=== PATIENT | female | born 1950 | race Caucasian/White ===

== ENCOUNTER 2020-07-31 15:28 | Outpatient (REF) | payer OTHER, SELFPAY ==
--- NOTE | 2020-07-31 15:33 | US_ITS ---
EXAMINATION: US RETROPERITONEAL LIMITED (RENAL ONLY) CLINICAL INFORMATION: Unspecified abdominal pain. COMPARISON: None TECHNIQUE: Real-time imaging of the kidneys. FINDINGS: RIGHT KIDNEY: 12.0 x 4.0 x 6.2 cm (SAG x AP x TRV). There is diffuse renal cortical thinning and increased renal cortical echogenicity. The kidney is normal in size and contour. No focal parenchymal lesions or hydronephrosis. Several echogenic, shadowing right renal calculi are seen including 8 mm and 4 mm lower pole calculi and a 1.7 cm calculus in the right mid kidney. LEFT KIDNEY: 13.5 x 4.1 x 4.7 cm (SAG x AP x TRV). There is diffuse renal cortical thinning and increased renal cortical echogenicity. The kidney is normal in size and contour. No renal calculi or hydronephrosis. 1.6 and 1.9 cm anechoic simple cysts are seen in the left kidney. US/US renal BI IMPRESSION: Bilateral renal cortical thinning and increased renal cortical echogenicity consistent with medical renal disease. Several echogenic shadowing right renal calculi are seen, the largest 1.7 cm in the right mid kidney. No hydronephrosis bilaterally.
== END 2020-07-31 15:29 | disposition home or self-care (01) ==
LOC: HO.HMGCX 15:28
PROVIDERS: PCP Internal Medicine; Visit Provider Nurse Practitioner Family
DX: R10.9 Unspecified abdominal pain (principal); R31.9 Hematuria, unspecified
CPT/HCPCS: 76775

== ENCOUNTER 2021-02-15 12:45 | Outpatient (REF) | payer MEDICARE, SELFPAY ==
[2021-02-15 14:09] LABS: MANUAL DIFF FLAG NO
[2021-02-15 14:14] LABS: Basophils Absolute Auto 0.1 X10*3/uL (0.0-0.2); Basophils Percent Auto 0.7 % (0-2); Eosinophils Absolute Auto 0.1 X10*3/uL (0.0-0.4); Eosinophils Percent Auto 1.9 % (0-4); Hemoglobin 14.9 g/dl (12.0-16.0); Imm Gran Abs Auto 0.02 X10*3/uL (0.00-0.03); Imm Gran Pct Auto 0.3 % (0.0-0.4); Lymphocytes Absolute Auto 1.4 X10*3/uL (1.2-4.9); Lymphocytes Percent Auto 18.5 % (20-40); Mean Corpuscular HGB Conc 32.4 g/dl (31.0-35.0); Mean Corpuscular Volume 98.9 fL (80-98); Mean Platelet Volume 10.2 fL (9.4-12.3); Monocytes Absolute Auto 0.5 X10*3/uL (0.1-1.2); Monocytes Percent Auto 7.2 % (2-11); Neutrophils Absolute Auto 5.3 X10*3/uL (2.0-8.3); Neutrophils Percent Auto 71.4 % (45-73); Platelet Count 164 X10*3/uL (160-400); Red Blood Count 4.65 X10*6/uL (4.20-5.50); Red Cell Distribution Width 13.2 % (11.0-16.0); White Blood Count 7.5 X10*3/uL (4.8-10.8)
[2021-02-15 14:29] LABS: Alanine Aminotransferase 23 U/L (0-31); Albumin Level 3.3 g/dL (3.5-5.0); Alkaline Phosphatase 80 U/L (39-117); Anion Gap 15 (12-20); Aspartate Amino Transferase 37 U/L (5-31); Blood Urea Nitrogen 10 mg/dL (9-16); Calcium 8.9 mg/dL (8.4-10.2); Carbon Dioxide 27 mmol/L (22-29); Chloride 102 mmol/L (96-108); Cholesterol 152 mg/dL; Estimated Glomerular Filt Rate 52; Glucose Fasting 226 mg/dL (60-99); HDL Cholesterol 40 mg/dL; LDL Cholesterol Calculated 92 mg/dl; Potassium 4.6 mmol/L (3.3-5.1); Sodium 139 mmol/L (135-145); Total Protein 7.1 g/dL (6.5-8.0); Triglycerides 100 mg/dL
[2021-02-15 14:37] LABS: Creatinine Urine 117.72 mg/dL; Microalbum/Creatinine Ratio Ur 316.8 ug/mg cr
[2021-02-15 14:52] LABS: Vitamin D 25-OH Total 10.8 ng/mL (>30)
== END 2021-02-15 12:46 | disposition home or self-care (01) ==
LOC: HO.HMGCLDS 12:45
PROVIDERS: PCP Internal Medicine; Visit Provider Internal Medicine
DX: R10.9 Unspecified abdominal pain (principal); E11.65 Type 2 diabetes mellitus with hyperglycemia; E66.01 Morbid (severe) obesity due to excess calories; N39.46 Mixed incontinence; Z79.4 Long term (current) use of insulin
CPT/HCPCS: 36415; 80048; 80053; 80061; 82043; 82306; 85025

== ENCOUNTER → 2021-04-06 13:59 | Outpatient (BNVA) | payer MEDICARE, SELFPAY | PROVIDERS: PCP Internal Medicine | DX: N39.46 Mixed incontinence (principal); N20.0 Calculus of kidney | CPT/HCPCS: 51798; 99202 ==

== ENCOUNTER → 2021-05-06 09:49 | Outpatient (BNVA) | payer MEDICARE, SELFPAY | PROVIDERS: PCP Internal Medicine | DX: N39.46 Mixed incontinence (principal); N20.0 Calculus of kidney | CPT/HCPCS: Q3014 ==

== ENCOUNTER 2021-05-27 10:11 | Outpatient (REF) | payer MEDICARE, SELFPAY ==
[2021-05-27 12:09] LABS: Estimated Average Glucose 200 mg/dL; Hemoglobin A1c % 8.6 %
[2021-05-27 13:09] LABS: Alanine Aminotransferase 25 U/L (0-31); Albumin Level 3.1 g/dL (3.5-5.0); Alkaline Phosphatase 70 U/L (39-117); Anion Gap 12 (12-20); Aspartate Amino Transferase 45 U/L (5-31); Bilirubin Total 1.4 mg/dL (0.0-1.0); Blood Urea Nitrogen 10 mg/dL (9-16); Calcium 8.3 mg/dL (8.4-10.2); Carbon Dioxide 27 mmol/L (22-29); Chloride 103 mmol/L (96-108); Cholesterol 141 mg/dL; Estimated Glomerular Filt Rate > 60; Glucose Fasting 106 mg/dL (60-99); HDL Cholesterol 29 mg/dL; LDL Cholesterol Calculated 89 mg/dl; Sodium 138 mmol/L (135-145); Total Protein 7.8 g/dL (6.5-8.0); Triglycerides 118 mg/dL
[2021-05-27 13:15] LABS: Creatinine Urine 135.02 mg/dL; Microalbum/Creatinine Ratio Ur 397.7 ug/mg cr
[2021-05-27 13:20] LABS: Vitamin D 25-OH Total 42.8 ng/mL (>30)
== END 2021-05-27 10:12 | disposition home or self-care (01) ==
LOC: HO.HMGCLDS 10:11
PROVIDERS: PCP Internal Medicine; Visit Provider Internal Medicine
DX: E11.65 Type 2 diabetes mellitus with hyperglycemia (principal); E66.01 Morbid (severe) obesity due to excess calories; M06.9 Rheumatoid arthritis, unspecified; Z79.4 Long term (current) use of insulin
CPT/HCPCS: 36415; 80053; 80061; 82043; 82306; 83036

== ENCOUNTER 2021-07-12 11:06 | Outpatient (REF) | payer MEDICARE, SELFPAY ==
--- NOTE | ~2021-07-12 | US_ITS ---
EXAMINATION: US RETROPERITONEAL LIMITED (RENAL ONLY) CLINICAL INFORMATION: Calculus of kidney. COMPARISON: Bilateral renal ultrasound dated 07/31/2020. TECHNIQUE: Real-time imaging of the kidneys. FINDINGS: RIGHT KIDNEY: 14.0 x 4.8 x 4.9 cm (SAG x AP x TRV). The kidney is normal in size, contour, and echogenicity. Renal cortical thickness is normal. There are 5 stones seen by ultrasound. The largest measures 2.1 x 0.8 cm in the midpole. There are smaller stones in the mid and lower pole No focal parenchymal lesions or hydronephrosis. LEFT KIDNEY: 13.0 x 5.0 x 4.6 cm (SAG x AP x TRV). The kidney is normal in size, contour, and echogenicity. Renal cortical thickness is normal. There are 2 left renal cysts measuring 1.5 x 1.7 x 1.8 cm and 2 x 1.9 x 1.9 cm. No renal calculi or hydronephrosis. US/US renal BI IMPRESSION: Right renal stones. Left renal cysts.
== END 2021-07-12 11:07 | disposition home or self-care (01) ==
LOC: HO.US 11:06
DX: N20.0 Calculus of kidney (principal)
CPT/HCPCS: 76775

== ENCOUNTER → 2021-08-06 09:48 | Outpatient (BNVA) | payer MEDICARE, SELFPAY | PROVIDERS: PCP Internal Medicine | DX: N20.0 Calculus of kidney (principal); N39.46 Mixed incontinence | CPT/HCPCS: Q3014 ==

== ENCOUNTER 2021-08-30 08:50 | Outpatient (REF) | payer MEDICARE, SELFPAY ==
[2021-08-30 11:34] LABS: Estimated Average Glucose 163 mg/dL; Hemoglobin A1c % 7.3 %
[2021-08-30 11:36] LABS: Alanine Aminotransferase 21 U/L (0-31); Anion Gap 11 (12-20); Aspartate Amino Transferase 33 U/L (5-31); Blood Urea Nitrogen 10 mg/dL (9-16); Calcium 8.5 mg/dL (8.4-10.2); Carbon Dioxide 28 mmol/L (22-29); Chloride 107 mmol/L (96-108); Cholesterol 151 mg/dL; Estimated Glomerular Filt Rate > 60; Glucose Fasting 153 mg/dL (60-99); HDL Cholesterol 41 mg/dL; LDL Cholesterol Calculated 91 mg/dl; Potassium 4.5 mmol/L (3.3-5.1); Sodium 141 mmol/L (135-145); Triglycerides 99 mg/dL
== END 2021-08-30 08:51 | disposition home or self-care (01) ==
LOC: HO.HMGCLDS 08:50
PROVIDERS: Visit Provider Internal Medicine
DX: I10 Essential (primary) hypertension (principal); E08.29 Diabetes mellitus due to underlying condition with other diabetic kidney complication; R80.9 Proteinuria, unspecified; E66.01 Morbid (severe) obesity due to excess calories; Z79.4 Long term (current) use of insulin
CPT/HCPCS: 36415; 80048; 80061; 83036; 84450; 84460

== ENCOUNTER 2021-08-31 09:56 | Outpatient (REF) | payer MEDICARE, SELFPAY ==
--- NOTE | ~2021-08-31 | CT_ITS ---
EXAMINATION: CT ABDOMEN AND PELVIS WITHOUT CONTRAST CLINICAL INFORMATION: Kidney stone COMPARISON: Previous renal ultrasound July 2021 TECHNIQUE: Multidetector volumetric imaging was performed from the superior aspect of the liver through the pubic symphysis. Sagittal and coronal reformatted images were obtained on the technologist's workstation. This CT examination was performed using dose optimization techniques as appropriate, variously including the following: *Automated exposure control *Adjustment of mA and/or kV according to patient size (this includes techniques or standardized protocols for targeted exams where dose is matched to indication/reason for exam; i.e. extremities or head) *Use of iterative reconstruction technique DLP: 700 mGy-cm FINDINGS: LUNG BASES: The visualized lung bases are unremarkable. LIVER, GALLBLADDER, AND BILIARY TREE: The liver is cirrhotic. No focal liver lesion is appreciated. The gallbladder is been removed. There is no biliary duct dilatation. PANCREAS: Unremarkable. SPLEEN: Enlarged measuring 16.5 cm in length. ADRENAL GLANDS: Unremarkable. KIDNEYS AND URETERS: There is a large 1.3 x 1 cm Central stone in the right renal pelvis. There are cysts multiple small right lower pole renal stones largest measuring 3 mm. There is mild right hydronephrosis. There is some stranding of the fat surrounding the right renal pelvis. There are 2 left renal cysts. The left kidney is otherwise unremarkable. BLADDER: Not distended and not well evaluated GASTROINTESTINAL TRACT: The cecum is located high in the right upper quadrant. Small and large bowel is otherwise unremarkable. The appendix is not seen. The stomach is unremarkable. ABDOMINAL WALL: There were multiple adjacent ventral hernias containing fat above the umbilicus. Measured together as one hernia this measures 4 x 13 x 8 cm in AP transverse and longitudinal dimension. There is a lower right abdominal wall hernia containing varices and a small amount of fluid. LYMPH NODES: Normal. VASCULAR: There are multiple varices. No ascites is seen in the abdomen or pelvis. There is ascites seen in the right perinephric and lower abdominal wall hernia. The abdominal aorta is calcified but normal in caliber. PELVIC VISCERA: Unremarkable. OSSEOUS STRUCTURES: There are degenerative changes of the spine. CT/CT abdomen pelvis wo con IMPRESSION: Multiple right renal stones, largest a 1 x 1.3 cm central renal pelvis stone. Mild right hydronephrosis. Inflammatory changes in the fat surrounding the right renal pelvis. Left renal cysts. Cirrhotic-appearing liver enlarged spleen and multiple large varices. Multiple abdominal wall hernias. The most inferior right lower abdominal wall hernia to the right of midline contains varices and fluid. Fleischner guidelines were followed.
== END 2021-08-31 09:57 | disposition home or self-care (01) ==
LOC: HO.CT 09:56
DX: N20.0 Calculus of kidney (principal)
CPT/HCPCS: 74176

== ENCOUNTER → 2021-09-06 10:49 | Outpatient (BNVA) | payer MEDICARE, SELFPAY | PROVIDERS: PCP Internal Medicine | DX: N39.46 Mixed incontinence (principal); N20.0 Calculus of kidney; Z79.899 Other long term (current) drug therapy | CPT/HCPCS: 51798; 99212 ==

== ENCOUNTER → 2021-09-07 10:52 | Outpatient (BNVA) | payer MEDICARE, SELFPAY | PROVIDERS: PCP Internal Medicine; Visit Provider Internal Medicine Endocrinology, Diabetes & Metabolism | DX: E11.29 Type 2 diabetes mellitus with other diabetic kidney complication (principal); R80.9 Proteinuria, unspecified; Z79.4 Long term (current) use of insulin | CPT/HCPCS: 82947; 99202 ==

== ENCOUNTER → 2021-09-08 09:06 | Outpatient (BNVA) | payer MEDICARE, SELFPAY | PROVIDERS: PCP Internal Medicine; Visit Provider Dietitian, Registered | DX: E11.65 Type 2 diabetes mellitus with hyperglycemia (principal) | CPT/HCPCS: 97802 ==

== ENCOUNTER → 2021-10-11 12:30 | Outpatient (BNVA) | payer MEDICARE, SELFPAY | PROVIDERS: PCP Internal Medicine; Visit Provider Registered Nurse Diabetes Educator | DX: E11.65 Type 2 diabetes mellitus with hyperglycemia (principal) | CPT/HCPCS: Q3014 ==

== ENCOUNTER → 2021-10-22 09:57 | Outpatient (BNVA) | payer MEDICARE, SELFPAY | PROVIDERS: PCP Internal Medicine; Visit Provider Dietitian, Registered | DX: E11.65 Type 2 diabetes mellitus with hyperglycemia (principal); Z79.4 Long term (current) use of insulin; Z71.3 Dietary counseling and surveillance | CPT/HCPCS: 97803 ==

== ENCOUNTER 2021-10-26 11:02 | Outpatient (REF) | payer MEDICARE, SELFPAY ==
--- NOTE | ~2021-10-26 | US_ITS ---
EXAMINATION: US RETROPERITONEAL LIMITED (RENAL ONLY) CLINICAL INFORMATION: Calculus of kidney. COMPARISON: CT abdomen and pelvis 08/31/2021. US retroperitoneal limited (renal only) 07/12/2021 and 07/31/2020. TECHNIQUE: Real-time imaging of the kidneys. FINDINGS: RIGHT KIDNEY: 13.3 x 4.1 x 5.2 cm (SAG x AP x TRV). The kidney is normal in size, contour, and echogenicity. Renal cortical thickness is normal. No hydronephrosis. Multiple echogenic structures likely stones 1.1 x 0.9 x 0.9 cm, 3 x 1 x 2.2 cm, 0.6 x 0.8 x 0.8 cm, 1.1 x 0.7 x 1.1 cm and 0.9 x 0.9 x 1.1 cm. There is a small cyst lower pole 1.3 x 1 x 1.2 cm. LEFT KIDNEY: 13.0 x 5.0 x 6.1 cm (SAG x AP x TRV). The kidney is normal in size, contour, and echogenicity. Renal cortical thickness is normal. No renal calculi or hydronephrosis. Cyst in the lower pole 1.8 x 1.8 x 1.8 cm, cyst in the lateral 2.2 x 1.8 x 1.8 cm. US/US renal BI IMPRESSION: *Multiple nonobstructing stones in the right kidney. *Bilateral simple renal cysts. *no ultrasound evidence of hydronephrosis..
== END 2021-10-26 11:03 | disposition home or self-care (01) ==
LOC: HO.US 11:02
DX: N20.0 Calculus of kidney (principal)
CPT/HCPCS: 76775

== ENCOUNTER → 2021-11-10 12:51 | Outpatient (BNVA) | payer MEDICARE, SELFPAY | PROVIDERS: PCP Internal Medicine; Visit Provider Internal Medicine Endocrinology, Diabetes & Metabolism | DX: E11.65 Type 2 diabetes mellitus with hyperglycemia (principal); E08.29 Diabetes mellitus due to underlying condition with other diabetic kidney complication; R80.9 Proteinuria, unspecified; Z79.4 Long term (current) use of insulin | CPT/HCPCS: 82947; 99212 ==

== ENCOUNTER 2021-12-18 07:40 | Outpatient (REF) | payer MEDICARE, SELFPAY ==
[2021-12-18 11:27] LABS: MANUAL DIFF FLAG NO
[2021-12-18 11:49] LABS: Basophils Percent Auto 0.3 % (0-2); Eosinophils Absolute Auto 0.3 X10*3/uL (0.0-0.4); Eosinophils Percent Auto 4.4 % (0-4); Hematocrit 41.7 % (37.0-47.0); Hemoglobin 13.5 g/dl (12.0-16.0); Imm Gran Abs Auto 0.02 X10*3/uL (0.00-0.03); Imm Gran Pct Auto 0.3 % (0.0-0.4); Lymphocytes Absolute Auto 1.2 X10*3/uL (1.2-4.9); Mean Corpuscular HGB Conc 32.4 g/dl (31.0-35.0); Mean Corpuscular Hemoglobin 34.4 pg (27.0-33.0); Mean Corpuscular Volume 106.1 fL (80.0-98.0); Mean Platelet Volume 10.1 fL (9.4-12.3); Monocytes Absolute Auto 0.4 X10*3/uL (0.1-1.2); Monocytes Percent Auto 7.3 % (2-11); Neutrophils Absolute Auto 3.9 x10*3/uL (2.0-8.3); Neutrophils Percent Auto 66.7 % (45-73); Platelet Count 120 X10*3/uL (160-400); Red Blood Count 3.93 X10*6/uL (4.20-5.50); Red Cell Distribution Width 13.3 % (11.0-16.0); White Blood Count 5.9 X10*3/uL (4.8-10.8)
[2021-12-18 12:00] LABS: Alanine Aminotransferase 20 U/L (0-31); Alkaline Phosphatase 66 U/L (39-117); Anion Gap 12 (12-20); Aspartate Amino Transferase 35 U/L (5-31); Blood Urea Nitrogen 13 mg/dL (9-16); Calcium 8.7 mg/dL (8.4-10.2); Carbon Dioxide 25 mmol/L (22-29); Chloride 107 mmol/L (96-108); Cholesterol 148 mg/dL; Estimated Glomerular Filt Rate 59; Glucose Fasting 161 mg/dL (60-99); HDL Cholesterol 42 mg/dL; LDL Cholesterol Calculated 88 mg/dl; Potassium 4.2 mmol/L (3.3-5.1); Sodium 140 mmol/L (135-145); Total Protein 7.7 g/dL (6.5-8.0); Triglycerides 94 mg/dL
[2021-12-18 12:06] LABS: Creatinine Urine 37.89 mg/dL; Microalbum/Creatinine Ratio Ur 438.1 ug/mg cr
[2021-12-18 12:22] LABS: Vitamin D 25-OH Total 24.3 ng/mL (>30)
== END 2021-12-18 07:41 | disposition home or self-care (01) ==
LOC: HO.HMGCLDS 07:40
PROVIDERS: PCP Internal Medicine; Visit Provider Internal Medicine
DX: Z01.818 Encounter for other preprocedural examination (principal); M06.9 Rheumatoid arthritis, unspecified; E08.29 Diabetes mellitus due to underlying condition with other diabetic kidney complication; R80.9 Proteinuria, unspecified; Z79.4 Long term (current) use of insulin; E66.01 Morbid (severe) obesity due to excess calories; Z85.3 Personal history of malignant neoplasm of breast; G47.33 Obstructive sleep apnea (adult) (pediatric); Z99.89 Dependence on other enabling machines and devices; J44.9 Chronic obstructive pulmonary disease, unspecified
CPT/HCPCS: 36415; 80053; 80061; 82043; 82306; 85025

== ENCOUNTER → 2022-01-03 10:18 | Outpatient (BNVA) | payer MEDICARE, SELFPAY | PROVIDERS: PCP Internal Medicine | DX: N20.0 Calculus of kidney (principal); N28.1 Cyst of kidney, acquired; N32.81 Overactive bladder | CPT/HCPCS: Q3014 ==

== ENCOUNTER → 2022-01-05 12:33 | Outpatient (BNVA) | payer MEDICARE, SELFPAY | PROVIDERS: PCP Internal Medicine; Visit Provider Dietitian, Registered | DX: E11.65 Type 2 diabetes mellitus with hyperglycemia (principal); Z71.3 Dietary counseling and surveillance | CPT/HCPCS: 97803 ==

== ENCOUNTER → 2022-03-15 10:42 | Outpatient (BNVA) | payer MEDICARE, SELFPAY | PROVIDERS: PCP Internal Medicine; Visit Provider Internal Medicine Endocrinology, Diabetes & Metabolism | DX: E11.65 Type 2 diabetes mellitus with hyperglycemia (principal); R80.9 Proteinuria, unspecified; E08.29 Diabetes mellitus due to underlying condition with other diabetic kidney complication; Z79.4 Long term (current) use of insulin | CPT/HCPCS: 82947; 83036; 99212 ==

== ENCOUNTER → 2022-05-13 14:59 | Outpatient (BNVA) | payer MEDICARE, SELFPAY | PROVIDERS: PCP Internal Medicine; Visit Provider Registered Nurse Diabetes Educator | DX: E11.9 Type 2 diabetes mellitus without complications (principal) | CPT/HCPCS: 99211 ==

== ENCOUNTER → 2022-05-27 13:45 | Outpatient (BNVA) | payer MEDICARE, SELFPAY | PROVIDERS: PCP Internal Medicine; Visit Provider Registered Nurse Diabetes Educator | DX: E11.9 Type 2 diabetes mellitus without complications (principal) | CPT/HCPCS: Q3014 ==

== ENCOUNTER 2022-06-15 13:11 | Outpatient (REF) | payer MEDICARE, SELFPAY ==
--- NOTE | ~2022-06-15 | US_ITS ---
EXAMINATION: US RETROPERITONEAL LIMITED (RENAL ONLY) CLINICAL INFORMATION: Calculus of kidney. COMPARISON: Ultrasound retroperitoneal limited (renal only) 10/26/2021. CT abdomen and pelvis without contrast 08/31/2021. Ultrasound retroperitoneal limited (renal only) 07/12/2021. TECHNIQUE: Real-time imaging of the kidneys. FINDINGS: RIGHT KIDNEY: 14.1 x 4.9 x 7.4 cm (SAG x AP x TRV). The kidney is normal in size, contour, and echogenicity. Renal cortical thickness is normal. No focal parenchymal lesions or hydronephrosis. Multiple large nonobstructing right renal stones the largest measuring 4.7 cm increased from prior previously 3.0 cm. LEFT KIDNEY: 12.5 x 4.9 x 4.1 cm (SAG x AP x TRV). The kidney is normal in size, contour, and echogenicity. Renal cortical thickness is normal. No renal calculi or hydronephrosis. Benign-appearing renal cysts measuring up to 2.2 cm, no imaging follow-up recommended. US/US renal BI IMPRESSION: Multiple large nonobstructing right renal stones the largest measures 4.7 cm increased in size from prior, previously 3 cm.
== END 2022-06-15 13:12 | disposition home or self-care (01) ==
LOC: HO.US 13:11
DX: N20.0 Calculus of kidney (principal)
CPT/HCPCS: 76775

== ENCOUNTER → 2022-07-08 12:56 | Outpatient (BNVA) | payer MEDICARE, SELFPAY | PROVIDERS: PCP Internal Medicine; Visit Provider Nurse Practitioner Family | DX: N39.46 Mixed incontinence (principal) | CPT/HCPCS: Q3014 ==

== ENCOUNTER → 2022-07-22 11:30 | Outpatient (BNVA) | payer MEDICARE, SELFPAY | PROVIDERS: PCP Internal Medicine; Visit Provider Registered Nurse Diabetes Educator | DX: E11.65 Type 2 diabetes mellitus with hyperglycemia (principal); Z79.4 Long term (current) use of insulin | CPT/HCPCS: 99211 ==

== ENCOUNTER 2022-08-13 09:34 | Outpatient (REF) | payer MEDICARE, SELFPAY ==
--- NOTE | ~2022-08-13 | XR_ITS ---
EXAMINATION: XR CHEST, 2 VIEWS CLINICAL INFORMATION: Cough, unspecified. COMPARISON: None. TECHNIQUE: PA and lateral views of the chest were obtained. FINDINGS: Mild perihilar bronchial thickening. No consolidation, pneumothorax, or pleural effusion. Cardiac and mediastinal contours are normal. Pulmonary vasculature is unremarkable. Trachea is midline. Degenerative disc disease is present in the thoracic spine. Status post left total shoulder arthroplasty. XR/XR chest 2V IMPRESSION: Bronchial wall thickening can be seen with a small airways process such as asthma or atypical/viral infection.
[2022-08-13 10:50] LABS: MANUAL DIFF FLAG NO
[2022-08-13 10:55] LABS: Basophils Absolute Auto 0.1 X10*3/uL (0.0-0.2); Basophils Percent Auto 0.4 % (0-2); Eosinophils Absolute Auto 0.3 X10*3/uL (0.0-0.4); Eosinophils Percent Auto 2.1 % (0-4); Hematocrit 37.3 % (37.0-47.0); Hemoglobin 11.7 g/dl (12.0-16.0); Imm Gran Abs Auto 0.07 X10*3/uL (0.00-0.03); Imm Gran Pct Auto 0.6 % (0.0-0.4); Lymphocytes Absolute Auto 1.5 X10*3/uL (1.2-4.9); Lymphocytes Percent Auto 12.9 % (20-40); Mean Corpuscular HGB Conc 31.4 g/dl (31.0-35.0); Mean Corpuscular Hemoglobin 31.8 pg (27.0-33.0); Mean Corpuscular Volume 101.4 fL (80.0-98.0); Mean Platelet Volume 9.2 fL (9.4-12.3); Monocytes Absolute Auto 0.8 X10*3/uL (0.1-1.2); Monocytes Percent Auto 6.7 % (2-11); Neutrophils Absolute Auto 9.1 x10*3/uL (2.0-8.3); Neutrophils Percent Auto 77.3 % (45-73); Platelet Count 182 X10*3/uL (160-400); Red Blood Count 3.68 X10*6/uL (4.20-5.50); Red Cell Distribution Width 14.6 % (11.0-16.0); White Blood Count 11.7 X10*3/uL (4.8-10.8)
[2022-08-13 12:16] LABS: Alanine Aminotransferase 14 U/L (0-31); Albumin Level 2.3 g/dL (3.5-5.0); Alkaline Phosphatase 89 U/L (39-117); Anion Gap 13 (12-20); Aspartate Amino Transferase 27 U/L (5-31); B Type Natriuretic Peptide 29 pg/mL (<100); Blood Urea Nitrogen 20 mg/dL (9-16); Calcium 8.3 mg/dL (8.4-10.2); Carbon Dioxide 21 mmol/L (22-29); Chloride 106 mmol/L (96-108); Cholesterol 104 mg/dL; Estimated Glomerular Filt Rate 39; Glucose Fasting 119 mg/dL (60-99); HDL Cholesterol 25 mg/dL; LDL Cholesterol Calculated 66 mg/dl; Potassium 4.6 mmol/L (3.3-5.1); Sodium 135 mmol/L (135-145); Total Protein 8.6 g/dL (6.5-8.0); Triglycerides 67 mg/dL
[2022-08-13 12:55] LABS: Folate 15.4 ng/mL (> or = 4.0); TSH reflex Free T4 2.71 uIU/mL (0.32-4.0); Vitamin B12 968 pg/mL (200-900)
== END 2022-08-13 09:35 | disposition home or self-care (01) ==
LOC: HO.HMGCLDS 09:34
PROVIDERS: Visit Provider Internal Medicine
DX: E11.65 Type 2 diabetes mellitus with hyperglycemia (principal); E66.01 Morbid (severe) obesity due to excess calories; I10 Essential (primary) hypertension; I87.2 Venous insufficiency (chronic) (peripheral); J44.9 Chronic obstructive pulmonary disease, unspecified; R06.02 Shortness of breath; R05.9 Cough, unspecified; Z79.4 Long term (current) use of insulin
CPT/HCPCS: 36415; 71046; 80053; 80061; 82306; 82607; 82746; 83880; 84443; 85025

== ENCOUNTER → 2022-08-30 08:14 | Outpatient (BNVA) | payer MEDICARE, SELFPAY | PROVIDERS: PCP Internal Medicine; Visit Provider Internal Medicine Endocrinology, Diabetes & Metabolism | DX: E11.65 Type 2 diabetes mellitus with hyperglycemia (principal); E08.29 Diabetes mellitus due to underlying condition with other diabetic kidney complication; R80.9 Proteinuria, unspecified; Z79.4 Long term (current) use of insulin | CPT/HCPCS: 82947; 83036; 99212 ==

== ENCOUNTER → 2022-11-18 11:00 | Outpatient (BNVA) | payer MEDICARE, SELFPAY | PROVIDERS: Visit Provider Registered Nurse Diabetes Educator | DX: E11.65 Type 2 diabetes mellitus with hyperglycemia (principal); Z79.4 Long term (current) use of insulin | CPT/HCPCS: 99211 ==

== ENCOUNTER 2023-01-26 14:35 | Outpatient (AMB) | payer MEDICARE, SELFPAY ==
--- NOTE | 2023-01-24 13:45 | A.OFFVIS_ITS ---
Intake Intake Visit Reasons: DM Allergies nickel Allergy (Mild, Verified 08/30/22 08:23) Rash injection of steriods Allergy (Unknown, Uncoded 08/30/22 08:23) rash iodine Allergy (Unknown, Uncoded 08/30/22 08:23) anaphylaxis wool Allergy (Unknown, Uncoded 08/30/22 08:23) rash HPI Comprehensive Diabetes Asmnt Most Recent Diabetes Results: Cholesterol 104 mg/dL 08/13/22 HDL Cholesterol 25 mg/dL 08/13/22 Triglycerides 67 mg/dL 08/13/22 Creatinine 1.33 mg/dL (0.5-1.4) 08/13/22 Blood Urea Nitrogen 20 mg/dL (9-16) H 08/13/22 Sodium 135 mmol/L (135-145) 08/13/22 Potassium 4.6 mmol/L (3.3-5.1) 08/13/22 Chloride 106 mmol/L (96-108) 08/13/22 Carbon Dioxide 21 mmol/L (22-29) L 08/13/22 Calcium 8.3 mg/dL (8.4-10.2) L 08/13/22 AST 27 U/L (5-31) 08/13/22 ALT 14 U/L (0-31) 08/13/22 Total Protein 8.6 g/dL (6.5-8.0) H 08/13/22 Albumin 2.3 g/dL (3.5-5.0) L 08/13/22 [facility] Medical History (Updated 08/14/22 @ 02:28 by Naima Boyle MD) Acute kidney injury Calculus of kidney COPD (chronic obstructive pulmonary disease) Cough 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, with long- term current use of insulin Diabetes mellitus with hyperglycemia, with long-term current use of insulin Essential hypertension History of invasive breast cancer Lobular breast cancer Morbid obesity MAYA on CPAP Recurrent nephrolithiasis Rheumatoid arthritis Right nephrolithiasis Shortness of breath on exertion Urge and stress incontinence Venous insufficiency (chronic) (peripheral) Surgical History History of appendectomy History of shoulder replacement Hx of cataract extraction Hx of cholecystectomy Hx of discectomy Hx of mastectomy Hx of umbilical hernia repair Social History (Reviewed 02/21/23 @ 08:25 by CARLI Soliman Housing: Condominium Patient Tobacco Use Status: Former Tobacco user Quit Date: Over 12 years Years Smoked: 30 yrs e-Cigarette/Vaping Use: Never Used Second Hand Smoke Exposure: No service: No Current occupational status: disabled Cognitive needs: No Hearing needs: No Vision needs: Yes Assessment & Plan Assessment & Plan (1) Diabetes mellitus with hyperglycemia, with long-term current use of insulin: Code(s): E11.65 - Type 2 diabetes mellitus with hyperglycemia; Z79.4 - 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 4% Hyperglycemia:? 23% Time in Range:? 73% Average glucose for the last 2 weeks?147 mg/dL Patient is still experiencing some overnight hypoglycemia, but having postprandial hyperglycemia after breakfast. Recommended to patient she decrease Lantus from 10 units to 8 units Increase Humalog before breakfast back to 12 units Reviewed how to interpret trend arrows Reminded patient that to check finger sticks if symptoms do not match sensor reading. Discussed lag time between finger stick and sensor data.? Patient able to insert sensor independently at home without issue.? Patient Instructions: follow up in 1 month Coding Level of Care Code Est Pt Level 1 (70044) Diagnoses Diabetes mellitus with hyperglycemia, with long-term current use of insulin E 11.65; Z79.4
== END 2023-01-26 14:35 | disposition home or self-care (01) ==
LOC: HO.ENCR 14:35
PROVIDERS: PCP Internal Medicine; Visit Provider Registered Nurse Diabetes Educator
DX: E11.65 Type 2 diabetes mellitus with hyperglycemia (principal); Z79.4 Long term (current) use of insulin

== ENCOUNTER → 2023-01-26 14:35 | Outpatient (BNVA) | payer MEDICARE, SELFPAY | PROVIDERS: PCP Internal Medicine; Visit Provider Registered Nurse Diabetes Educator | DX: E11.65 Type 2 diabetes mellitus with hyperglycemia (principal); Z79.4 Long term (current) use of insulin ==

== ENCOUNTER 2023-02-07 13:41 | Outpatient (AMB) | payer MEDICARE, SELFPAY ==
--- NOTE | 2023-02-07 13:43 | A.OFFVIS_ITS ---
Intake Vital Signs 02/07/23 13:45 Height 5 ft Weight 207 lb BMI 40.4 BP 116/60 Blood Pressure Location Rt brachial Position Sitting Pulse 71 Pulse Source Pulse Oximeter Intake Visit Reasons: f/u Type 2 DM Intake Note: Patient receives DME supplies through: [employer] [facility] [employer] Last Diabetic Eye exam: 07/2022 Last Podiatry Visit: None Random Glucose: 219mg/dl HgA1C: 6.3% 02/07/2023 Development Eng Required: No Accompanied by: Self / Same As Patient Allergies nickel Allergy (Mild, Verified 02/07/23 14:01) Rash injection of steriods Allergy (Unknown, Uncoded 02/07/23 14:01) rash iodine Allergy (Unknown, Uncoded 02/07/23 14:01) anaphylaxis wool Allergy (Unknown, Uncoded 02/07/23 14:01) rash Medication List - Last Reconciled 02/07/23 by Marc Joseph MD aclidinium bromide 400 mcg/actuation 1 inh PO BID albuterol sulfate 90 mcg/actuation 0 mcg inhalation albuterol sulfate mg inhalation anastrozole 1 mg PO DAILY blood sugar diagnostic (OneTouch Verio test strips) TESTS AT LEAST 4 TIMES DAILY blood-glucose meter (OneTouch Verio Flex Meter) USE METER TO TEST AT LEAST 4 TIMES DAILY dulaglutide (Trulicity) 1.5 mg (0.5 mL) subcut QWEEK flash glucose scanning reader (Station XStyle Jonny 2 Immaculata) As directed flash glucose sensor (FreeStyle Jonny 2 Sensor kit) As directed fluticasone propionate 50 mcg/actuation sprays intranasal aebidjvkqcd-grctvgcxn-vfdobhzd 100-62.5-25 mcg 1 ea inhalation QAM furosemide 40 mg PO QAM Humalog KwikPen Insulin (insulin lispro) 10 units (0.1 mL) subcut TID NS lancets As directed Lantus Solostar U-100 Insulin (insulin glargine) 12 units (0.12 mL) subcut QPM NS lisinopril 5 mg PO DAILY montelukast 10 mg PO DAILY mupirocin 2% 1 appl topical TID nystatin-triamcinolone 100,000-0.1 unit/gram-% 1 appl topical DAILY 7 days oxybutynin chloride ER 10 mg PO BID oxycodone 5 mg PO Q4H PRN paroxetine HCl 40 mg PO QAM pen needle, diabetic (BD Theodora 2nd Gen Pen Needle) inject insulin up to 4x a day potassium chloride ER 20 mEq PO BID pyridoxine (vitamin B6) 100 mg PO DAILY tolterodine ER 4 mg PO DAILY HPI HPI Comments History of Present Illness Details 72 YO female who is seen in consultation for T2DM at the request of PCP. Initially diagnosed with T2DM in 10 yrs . Was initially started on treatment with metformin had diarrhea . Saw sandra in [place] Current regimen glargine 8 units. Humalog 12 units aC prebreakfat, 10 prelunch and dinner Trulicity 1.5 mg Jonny download shows she is wearing the sensor 82% of the time. Average glucose is 142 with G mi of 6.7% and variability 36.7 %. 75% range with 21% hyperglycemia and 4% very hypoglycemic and 0% very hyperglycemic Pattern shows overnight hypoglycemia Not Reports low sugars rarely Treats lows with eats bananna . Checks sugar after to ensure it is rising. Treats according to rule of 15's. Family history of T2DM in mother . Has eyes checked yearly, last eye exam Jun 2021 cataract surgery , denies retinopathy. Denies neuropathy, last foot exam , does not sees podiatry. Denies nephropathy, does have microalbuminuria on ROBBIE . Has HLD, on statin. Last LDL as measured on . Denies CAD. Had diabetes education in past . [facility] Medical History Acute kidney injury Calculus of kidney COPD (chronic obstructive pulmonary disease) Cough 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, with long- term current use of insulin Diabetes mellitus with hyperglycemia, with long-term current use of insulin Essential hypertension History of invasive breast cancer Lobular breast cancer Morbid obesity MAYA on CPAP Recurrent nephrolithiasis Rheumatoid arthritis Right nephrolithiasis Shortness of breath on exertion Urge and stress incontinence Venous insufficiency (chronic) (peripheral) Surgical History History of appendectomy History of shoulder replacement Hx of cataract extraction Hx of cholecystectomy Hx of discectomy Hx of mastectomy Hx of umbilical hernia repair Social History [facility] Patient Tobacco Use Status: Former Tobacco user Quit Date: Over 12 years Years Smoked: 30 yrs e-Cigarette/Vaping Use: Never Used Second Hand Smoke Exposure: No service: No Current occupational status: disabled Cognitive needs: No Hearing needs: No Vision needs: Yes Physical Exam Vital Signs: Last Vital Signs Pulse 71 02/07/23 13:45 BP 116/60 02/07/23 13:45 BMI result Body Mass Index 40.4 Absence of Cushingoid features. Absence of acromegalic features. Neck exam revea ls nl size thyroid about 15 gms. No thyroid nodules palpable. No carotid bruits present. Lungs CTA. Heart S1 S2, Reg R/R. No M/R/ G. Skin exam reveals absence of vitiligo or acanthosis nigricans. Abdominal exam reveals Soft NT/ND with NA BS. No organomegaly present. Neck Other: . Extrem Other: Visual exam of foot performed. No ulcerations or open lesions. No onchomycosis, no callouses.Pulses 2 + distally Sensation intact to monofilament exam. Vibratory sensation sensed is decreased with 128 Hz tuning fork, . There is 2+ edema present around the ankles. 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 The plan is to decrease Lantus to 4 units and discontinue if continued hypoglycemia overnight Will increase Trulicity to 3 mg q.week. Will decrease prandial insulin to scale of Humalog 151-200 6 units, 201-250 8 units and> 250 10 units. Would like to add Farxiga for renal protection in future after UTI resolved . Orders: Orders AMB Hemoglobin A1c Today E11.9 - Type 2 diabetes mellitus without complications Medications: New dulaglutide (Trulicity) 3 mg (0.5 mL) subcut QWEEK 2 mL 4RF Discontinued dulaglutide (Trulicity) Discontinued Reason: Doctor's Order 1.5 mg (0.5 mL) subcut QWEEK 2 mL 5RF Coding Level of Care Code Est Pt Level 4 (11891) Diagnoses 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, with long- term current use of insulin E08.29; R80.9; Z79.4
[2023-02-07 13:45] VITALS: BP 116/60; PULSE 71; BMI 40.4
[2023-02-07 14:07] LABS: Glucose, Whole Blood 219 mg/dL (60-115)
== END 2023-02-07 14:32 | disposition home or self-care (01) ==
PROVIDERS: PCP Internal Medicine; Referring Provider Internal Medicine; Visit Provider Internal Medicine Endocrinology, Diabetes & Metabolism
DX: R80.9 Proteinuria, unspecified (principal); E08.29 Diabetes mellitus due to underlying condition with other diabetic kidney complication; Z79.4 Long term (current) use of insulin
CPT/HCPCS: 99214

== ENCOUNTER → 2023-02-07 13:41 | Outpatient (BNVA) | payer MEDICARE, SELFPAY | PROVIDERS: Visit Provider Internal Medicine Endocrinology, Diabetes & Metabolism | DX: E11.9 Type 2 diabetes mellitus without complications (principal); R80.9 Proteinuria, unspecified; E78.5 Hyperlipidemia, unspecified; Z83.3 Family history of diabetes mellitus; Z79.4 Long term (current) use of insulin; Z79.891 Long term (current) use of opiate analgesic; Z79.899 Other long term (current) drug therapy | CPT/HCPCS: 82947; 83036; 99212 ==

== ENCOUNTER 2023-03-02 14:54 | Outpatient (AMB) | payer MEDICARE, SELFPAY ==
--- NOTE | 2023-03-02 10:49 | A.OFFVIS_ITS ---
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 Required: No Accompanied by: Self / Same As Patient Allergies nickel Allergy (Mild, Verified 02/07/23 14:01) Rash injection of steriods Allergy (Unknown, Uncoded 02/07/23 14:01) rash iodine Allergy (Unknown, Uncoded 02/07/23 14:01) anaphylaxis wool Allergy (Unknown, Uncoded 02/07/23 14:01) rash HPI Comprehensive Diabetes Asmnt Most Recent Diabetes Results: Cholesterol 104 mg/dL 08/13/22 HDL Cholesterol 25 mg/dL 08/13/22 Triglycerides 67 mg/dL 08/13/22 Creatinine 1.33 mg/dL (0.5-1.4) 08/13/22 Blood Urea Nitrogen 20 mg/dL (9-16) H 08/13/22 Sodium 135 mmol/L (135-145) 08/13/22 Potassium 4.6 mmol/L (3.3-5.1) 08/13/22 Chloride 106 mmol/L (96-108) 08/13/22 Carbon Dioxide 21 mmol/L (22-29) L 08/13/22 Calcium 8.3 mg/dL (8.4-10.2) L 08/13/22 AST 27 U/L (5-31) 08/13/22 ALT 14 U/L (0-31) 08/13/22 Total Protein 8.6 g/dL (6.5-8.0) H 08/13/22 Albumin 2.3 g/dL (3.5-5.0) L 08/13/22 PFSH Medical History Acute kidney injury Calculus of kidney COPD (chronic obstructive pulmonary disease) Cough 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, with long- term current use of insulin Diabetes mellitus with hyperglycemia, with long-term current use of insulin Essential hypertension History of invasive breast cancer Lobular breast cancer Morbid obesity MAYA on CPAP Recurrent nephrolithiasis Rheumatoid arthritis Right nephrolithiasis Shortness of breath on exertion Urge and stress incontinence Venous insufficiency (chronic) (peripheral) Surgical History History of appendectomy History of shoulder replacement Hx of cataract extraction Hx of cholecystectomy Hx of discectomy Hx of mastectomy Hx of umbilical hernia repair Social History Housing: Condominium Patient Tobacco Use Status: Former Tobacco user Quit Date: Over 12 years Years Smoked: 30 yrs e-Cigarette/Vaping Use: Never Used Second Hand Smoke Exposure: No service: No Current occupational status: disabled Cognitive needs: No Hearing needs: No Vision needs: Yes Assessment & Plan Assessment & Plan (1) Diabetes mellitus with hyperglycemia, with long-term current use of insulin: Code(s): E11.65 - Type 2 diabetes mellitus with hyperglycemia; Z79.4 - detention (current) use of insulin Plan: Personal Continuous Glucose Monitor: At last visit patient's insulin plan changed, Lantus 4 units Humalog 151-200 6 units, 201-250 8 units and> 250 10 units Patients CGM information reviewed Reviewed patient's sensor data: Hypoglycemia: ? 10% Hyperglycemia:? 14 % Time in Range:? 76% Average glucose for the last 2 weeks?128 mg/dL Discussed with patient the high percentage of hypoglycemia showing up on Jonny 2 sensor. Patient reports that when she gets low alert she has been testing glucose with OneTouch meter and only has discovered 1 of end of hypoglycemia even though sensor reports up to 10% hypoglycemia Patient reports she has not been using insulin this week since increasing Trulicity from 1.5 mg to 3 mg weekly Reviewed with patient how to treat hypoglycemia with rule of 15s Instructed patient if she has increase in hypoglycemic events on glucose meter to contact Dr. Joseph or hematology nurse educator Reviewed how to interpret trend arrows Reminded patient that to check finger sticks if symptoms do not match sensor reading. Discussed lag time between finger stick and sensor data.? Patient able to insert sensor independently at home without issue.? Patient Instructions: Patient will call if true episodes of hypoglycemia increase Patient will continue to check fingerstick with glucometer when receive low alerts on Jonny 2 Patient follow-up with hematology nurse educator in 3 months Telehealth Telehealth Location of provider rendering services: practice address Location of patient: address on file Patient Identification confirmed using: Name, : Yes Telehealth method: voice only Patient verbally consented to treatment: Yes Patient verbally consented to billing insurance company: Yes Patient informed of any privacy concerns related to visit: Yes Minutes spent on Phone/Video with Pt.: 30 Coding Level of Care Code Est Pt Level 1 (91454) Diagnoses Diabetes mellitus with hyperglycemia, with long-term current use of insulin E11.65; Z79.4
== END 2023-03-02 14:56 | disposition home or self-care (01) ==
LOC: HO.ENCR 14:54
PROVIDERS: PCP Internal Medicine; Visit Provider Registered Nurse Diabetes Educator
DX: E11.65 Type 2 diabetes mellitus with hyperglycemia (principal); Z79.4 Long term (current) use of insulin

== ENCOUNTER → 2023-03-02 14:54 | Outpatient (BNVA) | payer MEDICARE, SELFPAY | PROVIDERS: PCP Internal Medicine; Visit Provider Registered Nurse Diabetes Educator | DX: E11.65 Type 2 diabetes mellitus with hyperglycemia (principal); Z79.4 Long term (current) use of insulin | CPT/HCPCS: 99211 ==

== ENCOUNTER 2023-05-04 11:28 | Outpatient (AMB) | payer MEDICARE, SELFPAY ==
--- NOTE | 2023-05-04 11:59 | A.OFFPC_ITS ---
Vital Signs 05/04/23 12:01 Height 5 ft Weight 212 lb 4 oz BMI 41.4 BP 118/66 Blood Pressure Location Rt brachial Position Sitting Pulse 96 Pulse Source Pulse Oximeter Pulse Oximetry (%) 94 Oxygen Delivery Method Room Air Intake Visit Reasons: pre-op parcutaneous nepholithotomy Intake Note: pt is here for pre-op for Parcutaneous Nepholithotomy with Dr. Tremaine Kuhn [facility] no labs or EKG needed fax # [phone] Allergies nickel Allergy (Mild, Verified 05/04/23 12:34) Rash injection of steriods Allergy (Unknown, Uncoded 05/04/23 12:34) rash iodine Allergy (Unknown, Uncoded 05/04/23 12:34) anaphylaxis wool Allergy (Unknown, Uncoded 05/04/23 12:34) rash Medication List - Last Reconciled 05/04/23 by Naima Boyle MD albuterol sulfate 90 mcg/actuation 0 mcg inhalation albuterol sulfate mg inhalation anastrozole 1 mg PO DAILY blood sugar diagnostic ([email or web address] Verio test strips) TESTS AT LEAST 4 TIMES DAILY blood-glucose meter (WiLinxuch Verio Flex Meter) USE METER TO TEST AT LEAST 4 TIMES DAILY dulaglutide (Trulicity) 3 mg (0.5 mL) subcut QWEEK flash glucose scanning reader (FreeStyle Jonny 2 Diana) As directed flash glucose sensor (FreeStyle Jonny 2 Sensor kit) As directed fluticasone propionate 50 mcg/actuation sprays intranasal rutjixbksrf-ppnwhdwzx-qhyqtibd 100-62.5-25 mcg 1 ea inhalation QAM furosemide 40 mg PO QAM Humalog KwikPen Insulin (insulin lispro) 10 units (0.1 mL) subcut TID NS ipratropium-albuterol 0.5 mg-3 mg(2.5 mg base)/3 mL mL inhalation lancets As directed Lantus Solostar U-100 Insulin (insulin glargine) 12 units (0.12 mL) subcut QPM NS lisinopril 5 mg PO DAILY montelukast 10 mg PO DAILY mupirocin 2% 1 appl topical TID nystatin-triamcinolone 100,000-0.1 unit/gram-% 1 appl topical DAILY 7 days oxybutynin chloride ER 10 mg PO BID paroxetine HCl 40 mg PO QAM pen needle, diabetic (BD Theodora 2nd Gen Pen Needle) inject insulin up to 4x a day potassium chloride ER 20 mEq PO BID pyridoxine (vitamin B6) 100 mg PO DAILY Tobacco use date assessed: 05/04/23 Fall risk assessment: No Falls in past year Last assessed Fall Risk: 05/04/23 Dental Screening Dental Screen Date: 05/04/23 Did you have a dental visit in the last 12 months?: No Did you have a dental problem in the last 6 months where you did not have access to dental care?: No Was dental information given to patient?: No HPI pre-op parcutaneous nepholithotomy HPI Details 72-year-old lady with diabetes mellitus, chronic peripheral venous insufficiency, mixed urge and stress incontinence, rheumatoid arthritis, obstructive sleep apnea on CPAP, essential hypertension, and COPD with history of invasive lobular breast cancer on left , currently on anastrozole, here today for preoperative exam for percutaneous nephrolithotomy, scheduled for 05/19/2023, requested by Dr. Tremaine Kuhn. Diabetes mellitus controlled, followed by endocrine clinic, with a hemoglobin A1c at 6.3% on 02/07/2023. She has been feeling well, with no complaints at present time. 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, with long- term current use of insulin Rheumatoid arthritis Morbid obesity Urge and stress incontinence History of invasive breast cancer MAYA on CPAP COPD (chronic obstructive pulmonary disease) Surgical History History of shoulder replacement Hx of cataract extraction Hx of umbilical hernia repair Hx of discectomy Hx of mastectomy Hx of cholecystectomy History of appendectomy Social History Housing: Condominium Patient Tobacco Use Status: Former Tobacco user Quit Date: Over 12 years Years Smoked: 30 yrs e-Cigarette/Vaping Use: Never Used Second Hand Smoke Exposure: No service: No Current occupational status: disabled Cognitive needs: No Hearing needs: No Vision needs: Yes Questionnaire Thrive Questionnaire Date Thrive assessed: 08/26/21 MADAY-7 AMB Questionnaire MADAY-7 Date MADAY - 7 assessed: 08/26/21 Source: Developed by Drs. Marc Chen, Sudha Peterson, Sang García and colleagues, with an educational stefania from [employer]. Review of Systems Const Denies chills, Denies fatigue, Denies fever(s), Denies headache(s) and Denies lethargy Eyes Denies change in vision ENT Denies dizziness, Denies headache(s), Denies nasal congestion, Denies nasal discharge and Denies sore throat Card Denies chest pain, Denies lightheadedness and Reports dyspnea on exertion (on O2 supplement) Resp Denies chest congestion, Denies cough, Reports dyspnea on exertion (on O2 supplement) and Denies wheezing GI Denies abdominal pain, Denies hematochezia, Denies change in bowel habits and Denies heartburn Denies hematuria, Denies difficulty voiding, Denies dysuria, Reports urinary incontinence, Denies urinary hesitancy and Denies urinary urgency Musc Details: Chronic lower extremity swelling, right more than the left Reports stiffness Skin/Breast Details: History of mastectomy left Denies breast skin changes, Denies breast pain, Denies breast mass and Denies rash Neuro Denies dizziness and Denies headache(s) Psych Reports no additional complaints Endo Reports no additional complaints and Denies fatigue Valentin/Lymph Denies easy bleeding and Denies easy bruising Aller/Immun Denies seasonal rhinorrhea and Denies wheezing Physical exam (Primary Care) Vital Signs: Last Vital Signs Pulse 96 05/04/23 12:01 BP 118/66 05/04/23 12:01 Pulse Ox 94 05/04/23 12:01 Oxygen Delivery Method Room Air 05/04/23 12:01 BMI result Body Mass Index 41.4 BMI Assessment/Plan discussion: High BMI High, discussed plan: lifestyle, dietary and physical activity Tobacco/Smoking Status: Tobacco use Status Tobacco use date assessed 05/04/23 05/04/23 12:09 Patient Tobacco Use Status Former Tobacco user 05/04/23 12:09 e-Cigarette/Vaping Use Never Used 05/04/23 12:09 Thrive Assessment: Date of Thrive Assessment Date Thrive assessed 08/26/21 05/04/23 12:09 Const General: no acute distress Nutritional Appearance: obese morbidly obese Orientation/consciousness: patient oriented x3 HENMT Mouth: oropharynx normal and moist mucous membranes Eyes General: appearance normal, both eyes and all related structures Neck Neck: Yes full ROM, Yes no lymphadenopathy and Yes supple Chest Other: History of mastectomy left breast, no masses, nipple discharge noted on right Resp Auscultation: clear to auscultation bilaterally Cardio Other: S1-S2 present regular rate and rhythm Jugular venous distension: no JVD GI Palpation (GI): Soft to palpation and nontender Auscultation: normal bowel sounds General: Yes no CVA tenderness Back/Spine/Pelvis Back: no CVA tenderness Skin Other: Hyperpigmentation noted in both lower extremity Neuro General: patient oriented x3, moves all extremities, no focal motor deficits and CN's II-XI intact bilaterally Cranial nerves: Yes CN's II-XII intact bilaterally Gait exam (Neuro): Assisted gait required Gait assisted method: walker Extrem General: Yes venous stasis dermatitis (Bilateral) Psych Appearance: grossly normal and well kempt Mental Status: mental status grossly normal Speech and movement: Normal speech and movement present Affect: normal affect Attitude: cooperative Results Reviewed Results Reviewed: Laboratory Tests 02/07/23 14:04 Hgb A1c (Clinic) 6.3 H Name: Coco Sexton Age/Sex: 71/F : 1950 Unit#: [id number] Attend Dr: Naima Boyle MD Re08/13/22 Status: DEP REF Location: [facility] Disch: SPEC : [id number] TYLER: 08/13/22 STATUS: COMP REQ : [id number] RECD: 08/13/[address]: Naima Boyle MD COMP: 08/13/22-1254 ENTERED: 08/13/[address]: ORDERED: CMP Fast, Lipid Panel, B12FOL, Vitamin D 25-OH, TSH Rflx Test Result Flag Reference Site Sodium 135 135-145 mmol/L Potassium 4.6 3.3-5.1 mmol/L CL 106 96-108 mmol/L CO2 21 L 22-29 mmol/L Gap 13 12-20 BUN 20 H 9-16 mg/dL Creat 1.33 0.5-1.4 mg/dL EGFR 39 NOTE: For -[place] individuals, multiply the result by 1.210. Chronic Kidney Disease: Estimated GFR < 60 mL/min/1.73m2 Severe Kidney Disease: Estimated GFR < 15 mL/min/1.73m2 FBS 119 H 60-99 mg/dL A fasting glucose from 100-125 mg/dl is considered impaired (pre-diabetes). CA 8.3 L 8.4-10.2 mg/dL Total Bili 1.0 0.0-1.0 mg/dL AST (GOT) 27 5-31 U/L ALT (GPT) 14 0-31 U/L Protein, Total 8.6 H 6.5-8.0 g/dL Alb 2.3 L 3.5-5.0 g/dL Triglyceride 67 mg/dL Desirable Triglyceride: less than 150 mg/dL Borderline High Triglyceride 150-199 mg/dL High Triglyceride: 200-499 mg/dL Very High Triglyceride: greater than or equal to 5OO mg/dL Chol 104 mg/dL Desirable Cholesterol: less than 200 mg/dL Borderline High Cholesterol: 200-239 mg/dL High Cholesterol: greater than 239 mg/dL LDL Calculated 66 mg/dl Desirable LDL: less than 100 mg/dL Near Optimal/Above Optimal LDL: 110-129 mg/dL Borderline High LDL: 130-159 mg/dL High LDL: 160-189 mg/dL Very High LDL: greater than or equal to 190 mg/dL HDL 25 mg/dL Desirable HDL: greater than 40 mg/dL Note: This HDL assay may give artificially low results in patients with liver disease. Alk Phos 89 39-117 U/L Vitamin B12 968 H 200-900 pg/mL NORMAL 200-900 PG/ML INDETERMINATE 160-199 PG/ML DEFICIENT < 160 PG/ML Folate 15.4 > or = 4.0 ng/mL Reference Values: > or = 4.0 ng/mL < 4.0 ng/mL suggests folate deficiency Methotrexate, aminopterin and folinic acid (leucovorin) are chemotherapeutic agents whose molecular structures are similar to folate; therefore, the Recreational Director folate assay cannot be used for patients using these drugs. Vit D 25-OH Tot 39.0 >30 ng/mL Health Based Reference Values* < 20 ng/mL Deficient 20-30 ng/mL Insufficient > 30 ng/mL Sufficient *Ivone MAHAN. N Engl J Med. 2007;357:266-280 Care must be taken in interpreting Vitamin D results from different laboratories and methodologies. Published data demonstrated that results from patients undergoing hemodialysis may show a negative bias when tested with various automated 25-OH vitamin D assays when compared to LC-MS/MS. When testing samples from patients whose predominant form of Vitamin D is Vitamin D2, such as patients receiving Vitamin D2 supplementation, results that are subtherapeutic should be confirmed with another method such as LC-MS/MS. TSH 2.71 0.32-4.0 uIU/mL Assessment and Plan Assessment & Plan (1) Preoperative examination: Code(s): Z01.818 - Encounter for other preprocedural examination Plan: 72-year-old lady with recurrent nephrolithiasis, here today for preoperative exam for percutaneous nephrolithotomy, scheduled for 05/19/2023. She has COPD on nocturnal O2 supplement, diabetes mellitus, obstructive sleep apnea on CPAP,, urinary incontinence, chronic venous insufficiency, essential hypertension, stable controlled on present treatment. Preoperative exam was unremarkable. Patient with low to moderate cardiac risk index for proposed surgery (2) Essential hypertension: Code(s): I10 - Essential (primary) hypertension Plan: Blood pressure at goal of less than 130/80. Continue with lisinopril 5 mg once a day. Reinforced importance of following a low sodium diet, getting regular exercise, and lowering stress levels. 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 Joseph. Continued on present treatment, continue to check fasting blood sugar at home, maintain log and bring to next appointment for review. Reinforced diabetic diet and regular exercise with patient. Counseled regarding importance of yearly diabetes retinopathy screening. Patient advised to inspect feet daily, for any signs of injury, callus or infection. Compliance with diet and regular exercise again stressed. Blood pressure goal is less than 130/80, goal LDL is less than 100 and goal hemoglobin A1c is less than 7% (4) COPD (chronic obstructive pulmonary disease): Comment: sees refrigerating engineer in [place] , Dr Richardson, has nocturnal O2 Code(s): J44.9 - Chronic obstructive pulmonary disease, unspecified Plan: Currently followed by refrigerating engineer in [place] , Dr Richardson, has nocturnal O2. Continued on present treatment Visit Problems Resolved/Inactive/Ruled-Out (R/I/R) Deleted Medical History (5) Rheumatoid arthritis: Code(s): M06.9 - Rheumatoid arthritis, unspecified Qualifiers: Rheumatoid arthritis location: unspecified site (6) Urge and stress incontinence: Code(s): N39.46 - Mixed incontinence Plan: Continued on oxybutynin chloride ER 10 mg 1 tablet twice a day (7) Recurrent nephrolithiasis: Code(s): N20.0 - Calculus of kidney (8) Venous insufficiency (chronic) (peripheral): Code(s): I87.2 - Venous insufficiency (chronic) (peripheral) (9) History of invasive breast cancer: Comment: s/p mastectomy, on anastrozole since 2019, sees Dr Henderson Code(s): Z85.3 - Personal history of malignant neoplasm of breast Plan: Currently on anastrozole Coding Level of Care Code Est Pt Level 4 (16785) Diagnoses Preoperative examination Z01.818 Essential hypertension I10 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
[2023-05-04 12:01] VITALS: BP 118/66; PULSE 96; O2SAT 94; BMI 41.4
== END 2023-05-04 12:52 | disposition home or self-care (01) ==
PROVIDERS: PCP Internal Medicine; Visit Provider Internal Medicine
DX: J44.9 Chronic obstructive pulmonary disease, unspecified (principal); E08.29 Diabetes mellitus due to underlying condition with other diabetic kidney complication; Z79.4 Long term (current) use of insulin; M06.9 Rheumatoid arthritis, unspecified; Z01.818 Encounter for other preprocedural examination; I10 Essential (primary) hypertension; R80.9 Proteinuria, unspecified; N39.46 Mixed incontinence; N20.0 Calculus of kidney; I87.2 Venous insufficiency (chronic) (peripheral); Z85.3 Personal history of malignant neoplasm of breast
CPT/HCPCS: 99214

== ENCOUNTER 2023-05-30 11:20 | Outpatient (AMB) | payer MEDICARE, SELFPAY ==
--- NOTE | 2023-05-30 11:07 | MHC.AMDMED ---
Intake Intake Visit Reasons: DM-LVM Circuit Judge Required: No Accompanied by: Self / Same As Patient Allergies nickel Allergy (Mild, Verified 05/04/23 12:34) Rash injection of steriods Allergy (Unknown, Uncoded 05/04/23 12:34) rash iodine Allergy (Unknown, Uncoded 05/04/23 12:34) anaphylaxis wool Allergy (Unknown, Uncoded 05/04/23 12:34) rash HPI Comprehensive Diabetes Asmnt Most Recent Diabetes Results: Cholesterol 104 mg/dL 08/13/22 HDL Cholesterol 25 mg/dL 08/13/22 Triglycerides 67 mg/dL 08/13/22 Creatinine 1.33 mg/dL (0.5-1.4) 08/13/22 Blood Urea Nitrogen 20 mg/dL (9-16) H 08/13/22 Sodium 135 mmol/L (135-145) 08/13/22 Potassium 4.6 mmol/L (3.3-5.1) 08/13/22 Chloride 106 mmol/L (96-108) 08/13/22 Carbon Dioxide 21 mmol/L (22-29) L 08/13/22 Calcium 8.3 mg/dL (8.4-10.2) L 08/13/22 AST 27 U/L (5-31) 08/13/22 ALT 14 U/L (0-31) 08/13/22 Total Protein 8.6 g/dL (6.5-8.0) H 08/13/22 Albumin 2.3 g/dL (3.5-5.0) L 08/13/22 [facility] Medical History (Updated 05/05/23 @ 05:57 by Naima Boyle MD) Acute kidney injury Venous insufficiency (chronic) (peripheral) Recurrent nephrolithiasis Lobular breast cancer Essential hypertension 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, with long-term current use of insulin Rheumatoid arthritis Morbid obesity Urge and stress incontinence History of invasive breast cancer MAYA on CPAP COPD (chronic obstructive pulmonary disease) Surgical History History of shoulder replacement Hx of cataract extraction Hx of umbilical hernia repair Hx of discectomy Hx of mastectomy Hx of cholecystectomy History of appendectomy Housing: Condominium Patient Tobacco Use Status: Former Tobacco user Quit Date: Over 12 years Years Smoked: 30 yrs e-Cigarette/Vaping Use: Never Used Second Hand Smoke Exposure: No service: No Current occupational status: disabled Cognitive needs: No Hearing needs: No Vision needs: Yes Assessment & Plan Assessment & Plan (1) 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 Joseph. 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
== END 2023-05-30 11:21 | disposition home or self-care (01) ==
PROVIDERS: PCP Internal Medicine; Visit Provider Registered Nurse Diabetes Educator
DX: E08.29 Diabetes mellitus due to underlying condition with other diabetic kidney complication (principal); R80.9 Proteinuria, unspecified; Z79.4 Long term (current) use of insulin

== ENCOUNTER → 2023-05-30 11:20 | Outpatient (BNVA) | payer MEDICARE, SELFPAY | PROVIDERS: PCP Internal Medicine; Visit Provider Registered Nurse Diabetes Educator | DX: R80.9 Proteinuria, unspecified (principal); E08.29 Diabetes mellitus due to underlying condition with other diabetic kidney complication; Z79.4 Long term (current) use of insulin | CPT/HCPCS: 99211 ==

== ENCOUNTER 2023-06-19 09:54 | Outpatient (AMB) | payer MEDICARE, SELFPAY ==
--- NOTE | 2023-06-19 10:02 | A.OFFPC_ITS ---
Vital Signs 06/19/23 10:03 Height 5 ft Weight 203 lb 2 oz BMI 39.7 BP 142/68 H Blood Pressure Location Rt brachial Position Sitting Pulse 96 Pulse Source Pulse Oximeter Pulse Oximetry (%) 99 Oxygen Delivery Method Nasal Cannula Intake Visit Reasons: HDF ~ Post hospital discharge FU Allergies nickel Allergy (Mild, Verified 06/19/23 10:21) Rash injection of steriods Allergy (Unknown, Uncoded 06/19/23 10:21) rash iodine Allergy (Unknown, Uncoded 06/19/23 10:21) anaphylaxis wool Allergy (Unknown, Uncoded 06/19/23 10:21) rash Medication List - Last Reconciled 08/06/23 by Naima Boyle MD albuterol sulfate 90 mcg/actuation 0 mcg inhalation albuterol sulfate mg inhalation anastrozole 1 mg PO DAILY apixaban (Eliquis) 5 mg PO BID blood sugar diagnostic (Buzzoek Verio test strips) TESTS AT LEAST 4 TIMES DAILY blood-glucose meter (M.dotuch Verio Flex Meter) USE METER TO TEST AT LEAST 4 TIMES DAILY dulaglutide (Trulicity) 3 mg (0.5 mL) subcut QWEEK flash glucose scanning reader (RoomtagStyle Jonny 2 Harvey) As directed flash glucose sensor (FreeStyle Jonny 2 Sensor kit) As directed fluticasone propionate 50 mcg/actuation sprays intranasal hixxdsrombf-dcrwcsora-tsfonlkh 100-62.5-25 mcg 1 ea inhalation QAM furosemide 40 mg PO QAM Humalog KwikPen Insulin (insulin lispro) 10 units (0.1 mL) subcut TID NS ipratropium-albuterol 0.5 mg-3 mg(2.5 mg base)/3 mL mL inhalation lancets As directed Lantus Solostar U-100 Insulin (insulin glargine) 12 units (0.12 mL) subcut QPM NS lisinopril 5 mg PO DAILY montelukast 10 mg PO DAILY mupirocin 2% 1 appl topical TID nystatin-triamcinolone 100,000-0.1 unit/gram-% 1 appl topical DAILY 7 days oxybutynin chloride ER 10 mg PO BID paroxetine HCl 40 mg PO QAM pen needle, diabetic (BD Theodora 2nd Gen Pen Needle) INJECT INSULIN UP TO 4 TIMES A DAY. potassium chloride ER 20 mEq PO BID pyridoxine (vitamin B6) 100 mg PO DAILY Tobacco use date assessed: 06/19/23 Fall risk assessment: 1 Fall in past year Last assessed Fall Risk: 06/19/23 Dental Screening Dental Screen Date: 06/19/23 Did you have a dental visit in the last 12 months?: No Did you have a dental problem in the last 6 months where you did not have access to dental care?: No Was dental information given to patient?: No HPI HDF ~ Post hospital discharge FU HPI Details 72-year-old lady with history of COPD on 5 L of home O2, has hypertension, Congestive heart failure, history of breast cancer s/p partial mastectomy 09/2018 , diabetes mellitus, renal calculi s/p right-sided nephrostomy tube placement 05/08/2023 here today for hospital discharge follow- up. She underwent cystoscopy, right ureteroscopy and laser lithotripsy with right ureteral stent exchange on 05/31/2023, presented to the ER 06/02/23 and diagnosed to have sepsis due to complicated urinary tract infection this was also complicated by right upper extremity thrombus on PICC line. Urine culture grew E coli and she was placed on ceftriaxone , PICC line was removedstarted on apixaban . She also was found to be in mild congestive heart failure and improved with IV Lacix. She was discharged home with PT . He was seen by [facility] 06/09/2023 for a repeat cystoscopy and stent removal. 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, with long- term current use of insulin Rheumatoid arthritis Morbid obesity Urge and stress incontinence History of invasive breast cancer MAYA on CPAP COPD (chronic obstructive pulmonary disease) Surgical History History of shoulder replacement Hx of cataract extraction Hx of umbilical hernia repair Hx of discectomy Hx of mastectomy Hx of cholecystectomy History of appendectomy Social History [facility] Patient Tobacco Use Status: Former Tobacco user Quit Date: Over 12 years Years Smoked: 30 yrs e-Cigarette/Vaping Use: Never Used Second Hand Smoke Exposure: No service: No Current occupational status: disabled Cognitive needs: No Hearing needs: No Vision needs: Yes Questionnaire Thrive Questionnaire Date Thrive assessed: 08/26/21 MADAY-7 AMB Questionnaire MADAY-7 Date MADAY - 7 assessed: 08/26/21 Source: Developed by Drs. Marc Chen, Sudha Peterson, Sang García and colleagues, with an educational stefania from [employer]. Review of Systems Const Denies chills, Denies fever(s) and Denies headache(s) Eyes Denies change in vision ENT Denies dizziness, Denies headache(s), Denies nasal congestion, Denies nasal discharge and Denies sore throat Card Denies chest pain, Denies lightheadedness and Reports dyspnea on exertion (on O2 supplement) Resp Denies chest congestion, Denies cough, Reports dyspnea on exertion (on O2 supplement) and Denies wheezing GI Denies abdominal pain, Denies hematochezia, Denies change in bowel habits and Denies heartburn Denies hematuria, Denies difficulty voiding, Denies dysuria, Reports urinary incontinence, Denies urinary hesitancy and Denies urinary urgency Musc Reports stiffness Skin/Breast Details: History of mastectomy left Denies breast skin changes, Denies breast pain, Denies breast mass and Denies rash Neuro Denies dizziness and Denies headache(s) Psych Reports no additional complaints Endo Reports no additional complaints Valentin/Lymph Denies easy bleeding and Denies easy bruising Aller/Immun Denies seasonal rhinorrhea and Denies wheezing Physical exam (Primary Care) Vital Signs: Last Vital Signs Pulse 96 06/19/23 10:03 BP 142/68 H 06/19/23 10:03 Pulse Ox 99 06/19/23 10:03 Oxygen Delivery Method Nasal Cannula 06/19/23 10:03 BMI result Body Mass Index 39.7 Tobacco/Smoking Status: Tobacco use Status Tobacco use date assessed 06/19/23 06/19/23 10:11 Patient Tobacco Use Status Former Tobacco user 06/19/23 10:11 e-Cigarette/Vaping Use Never Used 06/19/23 10:11 Thrive Assessment: Date of Thrive Assessment Date Thrive assessed 08/26/21 06/19/23 10:11 Const General: no acute distress Nutritional Appearance: obese morbidly obese Orientation/consciousness: patient oriented x3 HENMT Mouth: oropharynx normal and moist mucous membranes Eyes General: appearance normal, both eyes and all related structures Neck Neck: Yes full ROM, Yes no lymphadenopathy and Yes supple Chest Other: History of mastectomy left breast, no masses, nipple discharge noted on right Resp Auscultation: clear to auscultation bilaterally Cardio Other: S1-S2 present regular rate and rhythm Jugular venous distension: no JVD GI Palpation (GI): Soft to palpation and nontender Auscultation: normal bowel sounds General: Yes no CVA tenderness Back/Spine/Pelvis Back: no CVA tenderness Skin Other: Hyperpigmentation noted in both lower extremity Neuro General: patient oriented x3, moves all extremities, no focal motor deficits and CN's II-XI intact bilaterally Cranial nerves: Yes CN's II-XII intact bilaterally Gait exam (Neuro): Assisted gait required Gait assisted method: walker Extrem General: Yes venous stasis dermatitis (Bilateral) Psych Appearance: grossly normal and well kempt Mental Status: mental status grossly normal Speech and movement: Normal speech and movement present Affect: normal affect Attitude: cooperative Results Reviewed Results Reviewed: Assessment and Plan Assessment & Plan (1) Essential hypertension: Code(s): I10 - Essential (primary) hypertension Plan: Blood pressure goal less than 130/80, currently elevated today. Currently on lisinopril 5 mg daily and furosemide 1 tablet in the morning, followed by Nephrology, Dr. 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 a.c., and Lantus 12 units at night. Currently using freestyle Jonny and followed by endocrine clinic at [facility], has an appointment for follow-up on 08/2023 patient is up-to-date with her COVID vaccine, but not yet had her booster, up-to-date with flu shot and pneumonia vaccination as well as shingles vaccination. (4) COPD (chronic obstructive pulmonary disease): Comment: sees [facility] finisher in [place] , Dr Richardson, has nocturnal O2 Code(s): J44.9 - Chronic obstructive pulmonary disease, unspecified Qualifiers: COPD type: unspecified COPD Qualified Code(s): J44.9 - Chronic obstructive pulmonary disease, unspecified Plan: On nocturnal O2, followed by Pulmonary (5) Recurrent nephrolithiasis: Code(s): N20.0 - Calculus of kidney Plan: Followed by [facility], s/p recent stent removal, has a follow-up appointment with them scheduled in 4 weeks (6) History of invasive breast cancer: Comment: s/p mastectomy, on anastrozole since 2019, sees Dr Henderson Code(s): Z85.3 - Personal history of malignant neoplasm of breast Plan: Status post left mastectomy, currently on anastrozole since 2019 to complete 5 year. (7) History of deep vein thrombosis: Code(s): Z86.718 - Personal history of other venous thrombosis and embolism Plan: Right upper extremity on PICC line, PICC line already removed, currently on apixaban 5 mg 1 tablet twice a day (8) Venous insufficiency (chronic) (peripheral): Code(s): I87.2 - Venous insufficiency (chronic) (peripheral) Plan: On furosemide total of 40 mg daily in a.m. (9) Urge and stress incontinence: Code(s): N39.46 - Mixed incontinence Plan: Followed by [facility] currently on oxybutynin chloride ER 10 mg 1 tablet twice a day (10) Hx of acute congestive heart failure: Code(s): Z86.79 - Personal history of other diseases of the circulatory system Plan: Currently asymptomatic, will check BNP, currently on furosemide Orders: Orders Complete Blood Count Auto Diff 06/19/23 Z87.01 - Personal history of pneumonia (recurrent), I10 - Essential (primary) hypertension, G47.33 - Obstructive sleep apnea (adult) (pediatric), Z99.89 - Dependence on other enabling machines and devices, N17.9 - Acute kidney failure, unspecified B Type Natriuretic Peptide 06/19/23 Z87.01 - Personal history of pneumonia (recurrent), I10 - Essential (primary) hypertension, G47.33 - Obstructive sleep apnea (adult) (pediatric), Z99.89 - Dependence on other enabling machines and devices, N17.9 - Acute kidney failure, unspecified Basic Metabolic Panel 06/19/23 Z87.01 - Personal history of pneumonia (recurrent), I10 - Essential (primary) hypertension, G47.33 - Obstructive sleep apnea (adult) (pediatric), Z99.89 - Dependence on other enabling machines and devices, N17.9 - Acute kidney failure, unspecified IRON PROFILE 06/19/23 Z87.01 - Personal history of pneumonia (recurrent), I10 - Essential (primary) hypertension, G47.33 - Obstructive sleep apnea (adult) (pediatric), Z99.89 - Dependence on other enabling machines and devices, N17.9 - Acute kidney failure, unspecified Coding Level of Care Code Est Pt Level 4 (61804) Diagnoses Essential hypertension I10 MAYA on CPAP G47.33; Z99.89 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
[2023-06-19 10:03] VITALS: BP 142/68; PULSE 96; O2SAT 99; BMI 39.7
== END 2023-06-19 12:07 | disposition home or self-care (01) ==
PROVIDERS: PCP Internal Medicine; Visit Provider Internal Medicine
DX: I10 Essential (primary) hypertension (principal); E08.29 Diabetes mellitus due to underlying condition with other diabetic kidney complication; Z79.4 Long term (current) use of insulin; J44.9 Chronic obstructive pulmonary disease, unspecified; G47.33 Obstructive sleep apnea (adult) (pediatric); Z99.89 Dependence on other enabling machines and devices; R80.9 Proteinuria, unspecified; N20.0 Calculus of kidney; Z85.3 Personal history of malignant neoplasm of breast; Z86.718 Personal history of other venous thrombosis and embolism; I87.2 Venous insufficiency (chronic) (peripheral); N39.46 Mixed incontinence
CPT/HCPCS: 99214

== ENCOUNTER 2023-06-19 11:03 | Outpatient (REF) | payer MEDICARE, SELFPAY ==
[2023-06-19 13:12] LABS: MANUAL DIFF FLAG NO
[2023-06-19 13:46] LABS: Basophils Absolute Auto 0.1 X10*3/uL (0.0-0.2); Basophils Percent Auto 0.5 % (0-2); Eosinophils Absolute Auto 0.2 X10*3/uL (0.0-0.4); Eosinophils Percent Auto 1.4 % (0-4); Hematocrit 31.4 % (37.0-47.0); Hemoglobin 9.6 g/dl (12.0-16.0); Imm Gran Abs Auto 0.07 X10*3/uL (0.00-0.03); Imm Gran Pct Auto 0.5 % (0.0-0.4); Lymphocytes Absolute Auto 1.8 X10*3/uL (1.2-4.9); Mean Corpuscular HGB Conc 30.6 g/dl (31.0-35.0); Mean Corpuscular Hemoglobin 32.4 pg (27.0-33.0); Mean Corpuscular Volume 106.1 fL (80.0-98.0); Mean Platelet Volume 9.1 fL (9.4-12.3); Monocytes Absolute Auto 0.8 X10*3/uL (0.1-1.2); Monocytes Percent Auto 5.8 % (2-11); Neutrophils Absolute Auto 10.2 x10*3/uL (2.0-8.3); Neutrophils Percent Auto 77.8 % (45-73); Platelet Count 230 X10*3/uL (160-400); Red Blood Count 2.96 X10*6/uL (4.20-5.50); Red Cell Distribution Width 15.6 % (11.0-16.0); White Blood Count 13.1 X10*3/uL (4.8-10.8)
[2023-06-19 14:09] LABS: Anion Gap 11 (12-20); Blood Urea Nitrogen 19 mg/dL (9-16); Calcium 8.5 mg/dL (8.4-10.2); Carbon Dioxide 21 mmol/L (22-29); Chloride 112 mmol/L (96-108); Estimated Glomerular Filt Rate 41; Glucose Random 144 mg/dL (60-115); Iron 50 mcg/dL (30-160); Percent Iron Saturation 26 % (15-50); Potassium 4.2 mmol/L (3.3-5.1); Sodium 140 mmol/L (135-145); Total Iron Binding Capacity 191 mcg/dL (228-428); Unsaturated Iron Binding 141 ug/dL
[2023-06-19 14:16] LABS: B Type Natriuretic Peptide 48 pg/mL (<100)
== END 2023-06-19 11:04 | disposition home or self-care (01) ==
LOC: HO.HMGCLDS 11:03
PROVIDERS: PCP Internal Medicine; Visit Provider Internal Medicine
DX: I10 Essential (primary) hypertension (principal); G47.33 Obstructive sleep apnea (adult) (pediatric); N17.9 Acute kidney failure, unspecified; Z99.89 Dependence on other enabling machines and devices; Z87.01 Personal history of pneumonia (recurrent)
CPT/HCPCS: 36415; 80048; 83540; 83880; 85025

== ENCOUNTER 2023-09-08 09:21 | Outpatient (AMB) | payer MEDICARE, SELFPAY ==
[2023-09-08 09:32] VITALS: BP 132/68; PULSE 84; O2SAT 100; BMI 41.5
--- NOTE | 2023-09-08 09:32 | A.OFFPC_ITS ---
Vital Signs 09/08/23 09:32 Height 5 ft Weight 212 lb 6 oz BMI 41.5 BP 132/68 Blood Pressure Location Rt brachial Position Sitting Pulse 84 Pulse Source Pulse Oximeter Pulse Oximetry (%) 100 Oxygen Delivery Method Nasal Cannula Intake Visit Reasons: ER [facility] Intake Note: Pt is here for ER follow up from [facility] Allergies nickel Allergy (Mild, Verified 09/08/23 09:41) Rash injection of steriods Allergy (Unknown, Uncoded 09/08/23 09:41) rash iodine Allergy (Unknown, Uncoded 09/08/23 09:41) anaphylaxis wool Allergy (Unknown, Uncoded 09/08/23 09:41) rash Medication List - Last Reconciled 09/08/23 by Naima Boyle MD albuterol sulfate 90 mcg/actuation 0 mcg inhalation albuterol sulfate mg inhalation anastrozole 1 mg PO DAILY blood sugar diagnostic (Minboxuch Verio test strips) TESTS AT LEAST 4 TIMES DAILY blood-glucose meter ([place]bee Verio Flex Meter) USE METER TO TEST AT LEAST 4 TIMES DAILY cetirizine (All Day Allergy (cetirizine)) 10 mg PO DAILY PRN dulaglutide (Trulicity) 3 mg (0.5 mL) subcut QWEEK flash glucose scanning reader (TorbitStyle Jonny 2 [place]) As directed flash glucose sensor (FreeStyle Jonny 2 Sensor kit) As directed fluticasone propionate 50 mcg/actuation sprays intranasal knavbflocno-aofkzrqvn-qbvukzut 100-62.5-25 mcg 1 ea inhalation QAM furosemide 20 mg PO BID insulin lispro (Humalog KwikPen (U-100) Insulin) 10 units (0.1 mL) subcut TID ipratropium-albuterol 0.5 mg-3 mg(2.5 mg base)/3 mL mL inhalation lancets As directed Lantus Solostar U-100 Insulin (insulin glargine) 12 units (0.12 mL) subcut QPM NS lisinopril 5 mg PO DAILY montelukast 10 mg PO DAILY mupirocin 2% 1 appl topical TID nystatin-triamcinolone 100,000-0.1 unit/gram-% 1 appl topical DAILY 7 days oxybutynin chloride ER 5 mg PO BEDTIME pantoprazole 40 mg PO DAILY paroxetine HCl 40 mg PO QAM pen needle, diabetic (BD Theodora 2nd Gen Pen Needle) INJECT INSULIN UP TO 4 TIMES A DAY. potassium chloride ER 20 mEq PO BID Tobacco use date assessed: 09/08/23 Fall risk assessment: 2 + Falls in past year Last assessed Fall Risk: 09/08/23 Dental Screening Dental Screen Date: 09/08/23 Did you have a dental visit in the last 12 months?: No Did you have a dental problem in the last 6 months where you did not have access to dental care?: No Was dental information given to patient?: No HPI ER [facility] HPI Details 72-year-old lady with past medical histo ry of chronic hypoxic respiratory failure due to COPD on 3-4 L of oxygen by nasal cannula at home, has congestive heart failure, hypertension, coronary artery disease, history of breast cancer status post mastectomy 2018, diabetes mellitus followed by Dr. 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 Patient was noted to be severely anemic on admission with a hemoglobin of 7. Hematology was consulted and recommended administering 3 g per dL. dose of IV iron with improvement of hemoglobin to 10.5 gm/dl. D-dimer was done which came back slightly elevated at 2.[address] angiogram was deferred in the setting of abnormal renal function and allergy to IV contrast dye . Ultrasound of lower extremities did not show any DVT , respiratory viral panel test came back negative. Symptoms resolved, she was placed back again on 3-4 L of home O2 at home, continued on or Lasix continued on home inhalers and nebulizer treatments, continued on montelukast and cetirizine and prescribed guaifenesin- dextromethorphan for cough. Noted to have urinary tract infection on admission with urine culture growing E coli, received 3 doses of ceftriaxone For her iron deficiency anemia she received 3 doses of IV Venofer, recommended follow-up with GI for further evaluation, and follow-up with [facility] after discharge.. For her hypertension, her lisinopril was held and was discharged on p.o. Lasix total of 40 mg daily due to OPAL, which improved during hospitalization advised to follow-up with nephrology. Continued on paroxetine for anxiety disorder and on pantoprazole for her GERD [facility] Medical History (Updated 09/08/23 @ 10:40 by Naima Boyle MD) CHF (congestive heart failure) Iron deficiency anemia, unspecified History of deep vein thrombosis Acute kidney injury Venous insufficiency (chronic) (peripheral) Recurrent nephrolithiasis Lobular breast cancer Essential hypertension 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, with long- term current use of insulin Rheumatoid arthritis Morbid obesity Urge and stress incontinence History of invasive breast cancer MAYA on CPAP COPD (chronic obstructive pulmonary disease) Surgical History History of shoulder replacement Hx of cataract extraction Hx of umbilical hernia repair Hx of discectomy Hx of mastectomy Hx of cholecystectomy History of appendectomy Social History [facility] Patient Tobacco Use Status: Former Tobacco user Quit Date: Over 12 years Years Smoked: 30 yrs e-Cigarette/Vaping Use: Never Used Second Hand Smoke Exposure: No service: No Current occupational status: disabled Cognitive needs: No Hearing needs: No Vision needs: Yes Questionnaire PHQ-9 Over the last 2 weeks, how often have you been bothered by any of the following problems? 1. Little interest or pleasure in doing things: not at all 2. Feeling down, depressed, or hopeless: not at all 3. Trouble falling or staying asleep, or sleeping too much: several days 4. Feeling tired or having little energy: several days 5. Poor appetite or overeating: several days 6. Feeling bad about yourself - or that you are a failure or have let yourself or your family down: not at all 7. Trouble concentrating on things, such as reading the newspaper or watching television: not at all 8. Moving or speaking so slowly that other people could have noticed. Or the opposite - being so fidgety or restless that you have been moving around a lot more than usual: not at all 9. Thoughts that you would be better off or of hurting yourself in some way: not at all Total score: 3 Depression Screening Interpretation: Negative Depression Screening Done: Yes 26295 - PHQ-9 Billing: Yes Source: Developed by Drs. Marc Chen, Sudha Peterson, Sang García and colleagues, with an educational stefania from [employer]. Thrive Questionnaire Date Thrive assessed: 09/08/23 I am a: Patient What is your living situation today?: I have a steady place to live Within the past 12 months, did the food you bought not last and you didn't have the money to get more?: Sometimes True Within the past 12 months, did you worry whether your food would run out before you got money to buy more?: Sometimes True Do you have trouble paying for medicines?: No Do you have trouble getting transportation to medical appointments?: No Do you have trouble paying your heating and electricity bill?: Yes Do you have trouble taking care of your child, family member or friend?: No Do you have trouble with day-to-day activities such as bathing, preparing meals, shopping, managing finances, etc.?: Yes Are you currently unemployed and looking for a job?: No Are you interested in more education?: No THRIVE Score: 3 AUDIT C Alcohol Use Questionnaire (AUDIT-C) 1. How often do you have a drink containing alcohol?: Monthly or less 2. How many drinks containing alcohol do you have on a typical day when you are drinking?: 1 or 2 3. How often do you have six or more drinks on one occasion?: Never Total Score: 1 MADAY-7 AMB Questionnaire MADAY-7 Date MADAY - 7 assessed: 09/08/23 Feeling nervous, anxious, or on edge: 1 = Several days Not being able to stop or control worryin = Several days Worrying too much about different things: 1 = Several days Trouble relaxin = Not at all Being so restless that it is hard to sit still: 0 = Not at all Becoming easily annoyed or irritable: 1 = Several days Feeling afraid as if something awful might happen: 0 = Not at all Total MADAY-7 score (0-4 normal; 5-9 mild; 10-14 moderate; 15-21 severe): 4 Source: Developed by Sudha Pearce Kurt Kroenke and colleagues, with an educational stefania from [employer]. MADAY-7 Assessment Billing MADAY-7 Assessment Tool: MADAY-7 Assessment 50310 Review of Systems Const Denies chills, Denies fever(s) and Denies headache(s) Eyes Denies change in vision ENT Denies dizziness, Denies headache(s), Denies nasal congestion, Denies nasal discharge and Denies sore throat Card Denies chest pain, Denies lightheadedness and Reports dyspnea on exertion (on O2 supplement) Resp Denies chest congestion, Denies cough, Reports dyspnea on exertion (on O2 supplement) and Denies wheezing GI Denies abdominal pain, Denies hematochezia, Denies change in bowel habits and Denies heartburn Denies hematuria, Denies difficulty voiding, Denies dysuria, Reports urinary incontinence, Denies urinary hesitancy and Denies urinary urgency Musc Reports stiffness Skin/Breast Details: History of mastectomy left Denies breast skin changes, Denies breast pain, Denies breast mass and Denies rash Neuro Denies dizziness and Denies headache(s) Psych Reports no additional complaints Endo Reports no additional complaints Valentin/Lymph Denies easy bleeding and Denies easy bruising Aller/Immun Denies seasonal rhinorrhea and Denies wheezing Physical exam (Primary Care) Vital Signs: Last Vital Signs Pulse 84 09/08/23 09:32 BP 132/68 09/08/23 09:32 Pulse Ox 100 09/08/23 09:32 Oxygen Delivery Method Nasal Cannula 09/08/23 09:32 BMI result Body Mass Index 41.5 Tobacco/Smoking Status: Tobacco use Status Tobacco use date assessed 09/08/23 09/08/23 09:41 Patient Tobacco Use Status Former Tobacco user 09/08/23 09:41 e-Cigarette/Vaping Use Never Used 09/08/23 09:41 PHQ-9: PHQ-9 Score PHQ-9: Total score 4 09/08/23 10:42 Depression Screening Interpretation: Negative Thrive Assessment: Date of Thrive Assessment Date Thrive assessed 09/08/23 09/08/23 09:55 Const General: no acute distress Nutritional Appearance: obese morbidly obese Orientation/consciousness: patient oriented x3 HENMT Mouth: oropharynx normal and moist mucous membranes Eyes General: appearance normal, both eyes and all related structures Neck Neck: Yes full ROM, Yes no lymphadenopathy and Yes supple Chest Other: History of mastectomy left breast, no masses, nipple discharge noted on right Resp Auscultation: clear to auscultation bilaterally Cardio Other: S1-S2 present regular rate and rhythm Jugular venous distension: no JVD GI Palpation (GI): Soft to palpation and nontender Auscultation: normal bowel sounds General: Yes no CVA tenderness Back/Spine/Pelvis Back: no CVA tenderness Skin Other: Hyperpigmentation noted in both lower extremity Neuro General: patient oriented x3, moves all extremities, no focal motor deficits and CN's II-XI intact bilaterally Cranial nerves: Yes CN's II-XII intact bilaterally Gait exam (Neuro): Assisted gait required Gait assisted method: walker Extrem General: Yes venous stasis dermatitis (Bilateral) Psych Appearance: grossly normal and well kempt Mental Status: mental status grossly normal Speech and movement: Normal speech and movement present Affect: normal affect Attitude: cooperative Results AMB Urinalysis, Automated UA Leukoctes 70 Claudia/uL Last Edit by Amanda Ramírez CMA on 09/08/23 10:20 UA Nitrite Negative Last Edit by Amanda Ramírez CMA on 09/08/23 10:20 UA Urobilinogen 0.2 mg/dL Last Edit by Amanda Ramírez CMA on 09/08/23 10 :20 UA Protein 15 mg/dL Last Edit by Amanda Ramírez CMA on 09/08/23 10:20 UA pH 6.0 Last Edit by Amanda Ramírez CMA on 09/08/23 10:20 UA Blood 10 Brian/uL Last Edit by Amanda Ramírez CMA on 09/08/23 10:20 UA Specific [place] 1.020 Last Edit by Amanda Ramírez CMA on 09/08/23 10:20 UA Ketone Negative Last Edit by Amanda Ramírez CMA on 09/08/23 10:20 UA Bilirubin 0 mg/dL Last Edit by Amanda Ramírez CMA on 09/08/23 10:20 UA Glucose 0 mg/dL Last Edit by Amanda Ramírez CMA on 09/08/23 10:20 Results Reviewed Results Reviewed: Laboratory Last Values Urine pH (Auto) 6.0 09/08/23 10:18 Specific [place] (Auto) 1.020 09/08/23 10:18 Urine Protein (Auto) 15 mg/dL 09/08/23 10:18 Glucose (UA)(Auto) 0 mg/dL 09/08/23 10:18 Urine Ketones (Auto) Negative 09/08/23 10:18 Urine Blood (Auto) 10 Brian/uL 09/08/23 10:18 Urine Nitrite (Auto) Negative 09/08/23 10:18 Urine Bilirubin (Auto) 0 mg/dL 09/08/23 10:18 Urine Urobilinogen (Auto) 0.2 mg/dL 09/08/23 10:18 Leukocyte Esterase (Auto) 70 Claudia/uL 09/08/23 10:18 Assessment and Plan Assessment & Plan (1) Iron deficiency anemia, unspecified: Code(s): D50.9 - Iron deficiency anemia, unspecified Plan: Received 3 doses of IV iron during her hospital admission. Repeat another CBC, iron profile in 2 weeks. Referred to Hematology-Oncology at [facility], per patient request (2) Urinary frequency: Code(s): R35.0 - Frequency of micturition Plan: UA done today showed contaminated specimen, symptom likely due to currently being on furosemide (3) Essential hypertension: Code(s): I10 - Essential (primary) hypertension Plan: Blood pressure today within normal limits, continue with Lasix, check another basic metabolic panel in 2 weeks (4) Venous insufficiency (chronic) (peripheral): Code(s): I87.2 - Venous insufficiency (chronic) (peripheral) Plan: Continue with latest (5) Recurrent nephrolithiasis: Code(s): N20.0 - Calculus of kidney Plan: Followed by Urology (6) CHF (congestive heart failure): Code(s): I50.9 - Heart failure, unspecified Plan: Currently on Lasix, repeat another BMP in 2 weeks, cardiology consult ordered (7) Rheumatoid arthritis: Code(s): M06.9 - Rheumatoid arthritis, unspecified Qualifiers: Rheumatoid arthritis location: unspecified site Plan: Patient states she has not been seen by Rheumatology in several years now, will refer to Rheumatology Clinic [place] Orders: Orders Lipid Panel 2 Weeks D50.9 - Iron deficiency anemia, unspecified, I10 - Essential (primary) hypertension, I50.9 - Heart failure, unspecified, Z78.0 - Asymptomatic menopausal state IRON PROFILE 2 Weeks D50.9 - Iron deficiency anemia, unspecified, I10 - Essential (primary) hypertension, I50.9 - Heart failure, unspecified, Z78.0 - Asymptomatic menopausal state Basic Metabolic Panel Fasting 2 Weeks D50.9 - Iron deficiency anemia, unspecified, I10 - Essential (primary) hypertension, I50.9 - Heart failure, unspecified, Z78.0 - Asymptomatic menopausal state Alanine Aminotransferase 2 Weeks D50.9 - Iron deficiency anemia, unspecified, I 10 - Essential (primary) hypertension, I50.9 - Heart failure, unspecified, Z78.0 - Asymptomatic menopausal state AMB Urinalysis Automated 09/08/23 Z13.9 - Encounter for screening, unspecified UA CC w/rflx Micro + Cult 09/08/23 R35.0 - Frequency of micturition Complete Blood Count Auto Diff 2 Weeks D50.9 - Iron deficiency anemia, unspecified, I10 - Essential (primary) hypertension, I50.9 - Heart failure, unspecified, Z78.0 - Asymptomatic menopausal state Vitamin D 25-OH Total 2 Weeks D50.9 - Iron deficiency anemia, unspecified, I10 - Essential (primary) hypertension, I50.9 - Heart failure, unspecified, Z78.0 - Asymptomatic menopausal state Aspartate Amino Transferase 2 Weeks D50.9 - Iron deficiency anemia, unspecified, I10 - Essential (primary) hypertension, I50.9 - Heart failure, unspecified, Z78.0 - Asymptomatic menopausal state Referrals Cardiology Referral I10 - Essential (primary) hypertension, I50.9 - Heart failure, unspecified, I87.2 - Venous insufficiency (chronic) (peripheral) Hematology & Oncology Referral D50.9 - Iron deficiency anemia, unspecified Rheumatology Referral M06.9 - Rheumatoid arthritis, unspecified Coding Level of Care Code Est Pt Level 4 (19797) Diagnoses Iron deficiency anemia, unspecified D50.9 Urinary frequency R35.0 Essential hypertension I10 Venous insufficiency (chronic) (peripheral) I87.2 Recurrent nephrolithiasis N20.0 CHF (congestive heart failure) I50.9 Rheumatoid arthritis M06.9 Rheumatoid arthritis location: unspecified site Additional Codes MADAY-7 Assessment Billing - MADAY-7 Assessment Tool: MADAY-7 Assessment [id number] ([id number])
== END 2023-09-08 10:47 | disposition home or self-care (01) ==
LOC: HO.HMGC 09:21
PROVIDERS: PCP Internal Medicine; Visit Provider Internal Medicine
DX: I11.0 Hypertensive heart disease with heart failure (principal); I50.9 Heart failure, unspecified; M06.9 Rheumatoid arthritis, unspecified; D50.9 Iron deficiency anemia, unspecified; R35.0 Frequency of micturition; I87.2 Venous insufficiency (chronic) (peripheral); N20.0 Calculus of kidney
CPT/HCPCS: 81003; 99214

== ENCOUNTER 2023-09-08 14:17 | Outpatient (REF) | payer MEDICARE, SELFPAY ==
[2023-09-08 15:22] LABS: Appearance Urine Clear; Color Urine Yellow; Glucose Urine UA Negative (Negative); Leukocyte Esterase Urine Small (1+) (Negative); Nitrite Urine Negative (Negative); Specific Gravity - Urine 1.015 (1.005-1.025); UMIC TRIGGER UACC YES; Urine Blood Trace (Negative); Urine Ketones Negative (Negative); Urine Protein Trace mg/dL (Neg-Trace)
[2023-09-08 15:29] LABS: Bacteria Urine None Seen (None Seen); Hyaline Casts Urine 0-2 /LPF (0-2); Squamous Epithelial Cell Urine 0-2 /HPF (0-2); UACC Culture Trigger YES; WBC Urine >50 /HPF (0-5)
== END 2023-09-08 14:18 | disposition home or self-care (01) ==
LOC: HO.LNP 14:17
PROVIDERS: Visit Provider Internal Medicine
DX: R35.0 Frequency of micturition (principal)
CPT/HCPCS: 81001; 81003; 87086; 87088; 87186

== ENCOUNTER 2023-09-30 11:10 | Outpatient (REF) | payer MEDICARE, SELFPAY ==
[2023-09-30 13:38] LABS: Appearance Urine Cloudy; Color Urine Yellow; Glucose Urine UA Negative (Negative); Leukocyte Esterase Urine Large (3+) (Negative); Nitrite Urine Positive (Negative); PH 6.5 (5.0-9.0); Specific Gravity - Urine 1.015 (1.005-1.025); UMIC TRIGGER UACC YES; Urine Blood Small (1+) (Negative); Urine Ketones Negative (Negative); Urine Protein 30 (1+) mg/dL (Neg-Trace)
[2023-09-30 13:39] LABS: MANUAL DIFF FLAG NO
[2023-09-30 13:40] LABS: Basophils Absolute Auto 0.1 X10*3/uL (0.0-0.2); Basophils Percent Auto 0.8 % (0-2); Eosinophils Absolute Auto 0.2 X10*3/uL (0.0-0.4); Eosinophils Percent Auto 2.2 % (0-4); Hematocrit 44.4 % (37.0-47.0); Imm Gran Abs Auto 0.02 X10*3/uL (0.00-0.03); Imm Gran Pct Auto 0.3 % (0.0-0.4); Lymphocytes Absolute Auto 1.4 X10*3/uL (1.2-4.9); Lymphocytes Percent Auto 18.1 % (20-40); Mean Corpuscular HGB Conc 31.5 g/dl (31.0-35.0); Mean Corpuscular Hemoglobin 30.5 pg (27.0-33.0); Mean Corpuscular Volume 96.7 fL (80.0-98.0); Mean Platelet Volume 10.2 fL (9.4-12.3); Monocytes Absolute Auto 0.5 X10*3/uL (0.1-1.2); Monocytes Percent Auto 6.4 % (2-11); Neutrophils Absolute Auto 5.6 x10*3/uL (2.0-8.3); Neutrophils Percent Auto 72.2 % (45-73); Platelet Count 153 X10*3/uL (160-400); Red Blood Count 4.59 X10*6/uL (4.20-5.50); Red Cell Distribution Width 17.2 % (11.0-16.0); White Blood Count 7.8 X10*3/uL (4.8-10.8)
[2023-09-30 13:41] LABS: Bacteria Urine 4+ (None Seen); Squamous Epithelial Cell Urine 0-2 /HPF (0-2); UACC Culture Trigger YES; WBC Urine >50 /HPF (0-5)
[2023-09-30 14:09] LABS: Alanine Aminotransferase 20 U/L (0-31); Anion Gap 14 (12-20); Aspartate Amino Transferase 39 U/L (5-31); Blood Urea Nitrogen 17 mg/dL (9-16); Calcium 8.8 mg/dL (8.4-10.2); Carbon Dioxide 23 mmol/L (22-29); Chloride 109 mmol/L (96-108); Cholesterol 155 mg/dL (<200); Estimated Glomerular Filt Rate 49; Glucose Fasting 110 mg/dL (60-99); HDL Cholesterol 50 mg/dL (>40); Iron 89 mcg/dL (30-160); LDL Cholesterol Calculated 88 mg/dL (<100); Percent Iron Saturation 36 % (15-50); Potassium 4.5 mmol/L (3.3-5.1); Sodium 141 mmol/L (135-145); Total Iron Binding Capacity 250 mcg/dL (228-428); Triglycerides 85 mg/dL (<150); Unsaturated Iron Binding 161 ug/dL
[2023-09-30 14:17] LABS: Vitamin D 25-OH Total 4.8 ng/mL (>30)
== END 2023-09-30 11:11 | disposition home or self-care (01) ==
LOC: HO.HMGCLDS 11:10
PROVIDERS: PCP Internal Medicine; Visit Provider Internal Medicine
DX: I11.0 Hypertensive heart disease with heart failure (principal); I50.9 Heart failure, unspecified; D50.9 Iron deficiency anemia, unspecified; Z78.0 Asymptomatic menopausal state; R35.0 Frequency of micturition
CPT/HCPCS: 36415; 80048; 80061; 81001; 82306; 83540; 84450; 84460; 85025; 87086; 87088; 87186

== ENCOUNTER 2023-10-09 13:07 | Outpatient (AMB) | payer MEDICARE, SELFPAY ==
--- NOTE | 2023-10-09 13:08 | A.OFFVIS_ITS ---
Intake Vital Signs 10/09/23 13:09 Height 5 ft Weight 210 lb 8.663 oz BMI 41.1 BP 130/64 Blood Pressure Location Rt brachial Position Sitting Pulse 96 Pulse Source Pulse Oximeter Pulse Oximetry (%) 97 Oxygen Delivery Method Nasal Cannula Intake Visit Reasons: RA/lm Intake Note: New patient presents today for RA consult, internally referred by PCP Dr Boyle C/o pain in multiple joints. Previously seen By Dr Loja. Has tried Orencia, minocycline. 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 Accompanied by: Self / Same As Patient Allergies nickel Allergy (Mild, Verified 10/09/23 13:23) Rash abatacept [From Orencia] Adverse Reaction (Severe, Verified 10/09/23 14:00) shingles injection of steriods Allergy (Unknown, Uncoded 10/09/23 13:23) rash iodine Allergy (Unknown, Uncoded 10/09/23 13:23) anaphylaxis wool Allergy (Unknown, Uncoded 10/09/23 13:23) rash Medication List - Last Reconciled 10/09/23 by Jacob Florez MD albuterol sulfate 90 mcg/actuation 0 mcg inhalation albuterol sulfate mg inhalation anastrozole 1 mg PO DAILY blood sugar diagnostic (OneTouch Verio test strips) TESTS AT LEAST 4 TIMES DAILY blood-glucose meter (OneTouch Verio Flex Meter) USE METER TO TEST AT LEAST 4 TIMES DAILY cetirizine (All Day Allergy (cetirizine)) 10 mg PO DAILY PRN dulaglutide (Trulicity) 3 mg (0.5 mL) subcut QWEEK flash glucose scanning reader (FreeStyle Jonny 2 [place]) As directed flash glucose sensor (FreeStyle Jonny 2 Sensor kit) As directed fluticasone propionate 50 mcg/actuation sprays intranasal utadfwpboan-pripxasmz-inxtwvfe 100-62.5-25 mcg 1 ea inhalation QAM furosemide 20 mg PO BID insulin lispro (Humalog KwikPen (U-100) Insulin) 10 units (0.1 mL) subcut TID ipratropium-albuterol 0.5 mg-3 mg(2.5 mg base)/3 mL mL inhalation lancets As directed Lantus Solostar U-100 Insulin (insulin glargine) 12 units (0.12 mL) subcut QPM NS lisinopril 5 mg PO DAILY minocycline 100 mg PO BID montelukast 10 mg PO DAILY mupirocin 2% 1 appl topical TID nitrofurantoin monohyd/m-cryst 100 mg 100 mg PO Q12H 10 days nystatin-triamcinolone 100,000-0.1 unit/gram-% 1 appl topical DAILY 7 days oxybutynin chloride ER 5 mg PO BEDTIME pantoprazole 40 mg PO DAILY paroxetine HCl 40 mg PO QAM pen needle, diabetic (BD Theodora 2nd Gen Pen Needle) INJECT INSULIN UP TO 4 TIMES A DAY. potassium chloride ER 20 mEq PO BID HPI HPI Comments History of Present Illness Details 73-year-old female with rheumatoid arthr itis presents as a new patient. Patient has a complicated medical history including COPD on home oxygen 3-5 L a day, CHF, liver cirrhosis, history of kidney stones. Patient stated that back in May she had pneumonia as well as kidney stone complicated by UTI. She was on antibiotics for at least 1 month. She had a central line in certain that clotted she took Lovenox followed by Annabelle for some time. It is discontinued now. She states that she was diagnosed with rheumatoid arthritis in the s. She has been on multiple medicines including hydroxychloroquine, not effective, methotrexate, not effective, she was on Orencia for approximately 8 years until 2009. Then she developed shingles on her face. Orencia was discontinued at that time. She used to follow-up with Dr. Loja, She then took minocycline, she she stopped following up with Dr. Loja and her PCP was refilling her minocycline. Until about 2018 when her PCP changed. Her new PCP did not refill her minocycline. She states that minocycline was working fairly well. Currently she is complaining of pain and swelling of her knuckles, fingers, right shoulder, both ankles. 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, with long- term current use of insulin Rheumatoid arthritis Morbid obesity Urge and stress incontinence History of invasive breast cancer MAYA on CPAP COPD (chronic obstructive pulmonary disease) Surgical History History of shoulder replacement Hx of cataract extraction Hx of umbilical hernia repair Hx of discectomy Hx of mastectomy Hx of cholecystectomy History of appendectomy Social History [facility] Patient Tobacco Use Status: Former Tobacco user Quit Date: Over 12 years Years Smoked: 30 yrs e-Cigarette/Vaping Use: Never Used Second Hand Smoke Exposure: No service: No Current occupational status: disabled Cognitive needs: No Hearing needs: No Vision needs: Yes Review of Systems Const Reports fatigue, Reports headache(s) and Reports weakness Eyes Reports dry eyes ENT Reports dizziness, Reports dry mouth, Reports headache(s) and Reports tinnitus Card Reports irregular heart rhythm, Reports dyspnea and Reports dyspnea on exertion Resp Reports cough, Reports dyspnea and Reports dyspnea on exertion GI Reports nausea Musc Reports arthralgias, Reports joint swelling, Reports limited range of motion and Reports stiffness Neuro Reports dizziness, Reports headache(s) and Reports weakness Psych Reports abnormal sleep pattern, Reports anxiety and Reports depression Endo Reports fatigue Physical Exam Vital Signs: Last Vital Signs Pulse 96 10/09/23 13:09 BP 130/64 10/09/23 13:09 Pulse Ox 97 10/09/23 13:09 Oxygen Delivery Method Nasal Cannula 10/09/23 13:09 BMI result Body Mass Index 41.1 Const General: cooperative, healthy appearing and comfortable Nutritional Appearance: obese morbidly obese Orientation/consciousness: patient oriented x3 Limitations: no limitations HEENT Head: Yes normocephalic and Yes atraumatic Resp Other: Gets short of breath talking Auscultation: crackles and diminished lung sounds Cardio Rate: regular rate Skin Other: Erythema both shins Neuro General: patient oriented x3 Extrem Other: Synovial thickening of MCPs puffiness of fingers Bilateral puffiness of wrists Bilateral tender wrists Few tender MCPs and PIP is bilaterally Limited range of motion of left shoulder Almost normal range of motion of right shoulder but painful abduction Bilateral ankle swelling and tenderness Assessment & Plan Assessment & Plan (1) Rheumatoid arthritis: Comment: dx MTX ineffective Hydroxychloroquine ineffective Orencia infusion 4417-9439 DC due to facial shingles Minocycline 2009 to 2018 effective according to patient. Lost to follow-up Code(s): M06.9 - Rheumatoid arthritis, unspecified Qualifiers: Rheumatoid arthritis location: multiple sites Rheumatoid factor presence: unspecified presence Qualified Code(s): M06.9 - Rheumatoid arthritis, unspecified Plan: This is a 73-year-old female with rheumatoid arthritis who presents as a new patient. Patient has been on multiple DMARDs in the past. Records not available to me. She has multiple comorbidities including COPD on home oxygen, CHF, history of DVT, history of infections, liver cirrhosis. Given her comorbidities, we are quite limited on our choice of DMARDs Patient stated that she had done relatively well on minocycline in the past. Restart minocycline 100 mg Twice daily Check labs today Follow-up in about 2 months Plan I spent 47 minutes reviewing patient's chart, evaluating patient, ordering diagnostic workup, counseling patient and documenting in the chart Orders: Orders Erythrocyte Sedimentation Rate Today M06.9 - Rheumatoid arthritis, unspecified T Spot TB Today Z11.7 - Encounter for testing for latent tuberculosis infection Protein Electrophoresis, Serum Today M06.9 - Rheumatoid arthritis, unspecified Rheumatoid Factor Today M06.9 - Rheumatoid arthritis, unspecified Cyclic Citrullinated Peptide Today M06.9 - Rheumatoid arthritis, unspecified C Reactive Protein Today M06.9 - Rheumatoid arthritis, unspecified Hepatitis A,B,C Profile Today Z11.59 - Encounter for screening for other viral diseases Immunofixation Pnl, Serum Today M06.9 - Rheumatoid arthritis, unspecified Medications: New minocycline 100 mg PO BID 60 caps 1RF Coding Level of Care Code New Pt Level 4 (89329) Diagnoses Rheumatoid arthritis involving multiple sites, unspecified whether rheumatoid factor present M06.9 Rheumatoid arthritis location: multiple sites Rheumatoid factor presence: unspecified presence
[2023-10-09 13:09] VITALS: BP 130/64; PULSE 96; O2SAT 97; BMI 41.1
== END 2023-10-09 13:49 | disposition home or self-care (01) ==
PROVIDERS: PCP Internal Medicine; Visit Provider Student in an Organized Health Care Education/Training Program
DX: M06.9 Rheumatoid arthritis, unspecified (principal)
CPT/HCPCS: 99204

== ENCOUNTER 2023-10-09 14:16 | Outpatient (REF) | payer MEDICARE, SELFPAY ==
[2023-10-09 16:38] LABS: C Reactive Protein 0.36 mg/dL (< or = 0.50)
[2023-10-09 16:47] LABS: Rheumatoid Factor 130.5 IU/mL (<15.0)
[2023-10-09 17:06] LABS: Erythrocyte Sedimentation Rate 71 MM/HR (0-20)
[2023-10-10 08:29] LABS: HBc Num1 0.54 S/CO (0.00-0.79); Hepatitis A Antibody IgM 0.18 Index (0-0.79); Hepatitis B Core Antibody Nonreactive (Nonreactive); Hepatitis B Surface Antigen Negative (Negative); ~HepC Num1 0.32 S/CO (0.00-0.79); ~Hepatitis A Antibody IgM Nonreactive (Nonreactive); ~Hepatitis B Surface Antibody NONREACTIVE (Nonreactive); ~Hepatitis C Antibody Nonreactive (Nonreactive)
[2023-10-11 12:33] LABS: Cyclic Citrullinated Peptide 23 UNITS
[2023-10-11 21:22] LABS: Prot Elec - Albumin 3.1 g/dL (3.8-4.8); Prot Elec - Alpha1 0.3 g/dL (0.2-0.3); Prot Elec - Alpha2 0.6 g/dL (0.5-0.9); Prot Elec - Beta 1 0.5 g/dL (0.4-0.6); Prot Elec - Beta 2 0.5 g/dL (0.2-0.5); Prot Elec - Gamma 3.5 g/dL (0.8-1.7); Prot Elec - Total Protein 8.5 g/dL (6.1-8.1)
[2023-10-12 20:59] LABS: IgA 1105 mg/dL (70-320); IgG 3316 mg/dL (600-1540); IgM 176 mg/dL (50-300)
== END 2023-10-09 14:17 | disposition home or self-care (01) ==
LOC: HO.HMGCLDS 14:16
PROVIDERS: PCP Internal Medicine; Visit Provider Student in an Organized Health Care Education/Training Program
DX: M06.9 Rheumatoid arthritis, unspecified (principal); Z11.59 Encounter for screening for other viral diseases; Z11.7 Encounter for testing for latent tuberculosis infection; Z72.89 Other problems related to lifestyle
CPT/HCPCS: 36415; 82784; 84165; 85652; 86140; 86200; 86334; 86431; 86704; 86706; 86709; 86803; 87340; 99202

== ENCOUNTER 2024-01-29 11:05 | Outpatient (AMB) | payer MEDICARE, SELFPAY ==
[2024-01-29 11:07] VITALS: BP 142/74; PULSE 99; BMI 41.8
--- NOTE | 2024-01-29 11:07 | MHC.OFFVIS ---
Vital Signs 01/29/24 11:07 Height 5 ft Weight 213 lb 13.574 oz BMI 41.8 BP 142/74 H Blood Pressure Location Rt brachial Position Sitting Pulse 99 Pulse Source Pulse Oximeter Intake Visit Reasons: f/u type 2 DM/lvm Intake Note: Patient presents today to follow up on D2MT. Last Diabetic Eye exam: 09/2023 Last Podiatry Visit: Doesn't have one. Random Glucose: 249 mg/dl HgA1c: 6.8% Foreign Law Consultant Required: No Accompanied by: Self / Same As Patient Allergies nickel Allergy (Mild, Verified 01/29/24 11:14) Rash abatacept [From Orencia] Adverse Reaction (Severe, Verified 01/29/24 11:14) shingles injection of steriods Allergy (Unknown, Uncoded 01/29/24 11:14) rash iodine Allergy (Unknown, Uncoded 01/29/24 11:14) anaphylaxis wool Allergy (Unknown, Uncoded 01/29/24 11:14) rash Medication List - Last Reconciled 01/29/24 by Beatriz Rousseau PA-C albuterol sulfate 90 mcg/actuation 0 mcg inhalation albuterol sulfate mg inhalation anastrozole 1 mg PO DAILY blood sugar diagnostic (OneTouch Verio test strips) TESTS AT LEAST 4 TIMES DAILY blood-glucose meter (OneTouch Verio Flex Meter) USE METER TO TEST AT LEAST 4 TIMES DAILY cetirizine (All Day Allergy (cetirizine)) 10 mg PO DAILY PRN flash glucose scanning reader (FreeStyle Jonny 2 [place]) As directed flash glucose sensor (FreeStyle Jonny 2 Sensor kit) As directed fluticasone propionate 50 mcg/actuation sprays intranasal btoxtyhugcm-ydpfaiumq-jlchqndb 100-62.5-25 mcg 1 ea inhalation QAM furosemide 20 mg PO BID insulin glargine (Lantus Solostar U-100 Insulin) 10 units subcut QPM insulin lispro (Humalog KwikPen (U-100) Insulin) 10 units (0.1 mL) subcut TID ipratropium-albuterol 0.5 mg-3 mg(2.5 mg base)/3 mL mL inhalation lancets As directed lisinopril 5 mg PO DAILY minocycline 100 mg PO BID montelukast 10 mg PO DAILY mupirocin 2% 1 appl topical TID nitrofurantoin monohyd/m-cryst 100 mg 100 mg PO Q12H 10 days nystatin-triamcinolone 100,000-0.1 unit/gram-% 1 appl topical DAILY 7 days oxybutynin chloride ER 5 mg PO BEDTIME pantoprazole 40 mg PO DAILY paroxetine HCl 40 mg PO QAM pen needle, diabetic (BD Theodora 2nd Gen Pen Needle) INJECT INSULIN UP TO 4 TIMES A DAY. potassium chloride ER 20 mEq PO BID HPI HPI f/u type 2 DM/lvm: Details: Patient is a 73-year-old female who presents today for follow-up regarding diabetes. She has a significant past medical history of CHF, ckd, staghorn calculus, george, venous insufficiency, rheumatoid arthritis, morbid obesity, MAYA on CPAP, hypertension, hyperlipidemia and o2 dependent, COPD. She last saw Dr. Joseph in February 2023. -She states since she last saw Dr. Joseph she has had renal and breathing complications. She states she is now o2 dependent (previously was using it prn with exertion). Endo: Her A1c was 6.8 today. She was initially diagnosed with diabetes about 11 years ago. When she was 1st diagnosed she did follow with endocrinology in and field. She was also initially treated with metformin but developed diarrhea. Her current regimen: She states she uses lantus 4 units prn, uses a sliding scale for humalog does not find that she has to take this much. She was supposed to be on trulicity 3 mg weekly but has not been able to find this drug since winter. She states she has mostly been controlling her glucose readings with diet. She states she is very careful. CGM: Jonny download shows 80% range with 20% hyperglycemia and 0% hypoglycemia CV: Blood pressure today in the office is 142/74. She is on lisinopril 5 mg, furosemide 20 mg b.i.d. cholesterol control. 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, with long-term current use of insulin Rheumatoid arthritis Morbid obesity Urge and stress incontinence History of invasive breast cancer MAYA on CPAP COPD (chronic obstructive pulmonary disease) Surgical History History of shoulder replacement Hx of cataract extraction Hx of umbilical hernia repair Hx of discectomy Hx of mastectomy Hx of cholecystectomy History of appendectomy Social History [facility] Patient Tobacco Use Status: Former Tobacco user Years Smoked: 30 yrs e-Cigarette/Vaping Use: Never Used Second Hand Smoke Exposure: No service: No Current occupational status: disabled Cognitive needs: No Hearing needs: No Vision needs: Yes Physical Exam Vital Signs: Last Vital Signs Pulse 99 01/29/24 11:07 BP 142/74 H 01/29/24 11:07 BMI result Body Mass Index 41.8 Const Orientation/consciousness: patient oriented x3 Neck Neck: Yes no lymphadenopathy Thyroid: Thyroid normal Carotids: no bruits Resp Auscultation: clear to auscultation bilaterally Cardio Rate: regular rate Rhythm: regular rhythm Heart sounds: S1 normal heart sound present and S2 normal heart sound present Peripheral pulses: dorsalis pedis present Neuro General: patient oriented x3, gait normal and no focal motor deficits Extrem Other: +1 pitting edema on the dorsal aspect of bilateral feet. states did not take diuretic today as she had an appointment and did not want incontinence. Monofilament sensation intact bilaterally. Vibratory sensation intact bilaterally. Skin intact. 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 discussed risks/benefits and adverse effects such as n/v, pancreatitis, gastroparesis. Freestyle 3 ordered. Signs symptoms of hyper and hypoglycemia that would require emergent medical treatment were discussed. Advised follow-up in 3 months. Sooner if needed. (2) Essential hypertension: Code(s): I10 - Essential (primary) hypertension Category: Medical Plan: A little elevated above goal but did not take some of her medications yet today. States that home BPs WNL. (3) Morbid obesity: Code(s): E66.01 - Morbid (severe) obesity due to excess calories Category: Medical Plan: Will start Ozempic. Discussed dietary changes. Orders: Orders AMB Hemoglobin A1c Today Beatriz Rousseau PA-C E08.29 - Diabetes mellitus due to underlying condition with other diabetic kidney complication, R80.9 - Proteinuria, unspecified, Z13.9 - Encounter for screening, unspecified, Z79.4 - computer terminal operator (current) use of insulin Medications: New blood-glucose sensor (FreeStyle Jonny 3 Sensor device) Apply every 14 days As directed 2 ea 11RF Beatriz Rousseau PA-C E11.9 - Type 2 diabetes mellitus without complications, Z79.4 - computer terminal operator (current) use of insulin blood-glucose meter,continuous (FreeStyle Jonny 3 [place]) Use daily As directed to monitor blood glucose 1 ea 0RF Beatriz Rousseau PA-C E08.29 - Diabetes mellitus due to underlying condition with other diabetic kidney complication, R80.9 - Proteinuria, unspecified, Z79.4 - care home (current) use of insulin blood-glucose sensor (FreeStyle Jonny 3 Sensor device) Apply every 14 days As directed 2 ea 11RF Beatriz Rousseau PA-C E11.9 - Type 2 diabetes mellitus without complications, Z79.4 - computer terminal operator (current) use of insulin semaglutide (Ozempic) for 4 weeks 0.25 mg (0.368 mL) subcut QWEEK 3 mL 4RF Beatriz Rousseau PA-C blood-glucose meter,continuous (FreeStyle Jonny 3 [place]) Use daily As directed to monitor blood glucose 1 ea 0RF Beatriz Rousseau PA-C E08.29 - Diabetes mellitus due to underlying condition with other diabetic kidney complication, R80.9 - Proteinuria, unspecified, Z79.4 - computer terminal operator (current) use of insulin semaglutide (Ozempic) for 4 weeks 0.25 mg (0.368 mL) subcut QWEEK 3 mL 4RF Beatriz Rousseau PA-C Changed From Lantus Solostar U-100 Insulin (insulin glargine) 12 units (0.12 mL) subcut QPM 15 mL 3RF NS E11.65 - Type 2 diabetes mellitus with hyperglycemia, Z79.4 - computer terminal operator (current) use of insulin To insulin glargine (Lantus Solostar U-100 Insulin) 10 units subcut QPM E11.65 - Type 2 diabetes mellitus with hyperglycemia, Z79.4 - care home (current) use of insulin Marc Joseph MD Discontinued dulaglutide (Trulicity) Discontinued Reason: Doctor's Order 3 mg (0.5 mL) subcut QWEEK 2 mL 4RF Coding Level of Care Code Est Pt Level 4 (85734) Diagnoses 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
[2024-01-29 11:21] LABS: Glucose, Whole Blood 249 mg/dL (60-115)
== END 2024-01-29 11:52 | disposition home or self-care (01) ==
PROVIDERS: PCP Internal Medicine; Visit Provider Physician Assistant
DX: E11.22 Type 2 diabetes mellitus with diabetic chronic kidney disease (principal); N18.9 Chronic kidney disease, unspecified; R80.9 Proteinuria, unspecified; Z79.4 Long term (current) use of insulin; I12.9 Hypertensive chronic kidney disease with stage 1 through stage 4 chronic kidney disease, or unspecified chronic kidney disease; Z13.9 Encounter for screening, unspecified
CPT/HCPCS: 99214

== ENCOUNTER → 2024-01-29 11:05 | Outpatient (BNVA) | payer MEDICARE, SELFPAY | PROVIDERS: PCP Internal Medicine; Visit Provider Physician Assistant | DX: R80.9 Proteinuria, unspecified (principal); E08.29 Diabetes mellitus due to underlying condition with other diabetic kidney complication; I10 Essential (primary) hypertension; E66.01 Morbid (severe) obesity due to excess calories; Z79.4 Long term (current) use of insulin; Z68.41 Body mass index [BMI] 40.0-44.9, adult | CPT/HCPCS: 82947; 83036; 99212 ==

== ENCOUNTER 2024-03-18 13:42 | Outpatient (AMB) | payer MEDICARE, SELFPAY ==
[2024-03-18 13:46] VITALS: BP 138/78; PULSE 91; BMI 43.5
--- NOTE | 2024-03-18 13:46 | A.OFFVIS_ITS ---
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/HTN/CHF/Venous Insufficiency Intake Note: New patient dx HTN , CHF and Venous Insufficiency c/o leg swelling and sob (copd on O2) Nitrate Operator Required: No Allergies nickel Allergy (Mild, Verified 01/29/24 11:14) Rash abatacept [From Orencia] Adverse Reaction (Severe, Verified 01/29/24 11:14) shingles injection of steriods Allergy (Unknown, Uncoded 01/29/24 11:14) rash iodine Allergy (Unknown, Uncoded 01/29/24 11:14) anaphylaxis wool Allergy (Unknown, Uncoded 01/29/24 11:14) rash Medication List - Last Reconciled 03/18/24 by Nicanor Melendez MD albuterol sulfate 90 mcg/actuation 0 mcg inhalation albuterol sulfate mg inhalation anastrozole 1 mg PO DAILY blood sugar diagnostic (OneTouch Verio test strips) TESTS AT LEAST 3 TIMES DAILY blood-glucose meter ([employer] Verio Flex Meter) USE METER TO TEST AT LEAST 4 TIMES DAILY blood-glucose meter,continuous (FreeStyle Jonny 3 Rumney) Use daily As directed to monitor blood glucose blood-glucose sensor (FreeStyle Jonny 3 Sensor device) Apply every 14 days As directed cetirizine (All Day Allergy (cetirizine)) 10 mg PO DAILY PRN flash glucose scanning reader (FreeStyle Jonny 2 Rumney) As directed flash glucose sensor (FreeStyle Jonny 2 Sensor kit) As directed fluticasone propionate 50 mcg/actuation sprays intranasal nmjajphpiyc-celchlfmw-beohwwlk 100-62.5-25 mcg 1 ea inhalation QAM furosemide 20 mg PO BID insulin glargine (Lantus Solostar U-100 Insulin) 10 units subcut QPM PRN insulin lispro (Humalog KwikPen (U-100) Insulin) 10 units subcut TID PRN ipratropium-albuterol 0.5 mg-3 mg(2.5 mg base)/3 mL mL inhalation lancets As directed lisinopril 5 mg PO DAILY minocycline 100 mg PO BID montelukast 10 mg PO DAILY mupirocin 2% 1 appl topical TID nystatin-triamcinolone 100,000-0.1 unit/gram-% 1 appl topical DAILY 7 days pantoprazole 40 mg PO DAILY paroxetine HCl 40 mg PO QAM pen needle, diabetic (BD Theodora 2nd Gen Pen Needle) INJECT INSULIN UP TO 4 TIMES A DAY. semaglutide (Ozempic) 0.25 mg (0.368 mL) subcut QWEEK vibegron (Gemtesa) 75 mg PO DAILY HPI Comments Details: Coco was referred here for management of heart failure. She says she was admitted last time at which time she was then with hypoxemic respiratory failure secondary to COPD exacerbation at that time was noted to be in heart failure. She was diuresed and subsequently managed for COPD exacerbation. Subsequently she is currently maintained on diuretic therapy with Lasix 20 mg b.i.d. which she takes faithfully. She has had no significant heart failure syndrome or worsening orthopnea, PND, leg edema or abdominal distension. She has chronic COPD for which she is on chronic oxygen therapy due to chronic hypoxemic respiratory failure. She also has significantly intermittent episodes of anemia. She is currently on iron therapy. She also has acid reflux disease. Continues to have exertional shortness of breath with limited exercise capacity. Denies any clear prolonged palpitation irregular heartbeat. No lightheadedness, syncope. Takes all her medications. Denies any clear chest pain. Echocardiogram done in August at [facility] showed normal LV ejection fraction grade 2 diastolic dysfunction with no significant pulmonary hypertension without major valvular abnormalities. 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, with long- term current use of insulin Rheumatoid arthritis Morbid obesity Urge and stress incontinence History of invasive breast cancer MAYA on CPAP COPD (chronic obstructive pulmonary disease) Surgical History History of shoulder replacement Hx of cataract extraction Hx of umbilical hernia repair Hx of discectomy Hx of mastectomy Hx of cholecystectomy History of appendectomy Social History [facility] Patient Tobacco Use Status: Former Tobacco user Years Smoked: 30 yrs e-Cigarette/Vaping Use: Never Used Second Hand Smoke Exposure: No service: No Current occupational status: disabled Cognitive needs: No Hearing needs: No Vision needs: Yes Review of Systems Const Denies chills, Denies daytime sleepiness, Reports fatigue, Denies fever(s), Denies frequent falls, Denies poor appetite, Denies snoring, Reports stops breathing during sleep, Denies weakness, Reports weight gain and Denies weight loss Eyes Denies loss of vision ENT Denies dizziness and Denies hearing loss Card Denies chest pain, Denies claudication, Denies leg edema, Denies lightheadedness, Denies palpitations, Reports dyspnea, Reports dyspnea on exertion and Reports orthopnea Resp Denies cough, Denies excessive phlegm production, Reports dyspnea, Reports dyspnea on exertion, Denies snoring and Denies wheezing GI Denies abdominal pain, Denies hematochezia, Denies change in bowel habits, Denies nausea and Denies vomiting Denies urinary frequency and Denies dysuria Musc Denies arthralgias, Denies muscle weakness, Denies numbness and Denies other (frequent falls) Skin/Breast Denies nail changes and Denies rash Neuro Denies Abnormal speech present, Denies dizziness, Denies frequent falls, Denies loss of vision, Denies memory loss, Denies numbness and Denies weakness Psych Denies depression and Denies memory loss Endo Reports fatigue and Denies palpitations Valentin/Lymph Reports easy bruising and Reports other (anemia) Aller/Immun Denies wheezing Physical Exam Vital Signs: Last Vital Signs Pulse 91 03/18/24 13:46 BP 138/78 03/18/24 13:46 BMI result Body Mass Index 43.5 Const General: cooperative, comfortable, alert and awake Nutritional Appearance: obese morbidly obese Orientation/consciousness: patient oriented x3 Limitations: ambulation with walker HEENT Head: Yes normocephalic and Yes atraumatic Neck Neck: Yes trachea midline, Yes supple and Yes no JVD Resp Effort & Inspection: normal respiratory effort Auscultation: diminished lung sounds Cardio Jugular venous distension: no JVD Rate: regular rate Rhythm: regular rhythm Heart sounds: S1 normal heart sound present, S2 normal heart sound present, no click, no gallops and no murmurs GI Inspection: Yes obesity Auscultation: normal bowel sounds Neuro General: patient oriented x3 and no focal motor deficits Speech: No Abnormal speech present Extrem General: Yes no clubbing, cyanosis or edema Assessment & Plan Assessment & Plan (1) CHF (congestive heart failure): Code(s): I50.9 - Heart failure, unspecified Category: Medical Plan: Prior history of CHF, heart failure with preserved ejection fraction grade 2 diastolic dysfunction with multiple risk factors including morbid obesity, underlying significant COPD with chronic respiratory failure, hypotension. Clinically does appear to be significantly fluid overload at this point time on current diuretic regimen. Given her multiple risk factors myocardial ischemia needs to be ruled out especially given her symptoms exertional shortness of breath which most likely is related to restrictive pulmonary defect as well as underlying COPD. I will suggest a vasodilating myocardial perfusion imaging to evaluate for the same as this may change her management plan. Importance of diuretic therapy was discussed. Potential development of heart failure in the setting of acute respiratory failure was discussed as well. Daily weight monitoring avoidance of salt loading was discussed. Continue oxygen therapy. Continue participate in weight loss program. Blood pressure is currently well optimized advised to continue lisinopril therapy. Low-salt diet was discussed. Gradually increase activity level suggested. Will follow up in the clinic in 1 year's time, sooner p.r.n.. Thank you for allowing me to partake in his care Orders: Orders CA echo transthoracic complete 1 Year Nicanor Melendez MD I50.9 - Heart failure, unspecified CA lexiscan stress w glo 03/18/24 Nicanor Melendez MD I50.9 - Heart failure, unspecified Medications: Changed From insulin lispro (Humalog KwikPen (U-100) Insulin) 10 units (0.1 mL) subcut TID 15 mL 3RF E08.29 - Diabetes mellitus due to underlying condition with other diabetic kidney complication, R80.9 - Proteinuria, unspecified, Z79.4 - bed bug exterminator (current) use of insulin To insulin lispro (Humalog KwikPen (U-100) Insulin) 10 units subcut TID PRN E08.29 - Diabetes mellitus due to underlying condition with other diabetic kidney complication, R80.9 - Proteinuria, unspecified, Z79.4 - bed bug exterminator (current) use of insulin Marc Joseph MD Coding Level of Care Code New Pt Level 4 (03163) Diagnoses CHF (congestive heart failure) I50.9
== END 2024-03-18 14:46 | disposition home or self-care (01) ==
PROVIDERS: PCP Internal Medicine; Visit Provider Internal Medicine Cardiovascular Disease
DX: I50.9 Heart failure, unspecified (principal)
CPT/HCPCS: 99204

== ENCOUNTER → 2024-03-18 13:42 | Outpatient (BNVA) | payer MEDICARE, SELFPAY | PROVIDERS: PCP Internal Medicine; Visit Provider Internal Medicine Cardiovascular Disease | DX: I50.9 Heart failure, unspecified (principal); J44.9 Chronic obstructive pulmonary disease, unspecified; E08.29 Diabetes mellitus due to underlying condition with other diabetic kidney complication; R80.9 Proteinuria, unspecified; Z79.4 Long term (current) use of insulin; Z99.81 Dependence on supplemental oxygen; Z79.899 Other long term (current) drug therapy | CPT/HCPCS: 99202 ==

== ENCOUNTER 2024-04-29 10:46 | Outpatient (AMB) | payer MEDICARE, SELFPAY ==
--- NOTE | 2024-04-29 10:48 | A.OFFVIS_ITS ---
Vital Signs 04/29/24 10:52 Height 5 ft Weight 224 lb 13.944 oz BMI 43.9 BP 114/74 Blood Pressure Location Rt brachial Position Sitting Pulse 98 Pulse Source Pulse Oximeter Intake Visit Reasons: T2DM/LVM Intake Note: Patient presents today to follow up on DMT2: Last Diabetic Eye exam: 09/2023 Last Podiatry Visit: Doesn't have one. Most Recent HgA1c: 5.9%, 04/29/2024 Random Glucose: 143 mg/dL, Today Service Superintendent Required: No Accompanied by: Self / Same As Patient Allergies nickel Allergy (Mild, Verified 01/29/24 11:14) Rash abatacept [From Orencia] Adverse Reaction (Severe, Verified 01/29/24 11:14) shingles injection of steriods Allergy (Unknown, Uncoded 01/29/24 11:14) rash iodine Allergy (Unknown, Uncoded 01/29/24 11:14) anaphylaxis wool Allergy (Unknown, Uncoded 01/29/24 11:14) rash Medication List - Last Reconciled 04/29/24 by Beatriz Rousseau PA-C albuterol sulfate 90 mcg/actuation 0 mcg inhalation albuterol sulfate mg inhalation anastrozole 1 mg PO DAILY blood sugar diagnostic (OneTouch Verio test strips) TESTS AT LEAST 3 TIMES DAILY blood-glucose meter (OneTouch Verio Flex Meter) USE METER TO TEST AT LEAST 4 TIMES DAILY blood-glucose meter,continuous (FreeStyle Jonny 3 [place]) Use daily As directed to monitor blood glucose blood-glucose sensor (FreeStyle Jonny 3 Sensor device) Apply every 14 days As directed blood-glucose sensor (FreeStyle Jonny 3 Plus Sensor device) Use daily As directed to monitor glucose cetirizine (All Day Allergy (cetirizine)) 10 mg PO DAILY PRN flash glucose scanning reader (FreeStyle Jonny 2 [place]) As directed flash glucose sensor (FreeStyle Jonny 2 Sensor kit) As directed fluticasone propionate 50 mcg/actuation sprays intranasal xmbmabbsafa-nlqokidmf-sbcclofb 100-62.5-25 mcg 1 ea inhalation QAM furosemide 20 mg PO BID insulin glargine (Lantus Solostar U-100 Insulin) 10 units subcut QPM PRN insulin lispro (Humalog KwikPen (U-100) Insulin) 10 units subcut TID PRN ipratropium-albuterol 0.5 mg-3 mg(2.5 mg base)/3 mL mL inhalation lancets As directed lisinopril 5 mg PO DAILY minocycline 100 mg PO BID montelukast 10 mg PO DAILY mupirocin 2% 1 appl topical TID nystatin-triamcinolone 100,000-0.1 unit/gram-% 1 appl topical DAILY 7 days pantoprazole 40 mg PO DAILY paroxetine HCl 40 mg PO QAM pen needle, diabetic (BD Theodora 2nd Gen Pen Needle) INJECT INSULIN UP TO 4 TIMES A DAY. semaglutide (Ozempic) 0.25 mg (0.368 mL) subcut QWEEK vibegron (Gemtesa) 75 mg PO DAILY HPI HPI T2DM/LVM: Details: Patient is a 73-year-old female who presents today for follow-up regarding diabetes. She has a significant past medical history of CHF, ckd, staghorn calculus, george, venous insufficiency, rheumatoid arthritis, morbid obesity, MAYA on CPAP, hypertension, hyperlipidemia and o2 dependent, COPD. Today the A1c machine initially wouldn't read the a1c due to low hemoglobin . She has been getting some intermittent chest pain. It last happened 2 weeks ago. She is following with cardiology and does have a nm stress test and echo booked. Breathing is about standard. She is still O2 dependent but feels that she is moving air okay. She is generally dyspnea with exertion but no change. She has noted an increase in joint pains. No trauma to joints. No new rashes. She does complain today of increased gradual swelling over the last 6 weeks. She states it does not seem responsive to lasix. She states the other day she tried 60 mg which helped minimally. She is supposed to be taking 20 mg twice a day of the Lasix but often does not take this because she feels that it is ineffective. She last use the 60 mg Lasix a few days ago. She does report that her stomach feels a bit more bloated and she is getting this upper abdominal discomfort. She did have a CT of the abdomen and pelvis in 2021 which showed findings consistent with cirrhosis and multiple varices. She states that she was aware of this diagnosis and has not really done anything wi th this. She states that they told her about it at [facility] last fall while she was admitted. She tells me that she does not like going for scopes or scans and will often not want to do anything with these findings. She has not seen a commissioning engineer. She states that she she never drinks alcohol but does have an unhealthy diet. No nausea or vomiting. Does intermittently get constipated but recent bowel movement yesterday WNL. No diarrhea. Endo: Her last A1c was 6.8 and today it is 5.9. She was initially diagnosed with diabetes around 2012. She was also initially treated with metformin but developed diarrhea. Her current regimen: She states she uses lantus 10 units prn (with illness, large meals, steroid use), uses a sliding scale for humalog does not find that she has to take this much. She was started at the last visit on Ozempic. Tolerating this well without any nausea or vomiting. She states that she is frustrated because she has not lost weight despite eating as much. -unable to tolerate metformin, in the past on trulicity but unavailable. CGM: Did not bring this in today because she has not had a sensor in a month due to the shortage. CV: Blood pressure today in the office is 114/74. She is on lisinopril 5 mg, and noncompliant with furosemide 20 mg b.i.d. cholesterol control. 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, with long- term current use of insulin Rheumatoid arthritis Morbid obesity Urge and stress incontinence History of invasive breast cancer MAYA on CPAP COPD (chronic obstructive pulmonary disease) Surgical History History of shoulder replacement Hx of cataract extraction Hx of umbilical hernia repair Hx of discectomy Hx of mastectomy Hx of cholecystectomy History of appendectomy Social History Housing: Condominium Patient Tobacco Use Status: Former Tobacco user Years Smoked: 30 yrs e-Cigarette/Vaping Use: Never Used Second Hand Smoke Exposure: No service: No Current occupational status: disabled Cognitive needs: No Hearing needs: No Vision needs: Yes Physical Exam Vital Signs: Last Vital Signs Pulse 98 04/29/24 10:52 BP 114/74 04/29/24 10:52 BMI result Body Mass Index 43.9 Const Orientation/consciousness: patient oriented x3 HEENT Ears: hearing grossly normal bilaterally Neck Thyroid: Thyroid normal Lymphatic: no lymphadenopathy noted Resp Auscultation: clear to auscultation bilaterally Cardio Rate: regular rate Rhythm: regular rhythm GI Other: Obese, soft, mild tenderness to palpation in the upper abdomen. No rebound or guarding. No CVA tenderness. Inspection: Yes normal to inspection Skin General skin exam: no rashes or lesions noted Neuro General: patient oriented x3 and no focal motor deficits Extrem Other: Skin intact. Skin of the lower extremities is erythematous and blanching. Nontender. Non pitting edema noted. Calves are the same size. Results AMB Hemoglobin A1c AMB Hemoglobin A1c 5.9 % Last Edit by SIMIN Boo on 04/29/24 11:14 Results Reviewed Results Reviewed: Laboratory Last Values Glucose (Clinic) 143 mg/dL (60-115) H 04/29/24 10:55 Laboratory Tests 12/18/21 01/29/24 01/29/24 07:50 11:17 11:19 Glucose (Clinic) 249 H Hgb A1c (Clinic) 6.8 H Urine Creatinine 37.89 Urine Microalbumin 166.0 Microalb/Creat Ratio 438.1 Echo: normal ef, atrial dilation CT from 2021 FINDINGS: LUNG BASES: The visualized lung bases are unremarkable. LIVER, GALLBLADDER, AND BILIARY TREE: The liver is cirrhotic. No focal liver lesion is appreciated. The gallbladder is been removed. There is no biliary duct dilatation. PANCREAS: Unremarkable. SPLEEN: Enlarged measuring 16.5 cm in length. ADRENAL GLANDS: Unremarkable. KIDNEYS AND URETERS: There is a large 1.3 x 1 cm Central stone in the right renal pelvis. There are cysts multiple small right lower pole renal stones largest measuring 3 mm. There is mild right hydronephrosis. There is some stranding of the fat surrounding the right renal pelvis. There are 2 left renal cysts. The left kidney is otherwise unremarkable. BLADDER: Not distended and not well evaluated GASTROINTESTINAL TRACT: The cecum is located high in the right upper quadrant. Small and large bowel is otherwise unremarkable. The appendix is not seen. The stomach is unremarkable. ABDOMINAL WALL: There were multiple adjacent ventral hernias containing fat above the umbilicus. Measured together as one hernia this measures 4 x 13 x 8 cm in AP transverse and longitudinal dimension. There is a lower right abdominal wall hernia containing varices and a small amount of fluid. LYMPH NODES: Normal. VASCULAR: There are multiple varices. No ascites is seen in the abdomen or pelvis. There is ascites seen in the right perinephric and lower abdominal wall hernia. The abdominal aorta is calcified but normal in caliber. PELVIC VISCERA: Unremarkable. OSSEOUS STRUCTURES: There are degenerative changes of the spine. CT/CT abdomen pelvis wo con IMPRESSION: Multiple right renal stones, largest a 1 x 1.3 cm central renal pelvis stone. Mild right hydronephrosis. Inflammatory changes in the fat surrounding the right renal pelvis. Left renal cysts. Cirrhotic-appearing liver enlarged spleen and multiple large varices. Multiple abdominal wall hernias. The most inferior right lower abdominal wall hernia to the right of midline contains varices and fluid. Fleischner guidelines were followed. Assessment & Plan Assessment & Plan (1) Cirrhosis: Code(s): K74.60 - Unspecified cirrhosis of liver Category: Medical Plan: Referral to GI. Labs ordered today. (2) Varices of other sites: Code(s): I86.8 - Varicose veins of other specified sites Category: Medical Plan: We reviewed her CT findings and I spent extensive time, more than 1 hour, reviewing her ongoing medical problems and discussing the need for her to take care of herself and compliance with medical appointments. We discussed that the varices could be contributing to her anemia. I have referred her to GI. Advised her to schedule an appointment with her PCP to further go over her conditions that have progressed since this summer. (3) Controlled type 2 diabetes mellitus with microalbuminuria: Code(s): E11.29 - Type 2 diabetes mellitus with other diabetic kidney complication; R80.9 - Proteinuria, unspecified Category: Medical Plan: Well-controlled. Could be falsely low A1c given the low hemoglobin. Continue current regimen (4) CHF (congestive heart failure): Code(s): I50.9 - Heart failure, unspecified Category: Medical Plan: 2 lb weight gain from March. Lungs appear clear and denies any chest pain. Advised to use the Lasix twice a day as directed. I have advised her to monitor her weights at home daily in the morning. (5) Swelling of lower leg: Code(s): M79.89 - Other specified soft tissue disorders Category: Medical Plan: Nontender, calves are same size, skin intact. Advised to use the Lasix as directed. I have ordered labs. Did discuss that if it is unresponsive to the Lasix she may also need to consider going to ED for evaluation. Orders: Orders Complete Blood Count Auto Diff Today E11.29 - Type 2 diabetes mellitus with other diabetic kidney complication, I50.9 - Heart failure, unspecified, I86.8 - Varicose veins of other specified sites, K74.60 - Unspecified cirrhosis of liver, M79.89 - Other specified soft tissue disorders, R80.9 - Proteinuria, unspecified Ferritin Today E11.29 - Type 2 diabetes mellitus with other diabetic kidney complication, I50.9 - Heart failure, unspecified, I86.8 - Varicose veins of other specified sites, K74.60 - Unspecified cirrhosis of liver, M79.89 - Other specified soft tissue disorders, R80.9 - Proteinuria, unspecified AMB Hemoglobin A1c Today E08.29 - Diabetes mellitus due to underlying condition with other diabetic kidney complication, R80.9 - Proteinuria, unspecified, Z79.4 - intermission coordinator (current) use of insulin Comprehensive Met. Panel Today E11.29 - Type 2 diabetes mellitus with other diabetic kidney complication, I50.9 - Heart failure, unspecified, I86.8 - Varicose veins of other specified sites, K74.60 - Unspecified cirrhosis of liver, M79.89 - Other specified soft tissue disorders, R80.9 - Proteinuria, unspecified IRON PROFILE Today E11.29 - Type 2 diabetes mellitus with other diabetic kidney complication, I50.9 - Heart failure, unspecified, I86.8 - Varicose veins of other specified sites, K74.60 - Unspecified cirrhosis of liver, M79.89 - Other specified soft tissue disorders, R80.9 - Proteinuria, unspecified Referrals Gastroenterology Referral I86.8 - Varicose veins of other specified sites, K74.60 - Unspecified cirrhosis of liver Medications: Refilled blood-glucose sensor (FreeStyle Jonny 3 Sensor device) Apply every 14 days As directed 2 ea 11RF E11.9 - Type 2 diabetes mellitus without complications, Z79.4 - senior care (current) use of insulin Coding Level of Care Code Est Pt Level 5 (61380) Complex EM visit Add On G2211 Diagnoses Cirrhosis K74.60 Varices of other sites I86.8 Controlled type 2 diabetes mellitus with microalbuminuria E11.29; R80.9 CHF (congestive heart failure) I50.9 Swelling of lower leg M79.89
[2024-04-29 10:52] VITALS: BP 114/74; PULSE 98; BMI 43.9
[2024-04-29 11:01] LABS: Glucose, Whole Blood 143 mg/dL (60-115)
== END 2024-04-29 11:39 | disposition home or self-care (01) ==
PROVIDERS: PCP Internal Medicine; Visit Provider Physician Assistant
DX: K74.60 Unspecified cirrhosis of liver (principal); I86.8 Varicose veins of other specified sites; E11.29 Type 2 diabetes mellitus with other diabetic kidney complication; R80.9 Proteinuria, unspecified; I50.9 Heart failure, unspecified; M79.89 Other specified soft tissue disorders; E08.29 Diabetes mellitus due to underlying condition with other diabetic kidney complication; Z79.4 Long term (current) use of insulin

== ENCOUNTER → 2024-04-29 10:46 | Outpatient (BNVA) | payer MEDICARE, SELFPAY | PROVIDERS: PCP Internal Medicine; Visit Provider Physician Assistant | DX: E11.29 Type 2 diabetes mellitus with other diabetic kidney complication (principal); R80.9 Proteinuria, unspecified; K74.60 Unspecified cirrhosis of liver; I86.8 Varicose veins of other specified sites; I50.9 Heart failure, unspecified; M79.89 Other specified soft tissue disorders; Z79.4 Long term (current) use of insulin | CPT/HCPCS: 82947; 83036; 99212 ==

== ENCOUNTER 2024-04-29 11:47 | Outpatient (REF) | payer MEDICARE, SELFPAY ==
[2024-04-29 13:23] LABS: MANUAL DIFF FLAG NO
[2024-04-29 13:34] LABS: Basophils Absolute Auto 0.1 X10*3/uL (0.0-0.2); Basophils Percent Auto 0.7 % (0-2); Eosinophils Absolute Auto 0.2 X10*3/uL (0.0-0.4); Eosinophils Percent Auto 2.1 % (0-4); Hematocrit 43.5 % (37.0-47.0); Hemoglobin 14.4 g/dl (12.0-16.0); Imm Gran Abs Auto 0.02 X10*3/uL (0.00-0.03); Imm Gran Pct Auto 0.3 % (0.0-0.4); Lymphocytes Absolute Auto 1.2 X10*3/uL (1.2-4.9); Lymphocytes Percent Auto 17.1 % (20-40); Mean Corpuscular HGB Conc 33.1 g/dl (31.0-35.0); Mean Corpuscular Hemoglobin 33.1 pg (27.0-33.0); Mean Platelet Volume 10.4 fL (9.4-12.3); Monocytes Absolute Auto 0.7 X10*3/uL (0.1-1.2); Monocytes Percent Auto 9.9 % (2-11); Neutrophils Percent Auto 69.9 % (45-73); Red Blood Count 4.35 X10*6/uL (4.20-5.50); Red Cell Distribution Width 13.4 % (11.0-16.0); White Blood Count 7.2 X10*3/uL (4.8-10.8)
[2024-04-29 13:57] LABS: Platelet Count 94 X10*3/uL (160-400)
[2024-04-29 14:43] LABS: Alanine Aminotransferase 12 U/L (0-31); Albumin Level 2.9 g/dL (3.5-5.0); Alkaline Phosphatase 63 U/L (39-117); Anion Gap 9 (12-20); Aspartate Amino Transferase 32 U/L (5-31); Bilirubin Total 1.1 mg/dL (0.0-1.0); Blood Urea Nitrogen 24 mg/dL (9-16); Calcium 8.8 mg/dL (8.4-10.2); Carbon Dioxide 27 mmol/L (22-29); Chloride 111 mmol/L (96-108); Estimated Glomerular Filt Rate 43; Ferritin 117 ng/mL (10-250); Glucose Random 100 mg/dL (60-115); Iron 130 mcg/dL (30-160); Percent Iron Saturation 65 % (15-50); Potassium 4.6 mmol/L (3.3-5.1); Sodium 142 mmol/L (135-145); Total Iron Binding Capacity 201 mcg/dL (228-428); Total Protein 7.7 g/dL (6.5-8.0); Unsaturated Iron Binding 71 ug/dL
== END 2024-04-29 11:48 | disposition home or self-care (01) ==
LOC: HO.10HDL 11:47
PROVIDERS: Visit Provider Physician Assistant
DX: R80.9 Proteinuria, unspecified (principal); E08.29 Diabetes mellitus due to underlying condition with other diabetic kidney complication; Z79.4 Long term (current) use of insulin; I86.8 Varicose veins of other specified sites; M79.89 Other specified soft tissue disorders; K74.60 Unspecified cirrhosis of liver; I50.9 Heart failure, unspecified
CPT/HCPCS: 36415; 80053; 82728; 83540; 85025

== ENCOUNTER → 2024-05-31 09:34 | Outpatient (REF) | payer MEDICARE, SELFPAY ==
--- NOTE | ~2024-05-31 | NM_ITS ---
Lexiscan Myocardial perfusion study Indication: CHF to evaluate for myocardial ischemia Technique: The patient was brought in for a Lexiscan perfusion study on 05/31/2024 and was injected 0.4 mg of Lexiscan intravenously. Within a minute of this injection 35 mCi of sestamibi was given intravenously. Images were obtained using the SPECT gamma camera interlaced with the gating device. Images were obtained in supine position. Resting perfusion study was performed on 06/03/2024. Patient was administered 35 mCi of sestamibi intravenously at rest. Images were then obtained in supine position. Images obtained without without CT attenuation. Total DLP 209 mGy-cm. Images were processed with the software and compared side to side in short axis, horizontal long axis and vertical long axis views. Findings: The stress perfusion study showed nonattenuated images show normal uptake of radiotracer in all segments of the LV myocardium. Attenuation corrected images show some thinning of the apex of the LV myocardium.. The gated study shows normal LV systolic function with calculated LVEF of 62%. LV cavity is normal in size. The gated study shows normal systolic wall thickening and contraction of segments. Resting study shows nonattenuated images show mildly reduced uptake in the basal and mid inferior wall of the LV myocardium as well as the inferoseptal wall of the LV myocardium. Attenuated corrected images show mildly reduced uptake in the apex of the LV myocardium.. Gating at rest reveals normal systolic wall motion with ejection fraction at 55%. The findings are consistent with normal myocardial perfusion. NM/NM glo perf SPECT rest & str Impression: 1. Myocardial perfusion imaging study shows normal myocardial perfusion 2. Gated LVEF is 62% 3. Transient ischemic dilatation not present Nondiagnostic changes on EKG. Electronically signed by: Nicanor Melendez MD 06/03/2024 03:39 PM [facility]
--- NOTE | 2024-05-31 09:38 | CA_ITS ---
Acquisition Time: 2024-05-31 10:25:56 Total Exercise Time: 00:02:00 Test Indications: HF Medications: SEE H Protocol: LEXISCAN Max HR: 114 BPM 77% of Pred: 148 BPM Max BP: 120/072 mmHG Max Work Load: 1.0 METS Pharmacological stress test with Lexiscan injection, while sitting and kicking her legs, with moderate shortness of breath, no chest discomfort, without arrythmia, with normotensive response to injection, with nondiagnostic EKG for ischemia. In recovery she was treated with Aminophylline 75mg IVP to reverse Lexiscan . Her breathing normalized. Nuclear images pending. Test reviewed with Dr Melendez. Referred By: Nicanor Melendez Overread By: ARIANA HOGAN
== END ==
LOC: HO.CARD 09:34
PROVIDERS: PCP Internal Medicine; Visit Provider Internal Medicine Cardiovascular Disease
DX: I50.9 Heart failure, unspecified (principal)
CPT/HCPCS: 78452; 93017; A9500; J0280; J2785

== ENCOUNTER → 2024-05-31 09:38 | Outpatient (BNV) | payer MEDICARE, SELFPAY | PROVIDERS: PCP Internal Medicine; Visit Provider Nurse Practitioner Family | DX: R06.02 Shortness of breath (principal); I50.9 Heart failure, unspecified | CPT/HCPCS: 78452; 93016; 93018 ==

== ENCOUNTER 2024-07-08 13:27 | Outpatient (AMB) | payer MEDICARE, SELFPAY ==
--- NOTE | 2024-07-08 13:32 | MHC.OFFVIS ---
Vital Signs 07/08/24 13:35 Height 5 ft Weight 232 lb 9.403 oz BMI 45.4 BP 174/82 H Blood Pressure Location Rt brachial Position Sitting Pulse 99 Pulse Source Pulse Oximeter Pulse Oximetry (%) 98 Oxygen Delivery Method Nasal Cannula Intake Visit Reasons: RA Intake Note: Patient presents for RA. Allergies nickel Allergy (Mild, Verified 07/08/24 13:35) Rash abatacept [From Orencia] Adverse Reaction (Severe, Verified 07/08/24 13:35) shingles injection of steriods Allergy (Unknown, Uncoded 01/29/24 11:14) rash iodine Allergy (Unknown, Uncoded 01/29/24 11:14) anaphylaxis wool Allergy (Unknown, Uncoded 01/29/24 11:14) rash Medication List - Last Reconciled 07/08/24 by Jacob Florez MD albuterol sulfate 90 mcg/actuation 0 mcg inhalation albuterol sulfate mg inhalation anastrozole 1 mg PO DAILY blood sugar diagnostic ([employer] Verio test strips) TESTS AT LEAST 3 TIMES DAILY blood-glucose meter ([employer] Verio Flex Meter) USE METER TO TEST AT LEAST 4 TIMES DAILY blood-glucose meter,continuous (FreeStyle Jonny 3 [place]) Use daily As directed to monitor blood glucose blood-glucose sensor (FreeStyle Jonny 3 Plus Sensor device) Use daily As directed to monitor glucose blood-glucose sensor (FreeStyle Jonny 3 Sensor device) Apply every 14 days As directed cetirizine (All Day Allergy (cetirizine)) 10 mg PO DAILY PRN flash glucose scanning reader (FreeStyle Jonny 2 [place]) As directed flash glucose sensor (FreeStyle Jonny 2 Sensor kit) As directed fluticasone propionate 50 mcg/actuation sprays intranasal kkyjmpbupnl-lxnazqcmg-mnvbkdqv 100-62.5-25 mcg 1 ea inhalation QAM furosemide 20 mg PO BID insulin glargine (Lantus Solostar U-100 Insulin) 10 units subcut QPM PRN insulin lispro (Humalog KwikPen (U-100) Insulin) 10 units subcut TID PRN ipratropium-albuterol 0.5 mg-3 mg(2.5 mg base)/3 mL mL inhalation lancets As directed lisinopril 5 mg PO DAILY minocycline 100 mg PO BID montelukast 10 mg PO DAILY mupirocin 2% 1 appl topical TID nystatin-triamcinolone 100,000-0.1 unit/gram-% 1 appl topical DAILY 7 days pantoprazole 40 mg PO DAILY paroxetine HCl 40 mg PO QAM pen needle, diabetic (BD Theodora 2nd Gen Pen Needle) INJECT INSULIN UP TO 4 TIMES A DAY. semaglutide (Ozempic) 0.25 mg (0.368 mL) subcut QWEEK vibegron (Gemtesa) 75 mg PO DAILY HPI Comments Details: Patient returns for follow-up she has been taking minocycline 100 mg Twice daily regularly since her last visit. 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 Initial history: 73-year-old female with rheumatoid arthritis presents as a new patient. Patient has a complicated medical history including COPD on home oxygen 3-5 L a day, CHF, liver cirrhosis, history of kidney stones. Patient stated that back in May she had pneumonia as well as kidney stone complicated by UTI. She was on antibiotics for at least 1 month. She had a central line in certain that clotted she took Lovenox followed by Annabelle for some time. It is discontinued now. She states that she was diagnosed with rheumatoid arthritis in the . She has been on multiple medicines including hydroxychloroquine, not effective, methotrexate, not effective, she was on Orencia for approximately 8 years until 2009. Then she developed shingles on her face. Orencia was discontinued at that time. She used to follow-up with Dr. Loja, She then took minocycline, she she stopped following up with Dr. Loja and her PCP was refilling her minocycline. Until about 2019 when her PCP changed. Her new PCP did not refill her minocycline. She states that minocycline was working fairly well. Currently she is complaining of pain and swelling of her knuckles, fingers, right shoulder, both ankles. 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, with long-term current use of insulin Rheumatoid arthritis Morbid obesity Urge and stress incontinence History of invasive breast cancer MAYA on CPAP COPD (chronic obstructive pulmonary disease) Surgical History History of shoulder replacement Hx of cataract extraction Hx of umbilical hernia repair Hx of discectomy Hx of mastectomy Hx of cholecystectomy History of appendectomy Social History Housing: Condominium Patient Tobacco Use Status: Former Tobacco user Years Smoked: 30 yrs e-Cigarette/Vaping Use: Never Used Second Hand Smoke Exposure: No service: No Current occupational status: disabled Cognitive needs: No Hearing needs: No Vision needs: Yes Review of Systems Musc Reports arthralgias, Denies joint swelling, Reports limited range of motion (Of left shoulder) and Denies stiffness Physical Exam Vital Signs: Last Vital Signs Pulse 99 07/08/24 13:35 BP 174/82 H 07/08/24 13:35 Pulse Ox 98 07/08/24 13:35 Oxygen Delivery Method Nasal Cannula 07/08/24 13:35 BMI result Body Mass Index 45.4 Const General: cooperative, healthy appearing and comfortable Nutritional Appearance: obese morbidly obese Orientation/consciousness: patient oriented x3 Limitations: no limitations HEENT Head: Yes normocephalic and Yes atraumatic Resp Other: Gets short of breath talking Skin Other: Erythema both shins Neuro General: patient oriented x3 Extrem Other: No wrist swelling, tenderness or pain with range of motion bilaterally Some synovial thickening of bilateral 3rd MCPs No swelling or tenderness of MCPs bilaterally Negative MCP squeeze test bilaterally Bilateral diffusely tender 2nd through 5th PIP is bilaterally Very subtle hyperextension of left 2nd and 3rd PIPs No tenderness of the DIPs bilaterally Left 1st CMC joint tenderness Limited range of motion of left shoulder No tenderness of ankles bilaterally Assessment & Plan Assessment & Plan (1) Rheumatoid arthritis: Comment: ++RF+CCP dx MTX ineffective Hydroxychloroquine ineffective Orencia infusion 5923-6718 DC due to facial shingles Minocycline 2009 to 2018 effective according to patient. Lost to follow-up Minocycline restarted 10/2023 effective Code(s): M06.9 - Rheumatoid arthritis, unspecified Category: Medical Qualifiers: Rheumatoid arthritis location: multiple sites Rheumatoid factor presence: unspecified presence Qualified Code(s): M06.9 - Rheumatoid arthritis, unspecified Plan: This is a 73-year-old female with seropositive RA who presents for follow-up. Doing much better better overall since minocycline was started last visit. Continue with minocycline 100 mg Twice daily Labs before next visit in 6 months Plan I spent 17 minutes reviewing patient's chart, evaluating patient, ordering diagnostic workup, counseling patient and documenting in the chart Orders: Orders Complete Blood Count Auto Diff 6 Months M06.9 - Rheumatoid arthritis, unspecified Comprehensive Met. Panel 6 Months M06.9 - Rheumatoid arthritis, unspecified Erythrocyte Sedimentation Rate 6 Months M06.9 - Rheumatoid arthritis, unspecified C Reactive Protein 6 Months M06.9 - Rheumatoid arthritis, unspecified Medications: Refilled minocycline 100 mg PO BID 180 caps 1RF Coding Level of Care Code Est Pt Level 3 (08509) Diagnoses Rheumatoid arthritis involving multiple sites, unspecified whether rheumatoid factor present M06.9 Rheumatoid arthritis location: multiple sites Rheumatoid factor presence: unspecified presence
[2024-07-08 13:35] VITALS: BP 174/82; PULSE 99; O2SAT 98; BMI 45.4
== END 2024-07-08 14:05 | disposition home or self-care (01) ==
PROVIDERS: PCP Internal Medicine; Visit Provider Student in an Organized Health Care Education/Training Program
DX: M06.9 Rheumatoid arthritis, unspecified (principal)
CPT/HCPCS: 99213

== ENCOUNTER → 2024-07-08 13:27 | Outpatient (BNVA) | payer MEDICARE, SELFPAY | PROVIDERS: PCP Internal Medicine; Visit Provider Student in an Organized Health Care Education/Training Program | DX: M06.9 Rheumatoid arthritis, unspecified (principal) | CPT/HCPCS: 99212 ==

== ENCOUNTER 2024-08-05 14:07 | Outpatient (AMB) | payer MEDICARE, SELFPAY ==
--- NOTE | 2024-08-05 13:40 | A.OFFVIS_ITS ---
Intake Visit Reasons: T2DM Allergies nickel Allergy (Mild, Verified 07/08/24 13:35) Rash abatacept [From Orencia] Adverse Reaction (Severe, Verified 07/08/24 13:35) shingles injection of steriods Allergy (Unknown, Uncoded 01/29/24 11:14) rash iodine Allergy (Unknown, Uncoded 01/29/24 11:14) anaphylaxis wool Allergy (Unknown, Uncoded 01/29/24 11:14) rash Medication List - Last Reconciled 08/05/24 by Beatriz Rousseau PA-C albuterol sulfate 90 mcg/actuation 0 mcg inhalation albuterol sulfate mg inhalation anastrozole 1 mg PO DAILY blood sugar diagnostic ([employer] Verio test strips) TESTS AT LEAST 3 TIMES DAILY blood-glucose meter ([employer] Verio Flex Meter) USE METER TO TEST AT LEAST 4 TIMES DAILY blood-glucose meter,continuous (FreeStyle Jonny 3 [place]) Use daily As directed to monitor blood glucose blood-glucose sensor (FreeStyle Jonny 3 Plus Sensor device) Use daily As directed to monitor glucose blood-glucose sensor (FreeStyle Jonny 3 Sensor device) Apply every 14 days As directed cetirizine (All Day Allergy (cetirizine)) 10 mg PO DAILY PRN flash glucose scanning reader (FreeStyle Jonny 2 [place]) As directed flash glucose sensor (FreeStyle Jonny 2 Sensor kit) As directed fluticasone propionate 50 mcg/actuation sprays intranasal zqqgasenihu-mdxfddbms-wkkurnfn 100-62.5-25 mcg 1 ea inhalation QAM furosemide 20 mg PO BID insulin glargine (Lantus Solostar U-100 Insulin) 10 units subcut QPM PRN insulin lispro (Humalog KwikPen (U-100) Insulin) 10 units subcut TID PRN ipratropium-albuterol 0.5 mg-3 mg(2.5 mg base)/3 mL mL inhalation lancets As directed lisinopril 5 mg PO DAILY minocycline 100 mg PO BID montelukast 10 mg PO DAILY mupirocin 2% 1 appl topical TID nystatin-triamcinolone 100,000-0.1 unit/gram-% 1 appl topical DAILY 7 days pantoprazole 40 mg PO DAILY paroxetine HCl 40 mg PO QAM pen needle, diabetic (BD Theodora 2nd Gen Pen Needle) INJECT INSULIN UP TO 4 TIMES A DAY. vibegron (Gemtesa) 75 mg PO DAILY HPI HPI T2DM: Details: Patient is a 73-year-old female who presents today for follow-up regarding diabetes. She has a significant past medical history of CHF, ckd, staghorn calculus, george, venous insufficiency, rheumatoid arthritis, morbid obesity, MAYA on CPAP, hypertension, hyperlipidemia and o2 dependent, COPD. Endo: Her last A1c was 5.9. She was initially diagnosed with diabetes around 2012. She was also initially treated with metformin but developed diarrhea. Her current regimen: She states she uses lantus 10 units prn (with illness, large meals, steroid use), uses a sliding scale for humalog (4-10 units) but has not needed this. She states she only really needs to use insulin whch she is sick and on steroids. She was started at the last visit on Ozempic 0.25 mg. Tolerating this well without any nausea or vomiting. She states that she is frustrated because she has not lost weight despite eating as much. States her lowest blood sugar has been 70 (did not feel sick with this) and the highest it has been in the last month was 200. She states her blood sugars are around 120. -unable to tolerate metformin, in the past on trulicity but unavailable. CGM: has had a lot of issues with the jonny 3. States it comes off easily and there are a lot of supply issues. She wants the dexcom. CV: She is on lisinopril 5 mg, and noncompliant with furosemide 20 mg b.i.d. cholesterol has been diet controlled GI: She states that she did hear from the but does not want to go. She is aware of the risks associated with not treating the cirrhosis and varices with earlier risks of deaths. 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, with long- term current use of insulin Rheumatoid arthritis Morbid obesity Urge and stress incontinence History of invasive breast cancer MAYA on CPAP COPD (chronic obstructive pulmonary disease) Surgical History History of shoulder replacement Hx of cataract extraction Hx of umbilical hernia repair Hx of discectomy Hx of mastectomy Hx of cholecystectomy History of appendectomy Social History [facility] Patient Tobacco Use Status: Former Tobacco user Years Smoked: 30 yrs e-Cigarette/Vaping Use: Never Used Second Hand Smoke Exposure: No service: No Current occupational status: disabled Cognitive needs: No Hearing needs: No Vision needs: Yes Telehealth Telehealth Telehealth Platform: Telephone Location of provider rendering services: practice address Location of patient: address on file Patient Identification confirmed using: Name, : Yes Telehealth method: voice only Patient verbally consented to treatment: Yes Patient verbally consented to billing insurance company: Yes Patient informed of any privacy concerns related to visit: Yes Minutes spent on Phone/Video with Pt.: 18 Results Reviewed Results Reviewed: Laboratory Tests 04/29/24 04/29/24 10:50 11:53 Sodium 142 Potassium 4.6 Chloride 111 H Carbon Dioxide 27 Anion Gap 9 L BUN 24 H Creatinine 1.22 Estimated GFR 43 Random Glucose 100 Hgb A1c (Clinic) 5.9 Laboratory Tests 09/30/23 10:15 Triglycerides 85 Cholesterol 155 LDL Cholesterol, Calc 88 HDL Cholesterol 50 Laboratory Tests 12/18/21 07:50 Urine Creatinine 37.89 Urine Microalbumin 166.0 Microalb/Creat Ratio 438.1 Assessment & Plan Assessment & Plan (1) Controlled type 2 diabetes mellitus with microalbuminuria: Code(s): E11.29 - Type 2 diabetes mellitus with other diabetic kidney complication; R80.9 - Proteinuria, unspecified Category: Medical Qualifiers: Diabetes mellitus ad terminal makeup operator insulin use: with snf use Qualified Code(s): E11.29 - Type 2 diabetes mellitus with other diabetic kidney complication; R80.9 - Proteinuria, unspecified; Z79.4 - residential (current) use of insulin Plan: We will increase ozempic to 0.5 mg weekly continue insulin prn illness dexcom ordered. she has a smart phone and is going to download the gabby. She does not want the reader. labs ordered. follow up in 3 months or sooner prn. pt understands and agrees with the plan. Orders: Orders Microalbumin, Random (w Creat) Today E11.29 - Type 2 diabetes mellitus with other diabetic kidney complication, R80.9 - Proteinuria, unspecified, Z79.4 - residential (current) use of insulin Comprehensive [place]. Panel Fast Today E11.29 - Type 2 diabetes mellitus with other diabetic kidney complication, R80.9 - Proteinuria, unspecified, Z79.4 - terminal make up operator (current) use of insulin Hemoglobin A1c Today E11.29 - Type 2 diabetes mellitus with other diabetic kidney complication, R73.01 - Impaired fasting glucose, R80.9 - Proteinuria, unspecified, Z79.4 - residential (current) use of insulin Medications: New semaglutide (Ozempic) 0.5 mg (0.736 mL) subcut QWEEK 3 mL 4RF blood-glucose sensor (Dexcom G7 Sensor device) Use daily As directed to monitor glucose. change q 10 days 3 ea 5RF E11.65 - Type 2 diabetes mellitus with hyperglycemia, Z79.4 - residential (current) use of insulin Discontinued blood-glucose meter,continuous (FreeStyle Jonny 3 [place]) Discontinued Reason: Doctor's Order Use daily As directed to monitor blood glucose 1 ea 0RF E08.29 - Diabetes mellitus due to underlying condition with other diabetic kidney complication, R80.9 - Proteinuria, unspecified, Z79.4 - residential (current) use of insulin blood-glucose sensor (FreeStyle Jonny 3 Plus Sensor device) Discontinued Reason: Doctor's Order Use daily As directed to monitor glucose 2 ea 5RF E08.29 - Diabetes mellitus due to underlying condition with other diabetic kidney complication, R80.9 - Proteinuria, unspecified, Z79.4 - residential (current) use of insulin blood-glucose sensor (FreeStyle Jonny 3 Sensor device) Discontinued Reason: Doctor's Order Apply every 14 days As directed 2 ea 11RF E11.9 - Type 2 diabetes mellitus without complications, Z79.4 - terminal make up operator (current) use of insulin Coding Level of Care Code Tele Est Pt Level 2 (33482) Diagnoses Controlled type 2 diabetes mellitus with microalbuminuria, with long-term current use of insulin E11.29; R80.9; Z79.4 Diabetes mellitus ad terminal makeup operator insulin use: with ad terminal makeup operator use
--- OUTSIDE RECORDS SUMMARY | 2024-08-05 18:38 | XMS_ITS | Encounter Summary ---
Author Organization [facility], Address [address] [place] [address] Phone Care Team Providers Care Retail Banker Name Role Phone Florentino Boyle MD Primary Care Provider [phone]- [phone] Encounter Details Date Type Department Care Team (Late st Contact Info) Description 10/30/2023 Documentation Only [facility] [address] [place] [address] Sherin Rosales [address] [place] [address] Social History Tobacco Use Types Packs/Day Years Used Date Smoking Tobacco: Former Cigarettes Comments Unknown Sex and Gender Information Value Date Recorded Sex Assigned at Not on file Legal Sex Female 3:11 PM EST Gender Identity Not on file Sexual Orientation Not on file documented as of this encounter Plan of Treatment Upcoming Encounters Date Type Department Care Team (Late st Contact Info) Description 09/05/2024 1:30 PM EST Office Visit [facility] [address] [place] [address] Zee Graf MD [address] [place] [address] documented as of this encounter Visit Diagnoses Not on filedocumented in this encounter Care Teams Retail Banker Relationship Specialty Start Date End Date Florentino Boyle MD [address] [place], [place] [id number] PCP - General Internal Medicine 09/13/22 documented as of this encounter
--- OUTSIDE RECORDS SUMMARY | 2024-08-05 18:38 | XMS_ITS | Encounter Summary ---
Author Organization [facility], Address [address] [place] [address] Phone Care Team Providers Care School Traffic Guard Name Role Phone Florentino Boyle MD Primary Care Provider [phone]- [phone] Encounter Details Date Type Department Care Team (Late st Contact Info) Description 10/30/2023 Documentation Only [facility] [address] [place] [address] Sherin Rosales [address] [place] [address] Social History Tobacco Use Types [...] Visit [facility] [address] [place] [address] Zee Graf MD [address] [place] [address] documented as of this encounter Visit Diagnoses Not on filedocumented in this encounter Care Teams School Traffic Guard Relationship Specialty Start Date End Date Florentino Boyle MD [address] [place], [place] [id number] PCP - General Internal Medicine 09/13/22 documented as of this encounter
--- OUTSIDE RECORDS SUMMARY | 2024-08-05 18:38 | XMS_ITS | Clinical Summary ---
Author Organization [facility] Address [address] [place] [address] Care Team Providers Care Chemical Equipment Repairer Name Role Phone Unavailable Primary Care Provider Unavailabl e Social History Tobacco Use Types Packs/Day Years Used Date Smoking Tobacco: Never Assessed Sex and Gender Information Value Date Recorded Sex Assigned at Not on file Gender Identity Not on file Sexual Orientation Not on file Plan of Treatment Health Maintenance Due Date Last Done Comments Hepatitis C Virus Screening 1950 DTaP/Tdap/Td Vaccines (1 - Tdap) 09/10/1970 Pneumococcal Vaccines 50+ (1 of 1 - PCV) 09/10/2001 Zoster (Shingles) Vaccine (1 of 2) 09/10/2001 COVID-19 Vaccine ( - 2023-2 5 season) 2024 RSV Vaccine 60 years and old er and Patients (1 - 1-dose 75+ series) 09/10/2026 Hepatitis B Vaccines Aged Out No long er eligible based on patient's age to complete this topic
--- OUTSIDE RECORDS SUMMARY | 2024-08-05 18:38 | XMS_ITS | Encounter Summary ---
Author Organization [facility], Address [address] [place] [address] Phone Care Team Providers Care Orthopedic Brace Maker Name Role Phone Florentino Boyle MD Primary Care Provider [phone]- [phone] Encounter Details Date Type Department Care Team (Late st Contact Info) Description 10/30/2023 Documentation Only [facility] [address] [place] [address] Sherin Rosales [address] [place] [address] Social History Tobacco Use Types [...] Visit [facility] [address] [place] [address] Zee Graf MD [address] [address] [facility] [place] [address] documented as of this encounter Visit Diagnoses Not on filedocumented in this encounter Care Teams Orthopedic Brace Maker Relationship Specialty Start Date End Date Florentino Boyle MD [address] [place], [place] [id number] PCP - General Internal Medicine 09/13/22 documented as of this encounter
--- OUTSIDE RECORDS SUMMARY | 2024-08-05 18:38 | XMS_ITS | Encounter Summary ---
Author Organization [facility], Address [address] [place] [address] Phone Care Team Providers Care Assembler Billiard Table Name Role Phone Florentino Boyle MD Primary Care Provider +1- [phone] Encounter Details Date Type Department Care Team (Late st Contact Info) Description 09/13/2022 Documentation Only [facility] [address] [place] [address] Florentino Boyle MD [address] [place] [id number] Social History Tobacco Use Types Packs/Day Years Used Date Smoking Tobacco: Never Assessed Comments Unknown Sex and Gender Information Value Date Recorded Sex Assigned at Not on file Legal Sex Female 3:11 PM EST Gender Identity Not on file Sexual Orientation Not on file documented as of this encounter Plan of Treatment Upcoming Encounters Date Type Department Care Team (Late st Contact Info) Description 09/05/2024 1:30 PM EST Office [facility] [address] [place] [address] Zee Graf MD [address] [place] [address] [place] [address] documented as of this encounter Visit Diagnoses Not on filedocumented in this encounter Care Teams Assembler Billiard Table Relationship Specialty Start Date End Date Florentino Boyle MD [address] [place] [address] [id number] PCP - General Internal Medicine 09/13/22 documented as of this encounter
--- OUTSIDE RECORDS SUMMARY | 2024-08-05 18:38 | XMS_ITS | Clinical Summary ---
Author Organization [facility] Address [address] [place] [address] Care Team Providers Care Transplant Surgeon Name Role Phone Naima Boyle MD Primary Care Provider +1 -[phone] Allergies Active Allergy Reactions Criticality Noted Date Comments Iodinated Contrast Media 11/27/2014 Seafood 11/24/2014 Medications Medication Sig Dispensed Refills Start Date End Date Status Blood Glucose Monitoring Suppl (FREESTYLE [place] LITE) W/DEVICE KIT FreeStyle [place] Lite w/Device Kit Refills: 0 Betsy Ernandez APRN; Started 09-Jun-2014 Active 0 06/09/2014 Active furosemide (LASIX) 40 MG tablet Lasix 40 MG Oral Tablet Refills: 0 Active 0 Active Multiple Vitamin (MULTI VITAMIN DAILY PO) Multi-Vitamin TABS Refills: 0 Active 0 Active PARoxetine (PAXIL) 30 MG tablet Paxil 30 MG Oral Tablet Refills: 0 Active 0 Active albuterol (PROAIR HFA) 108 (90 BASE) MCG/ACT inhaler ProAir HFA 108 (90 Base) MCG/ACT Inhalation Aerosol Solution Refills: 0 Betsy Ernandez APRN; Started 09-Jun-2014 Active 0 06/09/2014 Active montelukast (SINGULAIR) 10 MG tablet Singulair 10 MG Oral Tablet Refills: 0 Betsy Ernandez APRN; Started 01-Apr-2013 Active 0 04/01/2013 Active TUDORZA PRESSAIR 400 MCG/ACT AEPB 2 02/04/2015 Active albuterol (PROVENTIL) (2.5 MG/3ML) 0.083% nebulizer solution 2 05/31/2015 Active minocycline (MINOCIN,DYNACIN) 100 MG capsule Take 100 mg by mouth every evening. 0 05/10/2015 Active triamcinolone (KENALOG) 0.1 % cream 5 05/10/2015 Active Lancets (FREESTYLE) lancetsIndications :Type II diabetes mellitus, uncontrolled FreeStyle Lancets Miscellaneous use to monitor blood glucose 2 times daily as directed 200 each 4 01/18/2016 Active glucose blood (FREESTYLE LITE) test stripIndications:D iabetic complication (HCC) FreeStyle Lite Test In Vitro Strip Test Use to check blood glucose twice daily as directed... 200 each 01/18/2016 Active Insulin Pen Needle (BD PEN NEEDLE SEBASTIEN U/F) 32G X 4 MM MISCIndications:Ty pe 2 diabetes mellitus without complication, unspecified fdc insulin use status Use as instructed daily. 50 each 1 04/17/2017 Active miconazole (SM ANTIFUNGAL MICONAZOLE) 2 % cream Apply topically 2 (two) times a day. Under 4th/5th toes of feet 28.35 g 0 04/19/2017 Active DYMISTA 137-50 MCG/ACT SUSP 1 INHALATION IN EACH NOSTRIL TWICE A DAY 2 11/18/2017 Active ONETOUCH DELICA LANCETS 33G MISCIndications:Ty pe 2 diabetes mellitus with hyperglycemia, without long-term current use of insulin ([facility]) Use to test blood sugar 4 times daily as directed 200 each 12 12/10/2018 Active cetirizine (ZyrTEC) 10 MG tablet Take 10 mg by mouth daily. 0 Active anastrozole (ARIMIDEX) 1 MG tablet Take 1 mg by mouth daily. 0 Active metFORMIN (GLUCOPHAGE) tablet 1000 mgIndications:Type 2 diabetes mellitus with hyperglycemia, without long-term current use of insulin (HCC) TAKE 1 TABLET BY MOUTH TWICE A DAY WITH MEALS 180 tablet 3 07/15/2019 Active glucose blood (ONETOUCH VERIO) test stripIndications:T ype 2 diabetes mellitus with hyperglycemia, without long-term current use of insulin (HCC) Use to test blood sugar 4 times daily as directed. 200 each 01/09/2020 Active repaglinide (PRANDIN) 0.5 MG tabletIndications: Type 2 diabetes mellitus with hyperglycemia, without long-term current use of insulin ([facility]) TAKE 1 TABLET 3 TIMES DAILY BEFORE MEALS THAT HAVE 30 OR MORE GRAMS OF CARBS 270 tablet 1 09/14/2020 Active liraglutide (Victoza) 18 MG/3ML injectionIndicatio ns:Type 2 diabetes mellitus with hyperglycemia, without long-term current use of insulin (HCC) Inject 1.8 mg under the skin daily. 9 mL 3 05/05/2021 Active Active Problems Problem Noted Date Diagnosed Date Chronic pain of right knee 12/28/2018 Primary osteoarthritis of right knee 12/28/2018 Type II or unspecified type diabetes mellitus without mention of complication, not stated as uncontrolled 02/26/2015 Anxiety disorder 11/24/2014 Clinical depression 11/24/2014 Obstructive apnea 11/24/2014 Arthritis or polyarthritis, rheumatoid 5 Social History Tobacco Use Types Packs/Day Years Used Date Smoking Tobacco: Former Cigarettes 3 40 Q uit: 2009 Smokeless Tobacco: Never Sex and Gender Information Value Date Recorded Sex Assigned at Female 10/18/2018 2:50 PM EDT Gender Identity Not on file Sexual Orientation Not on file Job Start Date Occupation Industry Not on file Not on file Not on file Last Filed Vital Signs Vital Sign Reading Time Taken Comments Blood Pressure 131/88 02/17/2020 10:13 AM EDT Pulse 104 02/17/2020 10:13 AM EDT Temperature 36.2 ??C (97.2 ??F) 02/17/2020 1 0:13 AM EDT Respiratory Rate 18 06/20/2016 9:04 AM EST Oxygen Saturation - - Inhaled Oxygen Concentration - - Weight 109.6 kg (241 lb 9.6 oz) 020 10:13 AM EDT Height 158.8 cm (5' 2.5 ) 12/28/2018 8:34 AM EDT Body Mass Index 43.49 12/28/2018 8:34 AM EDT Plan of Treatment Health Maintenance Due Date Last Done Comments Hepatitis C Screening 1950 Lung Cancer Screening (Low Dose CT) 1950 COVID-19 Vaccine (#1) 03/13/1951 Pneumococcal Vaccine (1 of 2 - PCV) 09/10/1957 Depression Screening 1963 Diabetes: Eye Exam (No Retinopathy) 09/10/1969 Diabetes: Foot Exam 09/10/1969 Preventative Health Evaluation 09/10/1969 DTap / Tdap / Td (1 - Tdap) 09/10/1970 Colon Cancer Screening (Colonoscopy) 09/10/1996 Breast Cancer Screening (Mammogram) 09/10/2001 Shingrix-Zoster Vaccine (1 of 2) 09/10/2001 Fall Risk Assessment 09/10/2016 BMI Counseling 12/08/2020 12/09/2019, 02/07, 02/18/2019, Additional history exists Hemoglobin A1C Due 05/02/2021 10/31/2020, 0 02/14/2020, 11/30/2019, Additional history exists Diabetes: Microalbumin Test 10/31/2021 04/2 10/2020, 02/14/2020, 02/14/2020, Additional history exists Osteoporosis Screening (DEXA Scan) 11/14/2022 11/14/2020, 08/28/2017 Influenza Vaccine (#1) 2024 RSV Adult > 60+ Yrs or (1 - 1-dose 75+ series) 09/10/2026 Hepatitis B Vaccines Aged Out No long er eligible based on patient's age to complete this topic RSV Ped < 20 months Aged Out No longe r eligible based on patient's age to complete this topic Advance Directives For more information, please contact: [phone] Documents on File Type Date Recorded Patient Founder / Ceo Expl anation Advance Directive and Living Will 10/18/2018 2:47 PM Care Teams Transplant Surgeon Relationship Specialty Start Date End Date Naima Boyle MD [address] [place] [id number] PCP - General Internal Medicine 12/21/21
--- OUTSIDE RECORDS SUMMARY | 2024-08-05 18:38 | XMS_ITS | Encounter Summary ---
Author Organization [facility], Address [address] [place] [address] Phone Care Team Providers Care Forging Dies Final Finisher Name Role Phone Florentino Boyle MD Primary Care Provider +1- [phone] Encounter Details Date Type Department Care Team (Late st Contact Info) Description 10/30/2023 Documentation Only [facility] [address] [place] [address] Sherin Rosales [address] [place] [address] Social History Tobacco Use Types [...] Visit [facility] [address] [place] [address] Zee Graf MD [address] [place] [address] documented as of this encounter Visit Diagnoses Not on filedocumented in this encounter Care Teams Forging Dies Final Finisher Relationship Specialty Start Date End Date Florentino Boyle MD [address] [place], [place] [id number] PCP - General Internal Medicine 09/13/22 documented as of this encounter
--- OUTSIDE RECORDS SUMMARY | 2024-08-05 18:38 | XMS_ITS | Encounter Summary ---
Author Organization [facility], Address [address] [place] [address] Phone Care Team Providers Care Integrated Logistics Support Manager Name Role Phone Florentino Boyle MD Primary Care Provider +1- [phone] Encounter Details Date Type Department Care Team (Late st Contact Info) Description 10/30/2023 Documentation Only [facility] [address] [place] [address] Sherin Rosales [address] [place] [address] Social History Tobacco Use Types [...] Visit [facility] [address] [place] [address] Zee Graf MD [address] [facility] [place] [address] documented as of this encounter Visit Diagnoses Not on filedocumented in this encounter Care Teams Integrated Logistics Support Manager Relationship Specialty Start Date End Date Florentino Boyle MD [address] [place], [place] [phone] PCP - General Internal Medicine 09/13/22 documented as of this encounter
--- OUTSIDE RECORDS SUMMARY | 2024-08-05 18:38 | XMS_ITS | Encounter Summary ---
Author Organization [facility], Address [address] [place] [address] Phone Care Team Providers Care Identification Printing Machine Setter Name Role Phone Florentino Boyle MD Primary Care Provider +1- [phone] Encounter Details Date Type Department Care Team (Late st Contact Info) Description 11/28/2023 Documentation Only [facility] [address] [place] [address] Sherin Rosales [address] [place] [address] Social History Tobacco Use Types [...] Visit [facility] [address] [place] [address] Zee Graf MD [address] [facility] [place] [address] documented as of this encounter Visit Diagnoses Not on filedocumented in this encounter Care Teams Identification Printing Machine Setter Relationship Specialty Start Date End Date Florentino Boyle MD [address] [place], [place] [id number] PCP - General Internal Medicine 09/13/22 documented as of this encounter
--- OUTSIDE RECORDS SUMMARY | 2024-08-05 18:38 | XMS_ITS | Encounter Summary ---
Author Organization [facility], Address [address] [place] [address] Phone Care Team Providers Care Data Warehouse Manager Name Role Phone Florentino Boyle MD Primary Care Provider +1- [phone] Encounter Details Date Type Department Care Team (Late st Contact Info) Description 10/30/2023 Documentation Only [facility] [address] [place] [address] Sherin Rosales [address] [place] [address] Social History Tobacco Use Types [...] Visit [facility] [address] [place] [address] Zee Graf MD [address] [facility] [place] [address] documented as of this encounter Visit Diagnoses Not on filedocumented in this encounter Care Teams Data Warehouse Manager Relationship Specialty Start Date End Date Florentino Boyel MD [address] [place], [place] [id number] PCP - General Internal Medicine 09/13/22 documented as of this encounter
--- OUTSIDE RECORDS SUMMARY | 2024-08-05 18:38 | XMS_ITS | Encounter Summary ---
Author Organization [facility] Address [address] [place] [address] Phone Care Team Providers Care Alumni Relations Manager Name Role Phone Florentino Boyle MD Primary Care Provider +1- [phone] Encounter Details Date Type Department Care Team (Late Contact Info) Description 11/11/2022 Documentation Only [facility] [address] [place] [address] Paty [place] [address] [place] [phone] Social History Tobacco Use Types Packs/Day Years [...] Visit [facility] [address] [place] [address] Zee Graf MD [address] [facility] [place] [address] documented as of this encounter Visit Diagnoses Not on filedocumented in this encounter Care Teams Alumni Relations Manager Relationship Specialty Start Date End Date Florentino Boyle MD [facility] [place], [place] [phone] PCP - General Internal Medicine 09/13/22 documented as of this encounter
--- OUTSIDE RECORDS SUMMARY | 2024-08-05 18:38 | XMS_ITS | Clinical Summary ---
Author Organization [facility], Address [address] [place] [address] Phone Care Team Providers Care Lead Recreation Assistant Name Role Phone Florentino Boyle MD Primary Care Provider +1- [phone] Allergies Active Allergy Reactions Criticality Noted Date Comments Corticosteroids 10/30/2023 Fish Oil 11/24/2014 Iodinated Contrast Media 11/27/2014 Iodine 10/30/2023 Other Reaction(s): phipps Nickel 10/30/2023 Other Reaction(s): skin excoriation Medications Trulicity 1.5 MG/0.5ML solution pen-injector Inject 1.5 mg under the skin per week 3 Active Lantus SoloStar 100 UNIT/ML injection Inject 12 Units under the skin every night 3 Active HumaLOG KWIKPEN 100 UNIT/ML solution pen-injector Inject 5 Units under the skin in the morning and 5 Units at noon and 5 Units in the evening. Inject before meals. 3 Active lisinopril 5 MG tablet Take 5 mg by mouth 1 (one) time each day 3 Active montelukast (SINGULAIR) 10 MG tablet Take 10 mg by mouth at bed time 3 Active anastrozole (ARIMIDEX) 1 MG chemo tablet Take as directed. Swallow whole with a drink of water. Active oxybutynin XL (DITROPAN-XL) 5 MG 24 hr tablet Take 5 mg by mouth at bed time Do not crush, chew, or split. Active fluticasone (FLONASE) 50 MCG/ACT nasal spray Administer 1 spray into each nostril 1 (one) time each day Active furosemide (LASIX) 20 MG tablet Take 20 mg by mouth in the morning and 20 mg in the evening. Active PARoxetine (PAXIL) 40 MG tablet Take 40 mg by mouth every night Active pantoprazole (PROTONIX) 40 MG EC tablet Take 40 mg by mouth 1 (one) time each day before breakfast Do not crush, chew, or split. Active Fluticasone-Ume clidin-Vilant (TRELEGY ELLIPTA IN) Inhale 1 puff 1 (one) time each day Active Pyridoxine HCl (VITAMIN B6 PO) Take 1 tablet by mouth 1 (one) time each day Active cetirizine (ZyrTEC) 10 MG tablet Take 10 mg by mouth at bed time Active Active Problems Problem Noted Date Diagnosed Date Stage 3b chronic kidney disease 10/30/2023 Edema of lower extremity 10/30/2023 History of acute kidney injury 10/30/2023 Hydronephrosis 10/30/2023 Pyelonephritis 10/30/2023 Overview (10/30/2023): recurrent Nephrolithiasis 10/30/2023 Urinary incontinence 10/30/2023 Type 2 diabetes mellitus 10/30/2023 Staghorn calculus 10/30/2023 Recurrent urinary tract infection 10/30/2023 Calculus of kidney 11/10/2022 Hypertension 11/10/2022 Immunizations Name Administration Dates Next Due Influenza, Unspecified 04/22/2022,2020,04/08/2019,06/11/2016 ,04/23/2013 Pfizer SARS-COV-2 05/12/2021,10/22/2020,10/02/19 21 Pneumococcal Conjugate 13-Valent 12/16/2016 Pneumococcal Polysaccharide 04/23/2013 SARS-CoV-2, Unspecified 04/22/2022 Shingrix 04/08/2019 Zoster 04/23/2013 Family History Medical History Relation Comments Esophageal cancer Father Lung cancer Father Prostate cancer Father Uterine cancer Maternal Grandmother Colon cancer Paternal Grandfather Lung cancer Paternal Grandmother Relation Status Comments Father Maternal Grandmother Mother Paternal Grandfather Paternal Grandmother Social History Tobacco Use Types Packs/Day Years Used Date Smoking Tobacco: Former Cigarettes Comments Unknown Sex and Gender Information Value Date Recorded Sex Assigned at Not on file Legal Sex Female 3:11 PM EST Gender Identity Not on file Sexual Orientation Not on file Last Filed Vital Signs Vital Sign Reading Time Taken Comments Blood Pressure 121/70 02/29/2024 2:19 PM EDT Pulse 104 02/29/2024 2:19 PM EDT Temperature - - Respiratory Rate - - Oxygen Saturation - - Inhaled Oxygen Concentration - - Weight - - Height - - Body Mass Index - - Plan of Treatment Upcoming Encounters Date Type Department Care Team (Late st Contact Info) Description 09/05/2024 1:30 PM EST Office Visit [facility], [address] [address] Zee Graf MD [address] [phone] Health Maintenance Due Date Last Done Comments Breast Cancer Screening 1950 Colorectal Cancer Screening: Annual FOBT 09/10/2000 Colorectal Cancer Screening: Colonoscopy 09/10/2000 Colorectal Cancer Screening: Sigmoidoscopy 09/10/2000 Pneumococcal Vaccine: 65+ Years (3 of 3 - PPSV23 or PCV20) 04/23/2018 12/16/2016, 04/23/2013 Diabetes: Hemoglobin A1C 10/06/2022 Diabetes: Ophthalmology Exam 10/06/2022 Diabetes: Pedal Pulse Checked 10/06/2022 Diabetes: Sensory Foot Exam 10/06/2022 Diabetes: Visual Foot Exam 10/06/2022 Influenza Vaccine (#1) 2024 2, 05/12/2021, 04/08/2019, Additional history exists Hepatitis B Vaccine Aged Out No longe r eligible based on patient's age to complete this topic Insurance [employer] MCR ADV PPO ([id number]) [employer] MEDICARE Care Teams Lead Recreation Assistant Relationship Specialty Start Date End Date Florentino Boyle MD [address] [place] [address] PCP - General Internal Medicine 09/13/22
--- OUTSIDE RECORDS SUMMARY | 2024-08-05 18:38 | XMS_ITS | Encounter Summary ---
Author Organization [facility], Address [address] [place] [address] Phone Care Team Providers Care Vehicle Cost Engineer Name Role Phone Florentino Boyle MD Primary Care Provider +1- [phone] Encounter Details Date Type Department Care Team (Late st Contact Info) Description 02/20/2024 Documentation Only [facility] [address] [place] [address] Sherin Rosales [address] [place] [address] Social History Tobacco Use Types [...] Visit [facility] [address] [place] [address] Zee Graf MD [address] [facility] [address] documented as of this encounter Visit Diagnoses Not on filedocumented in this encounter Care Teams Vehicle Cost Engineer Relationship Specialty Start Date End Date Florentino Boyle MD [address] [place], [place] [phone] PCP - General Internal Medicine 09/13/22 documented as of this encounter
--- OUTSIDE RECORDS SUMMARY | 2024-08-05 18:38 | XMS_ITS | Encounter Summary ---
Author Organization [facility] Address [address] [place] [address] Phone Care Team Providers Care Clinical Laboratory Scientist Name Role Phone Florentino Boyle MD Primary Care Provider +1- [phone] Encounter Details Date Type Department Care Team (Late Contact Info) Description 11/11/2022 Documentation Only [facility] [address] [place] [address] Paty [place] [address] [place] [phone] Social History Tobacco Use Types Packs/Day Years [...] Visit [facility] [address] [place] [address] Zee Graf MD [address] [place] [address] documented as of this encounter Visit Diagnoses Not on filedocumented in this encounter Care Teams Clinical Laboratory Scientist Relationship Specialty Start Date End Date Florentino Boyle MD [facility] [place], [place] [phone] PCP - General Internal Medicine 09/13/22 documented as of this encounter
--- OUTSIDE RECORDS SUMMARY | 2024-08-05 18:38 | XMS_ITS | Clinical Summary ---
Author Organization [facility] [address] it Address [address] [place] [address] Care Team Providers Care Staffing Executive Name Role Phone Naima Boyle MD Primary Care Provider Surgical History Surgery Date Site/Laterality Comments OTHER SURGICAL HISTORY PROCEDURE:back repair SECTION PROCEDURE: SECTION CHOLECYSTECTOMY PROCEDURE:CHOLECYSTECTOMY APPENDECTOMY PROCEDURE:APPENDECTOMY FLEXOR TENDON OF FOREARM / W RIST REPAIR PROCEDURE:FLEXOR TENDON OF FOREARM / WRIST REPAIR Medical History Medical History Date Comments Type II or unspecified type diabetes mellitus without mention of complication, not stated as uncontrolled DX:Type II or unspecified type diabetes mellitus without mention of complication, not stated as uncontrolled COPD (chronic obstructive pu lmonary disease) ([facility]) DX:COPD (chronic obstructive pulmonary disease) ([facility]) Sleep apnea DX:Sleep apnea Anxiety and depression DX:Anxiet y and depression Rheumatoid arthritis ([facility]) D X:Rheumatoid arthritis ([facility]) Edema DX:Edema Rosacea DX:Rosacea Social History Tobacco Use Types Packs/Day Years Used Date Smoking Tobacco: Former Cigarettes Q uit: 07/10/2009 Smokeless Tobacco: Never Sex and Gender Information Value Date Recorded Sex Assigned at Not on file Gender Identity Not on file Sexual Orientation Not on file Obstetrics History Plan of Treatment Health Maintenance Due Date Last Done Comments Breast Cancer Screening 1950 COVID-19 Vaccine (#1) 09/10/1956 Diabetes: Annual Foot Exam 09/10/1961 Diabetes: Annual Retina Eye Exam 09/10/1961 DTaP,Tdap,and Td Vaccines (1 - Tdap) 09/10/1970 Zoster Vaccines (1 of 2) 09/10/2001 Pneumococcal Vaccine: 65+ Years (1 of 1 - PCV) 09/10/2016 Diabetes: Annual GFR (Glomerular Filtration Rate) 10/31/2021 10/31/2020, 11/30/2019, 02/06/2019, Additional history exists Colorectal Cancer Screening: Colonoscopy 06/07/2022 Depression Screening 06/07/2022 Falls Risk Assessment 06/07/2022 Hepatitis C Screening 06/07/2022 Lung Cancer Screening (Low Dose CT) 06/07/2022 Social Influencers of Health Screening 06/07/2022 Diabetes: Annual Urine Albumin-Creatinine Ratio (uACR) 06/28/2022 10/31/2020, 02/14/2020, 11/30/2019, Additional history exists Diabetes: Blood Sugar Control Test (HGBA1C) 06/28/2022 10/31/2020, 02/14/2020, 11/30/2019, Additional history exists Influenza Vaccine (#1) 2024 Cholesterol Screening (Lipid Panel) 11/29/2024 11/30/2019, 10/09/2018 RSV Immunization Patients 60+ Years Old (1 - 1-dose 75+ series) 09/10/2026 Osteoporosis Screening (Bone Density Screening) 11/14/2030 11/14/2020 HIB Vaccines Aged Out No longer eligi ble based on patient's age to complete this topic HPV Vaccines Aged Out No longer eligi ble based on patient's age to complete this topic Hepatitis A Vaccines Aged Out No long er eligible based on patient's age to complete this topic Hepatitis B Vaccines Aged Out No long er eligible based on patient's age to complete this topic IPV Vaccines Aged Out No longer eligi ble based on patient's age to complete this topic MMR Vaccines Aged Out No longer eligi ble based on patient's age to complete this topic Meningococcal ACWY Vaccine Aged Out N o longer eligible based on patient's age to complete this topic RSV Immunization Patients Under 20 months Aged Out No longer eligible based on patient's age to complete this topic Varicella Vaccines Aged Out No longer eligible based on patient's age to complete this topic Procedures Procedure Name Priority Date/Time Associated Diagnosis Comments BONE DENSITY STUDY Routine 11/14/2020 10 :36 AM EDT 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 TECHNIQUE: [employer] system utilized for DEXA images Comparison: August 28, 2017 Findings: LUMBAR SPINE: ?? Bone mineral density (BMD) measured from L1-L4 is 1.336 (g/cm2) . This correlates with a Z-score of 1.8 and a T-score of 1.3 Left HIP: Bone mineral density (BMD) Total L HIP measured is 0.967 (g/cm2). This correlates with a Z-score of 0.3 and a T-score of -0.3 Left femur neck BMD 1.040 (g/cm2) Z-Score 0.9 T-Score 0.0 IMPRESSION: 1. ??Lumbar spine: ??Normal without significant change. Artificially elevated due to sclerosis.. 2. ??Hip: ??Normal without statistically significant worsening measuring -4.3%. FRAX 10 year fracture risk: Not calculated due to normal density PLEASE NOTE: ?? 1) ??The World Health Organization defines low BMD as follows: ?T-score ? Normal ? >/= ??- 1 Osteopenia ? < -1 and ??> - 2.5 Osteoporosis ? =/< -2.5 without fractures Established osteoporosis ? < -2.5 with fractures 2) ??In general, you may wish to consider: ? Diagnosis ?Treatment ?Follow-up DEXA ?Normal BMD ?Prevention ?2-3 years ?Osteopenia ?Prevention/therapy ?1-2 years ?Osteoporosis ?Therapy ? Yearly 3) ??Fracture risk estimated from the T-score is more accurate for vertebral fractures (often spontaneous) than for hip fractures. ?? 4) ??The next DEXA scan of this patient should include the following sites: Both hips and left forearm. Recommend excluding lumbar spine Session: Separate Thank you or the courtesy of this referral Report reviewed and signed by : Dr. Edwin Worrell MD on 11/15/2020 2:35 PM. Workstation Name - MARYAM Procedure Note Edwin Worrell MD - 07/03/2022 EXAM PERFORMED: Bone density study DEXA EXAM HISTORY: Postmenopausal screening. TECHNIQUE: [employer] system utilized for DEXA images Comparison: August 28, 2017 Findings: LUMBAR SPINE: Bone mineral density (BMD) measured from L1-L4 is 1.336 (g/cm2) . This correlates with a Z-score of 1.8 and a T-score of 1.3 Left HIP: Bone mineral density (BMD) Total L HIP measured is 0.967 (g/cm2). This correlates with a Z-score of 0.3 and a T-score of -0.3 Left femur neck BMD 1.040 (g/cm2) Z-Score 0.9 T-Score 0.0 IMPRESSION: 1. Lumbar spine: Normal without significant change. Artificiallyelevated due to sclerosis.. 2. Hip: Normal without statistically significant worsening measuring-4.3%. FRAX 10 year fracture risk: Not calculated due to normal density PLEASE NOTE: 1) The World Health Organization defines low BMD as follows: T-score Normal >/= -1 Osteopenia < -1 and > -2.5 Osteoporosis =/< -2.5 without fractures Established osteoporosis < -2.5 with fractures 2) In general, you may wish to consider: Diagnosis Treatment Follow-upDEXA Normal BMD Prevention 2-3years Osteopenia Prevention/therapy 1-2years Osteoporosis Therapy Yearly 3) Fracture risk estimated from the T-score is more accurate forvertebral fractures (often spontaneous) than for hip fractures. 4) The next DEXA scan of this patient should include the following sites:Both hips and left forearm. Recommend excluding lumbar spine Session: Separate Thank you or the courtesy of this referral Report reviewed and signed by : Dr. Edwin Worrell MD on 11/15/2020 2:35PM. Workstation Name - TRINI Brenda Lyons MD IMG DXA PROCEDURES from Last 3 Months or Most Recently Relevant to Health Maintenance Care Teams Staffing Executive Relationship Specialty Start Date End Date Naima Boyle MD [address] [place] [address] PCP - General Internal Medicine 12/21/21
--- OUTSIDE RECORDS SUMMARY | 2024-08-05 18:38 | XMS_ITS | Encounter Summary ---
Author Organization [facility] Address [address] [place] [address] Phone Care Team Providers Care Taxi Dancer Name Role Phone Florentino Boyle MD Primary Care Provider +1- [phone] Encounter Details Date Type Department Care Team (Late Contact Info) Description 11/11/2022 Documentation Only [facility] [address] [place] [address] Paty [place] [address] [place] [id number] Social History Tobacco Use Types Packs/Day Years [...] Visit [facility] [address] [place] [address] Zee Graf MD [address] [address] documented as of this encounter Visit Diagnoses Not on filedocumented in this encounter Care Teams Taxi Dancer Relationship Specialty Start Date End Date Florentino Boyle MD [facility] [place], [place] [id number] PCP - General Internal Medicine 09/13/22 documented as of this encounter
--- OUTSIDE RECORDS SUMMARY | 2024-08-05 18:38 | XMS_ITS | Encounter Summary ---
Author Organization [facility] [place], Address [address] [place] [address] Phone Care Team Providers Care Pleat Patternmaker Name Role Phone Florentino Boyle MD Primary Care Provider +1- [phone] Encounter Details Date Type Department Care Team (Late st Contact Info) Description 09/13/2022 Documentation Only [facility] [address] [place] [address] Florentino Boyle MD [address] [place] [address] Social History Tobacco Use Types Packs/Day Years [...] [facility] [address] [place] [address] Zee Graf MD [address] [place] [address] [place] [address] documented as of this encounter Visit Diagnoses Not on filedocumented in this encounter Care Teams Pleat Patternmaker Relationship Specialty Start Date End Date Florentino Boyle MD [address] [place] [id number] PCP - General Internal Medicine 09/13/22 documented as of this encounter
--- OUTSIDE RECORDS SUMMARY | 2024-08-05 18:38 | XMS_ITS | Encounter Summary ---
Author Organization [facility] [place], Address [address] [place] [address] Phone Care Team Providers Care Sed Special Education Teacher Name Role Phone Florentino Boyle MD Primary Care Provider +1- [phone] Encounter Details Date Type Department Care Team (Late st Contact Info) Description 02/20/2024 Documentation Only [facility] [address] [place] [address] Sherin Rosales [address] [place] [address] Social History Tobacco Use Types [...] Visit [facility] [address] [place] [address] Zee Graf MD [address] [place] [address] documented as of this encounter Visit Diagnoses Not on filedocumented in this encounter Care Teams Sed Special Education Teacher Relationship Specialty Start Date End Date Florentino Boyle MD [address] [place], [place] [id number] PCP - General Internal Medicine 09/13/22 documented as of this encounter
--- OUTSIDE RECORDS SUMMARY | 2024-08-05 18:38 | XMS_ITS | Encounter Summary ---
Author Organization [facility] [place], Address [address] [place] [address] Phone Care Team Providers Care Contact Clerk Name Role Phone Florentino Boyle MD Primary Care Provider +1- [phone] Encounter Details Date Type Department Care Team (Late st Contact Info) Description 10/30/2023 Documentation Only [facility] [address] [place] [address] Sherin Rosales [address] [place] [address] Social History Tobacco Use Types [...] Visit [facility] [address] [place] [address] Zee Graf MD [address] [facility] [address] documented as of this encounter Visit Diagnoses Not on filedocumented in this encounter Care Teams Contact Clerk Relationship Specialty Start Date End Date Florentino Boyle MD [address] [place], [place] [id number] PCP - General Internal Medicine 09/13/22 documented as of this encounter
== END 2024-08-05 14:12 | disposition home or self-care (01) ==
PROVIDERS: PCP Internal Medicine; Visit Provider Physician Assistant
DX: E11.29 Type 2 diabetes mellitus with other diabetic kidney complication (principal); R80.9 Proteinuria, unspecified; Z79.4 Long term (current) use of insulin

== ENCOUNTER 2024-11-01 11:31 | Outpatient (AMB) | payer MEDICARE, SELFPAY ==
--- NOTE | 2024-11-01 11:32 | A.OFFVIS_ITS ---
Vital Signs 11/01/24 11:33 Height 5 ft Weight 232 lb 2.348 oz BMI 45.3 BP 100/62 Blood Pressure Location Rt brachial Position Sitting Pulse 96 Pulse Source Pulse Oximeter Pulse Oximetry (%) 98 Oxygen Delivery Method Room Air Intake Visit Reasons: Controlled type 2 DM with microalbuminuria Intake Note: Patient present today for Type 2 Diabetes Mellitus Last Diabetic eye exam: 09/2023 Last Podiatry Visit: Doesn't have one Random Glucose: 153 mg/dl HgA1C: 6.4% Auto Service Dispatcher Required: No Accompanied by: Self / Same As Patient Allergies nickel Allergy (Mild, Verified 11/01/24 11:39) Rash abatacept [From Orencia] Adverse Reaction (Severe, Verified 11/01/24 11:39) shingles injection of steriods Allergy (Unknown, Uncoded 11/01/24 11:39) rash iodine Allergy (Unknown, Uncoded 11/01/24 11:39) anaphylaxis wool Allergy (Unknown, Uncoded 11/01/24 11:39) rash HPI HPI Controlled type 2 DM with microalbuminuria: Details: Patient is a 74-year-old female who presents today for follow-up regarding di abetes. She has a significant past medical history of CHF, ckd, staghorn calculus, george, venous insufficiency, rheumatoid arthritis, morbid obesity, MAYA on CPAP, hypertension, hyperlipidemia and o2 dependent, COPD. Endo: Her A1c today is 6.4. She was initially diagnosed with diabetes around 2012. She was also initially treated with metformin but developed diarrhea. Her current regimen: She states she uses lantus 10 units prn (with illness, large meals, steroid use), Ozempic 0.5 mg. Tolerating this well without any nausea or vomiting. She states that she is frustrated because she has not lost weight despite not eating as much. States her glucose readings have been high from recurrent prednisone use. -unable to tolerate metformin, in the past on trulicity but unavailable. GMI 8.5%, avg 204, 29% very high, 39% high, 31% in range -- states this was within the last few weeks CGM: has had a lot of issues with the cristiane 3. States it comes off easily and there are a lot of supply issues. She wants the dexcom. CV: She is on lisinopril 5 mg, and noncompliant with furosemide 20 mg b.i.d. cholesterol has been diet controlled. Overdue for labs GI: She states that she did hear from the but does not want to go. She is aware of the risks associated with not treating the cirrhosis and varices with earlier risks of deaths. 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 [facility] Medical History CHF (congestive heart failure) Iron deficiency anemia, unspecified History of deep vein thrombosis Acute kidney injury Venous insufficiency (chronic) (peripheral) Recurrent nephrolithiasis Lobular breast cancer Essential hypertension 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, with long- term current use of insulin Rheumatoid arthritis Morbid obesity Urge and stress incontinence History of invasive breast cancer MAYA on CPAP COPD (chronic obstructive pulmonary disease) Surgical History History of shoulder replacement Hx of cataract extraction Hx of umbilical hernia repair Hx of discectomy Hx of mastectomy Hx of cholecystectomy History of appendectomy Social [facility] Patient Tobacco Use Status: Former Tobacco user Years Smoked: 30 yrs e-Cigarette/Vaping Use: Never Used Second Hand Smoke Exposure: No service: No Current occupational status: disabled Cognitive needs: No Hearing needs: No Vision needs: Yes Physical Exam Vital Signs: Last Vital Signs Pulse 96 11/01/24 11:33 BP 100/62 11/01/24 11:33 Pulse Ox 98 11/01/24 11:33 Oxygen Delivery Method Room Air 11/01/24 11:33 BMI result Body Mass Index 45.3 Const Orientation/consciousness: patient oriented x3 HEENT Ears: hearing grossly normal bilaterally Neck Thyroid: Thyroid normal Lymphatic: no lymphadenopathy noted Resp Auscultation: clear to auscultation bilaterally Cardio Rate: regular rate Rhythm: regular rhythm Heart sounds: S1 normal heart sound present and S2 normal heart sound present Skin General skin exam: no rashes or lesions noted Neuro General: patient oriented x3, gait normal and no focal motor deficits Results AMB Hemoglobin A1c AMB Hemoglobin A1c 6.4 % Last Edit by SIMIN Baca on 11/01/24 11:52 Results Reviewed Results Reviewed: Laboratory Last Values Glucose (Clinic) 153 mg/dL (60-115) H 11/01/24 11:43 Laboratory Tests 09/30/23 01/29/24 04/29/24 10:15 11:19 10:50 Sodium Potassium Chloride Carbon Dioxide Anion Gap BUN Creatinine Estimated GFR Random Glucose Hgb A1c (Clinic) 6.8 H 5.9 Calcium AST ALT Triglycerides 85 Cholesterol 155 LDL Cholesterol, Calc 88 HDL Cholesterol 50 04/29/24 11:53 Sodium 142 Potassium 4.6 Chloride 111 H Carbon Dioxide 27 Anion Gap 9 L BUN 24 H Creatinine 1.22 Estimated GFR 43 Random Glucose 100 Hgb A1c (Clinic) Calcium 8.8 AST 32 H ALT 12 Triglycerides Cholesterol LDL Cholesterol, Calc HDL Cholesterol Assessment & Plan Assessment & Plan (1) Controlled type 2 diabetes mellitus with microalbuminuria: Code(s): E11.29 - Type 2 diabetes mellitus with other diabetic kidney complication; R80.9 - Proteinuria, unspecified Category: Medical Qualifiers: Diabetes mellitus usp insulin use: with superintendent terminal use Qualified Code(s): E11.29 - Type 2 diabetes mellitus with other diabetic kidney complication; R80.9 - Proteinuria, unspecified; Z79.4 - watermelon inspector (current) use of insulin Plan: restart lantus 10 units daily increase ozempic 1 mg weekly reviewed signs and symptoms of hyper and hypoglycemia that would require emergent medical treatment (2) Essential hypertension: Code(s): I10 - Essential (primary) hypertension Category: Medical Plan: WNL. Continue current regimen Overdue for labs. Ordered today. (3) Morbid obesity: Code(s): E66.01 - Morbid (severe) obesity due to excess calories Category: Medical Plan: Weight unchanged since starting Ozempic. Orders: Orders AMB Hemoglobin A1c Today E11.29 - Type 2 diabetes mellitus with other diabetic kidney complication, R80.9 - Proteinuria, unspecified, Z13.9 - Encounter for screening, unspecified, Z79.4 - watermelon inspector (current) use of insulin Lipid Panel Today E11.29 - Type 2 diabetes mellitus with other diabetic kidney complication, E66.01 - Morbid (severe) obesity due to excess calories, I10 - Essential (primary) hypertension, R80.9 - Proteinuria, unspecified, Z79.4 - watermelon inspector (current) use of insulin Microalbumin, Random (w Creat) Today E11.29 - Type 2 diabetes mellitus with other diabetic kidney complication, E66.01 - Morbid (severe) obesity due to excess calories, I10 - Essential (primary) hypertension, R80.9 - Proteinuria, unspecified, Z79.4 - intermediate (current) use of insulin Comprehensive [place]. Panel Fast Today E11.29 - Type 2 diabetes mellitus with other diabetic kidney complication, E66.01 - Morbid (severe) obesity due to excess calories, I10 - Essential (primary) hypertension, R80.9 - Proteinuria, unspecified, Z79.4 - intermediate (current) use of insulin Medications: New semaglutide (Ozempic) 1 mg (0.75 mL) subcut QWEEK 3 mL 3RF Changed From insulin glargine (Lantus Solostar U-100 Insulin) 10 units subcut QPM PRN E11.65 - Type 2 diabetes mellitus with hyperglycemia, Z79.4 - intermediate (current) use of insulin To insulin glargine (Lantus Solostar U-100 Insulin) 10 units (0.1 mL) subcut QAM 15 mL 0RF E11.65 - Type 2 diabetes mellitus with hyperglycemia, Z79.4 - watermelon inspector (current) use of insulin Discontinued semaglutide (Ozempic) Discontinued Reason: Doctor's Order 0.5 mg (0.736 mL) subcut QWEEK 3 mL 4RF Coding Level of Care Code Est Pt Level 4 (65717) Complex EM visit Add On G2211 Diagnoses Controlled type 2 diabetes mellitus with microalbuminuria, with long-term current use of insulin E11.29; R80.9; Z79.4 Diabetes mellitus superintendent terminal insulin use: with superintendent terminal use Essential hypertension I10 Morbid obesity E66.01
[2024-11-01 11:33] VITALS: BP 100/62; PULSE 96; O2SAT 98; BMI 45.3
[2024-11-01 11:47] LABS: Glucose, Whole Blood 153 mg/dL (60-115)
--- OUTSIDE RECORDS SUMMARY | 2024-11-01 12:26 | XMS_ITS | Encounter Summary ---
Author Organization [facility] [place], Address [address] [place] [address] Phone Care Team Providers Care Ct Mri Technologist Name Role Phone Florentino Boyle MD Primary Care Provider +1- [phone] Encounter Details Date Type Department Care Team (Late st Contact Info) Description 10/30/2023 Documentation Only [facility] [address] [place] [address] Sherin Rosales [address] [place] [address] Social History Tobacco Use Types [...] Care Team (Late st Contact Info) Description 12/05/2024 4:00 PM EDT Office Visit [facility] [address] [place] [address] Zee Graf MD [address] [facility] [facility] [place] [address] documented as of this encounter Visit Diagnoses Not on filedocumented in this encounter Care Teams Ct Mri Technologist Relationship Specialty Start Date End Date Florentino Boyle MD [address] [place] [address] PCP - General Internal Medicine 09/13/22 documented as of this encounter
--- OUTSIDE RECORDS SUMMARY | 2024-11-01 12:26 | XMS_ITS | Clinical Summary ---
Author Organization [facility] Address [address] [place] [address] Care Team Providers Care Director Of Early Childhood Education Name Role Phone Unavailable Primary Care Provider Unavailabl e Social History Tobacco Use Types Packs/Day Years Used Date Smoking Tobacco: Never Assessed Comments Unknown Sex and Gender Information Value Date Recorded Sex Assigned at Not on file Legal Sex Female 12:41 PM EDT Gender Identity Not on file Sexual Orientation Not on file Plan of Treatment Health Maintenance Due Date Last Done Comments Hepatitis C Virus Screening 1950 DTaP/Tdap/Td Vaccines (1 - Tdap) 09/10/1970 Pneumococcal Vaccines 50+ (1 of 1 - PCV) 09/10/2001 Zoster (Shingles) Vaccine (1 of 2) 09/10/2001 COVID-19 Vaccine (2023-2 5 season) 2024 RSV Vaccine 60 years and old er and Patients (1 - 1-dose 75+ series) 09/10/2026 Hepatitis B Vaccines Aged Out No long er eligible based on patient's age to complete this topic
--- OUTSIDE RECORDS SUMMARY | 2024-11-01 12:26 | XMS_ITS | Clinical Summary ---
Author Organization [facility] Address [address] [place] [address] Care Team Providers Care Bulldozer/Loader/Compactor/Scraper Name Role Phone Naima Boyle MD Primary Care Provider +1 -[phone] Allergies Active Allergy Reactions Criticality Noted Date Comments Iodinated Contrast Media 11/27/2014 Seafood 11/24/2014 Medications Medication Sig Dispensed Refills Start Date End Date Status Blood Glucose Monitoring Suppl (FREESTYLE [place] LITE) W/DEVICE KIT FreeStyle [place] Lite w/Device Kit Refills: 0 Betsy Ernandez [...] pe 2 diabetes mellitus without complication, unspecified jail insulin use status Use as instructed daily. [...] hyperglycemia, without long-term current use of insulin ([facility]) Use to test blood sugar 4 [...] hyperglycemia, without long-term current use of insulin ([facility]) TAKE 1 TABLET 3 TIMES DAILY [...] Advance Directives For more information, please contact: [phone] Documents on File Type Date Recorded Patient Wafer Batter Mixer Expl anation Advance Directive and Living Will 10/18/2018 2:47 PM Care Teams Bulldozer/Loader/Compactor/Scraper Relationship Specialty Start Date End Date Naima Boyle MD [address] [place] [id number] PCP - General Internal Medicine 12/21/21
--- OUTSIDE RECORDS SUMMARY | 2024-11-01 12:26 | XMS_ITS | Encounter Summary ---
Author Organization [facility] [place], Address [address] [place] [address] Phone Care Team Providers Care Rail Grinder Name Role Phone Florentino Boyle MD Primary Care Provider +1- [phone] Encounter Details Date Type Department Care Team (Late st Contact Info) Description 09/02/2024 Documentation Only [facility] [address] [place] [address] Sherin Rosales [address] [place] [address] Social History Tobacco Use Types [...] Visit [facility] [address] [place] [address] Zee Graf MD [address] [facility] [place] [address] documented as of this encounter Visit Diagnoses Not on filedocumented in this encounter Care Teams Rail Grinder Relationship Specialty Start Date End Date Florentino Boyle MD [address] [place] [address] PCP - General Internal Medicine 09/13/22 documented as of this encounter
--- OUTSIDE RECORDS SUMMARY | 2024-11-01 12:26 | XMS_ITS | Encounter Summary ---
Author Organization [facility] [place], Address [address] [place] [address] Phone Care Team Providers Care Counter Clerk [employer] Name Role Phone Florentino Boyle MD Primary Care Provider +1- [phone] Encounter Details Date Type Department Care Team (Late st Contact Info) Description 09/02/2024 Documentation Only [facility] [address] [place] [address] Sherin Rosales [address] [place] [address] Social History Tobacco Use Types [...] Visit [facility] [address] [place] [address] Zee Graf MD [address] [facility] [place] [address] documented as of this encounter Visit Diagnoses Not on filedocumented in this encounter Care Teams Counter Clerk [employer] Relationship Specialty Start Date End Date Florentino Boyle MD [address] [place] [address] PCP - General Internal Medicine 09/13/22 documented as of this encounter
--- OUTSIDE RECORDS SUMMARY | 2024-11-01 12:26 | XMS_ITS | Encounter Summary ---
Author Organization [facility] [place], Address [address] [place] [address] Phone Care Team Providers Care Tin Whiz Machine Operator Name Role Phone Florentino Boyle MD Primary Care Provider +1- [phone] Encounter Details Date Type Department Care Team (Late st Contact Info) Description 09/13/2022 Documentation Only [facility] [address] [place] [address] Florentino Boyle MD [address] [place] [address] Social History Tobacco Use Types Packs/Day Years [...] Visit [facility] [address] [place] [address] Zee Graf MD [address] [place] [address] [place] [address] documented as of this encounter Visit Diagnoses Not on filedocumented in this encounter Care Teams Tin Whiz Machine Operator Relationship Specialty Start Date End Date Florentino Boyle MD [address] [place] [id number] PCP - General Internal Medicine 09/13/22 documented as of this encounter
--- OUTSIDE RECORDS SUMMARY | 2024-11-01 12:26 | XMS_ITS | Clinical Summary ---
Author Organization [facility], Address [address] [facility] [place] [address] Phone Care Team Providers Care Clerical Secretary Name Role Phone Florentino Boyle MD Primary Care Provider +1- [phone] Allergies Active Allergy Reactions Criticality Noted Date [...] 10/30/2023 Calculus of kidney 11/10/2022 Hypertension 11/10/2022 Encounters Date Type Department Care Team Description 09/02/2024 Documentation Only [facility] [address] [place] [address] Sherin Rosales 09/02/2024 Documentation Only [facility] [address] [place] [address] Sherin Rosales 09/02/2024 Documentation Only [facility] [address] [place] [address] Sherin Rosales 09/02/2024 Documentation Only [facility] [address] [place] [address] Sherin Rosales 09/02/2024 Documentation Only [facility] [address] [place] [address] Sherin Rosales from Last 3 Months Immunizations Immunization Administration Dates Next Due Influenza, Unspecified 04/22/2022,2020,04/08/2019,06/11/2016 [...] Visit [facility] [place], [address] [place] [phone] Zee Graf MD [address] [place] [address] Health Maintenance Due Date Last Done Comments Breast Cancer Screening 1950 Colorectal Cancer Screening: Annual FOBT 09/10/2000 Colorectal Cancer Screening: Colonoscopy 09/10/2000 Colorectal Cancer Screening: Sigmoidoscopy 09/10/2000 Pneumococcal Vaccine: 50+ Years (3 of 3 - PPSV23, PCV20 or PCV21) 04/23/2018 12/16/2016, 04/23/2013 Diabetes: Hemoglobin A1C 10/06/2022 Diabetes: Ophthalmology Exam 10/06/2022 Diabetes: Pedal Pulse Checked 10/06/2022 Diabetes: Sensory Foot Exam 10/06/2022 Diabetes: Visual Foot Exam 10/06/2022 Influenza Vaccine (Season Ended) 2025 04/22/2022, 05/12/2021, 04/08/2019, Additional history exists Hepatitis B Vaccine Aged Out No longe r eligible based on patient's age to complete this topic Insurance ) [employer] Medicare Care Teams Clerical Secretary Relationship Specialty Start Date End Date Florentino Boyle MD [address] [place] [address] PCP - General Internal Medicine 09/13/22
--- OUTSIDE RECORDS SUMMARY | 2024-11-01 12:26 | XMS_ITS | Encounter Summary ---
Author Organization [facility] [place], Address [address] [place] [address] Phone Care Team Providers Care Head Charrer Name Role Phone Florentino Boyle MD Primary Care Provider +1- [phone] Encounter Details Date Type Department Care Team (Late st Contact Info) Description 09/02/2024 Documentation Only [facility] [address] [place] [address] Sherin Rosales [address] [place] [address] Social History Tobacco Use Types [...] [facility] [address] [place] [address] Zee Graf MD [address] [facility] [place] [address] documented as of this encounter Visit Diagnoses Not on filedocumented in this encounter Care Teams Head Charrer Relationship Specialty Start Date End Date Florentino Boyle MD [address] [place] [address] PCP - General Internal Medicine 09/13/22 documented as of this encounter
--- OUTSIDE RECORDS SUMMARY | 2024-11-01 12:26 | XMS_ITS | Encounter Summary ---
Author Organization [facility] [place], Address [address] [place] [address] Phone Care Team Providers Care Tree And Shrub Worker Name Role Phone Florentino Boyle MD Primary Care Provider +1- [phone] Encounter Details Date Type Department Care Team (Late Contact Info) Description 11/11/2022 Documentation Only [facility] [address] [place] [address] Paty [place] [address] [place] [phone] Social History Tobacco Use Types Packs/Day Years [...] Visit [facility] [address] [place] [address] Zee Graf MD [address] [facility] [place] [address] documented as of this encounter Visit Diagnoses Not on filedocumented in this encounter Care Teams Tree And Shrub Worker Relationship Specialty Start Date End Date Florentino Boyle MD [address] [place], [place] [id number] PCP - General Internal Medicine 09/13/22 documented as of this encounter
--- OUTSIDE RECORDS SUMMARY | 2024-11-01 12:26 | XMS_ITS | Encounter Summary ---
Author Organization [facility] [place], Address [address] [place] [address] Phone Care Team Providers Care Feed Adviser Name Role Phone Florentino Boyle MD Primary Care Provider +1- [phone] Encounter Details Date Type Department Care Team (Late st Contact Info) Description 10/30/2023 Documentation Only [facility] [address] [place] [address] Sherin Rosales [address] [place] [address] Social History Tobacco Use Types [...] Visit [facility] [address] [place] [address] Zee Graf MD [address] [facility] [address] documented as of this encounter Visit Diagnoses Not on filedocumented in this encounter Care Teams Feed Adviser Relationship Specialty Start Date End Date Florentino Boyle MD [address] [place] [address] PCP - General Internal Medicine 09/13/22 documented as of this encounter
--- OUTSIDE RECORDS SUMMARY | 2024-11-01 12:26 | XMS_ITS | Encounter Summary ---
Author Organization [facility] [place], Address [address] [place] [address] Phone Care Team Providers Care Railway Traction Line Worker Name Role Phone Florentino Boyle MD Primary Care Provider +1- [phone] Encounter Details Date Type Department Care Team (Late st Contact Info) Description 09/02/2024 Documentation Only [facility] [address] [place] [address] Sherin Rosales [address] [place] [address] Social History Tobacco Use Types [...] Visit [facility] [address] [place] [address] Zee Graf MD [address] [facility] [place] [address] documented as of this encounter Visit Diagnoses Not on filedocumented in this encounter Care Teams Railway Traction Line Worker Relationship Specialty Start Date End Date Florentino Boyle MD [address] [place] [address] PCP - General Internal Medicine 09/13/22 documented as of this encounter
--- OUTSIDE RECORDS SUMMARY | 2024-11-01 12:26 | XMS_ITS | Encounter Summary ---
Author Organization [facility] [place], Address [address] [place] [address] Phone Care Team Providers Care Door Liner Name Role Phone Florentino Boyle MD Primary Care Provider +1- [phone] Encounter Details Date Type Department Care Team (Late st Contact Info) Description 10/30/2023 Documentation Only [facility] [address] [place] [address] Sherin Rosales [address] [place] [address] Social History Tobacco Use Types [...] [facility] [address] [place] [address] Zee Graf MD [address] [facility] [place] [address] documented as of this encounter Visit Diagnoses Not on filedocumented in this encounter Care Teams Door Liner Relationship Specialty Start Date End Date Florentino Boyle MD [address] [place] [address] PCP - General Internal Medicine 09/13/22 documented as of this encounter
--- OUTSIDE RECORDS SUMMARY | 2024-11-01 12:26 | XMS_ITS | Encounter Summary ---
Author Organization [facility] [place], Address [address] [place] [address] Phone Care Team Providers Care Cps Team Lead Name Role Phone Florentino Boyle MD Primary Care Provider +1- [phone] Encounter Details Date Type Department Care Team (Late Contact Info) Description 11/11/2022 Documentation Only [facility] [address] [place] [address] Paty [place] [address] [place] [address] Social History Tobacco Use Types Packs/Day Years [...] [facility] [address] [place] [address] Zee Graf MD [address] [facility] [place] [address] documented as of this encounter Visit Diagnoses Not on filedocumented in this encounter Care Teams Cps Team Lead Relationship Specialty Start Date End Date Florentino Boyle MD [address] [place], [place] [id number] PCP - General Internal Medicine 09/13/22 documented as of this encounter
--- OUTSIDE RECORDS SUMMARY | 2024-11-01 12:26 | XMS_ITS | Encounter Summary ---
Author Organization [facility] [place], Address [address] [place] [address] Phone Care Team Providers Care Rag Sorter And Cutter Name Role Phone Florentino Boyle MD Primary Care Provider +1- [phone] Encounter Details Date Type Department Care Team (Late st Contact Info) Description 10/30/2023 Documentation Only [facility] [address] [place] [address] Sherin Rosales [address] [place] [address] Social History Tobacco Use Types [...] Visit [facility] [address] [place] [address] Zee Graf MD [address] [facility] [place] [address] documented as of this encounter Visit Diagnoses Not on filedocumented in this encounter Care Teams Rag Sorter And Cutter Relationship Specialty Start Date End Date Florentino Boyle MD [address] [place] [address] PCP - General Internal Medicine 09/13/22 documented as of this encounter
--- OUTSIDE RECORDS SUMMARY | 2024-11-01 12:26 | XMS_ITS | Encounter Summary ---
Author Organization [facility] [place], Address [address] [place] [address] Phone Care Team Providers Care Supervisor Heat Treating Name Role Phone Florentino Boyle MD Primary Care Provider +1- [phone] Encounter Details Date Type Department Care Team (Late st Contact Info) Description 10/30/2023 Documentation Only [facility] [address] [place] [address] Sherin Rosales [address] [place] [address] Social History Tobacco Use Types [...] Visit [facility] [address] [place] [address] Zee Graf MD [address] [facility] [place] [place] [address] documented as of this encounter Visit Diagnoses Not on filedocumented in this encounter Care Teams Supervisor Heat Treating Relationship Specialty Start Date End Date Florentino Boyle MD [address] [place] [address] PCP - General Internal Medicine 09/13/22 documented as of this encounter
--- OUTSIDE RECORDS SUMMARY | 2024-11-01 12:26 | XMS_ITS | Clinical Summary ---
Author Organization [facility] it Address [address] [place] [address] Care Team Providers Care Tug Captain Name Role Phone Naima Boyle MD Primary [...] uncontrolled COPD (chronic obstructive pu lmonary disease) ([facility] V24, [facility] V28) DX:COPD (chronic o bstructive pulmonary disease) ([facility]) Sleep apnea DX:Sleep apnea Anxiety and depression DX:Anxiet y and depression Rheumatoid arthritis ([facility] V24, [facility] V28) DX:Rheumatoid arthritis ([facility] ) Edema DX:Edema Rosacea DX:Rosacea Social History Tobacco Use Types Packs/Day Years Used Date Smoking Tobacco: Former Cigarettes Q uit: 07/10/2009 Smokeless Tobacco: Never Comments Unknown Sex and Gender Information Value Date Recorded Sex Assigned at Not on file Legal Sex Female 12:25 PM EST Gender Identity Not on file Sexual Orientation Not on file Obstetrics History Plan of Treatment Health Maintenance Due Date Last Done Comments Breast Cancer Screening 1950 COVID-19 Vaccine (#1) 09/10/1956 Diabetes: Annual Foot Exam 09/10/1961 Diabetes: Annual Retina Eye Exam 09/10/1961 DTaP,Tdap,and Td Vaccines (1 - Tdap) 09/10/1970 Pneumococcal Vaccine: 50+ Years (1 of 1 - PCV) 09/10/2001 Zoster Vaccines (1 of 2) 09/10/2001 Diabetes: Annual GFR (Glomerular Filtration Rate) 10/31/2021 [...] 06/28/2022 10/31/2020, 02/14/2020, 11/30/2019, Additional history exists Cholesterol Screening (Lipid Panel) 11/29/2024 11/30/2019, 10/09/2018 Influenza Vaccine (Season Ended) 2025 RSV Immunization Adult Patients (1 - 1-dose 75+ series) 09/10/2026 Osteoporosis [...] patient's age to complete this topic Meningococcal B Vaccine Aged Out No l onger eligible based on patient's age to complete this topic RSV Immunization Patients Under 20 months Aged Out No longer eligible based on patient's age to complete this topic Varicella Vaccines Aged Out No longer eligible based on patient's age to complete this topic Procedures Procedure Name Priority Date/Time Associated Diagnosis Comments BONE DENSITY STUDY Routine 11/14/2020 10 :36 AM EDT assisted (current) use of aromatase inhibitors from Last 3 Months or Most Recently Relevant to Health Maintenance Results * BONE DENSITY STUDY (11/14/2020 10:36 AM EDT) Anatomical Region Laterality Modality Bone Densitometr y 11/04/2020 5:06 PM EDT Narrative 11/15/2020 2:35 PM EDT EXAM PERFORMED: Bone density study DEXA EXAM HISTORY: Postmenopausal screening. TECHNIQUE: [employer] system utilized for DEXA images Comparison: August [...] study DEXA EXAM HISTORY: Postmenopausal screening. TECHNIQUE: [employer] system utilized for DEXA images Comparison: August [...] MD on 11/15/2020 2:35PM. Workstation Name - [id number] us Brenda Lyons MD IMG DXA PROCEDURES Final Result from Last 3 Months or Most Recently Relevant to Health Maintenance Care Teams Tug Captain Relationship Specialty Start Date End Date Naima Boyle MD [address] [place] [address] PCP - General Internal Medicine 12/21/21
--- OUTSIDE RECORDS SUMMARY | 2024-11-01 12:26 | XMS_ITS | Encounter Summary ---
Author Organization [facility] [place], Address [address] [place] [address] Phone Care Team Providers Care Lehr Stripper Name Role Phone Florentino Boyle MD Primary Care Provider +1- [phone] Encounter Details Date Type Department Care Team (Late st Contact Info) Description 10/30/2023 Documentation Only [facility] [address] [place] [address] Sherin Rosales [address] [place] [address] Social History Tobacco Use Types [...] Visit [facility] [address] [place] [address] Zee Graf MD [address] [facility] [place] [address] documented as of this encounter Visit Diagnoses Not on filedocumented in this encounter Care Teams Lehr Stripper Relationship Specialty Start Date End Date Florentino Boyle MD [address] [place] [address] PCP - General Internal Medicine 09/13/22 documented as of this encounter
--- OUTSIDE RECORDS SUMMARY | 2024-11-01 12:26 | XMS_ITS | Encounter Summary ---
Author Organization [facility] [place], Address [address] [place] [address] Phone Care Team Providers Care Account Solutions Analyst Name Role Phone Florentino Boyle MD Primary Care Provider +1- [phone] Encounter Details Date Type Department Care Team (Late Contact Info) Description 11/11/2022 Documentation Only [facility] [address] [place] [address] Paty [place] [address] [place] [address] Social History Tobacco Use Types Packs/Day Years [...] [facility] [address] [place] [address] Zee Graf MD [address] [facility] [place] [address] documented as of this encounter Visit Diagnoses Not on filedocumented in this encounter Care Teams Account Solutions Analyst Relationship Specialty Start Date End Date Florentino Boyle MD [address] [place], [place] [phone] PCP - General Internal Medicine 09/13/22 documented as of this encounter
--- OUTSIDE RECORDS SUMMARY | 2024-11-01 12:26 | XMS_ITS | Encounter Summary ---
Author Organization [facility] [place], Address [address] [place] [address] Phone Care Team Providers Care Wrecking Supervisor Name Role Phone Florentino Boyle MD Primary Care Provider +1- [phone] Encounter Details Date Type Department Care Team (Late st Contact Info) Description 11/28/2023 Documentation Only [facility] [address] [place] [address] Sherin Rosales [address] [place] [address] Social History Tobacco Use Types [...] [facility] [address] [place] [address] Zee Graf MD [address] [facility] [place] [address] documented as of this encounter Visit Diagnoses Not on filedocumented in this encounter Care Teams Wrecking Supervisor Relationship Specialty Start Date End Date Florentino Boyle MD [address] [place] [address] PCP - General Internal Medicine 09/13/22 documented as of this encounter
--- OUTSIDE RECORDS SUMMARY | 2024-11-01 12:26 | XMS_ITS | Encounter Summary ---
Author Organization [facility] [place], Address [address] [place] [address] Phone Care Team Providers Care Press Operator Carbon Blocks Name Role Phone Florentino Boyle MD Primary Care Provider +1- [phone] Encounter Details Date Type Department Care Team (Late st Contact Info) Description 02/20/2024 Documentation Only [facility] [address] [place] [address] Sherin Rosales [address] [place] [address] Social History Tobacco Use Types [...] Visit [facility] [address] [place] [address] Zee Graf MD [address] [facility] [place] [address] documented as of this encounter Visit Diagnoses Not on filedocumented in this encounter Care Teams Press Operator Carbon Blocks Relationship Specialty Start Date End Date Florentino Boyle MD [address] [place] [address] PCP - General Internal Medicine 09/13/22 documented as of this encounter
--- OUTSIDE RECORDS SUMMARY | 2024-11-01 12:26 | XMS_ITS | Encounter Summary ---
Author Organization [facility] [place], Address [address] [place] [address] Phone Care Team Providers Care Sales Contracts Analyst Name Role Phone Florentino Boyle MD Primary Care Provider +1- [phone] Encounter Details Date Type Department Care Team (Late st Contact Info) Description 10/30/2023 Documentation Only [facility] [address] [place] [address] Sherin Rosales [address] [place] [address] Social History Tobacco Use Types [...] [facility] [address] [place] [address] Zee Graf MD [address] [facility] [place] [address] documented as of this encounter Visit Diagnoses Not on filedocumented in this encounter Care Teams Sales Contracts Analyst Relationship Specialty Start Date End Date Florentino Boyle MD [address] [place] [address] PCP - General Internal Medicine 09/13/22 documented as of this encounter
--- OUTSIDE RECORDS SUMMARY | 2024-11-01 12:26 | XMS_ITS | Encounter Summary ---
Author Organization [facility] [place], Address [address] [place] [address] Phone Care Team Providers Care Production Control Scheduler Name Role Phone Florentino Boyle MD Primary Care Provider +1- [phone] Encounter Details Date Type Department Care Team (Late st Contact Info) Description 02/20/2024 Documentation Only [facility] [address] [place] [address] Sherin Rosales [address] [place] [address] Social History Tobacco Use Types [...] Visit [facility] [address] [place] [address] Zee Graf MD [address] [facility] [place] [address] documented as of this encounter Visit Diagnoses Not on filedocumented in this encounter Care Teams Production Control Scheduler Relationship Specialty Start Date End Date Florentino Boyle MD [address] [place] [address] PCP - General Internal Medicine 09/13/22 documented as of this encounter
--- OUTSIDE RECORDS SUMMARY | 2024-11-01 12:26 | XMS_ITS | Encounter Summary ---
Author Organization [facility], Address [address] [place] [address] Phone Care Team Providers Care Pack Worker Supervisor Name Role Phone Florentino Boyle MD Primary Care Provider +1- [phone] Encounter Details Date Type Department Care Team (Late st Contact Info) Description 09/13/2022 Documentation Only [facility] [address] [place] [address] Florentino Boyle MD [address] [place] [address] Social History Tobacco Use Types Packs/Day Years [...] Visit [facility] [address] [place] [id number] Zee Graf MD [address] [place] [address] [place] [address] documented as of this encounter Visit Diagnoses Not on filedocumented in this encounter Care Teams Pack Worker Supervisor Relationship Specialty Start Date End Date Florentino Boyle MD [address] [place] [address] [id number] PCP - General Internal Medicine 09/13/22 documented as of this encounter
--- OUTSIDE RECORDS SUMMARY | 2024-11-01 12:27 | XMS_ITS | Encounter Summary ---
Author Organization [facility], Address [address] [place] [address] Phone Care Team Providers Care Software Performance Engineer Name Role Phone Florentino Boyle MD Primary Care Provider +1- [phone] Encounter Details Date Type Department Care Team (Late st Contact Info) Description 09/02/2024 Documentation Only [facility] [address] [place] [address] Sherin Rosales [address] [place] [address] Social History Tobacco Use Types [...] [facility] [address] [place] [address] Zee Graf MD [address] [place] [place] [address] documented as of this encounter Visit Diagnoses Not on filedocumented in this encounter Care Teams Software Performance Engineer Relationship Specialty Start Date End Date Florentino Boyle MD [address] [place] [address] PCP - General Internal Medicine 09/13/22 documented as of this encounter
== END 2024-11-01 12:08 | disposition home or self-care (01) ==
LOC: HO.ENCR 11:31
PROVIDERS: PCP Internal Medicine; Visit Provider Physician Assistant
DX: E11.29 Type 2 diabetes mellitus with other diabetic kidney complication (principal); R80.9 Proteinuria, unspecified; Z79.4 Long term (current) use of insulin; I10 Essential (primary) hypertension; E66.01 Morbid (severe) obesity due to excess calories; Z13.9 Encounter for screening, unspecified

== ENCOUNTER → 2024-11-01 11:31 | Outpatient (BNVA) | payer MEDICARE, SELFPAY | PROVIDERS: PCP Internal Medicine; Visit Provider Physician Assistant | DX: E11.29 Type 2 diabetes mellitus with other diabetic kidney complication (principal); E11.22 Type 2 diabetes mellitus with diabetic chronic kidney disease; R80.9 Proteinuria, unspecified; I50.9 Heart failure, unspecified; N18.9 Chronic kidney disease, unspecified; M06.9 Rheumatoid arthritis, unspecified; E66.01 Morbid (severe) obesity due to excess calories; G47.33 Obstructive sleep apnea (adult) (pediatric); I10 Essential (primary) hypertension; E78.5 Hyperlipidemia, unspecified; J44.9 Chronic obstructive pulmonary disease, unspecified; Z99.81 Dependence on supplemental oxygen; Z68.42 Body mass index [BMI] 45.0-49.9, adult; Z79.4 Long term (current) use of insulin; Z99.89 Dependence on other enabling machines and devices | CPT/HCPCS: 82947; 83036; 99212 ==

== ENCOUNTER 2024-11-20 11:24 | Outpatient (AMB) | payer MEDICARE, SELFPAY ==
--- NOTE | 2024-11-20 11:52 | A.OFFPC_ITS ---
Vital Signs 11/20/24 11:53 Height 5 ft Weight 231 lb BMI 45.1 BP 112/60 Blood Pressure Location Rt radial Position Sitting Respiration 16 Pulse 93 Pulse Source Pulse Oximeter Temp 98.5 F Temp Source Oral Pulse Oximetry (%) 100 Oxygen Delivery Method Nasal Cannula Intake Visit Reasons: screening Intake Note: Pt is here today to discuss an order for a cologuard and refills Allergies nickel Allergy (Mild, Verified 12/02/24 16:31) Rash abatacept [From Orencia] Adverse Reaction (Severe, Verified 12/02/24 16:31) shingles injection of steriods Allergy (Unknown, Uncoded 12/02/24 16:31) rash iodine Allergy (Unknown, Uncoded 12/02/24 16:31) anaphylaxis wool Allergy (Unknown, Uncoded 12/02/24 16:31) rash Medication List - Last Reconciled 11/20/24 by Naima Boyle MD albuterol sulfate 90 mcg/actuation 0 mcg inhalation albuterol sulfate mg inhalation anastrozole 1 mg PO DAILY blood sugar diagnostic (OneTouch Verio test strips) TESTS AT LEAST 3 TIMES DAILY blood-glucose meter (Theragene PharmaceuticalsTouch Verio Flex Meter) USE METER TO TEST AT LEAST 4 TIMES DAILY blood-glucose sensor (FlipGive G7 Sensor device) Use daily As directed to monitor glucose. change q 10 days cetirizine (All Day Allergy (cetirizine)) 10 mg PO DAILY PRN flash glucose scanning reader (FreeStyle Jonny 2 [place]) As directed flash glucose sensor (FreeStyle Jonny 2 Sensor kit) As directed fluticasone propionate 50 mcg/actuation sprays intranasal bhhuhkkmpwy-hvzurcmzr-kbnyecrz 100-62.5-25 mcg 1 ea inhalation QAM furosemide 20 mg PO ONCE insulin glargine (Lantus Solostar U-100 Insulin) 10 units (0.1 mL) subcut QAM insulin lispro (Humalog KwikPen (U-100) Insulin) 10 units subcut TID PRN ipratropium-albuterol 0.5 mg-3 mg(2.5 mg base)/3 mL mL inhalation lancets As directed lisinopril 5 mg PO DAILY minocycline 100 mg PO BID montelukast 10 mg PO DAILY mupirocin 2% 1 appl topical TID nystatin-triamcinolone 100,000-0.1 unit/gram-% 1 appl topical DAILY 7 days pantoprazole 40 mg PO DAILY paroxetine HCl 40 mg PO QAM pen needle, diabetic (BD Theodora 2nd Gen Pen Needle) INJECT INSULIN UP TO 4 TIMES A DAY. semaglutide (Ozempic) 1 mg (0.75 mL) subcut QWEEK vibegron (Gemtesa) 75 mg PO DAILY Tobacco use date assessed: 11/20/24 Fall risk assessment: No Falls in past year Last assessed Fall Risk: 11/20/24 Dental Screening Dental Screen Date: 11/20/24 Did you have a dental visit in the last 12 months?: No Did you have a dental problem in the last 6 months where you did not have access to dental care?: No Was dental information given to patient?: No HPI screening HPI Details 74-year-old lady here today complaining of a pruritic rash in her inguinal areas which has been present now for the last several days. She is also overdue for her colon cancer screening, requesting order for Cologuard testing instead of colonoscopy. 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, with long- term current use of insulin Rheumatoid arthritis Morbid obesity Urge and stress incontinence History of invasive breast cancer MAYA on CPAP COPD (chronic obstructive pulmonary disease) Surgical History History of shoulder replacement Hx of cataract extraction Hx of umbilical hernia repair Hx of discectomy Hx of mastectomy Hx of cholecystectomy History of appendectomy Social History Housing: Condominium Patient Tobacco Use Status: Former Tobacco user Years Smoked: 30 yrs e-Cigarette/Vaping Use: Never Used Second Hand Smoke Exposure: No service: No Current occupational status: disabled Cognitive needs: No Hearing needs: No Vision needs: Yes Questionnaire PHQ-9 Over the last 2 weeks, how often have you been bothered by any of the following problems? 1. Little interest or pleasure in doing things: several days 2. Feeling down, depressed, or hopeless: several days 3. Trouble falling or staying asleep, or sleeping too much: not at all 4. Feeling tired or having little energy: several days 5. Poor appetite or overeating: several days 6. Feeling bad about yourself - or that you are a failure or have let yourself or your family down: not at all 7. Trouble concentrating on things, such as reading the newspaper or watching television: not at all 8. Moving or speaking so slowly that other people could have noticed. Or the opposite - being so fidgety or restless that you have been moving around a lot more than usual: not at all 9. Thoughts that you would be better off or of hurting yourself in some way: not at all Total score: 4 Depression Screening Interpretation: Negative Depression Screening Done: Yes 32222 - PHQ-9 Billing: Yes Source: Developed by Drs. Marc Chen, Sudha Peterson, Sang García and colleagues, with an educational stefania from [employer]. Thrive Questionnaire Date Thrive assessed: 11/16/24 I am a: Patient What is your living situation today?: I have a steady place to live Within the past 12 months, did the food you bought not last and you didn't have the money to get more?: Sometimes True Within the past 12 months, did you worry whether your food would run out before you got money to buy more?: Sometimes True Do you have trouble paying for medicines?: No Do you have trouble getting transportation to medical appointments?: No Do you have trouble paying your heating and electricity bill?: I choose not to answer this question Do you have trouble taking care of your child, family member or friend?: No Do you have trouble with day-to-day activities such as bathing, preparing meals, shopping, managing finances, etc.?: No Are you currently unemployed and looking for a job?: No Are you interested in more education?: No Please select the resources that you would like help with: None Currently or been in a relationship where the following occur: No concerns reported THRIVE Score: 2 AUDIT C Alcohol Use Questionnaire (AUDIT-C) 1. How often do you have a drink containing alcohol?: Monthly or less 2. How many drinks containing alcohol do you have on a typical day when you are drinking?: 1 or 2 3. How often do you have six or more drinks on one occasion?: Never Total Score: 1 MADAY-7 AMB Questionnaire MADAY-7 Date MADAY - 7 assessed: 09/08/23 Feeling nervous, anxious, or on edge: 1 = Several days Not being able to stop or control worryin = Several days Worrying too much about different things: 1 = Several days Trouble relaxin = Several days Being so restless that it is hard to sit still: 0 = Not at all Becoming easily annoyed or irritable: 1 = Several days Feeling afraid as if something awful might happen: 1 = Several days Total MADAY-7 score (0-4 normal; 5-9 mild; 10-14 moderate; 15-21 severe): 6 Source: Developed by Drs. Marc Chen, Sudha Peterson, Sang García and colleagues, with an educational stefania from [employer]. Review of Systems Const Denies headache(s) Eyes Details: sees Dr Osei Denies change in vision ENT Denies dizziness, Denies headache(s) and Denies nasal congestion Card Denies chest pain, Denies lightheadedness and Reports dyspnea on exertion (on O2 supplement) Resp Denies chest congestion, Denies cough and Reports dyspnea on exertion (on O2 supplement) GI Denies abdominal pain, Denies hematochezia, Denies change in bowel habits and Denies heartburn Denies hematuria, Denies difficulty voiding, Denies dysuria, Reports urinary incontinence, Denies urinary hesitancy and Denies urinary urgency Musc Reports stiffness Skin/Breast Details: History of mastectomy left Denies breast skin changes, Denies breast pain, Denies breast mass and Denies rash Neuro Denies dizziness and Denies headache(s) Psych Reports no additional complaints Endo Reports no additional complaints Physical exam (Primary Care) Vital Signs: Last Vital Signs Temp 98.5 F 11/20/24 11:53 Pulse 93 11/20/24 11:53 Resp 16 11/20/24 11:53 BP 112/60 11/20/24 11:53 Pulse Ox 100 11/20/24 11:53 Oxygen Delivery Method Nasal Cannula 11/20/24 11:53 BMI result Body Mass Index 45.1 Tobacco/Smoking Status: Tobacco use Status Tobacco use date assessed 11/20/24 11/20/24 12:01 Patient Tobacco Use Status Former Tobacco user 11/20/24 11:53 e-Cigarette/Vaping Use Never Used 11/20/24 11:53 PHQ-9: PHQ-9 Score PHQ-9: Total score 4 11/20/24 12:17 Depression Screening Interpretation: Negative Thrive Assessment: Date of Thrive Assessment Date Thrive assessed 11/16/24 11/20/24 11:53 Currently or been in a relationship where the following occur: No concerns reported Const General: no acute distress Nutritional Appearance: obese morbidly obese Orientation/consciousness: patient oriented x3 HENMT Mouth: oropharynx normal and moist mucous membranes Eyes General: appearance normal, both eyes and all related structures Neck Neck: Yes full ROM, Yes no lymphadenopathy and Yes supple Chest Other: History of mastectomy left breast, no masses, nipple discharge noted on right Resp Auscultation: clear to auscultation bilaterally Cardio Other: S1-S2 present regular rate and rhythm Jugular venous distension: no JVD GI Palpation (GI): Soft to palpation and nontender Auscultation: normal bowel sounds General: Yes no CVA tenderness Back/Spine/Pelvis Back: no CVA tenderness Skin Other: Erythematous patch on inguinal areas Neuro General: patient oriented x3, moves all extremities, no focal motor deficits and CN's II-XI intact bilaterally Cranial nerves: Yes CN's II-XII intact bilaterally Gait exam (Neuro): Assisted gait required Gait assisted method: walker Extrem General: Yes venous stasis dermatitis (Bilateral) Psych Appearance: grossly normal and well kempt Mental Status: mental status grossly normal Speech and movement: Normal speech and movement present Affect: normal affect Attitude: cooperative Coding Level of Care Code Est Pt Level 4 (80848) Diagnoses Intertrigo of genitocrural region L30.4 Colon cancer screening Z12.11 Additional Codes PHQ-9 - 54832 - PHQ-9 Billing: Yes ([id number]) Assessment & Plan Assessment & Plan (1) Intertrigo of genitocrural region: Code(s): L30.4 - Erythema intertrigo Category: Medical Plan: Prescription sent for nystatin -triamcinolone cream, apply sparingly to affected areas once or twice a day for no more than 10 days at a time. Make sure that areas are clean and dry at all times. (2) Colon cancer screening: Code(s): Z12.11 - Encounter for screening for malignant neoplasm of colon Category: Medical Plan: Ordered Cologuard test Orders: Referrals Cologuard Test Z12.11 - Encounter for screening for malignant neoplasm of colon, Z12.12 - Encounter for screening for malignant neoplasm of rectum Medications: Refilled nystatin-triamcinolone 100,000-0.1 unit/gram-% 1 appl topical DAILY 60 grams 0RF 7 days
[2024-11-20 11:53] VITALS: BP 112/60; PULSE 93; RESP 16; TEMP 36.9; O2SAT 100; BMI 45.1
--- OUTSIDE RECORDS SUMMARY | 2024-11-20 12:24 | XMS_ITS | Encounter Summary ---
Author Organization [facility], Address [address] [place] [address] Phone Care Team Providers Care Secondary School Special Ed Teacher Name Role Phone Florentino Boyle MD Primary Care Provider +1- [phone] Encounter Details Date Type Department Care Team (Late st Contact Info) Description 02/20/2024 Documentation Only [facility] [address] [place] [address] Sherin Rosales [address] [place] [address] Social History Tobacco Use Types [...] Team (Late st Contact Info) Description 12/05/2024 4:15 PM EDT Office Visit [facility] [address] [place] [address] Gómez Krause MD [address] [place] [address] [place] [address] documented as of this encounter Visit Diagnoses Not on filedocumented in this encounter Care Teams Secondary School Special Ed Teacher Relationship Specialty Start Date End Date Florentino Boyle MD [address] [place] [address] PCP - General Internal Medicine 09/13/22 documented as of this encounter
--- OUTSIDE RECORDS SUMMARY | 2024-11-20 12:24 | XMS_ITS | Encounter Summary ---
Author Organization [facility] Address [address] [place] [address] Phone Care Team Providers Care Police Cadet Name Role Phone Florentino Boyle MD Primary Care Provider +1- [phone] Encounter Details Date Type Department Care Team (Late Contact Info) Description 11/11/2022 Documentation Only [facility] [address] [place] [address] Paty Angeles MD [address] [place] [address] Social History Tobacco Use Types [...] Visit [facility] [address] [place] [address] Gómez Krause MD [address] [place] [address] [place] [address] documented as of this encounter Visit Diagnoses Not on filedocumented in this encounter Care Teams Police Cadet Relationship Specialty Start Date End Date Florentino Boyle MD [address] [place], [place] [id number] PCP - General Internal Medicine 09/13/22 documented as of this encounter
--- OUTSIDE RECORDS SUMMARY | 2024-11-20 12:24 | XMS_ITS | Encounter Summary ---
Author Organization [facility] [place], Address [address] [place] [address] Phone Care Team Providers Care Residence Counselor Name Role Phone Florentino Boyle MD Primary Care Provider +1- [phone] Encounter Details Date Type Department Care Team (Late st Contact Info) Description 10/30/2023 Documentation Only [facility] [address] [place] [address] Sherin Rosales [address] [place] [address] Social History Tobacco Use Types [...] Visit [facility] [address] [place] [address] Gómez Krause MD [address] [place] [address] [place] [address] documented as of this encounter Visit Diagnoses Not on filedocumented in this encounter Care Teams Residence Counselor Relationship Specialty Start Date End Date Florentino Boyle MD [facility] [place] [address] PCP - General Internal Medicine 09/13/22 documented as of this encounter
--- OUTSIDE RECORDS SUMMARY | 2024-11-20 12:24 | XMS_ITS | Encounter Summary ---
Author Organization [facility] Address [address] [place] [address] Phone Care Team Providers Care Underwear Trimmer Name Role Phone Florentino Boyle MD Primary Care Provider +1- [phone] Encounter Details Date Type Department Care Team (Late st Contact Info) Description 09/13/2022 Documentation Only [facility] [address] [place] [address] Florentino Boyle MD [address] [place] [address] Social History Tobacco Use Types Packs/Day Years [...] [facility] [address] [place] [address] Gómez Krause MD [address] [place] [address] [place] [address] documented as of this encounter Visit Diagnoses Not on filedocumented in this encounter Care Teams Underwear Trimmer Relationship Specialty Start Date End Date Florentino Boyle MD [address] [place] [address] [id number] PCP - General Internal Medicine 09/13/22 documented as of this encounter
--- OUTSIDE RECORDS SUMMARY | 2024-11-20 12:24 | XMS_ITS | Encounter Summary ---
Author Organization [facility] [place], Address [address] [place] [address] Phone Care Team Providers Care Sales Operations Lead Name Role Phone Florentino Boyle MD Primary Care Provider +1- [phone] Encounter Details Date Type Department Care Team (Late st Contact Info) Description 10/30/2023 Documentation Only [facility] [address] [place] [address] Sherin Rosales [address] [place] [address] Social History Tobacco Use Types [...] Visit [facility] [address] [place] [address] Gómez Krause MD [address] [place] [address] [place] [address] documented as of this encounter Visit Diagnoses Not on filedocumented in this encounter Care Teams Sales Operations Lead Relationship Specialty Start Date End Date Florentino Boyle MD [facility] [place] [address] PCP - General Internal Medicine 09/13/22 documented as of this encounter
--- OUTSIDE RECORDS SUMMARY | 2024-11-20 12:24 | XMS_ITS | Encounter Summary ---
Author Organization [facility] Address [address] [place] [address] Phone Care Team Providers Care Food Mobile Driver Name Role Phone Florentino Boyle MD Primary Care Provider +1- [phone] Encounter Details Date Type Department Care Team (Late st Contact Info) Description 09/13/2022 Documentation Only [facility] [address] [place] [address] Florentino Boyle MD [address] [place] [address] Social History Tobacco Use Types Packs/Day Years [...] Visit [facility] [address] [place] [address] Gómez Krause MD [address] [place] [address] [place] [address] documented as of this encounter Visit Diagnoses Not on filedocumented in this encounter Care Teams Food Mobile Driver Relationship Specialty Start Date End Date Florentino Boyle MD [address] [place] [address] [id number] PCP - General Internal Medicine 09/13/22 documented as of this encounter
--- OUTSIDE RECORDS SUMMARY | 2024-11-20 12:24 | XMS_ITS | Encounter Summary ---
Author Organization [facility] Address [address] [place] [address] Phone Care Team Providers Care Lollypop Machine Operator Name Role Phone Florentino Boyle MD Primary Care Provider +1- [phone] Encounter Details Date Type Department Care Team (Late Contact Info) Description 11/11/2022 Documentation Only [facility] [address] [place] [address] Pat[place] [address] [place] [address] Social History Tobacco Use Types [...] [facility] [address] [place] [address] Gómez Krause MD [address] [place] [address] [place] [address] documented as of this encounter Visit Diagnoses Not on filedocumented in this encounter Care Teams Lollypop Machine Operator Relationship Specialty Start Date End Date Florentino Boyle MD [address] [place], [place] [phone] PCP - General Internal Medicine 09/13/22 documented as of this encounter
--- OUTSIDE RECORDS SUMMARY | 2024-11-20 12:24 | XMS_ITS | Encounter Summary ---
Author Organization [facility] [place], Address [address] [place] [address] Phone Care Team Providers Care Computer Meteorologist Name Role Phone Florentino Boyle MD Primary Care Provider +1- [phone] Encounter Details Date Type Department Care Team (Late st Contact Info) Description 10/30/2023 Documentation Only [facility] [address] [place] [address] Sherin Rosales [address] [place] [address] Social History Tobacco Use Types [...] [facility] [address] [place] [address] Gómez Krause MD [address] [place] [address] [place] [address] documented as of this encounter Visit Diagnoses Not on filedocumented in this encounter Care Teams Computer Meteorologist Relationship Specialty Start Date End Date Florentino Boyle MD [facility] [place] [address] PCP - General Internal Medicine 09/13/22 documented as of this encounter
--- OUTSIDE RECORDS SUMMARY | 2024-11-20 12:24 | XMS_ITS | Encounter Summary ---
Author Organization [facility], Address [address] [place] [address] Phone Care Team Providers Care Correctional Program Specialist Name Role Phone Florentino Boyle MD Primary Care Provider +1- [phone] Encounter Details Date Type Department Care Team (Late st Contact Info) Description 10/30/2023 Documentation Only [facility] [address] [place] [address] Sherin Rosales [address] [place], [place] [...] Visit [facility] [address] [place] [address] Gómez Krause MD [address] [place] [address] [place] [address] documented as of this encounter Visit Diagnoses Not on filedocumented in this encounter Care Teams Correctional Program Specialist Relationship Specialty Start Date End Date Florentino Boyle MD [facility] [place] [address] PCP - General Internal Medicine 09/13/22 documented as of this encounter
--- OUTSIDE RECORDS SUMMARY | 2024-11-20 12:24 | XMS_ITS | Encounter Summary ---
Author Organization [facility] Address [address] [place] [address] Phone Care Team Providers Care Cra Officer Name Role Phone Florentino Boyle MD Primary Care Provider +1- [phone] Encounter Details Date Type Department Care Team (Late Contact Info) Description 11/11/2022 Documentation Only [facility] [address] [place] [address] Paty [place] [address] [place] [address] Social History Tobacco Use Types [...] Visit [facility] [address] [place] [address] Gómez Krause MD [address] [place] [address] [place] [address] documented as of this encounter Visit Diagnoses Not on filedocumented in this encounter Care Teams Cra Officer Relationship Specialty Start Date End Date Florentino Boyle MD [address] [place], [place] [id number] PCP - General Internal Medicine 09/13/22 documented as of this encounter
--- OUTSIDE RECORDS SUMMARY | 2024-11-20 12:24 | XMS_ITS | Clinical Summary ---
Author Organization [facility], Address [address] [address] Phone Care Team Providers Care Linoleum Tile Layer Name Role Phone Florentino Boyle MD Primary Care Provider +1- [phone] Allergies Active Allergy Reactions Criticality Noted Date [...] Only [facility] [address] [place] [address] Sherin Rosales 09/02/2024 Documentation Only [facility] [address] [place] [address] Sherin Rosales 09/02/2024 Documentation Only [facility] [address] [place] [address] Sherin Rosales 09/02/2024 Documentation Only [facility] [address] [place] [address] Sherin Rosales 09/02/2024 Documentation Only [facility] [place] [address] [place] [address] Sherin Rosales from Last 3 Months Immunizations [...] Visit [facility] [place], [address] [address] Gómez Krause MD [address] [place] [address] Health Maintenance Due Date Last Done Comments Breast Cancer Screening 1950 Colorectal Cancer Screening: Annual FOBT 09/10/2000 Colorectal Cancer Screening: Colonoscopy 09/10/2000 Colorectal Cancer Screening: Sigmoidoscopy 09/10/2000 Hepatitis B Vaccine (1 of 3 - Risk 3-dose series) 2011 Pneumococcal Vaccine: 50+ Ye ars (3 of 3 - PPSV23, PCV20 or PCV21) 04/23/2018 12/16/2016, 04/23/2013 Diabetes: Hemoglobin A1C 10/06/2022 Diabetes: Ophthalmology Exam 10/06/2022 Diabetes: Pedal Pulse Checked 10/06/2022 Diabetes: Sensory Foot Exam 10/06/2022 Diabetes: Visual Foot Exam 10/06/2022 Influenza Vaccine (Season Ended) 2025 04/22/2022, 05/12/2021, 04/08/2019, Additional history exists Insurance ) [employer] Medicare Care Teams Linoleum Tile Layer Relationship Specialty Start Date End Date Florentino Boyle MD [address] [place] [address] PCP - General Internal Medicine 09/13/22
--- OUTSIDE RECORDS SUMMARY | 2024-11-20 12:24 | XMS_ITS | Encounter Summary ---
Author Organization [facility] [place], Address [address] [place] [address] Phone Care Team Providers Care Lace Roller Operator Name Role Phone Florentino Boyle MD Primary Care Provider +1- [phone] Encounter Details Date Type Department Care Team (Late st Contact Info) Description 11/28/2023 Documentation Only [facility] [address] [place] [address] Sherin Rosales [address] [place] [address] Social History Tobacco Use Types [...] [facility] [address] [place] [address] Gómez Krause MD [address] [place] [address] [place] [address] documented as of this encounter Visit Diagnoses Not on filedocumented in this encounter Care Teams Lace Roller Operator Relationship Specialty Start Date End Date Florentino Boyle MD [address] [place] [address] PCP - General Internal Medicine 09/13/22 documented as of this encounter
--- OUTSIDE RECORDS SUMMARY | 2024-11-20 12:24 | XMS_ITS | Encounter Summary ---
Author Organization [facility] [place], Address [address] [place] [address] Phone Care Team Providers Care Relay Worker Name Role Phone Florentino Boyle MD Primary Care Provider +1- [phone] Encounter Details Date Type Department Care Team (Late st Contact Info) Description 09/02/2024 Documentation Only [facility] [address] [place] [address] Sherin Rosales [address] [place] [address] Social History Tobacco Use Types [...] Visit [facility] [address] [place] [address] Gómez Krause MD [address] [place] [address] [place] [address] documented as of this encounter Visit Diagnoses Not on filedocumented in this encounter Care Teams Relay Worker Relationship Specialty Start Date End Date Florentino Boyle MD [address] [place] [address] PCP - General Internal Medicine 09/13/22 documented as of this encounter
--- OUTSIDE RECORDS SUMMARY | 2024-11-20 12:24 | XMS_ITS | Encounter Summary ---
Author Organization [facility] [place], Address [address] [place] [address] Phone Care Team Providers Care Solder Technician Name Role Phone Florentino Boyle MD Primary Care Provider +1- [phone] Encounter Details Date Type Department Care Team (Late st Contact Info) Description 10/30/2023 Documentation Only [facility] [address] [place] [address] Sherin Rosales [address] [place] [address] Social History Tobacco Use Types [...] Visit [facility] [address] [place] [address] Gómez Krause MD [address] [place] [address] [place] [address] documented as of this encounter Visit Diagnoses Not on filedocumented in this encounter Care Teams Solder Technician Relationship Specialty Start Date End Date Florentino Boyle MD [facility] [place] [address] PCP - General Internal Medicine 09/13/22 documented as of this encounter
--- OUTSIDE RECORDS SUMMARY | 2024-11-20 12:24 | XMS_ITS | Clinical Summary ---
Author Organization [facility] Address [address] [place] [address] Care Team Providers Care Ginseng Farmer Name Role Phone Naima Boyle MD Primary Care Provider +1 -[phone] Allergies Active Allergy Reactions Criticality Noted Date Comments Iodinated Contrast Media 11/27/2014 Seafood 11/24/2014 Medications Medication Sig Dispensed Refills Start Date End Date Status Blood Glucose Monitoring Suppl (FREESTYLE [place]RE[place] LITE) W/DEVICE KIT FreeStyle [place] Lite w/Device Kit Refills: 0 Betsy Ernandez [...] pe 2 diabetes mellitus without complication, unspecified prison insulin use status Use as instructed daily. [...] without long-term current use of insulin ([facility]) Use to test blood sugar 4 times [...] without long-term current use of insulin ([facility]) TAKE 1 TABLET 3 TIMES DAILY BEFORE [...] Advance Directives For more information, please contact: [phone] Documents on File Type Date Recorded Patient Hay Buckler Expl anation Advance Directive and Living Will 10/18/2018 2:47 PM Care Teams Ginseng Farmer Relationship Specialty Start Date End Date Naima Boyle MD [address] [place] [id number] PCP - General Internal Medicine 12/21/21
--- OUTSIDE RECORDS SUMMARY | 2024-11-20 12:24 | XMS_ITS | Encounter Summary ---
Author Organization [facility] [place], Address [address] [place] [address] Phone Care Team Providers Care Bacteriology Research Assistant Name Role Phone Florentino Boyle MD Primary Care Provider +1- [phone] Encounter Details Date Type Department Care Team (Late st Contact Info) Description 10/30/2023 Documentation Only [facility] [address] [place] [address] Sherin Rosales [address] [place] [address] Social History Tobacco Use Types [...] [facility] [address] [place] [address] Gómez Krause MD [address] [place] [address] [place] [address] documented as of this encounter Visit Diagnoses Not on filedocumented in this encounter Care Teams Bacteriology Research Assistant Relationship Specialty Start Date End Date Florentino Boyle MD [facility] [place] [address] PCP - General Internal Medicine 09/13/22 documented as of this encounter
--- OUTSIDE RECORDS SUMMARY | 2024-11-20 12:24 | XMS_ITS | Encounter Summary ---
Author Organization [facility] [place], Address [address] [place] [address] Phone Care Team Providers Care Trapper Bird Name Role Phone Florentino Boyle MD Primary Care Provider +1- [phone] Encounter Details Date Type Department Care Team (Late st Contact Info) Description 02/20/2024 Documentation Only [facility] [address] [place] [address] Sherin Rosales [address] [place] [address] Social History Tobacco Use Types [...] [facility] [address] [place] [address] Gómez Krause MD [address] [place] [address] [place] [address] documented as of this encounter Visit Diagnoses Not on filedocumented in this encounter Care Teams Trapper Bird Relationship Specialty Start Date End Date Florentino Boyle MD [address] [place] [address] PCP - General Internal Medicine 09/13/22 documented as of this encounter
--- OUTSIDE RECORDS SUMMARY | 2024-11-20 12:24 | XMS_ITS | Clinical Summary ---
Author Organization [facility] it Address [address] [place] [address] Care Team Providers Care Pipelines Laborer Name Role Phone Naima Boyle MD Primary [...] uncontrolled COPD (chronic obstructive pu lmonary disease) ([facility] V24, [facility] V28) DX:COPD (chronic o bstructive pulmonary disease) ([facility]) Sleep apnea DX:Sleep apnea Anxiety and depression DX:Anxiet y and depression Rheumatoid arthritis ([facility]/ C V24, [facility] V28) DX:Rheumatoid arthritis ([facility] ) Edema DX:Edema Rosacea DX:Rosacea Social History [...] STUDY Routine 11/14/2020 10 :36 AM EDT 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 TECHNIQUE: [employer] system utilized for DEXA images Comparison: August [...] study DEXA EXAM HISTORY: Postmenopausal screening. TECHNIQUE: [employer] system utilized for DEXA images Comparison: August [...] Recently Relevant to Health Maintenance Care Teams Pipelines Laborer Relationship Specialty Start Date End Date Naima Boyle MD [address] [place] [address] PCP - General Internal Medicine 12/21/21
--- OUTSIDE RECORDS SUMMARY | 2024-11-20 12:24 | XMS_ITS | Encounter Summary ---
Author Organization [facility] [place], Address [address] [place] [address] Phone Care Team Providers Care Batch Roller Operator Name Role Phone Florentino Boyle MD Primary Care Provider +1- [phone] Encounter Details Date Type Department Care Team (Late st Contact Info) Description 10/30/2023 Documentation Only [facility] [address] [place] [address] Sherin Rosales [address] [place] [address] Social History Tobacco Use Types [...] Visit [facility] [address] [place] [address] Gómez Krause MD [address] [place] [address] [place] [address] documented as of this encounter Visit Diagnoses Not on filedocumented in this encounter Care Teams Batch Roller Operator Relationship Specialty Start Date End Date Florentino Boyle MD [facility] [place] [address] PCP - General Internal Medicine 09/13/22 documented as of this encounter
--- OUTSIDE RECORDS SUMMARY | 2024-11-20 12:24 | XMS_ITS | Clinical Summary ---
Author Organization [facility] Address [address] [place] [address] Care Team Providers Care Refurbish Technician Name Role Phone Unavailable Primary Care Provider [...]
--- OUTSIDE RECORDS SUMMARY | 2024-11-20 12:25 | XMS_ITS | Encounter Summary ---
Author Organization [facility] [place], Address [address] [place] [address] Phone Care Team Providers Care Patient Care Name Role Phone Florentino Boyle MD Primary Care Provider +1- [phone] Encounter Details Date Type Department Care Team (Late st Contact Info) Description 09/02/2024 Documentation Only [facility] [address] [place] [address] Sherin Rosales [address] [place] [address] Social History Tobacco Use Types [...] Visit [facility] [address] [place] [address] Gómez Krause MD [address] [place] [address] [place] [address] documented as of this encounter Visit Diagnoses Not on filedocumented in this encounter Care Teams Patient Care Relationship Specialty Start Date End Date Florentino Boyle MD [address] [place] [address] PCP - General Internal Medicine 09/13/22 documented as of this encounter
--- OUTSIDE RECORDS SUMMARY | 2024-11-20 12:25 | XMS_ITS | Encounter Summary ---
Author Organization [facility] [place], Address [address] [place] [address] Phone Care Team Providers Care Marine Engine Driver Name Role Phone Florentino Boyle MD Primary Care Provider +1- [phone] Encounter Details Date Type Department Care Team (Late st Contact Info) Description 09/02/2024 Documentation Only [facility] [address] [place] [address] Sherin Rosales [address] [place] [address] Social History Tobacco Use Types [...] Visit [facility] [address] [place] [place] [address] Gómez Krause MD [address] [place] [address] [place] [address] documented as of this encounter Visit Diagnoses Not on filedocumented in this encounter Care Teams Marine Engine Driver Relationship Specialty Start Date End Date Florentino Boyle MD [address] [place] [address] PCP - General Internal Medicine 09/13/22 documented as of this encounter
--- OUTSIDE RECORDS SUMMARY | 2024-11-20 12:25 | XMS_ITS | Encounter Summary ---
Author Organization [facility] [place], Address [address] [place] [address] Phone Care Team Providers Care Food Service Employee Name Role Phone Florentino Boyle MD Primary Care Provider +1- [phone] Encounter Details Date Type Department Care Team (Late st Contact Info) Description 09/02/2024 Documentation Only [facility] [address] [place] [address] Sherin Rosales [address] [place] [address] Social History Tobacco Use [...] [facility] [address] [place] [address] Gómez Krause MD [address] [place] [address] [place] [address] documented as of this encounter Visit Diagnoses Not on filedocumented in this encounter Care Teams Food Service Employee Relationship Specialty Start Date End Date Florentino Boyle MD [address] [place] [address] PCP - General Internal Medicine 09/13/22 documented as of this encounter
--- OUTSIDE RECORDS SUMMARY | 2024-11-20 12:25 | XMS_ITS | Encounter Summary ---
Author Organization [facility] [place], Address [address] [place] [address] Phone Care Team Providers Care Production Clerks Supervisor Name Role Phone Florentino Boyle MD Primary Care Provider +1- [phone] Encounter Details Date Type Department Care Team (Late st Contact Info) Description 09/02/2024 Documentation Only [facility] [address] [place] [address] Sherin Rosales [address] [place] [address] Social History Tobacco Use Types [...] Visit [facility] [address] [place] [address] Gómez Krause MD [address] [place] [address] [place] [address] documented as of this encounter Visit Diagnoses Not on filedocumented in this encounter Care Teams Production Clerks Supervisor Relationship Specialty Start Date End Date Florentino Boyle MD [address] [place] [address] PCP - General Internal Medicine 09/13/22 documented as of this encounter
== END 2024-11-20 13:37 | disposition home or self-care (01) ==
LOC: HO.HMCC 11:25
PROVIDERS: PCP Internal Medicine; Visit Provider Internal Medicine
DX: L30.4 Erythema intertrigo (principal); Z12.11 Encounter for screening for malignant neoplasm of colon

== ENCOUNTER → 2024-11-20 11:24 | Outpatient (BNVA) | payer MEDICARE, SELFPAY | PROVIDERS: PCP Internal Medicine; Visit Provider Internal Medicine | DX: L30.4 Erythema intertrigo (principal) | CPT/HCPCS: 96127; 99212 ==

== ENCOUNTER 2024-11-29 11:05 | Outpatient (REF) | payer MEDICARE, SELFPAY ==
--- OUTSIDE RECORDS SUMMARY | 2024-11-29 11:12 | XMS_ITS | Encounter Summary ---
Author Organization [facility] Address [address] [place] [address] Phone Care Team Providers Care Career Services Assistant Name Role Phone Florentino Boyle MD Primary Care Provider +1- [phone] Encounter Details Date Type Department Care Team (Late Contact Info) Description 11/11/2022 Documentation Only [facility] [address] [place] [address] [place] [address] [place] [address] Social History Tobacco Use Types [...] [facility] [address] [place] [address] Gómez Krause MD [address] [place] [address] [place] [address] documented as of this encounter Visit Diagnoses Not on filedocumented in this encounter Care Teams Career Services Assistant Relationship Specialty Start Date End Date Florentino Boyle MD [address] [place], [place] [id number] PCP - General Internal Medicine 09/13/22 documented as of this encounter
[2024-11-29 13:35] LABS: MANUAL DIFF FLAG NO
[2024-11-29 13:43] LABS: Basophils Absolute Auto 0.1 X10*3/uL (0.0-0.2); Basophils Percent Auto 0.9 % (0-2); Eosinophils Absolute Auto 0.2 X10*3/uL (0.0-0.4); Eosinophils Percent Auto 2.4 % (0-4); Hematocrit 44.7 % (37.0-47.0); Hemoglobin 14.9 g/dl (12.0-16.0); Imm Gran Abs Auto 0.06 X10*3/uL (0.00-0.03); Imm Gran Pct Auto 0.7 % (0.0-0.4); Lymphocytes Absolute Auto 1.4 X10*3/uL (1.2-4.9); Lymphocytes Percent Auto 16.6 % (20-40); Mean Corpuscular HGB Conc 33.3 g/dl (31.0-35.0); Mean Corpuscular Hemoglobin 33.6 pg (27.0-33.0); Mean Corpuscular Volume 100.7 fL (80.0-98.0); Mean Platelet Volume 10.6 fL (9.4-12.3); Monocytes Absolute Auto 0.6 X10*3/uL (0.1-1.2); Monocytes Percent Auto 6.3 % (2-11); Neutrophils Absolute Auto 6.3 x10*3/uL (2.0-8.3); Neutrophils Percent Auto 73.1 % (45-73); Platelet Count 110 X10*3/uL (160-400); Red Blood Count 4.44 X10*6/uL (4.20-5.50); Red Cell Distribution Width 14.1 % (11.0-16.0); White Blood Count 8.7 X10*3/uL (4.8-10.8)
[2024-11-29 14:08] LABS: Alanine Aminotransferase 18 U/L (0-31); Alkaline Phosphatase 88 U/L (39-117); Anion Gap 14 (12-20); Aspartate Amino Transferase 42 U/L (5-31); Bilirubin Total 1.4 mg/dL (0.0-1.0); Blood Urea Nitrogen 27 mg/dL (9-16); C Reactive Protein 0.76 mg/dL (< or = 0.50); Calcium 9.1 mg/dL (8.4-10.2); Carbon Dioxide 27 mmol/L (22-29); Chloride 106 mmol/L (96-108); Cholesterol 150 mg/dL (<200); Estimated Glomerular Filt Rate 38; Glucose Fasting 109 mg/dL (60-99); Glucose Random 109 mg/dL (60-115); HDL Cholesterol 45 mg/dL (>40); LDL Cholesterol Calculated 82 mg/dL (<100); Potassium 4.5 mmol/L (3.3-5.1); Sodium 142 mmol/L (135-145); Total Protein 7.5 g/dL (6.5-8.0); Triglycerides 119 mg/dL (<150)
[2024-11-29 14:11] LABS: Creatinine Urine 36.02 mg/dL; Microalbum/Creatinine Ratio Ur 27.7 ug/mg cr (<30)
[2024-11-29 14:19] LABS: Erythrocyte Sedimentation Rate 36 MM/HR (0-20)
== END 2024-11-29 11:06 | disposition home or self-care (01) ==
LOC: HO.10HDL 11:05
PROVIDERS: Student in an Organized Health Care Education/Training Program; Visit Provider Physician Assistant
DX: E11.29 Type 2 diabetes mellitus with other diabetic kidney complication (principal); R80.9 Proteinuria, unspecified; E66.01 Morbid (severe) obesity due to excess calories; I10 Essential (primary) hypertension; M06.9 Rheumatoid arthritis, unspecified; J44.9 Chronic obstructive pulmonary disease, unspecified; Z79.4 Long term (current) use of insulin
CPT/HCPCS: 36415; 80053; 80061; 82043; 82570; 85025; 85652; 86140

== ENCOUNTER 2024-11-29 11:24 | Outpatient (AMB) | payer MEDICARE, SELFPAY ==
[2024-11-29 11:26] VITALS: BP 122/90; PULSE 73; O2SAT 99; BMI 44.3
--- NOTE | 2024-11-29 11:26 | MHC.OFFVIS ---
Vital Signs 11/29/24 11:26 Height 5 ft Weight 226 lb 13.69 oz BMI 44.3 BP 122/90 H Blood Pressure Location Rt brachial Position Sitting Pulse 73 Pulse Source Pulse Oximeter Pulse Oximetry (%) 99 Oxygen Delivery Method Nasal Cannula Intake Visit Reasons: dm Intake Note: Patient present today for Type 2 Diabetes Mellitus Last Diabetic eye exam: 11/2024 Last Podiatry Visit: Doesn't have one Random Glucose: 102 mg/dl HgA1C: 6.4% 11/01/24 Production Analyst Required: No Accompanied by: Self / Same As Patient Allergies nickel Allergy (Mild, Verified 11/29/24 11:32) Rash abatacept [From Orencia] Adverse Reaction (Severe, Verified 11/29/24 11:32) shingles injection of steriods Allergy (Unknown, Uncoded 11/29/24 11:32) rash iodine Allergy (Unknown, Uncoded 11/29/24 11:32) anaphylaxis wool Allergy (Unknown, Uncoded 11/29/24 11:32) rash Medication List - Last Reconciled 11/29/24 by Beatriz Rousseau PA-C albuterol sulfate 90 mcg/actuation 0 mcg inhalation albuterol sulfate mg inhalation anastrozole 1 mg PO DAILY blood sugar diagnostic (OneTouch Verio test strips) TESTS AT LEAST 3 TIMES DAILY blood-glucose meter (ClickDeliveryTouch Verio Flex Meter) USE METER TO TEST AT LEAST 4 TIMES DAILY blood-glucose sensor (ImpactFlo G7 Sensor device) Use daily As directed to monitor glucose. change q 10 days cetirizine (All Day Allergy (cetirizine)) 10 mg PO DAILY PRN flash glucose scanning reader (FreeStyle Jonny 2 [place]) As directed flash glucose sensor (FreeStyle Jonny 2 Sensor kit) As directed fluticasone propionate 50 mcg/actuation sprays intranasal vlxcgyeuzsx-uxaggcrxn-lplhflhr 100-62.5-25 mcg 1 ea inhalation QAM furosemide 20 mg PO ONCE PRN insulin glargine (Lantus Solostar U-100 Insulin) 10 units (0.1 mL) subcut QAM insulin lispro (Humalog KwikPen (U-100) Insulin) 10 units subcut TID PRN ipratropium-albuterol 0.5 mg-3 mg(2.5 mg base)/3 mL mL inhalation lancets As directed lisinopril 5 mg PO DAILY minocycline 100 mg PO BID montelukast 10 mg PO DAILY mupirocin 2% 1 appl topical TID nystatin-triamcinolone 100,000-0.1 unit/gram-% 1 appl topical DAILY 7 days pantoprazole 40 mg PO DAILY paroxetine HCl 40 mg PO QAM pen needle, diabetic (BD Theodora 2nd Gen Pen Needle) INJECT INSULIN UP TO 4 TIMES A DAY. semaglutide (Ozempic) 1 mg (0.75 mL) subcut QWEEK vibegron (Gemtesa) 75 mg PO DAILY HPI HPI dm: Details: Patient is a 74-year-old female who presents today for follow-up regarding diabetes. She has a significant past medical history of CHF, ckd, staghorn calculus, george, venous insufficiency, rheumatoid arthritis, morbid obesity, MAYA on CPAP, hypertension, hyperlipidemia and o2 dependent, COPD. -forgot to get labs prior to today's appointment Endo: Her A1c was 6.4. She was initially diagnosed with diabetes around 2012. She was also initially treated with metformin but developed diarrhea. Her current regimen: She states she uses lantus 10 units, Ozempic 1 mg. Uses humalog only if needed with pred tapers. Tolerating this well without any nausea or vomiting. She has lost 15 lbs in 6 weeks with this dosage of ozempic. States her glucose readings have been high from recurrent prednisone use. -unable to tolerate metformin, in the past on trulicity but unavailable and felt ineffective GMI 6.9%, avg 148, 1% very high, 10% high, 89% in range, 0% hypoglycemia CGM: has had a lot of issues with the jonny 3. States it comes off easily and there are a lot of supply issues. She wants the dexcom. CV: She is on lisinopril 5 mg, and noncompliant with furosemide 20 mg b.i.d. cholesterol has been diet controlled. Overdue for labs Pulm: has a pulm in [place] but states that she has not been seen in the little bit. She was hospitalized in August and then has needed to be on oxygen since that time. She used to only use it as needed or at night. She is wheezing today on exam and states that this has been her baseline and she needs to do a breathing treatment when she gets home. She denies feeling sick. No sinus pain or pressure, fevers or chills. She has a slight cough but unchanged from baseline. 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, with long-term current use of insulin Rheumatoid arthritis Morbid obesity Urge and stress incontinence History of invasive breast cancer MAYA on CPAP COPD (chronic obstructive pulmonary disease) Surgical History History of shoulder replacement Hx of cataract extraction Hx of umbilical hernia repair Hx of discectomy Hx of mastectomy Hx of cholecystectomy History of appendectomy Social [facility] Patient Tobacco Use Status: Former Tobacco user Years Smoked: 30 yrs e-Cigarette/Vaping Use: Never Used Second Hand Smoke Exposure: No service: No Current occupational status: disabled Cognitive needs: No Hearing needs: No Vision needs: Yes Physical Exam Vital Signs: Last Vital Signs Pulse 73 11/29/24 11:26 BP 122/90 H 11/29/24 11:26 Pulse Ox 99 11/29/24 11:26 Oxygen Delivery Method Nasal Cannula 11/29/24 11:26 BMI result Body Mass Index 44.3 Const Orientation/consciousness: patient oriented x3 HEENT Ears: hearing grossly normal bilaterally Neck Thyroid: Thyroid normal Lymphatic: no lymphadenopathy noted Resp Effort & Inspection: able to speak in complete sentences Auscultation: wheezes scattered wheezes Cardio Rate: regular rate Rhythm: regular rhythm Heart sounds: S1 normal heart sound present and S2 normal heart sound present Skin General skin exam: no rashes or lesions noted Neuro General: patient oriented x3, gait normal and no focal motor deficits Results Reviewed Results Reviewed: Laboratory Last Values Glucose (Clinic) 102 mg/dL (60-115) 11/29/24 11:34 Laboratory Tests 11/29/24 11:34 Glucose (Clinic) 102 Assessment & Plan Assessment & Plan (1) 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, with long-term current use of insulin: Code(s): E08.29 - Diabetes mellitus due to underlying condition with other diabetic kidney complication; R80.9 - Proteinuria, unspecified; Z79.4 - terminal worker (current) use of insulin Category: Medical Plan: increase ozempic to 2 mg weekly hold lantus once she starts the 2 mg weekly injection reassess in 3 months or sooner if needed labs prior to appointment (2) Essential hypertension: Code(s): I10 - Essential (primary) hypertension Category: Medical Plan: continue current plan (3) COPD (chronic obstructive pulmonary disease): Comment: sees nurse technician in [place] , Dr Richardson, o2 dependent Code(s): J44.9 - Chronic obstructive pulmonary disease, unspecified Category: Medical Qualifiers: COPD type: unspecified COPD Qualified Code(s): J44.9 - Chronic obstructive pulmonary disease, unspecified Plan: now o2 dependent. 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
[2024-11-29 11:38] LABS: Glucose, Whole Blood 102 mg/dL (60-115)
== END 2024-11-29 11:56 | disposition home or self-care (01) ==
LOC: HO.ENCR 11:25
PROVIDERS: PCP Internal Medicine; Visit Provider Physician Assistant
DX: E08.29 Diabetes mellitus due to underlying condition with other diabetic kidney complication (principal); R80.9 Proteinuria, unspecified; Z79.4 Long term (current) use of insulin; I10 Essential (primary) hypertension; J44.9 Chronic obstructive pulmonary disease, unspecified

== ENCOUNTER 2025-02-10 12:57 | Outpatient (AMB) | payer MEDICARE, SELFPAY ==
--- OUTSIDE RECORDS SUMMARY | 2025-02-10 13:17 | XMS_ITS | Clinical Summary ---
Author Organization [facility] Address [address] [place] [address] Care Team Providers Care Javascript Engineer Name Role Phone Naima Boyle MD Primary Care Provider [phone] Allergies Active Allergy Reactions Criticality Noted Date Comments Iodinated Contrast Media 11/27/2014 Seafood 11/24/2014 Medications Medication Sig Dispensed Refills Start Date End Date Status Blood Glucose Monitoring Suppl (FREESTYLE FREEDOM LITE) W/DEVICE KIT FreeStyle [place] Lite w/Device Kit Refills: 0 Betsy Ernandez [...] pe 2 diabetes mellitus without complication, unspecified care home insulin use status Use as instructed daily. [...] hyperglycemia, without long-term current use of insulin ([facility]) Use to test blood sugar 4 times [...] hyperglycemia, without long-term current use of insulin ([facility]) TAKE 1 TABLET 3 TIMES DAILY BEFORE [...] 104 02/17/2020 10:13 AM EDT Temperature 36.2 C (97.2 F) 02/17/2020 10:13 AM EDT Respiratory Rate 18 06/20/2016 9:04 [...] Scan) 11/14/2022 11/14/2020, 08/28/2017 Influenza Vaccine (#1) 2025 RSV Adult > 60+ Yrs or (1 - 1-dose 75+ series) 09/10/2026 Hepatitis B Vaccines Aged Out No long er eligible based on patient's age to complete this topic RSV Ped < 20 months Aged Out No longe r eligible based on patient's age to complete this topic Advance Directives For more information, please contact: [phone] Documents on File Type Date Recorded Patient Planner Chief Expl anation Advance Directive and Living Will 10/18/2018 2:47 PM Care Teams Javascript Engineer Relationship Specialty Start Date End Date Naima Boyle MD [address] [place] [address] PCP - General Internal Medicine 12/21/21
--- OUTSIDE RECORDS SUMMARY | 2025-02-10 13:17 | XMS_ITS | Encounter Summary ---
Author Organization [facility] Address [address] [place] [address] Care Team Providers Care Horticultural Technical Officer Name Role Phone Naima Boyle MD Primary Care Provider Encounter Details Date Type Department Care Team (Late st Contact Info) Description 01/20/2025 Lab Requisition [facility] [address] [facility] [place] [address] Kierra Russell MD [address] [place] [address] Hypokalemia Social History Tobacco Use Types Packs/Day Years Used Date Smoking Tobacco: Former Cigarettes Q uit: 07/10/2009 Smokeless Tobacco: Never Comments Unknown Sex and Gender Information Value Date Recorded Sex Assigned at Not on file Legal Sex Female 12:25 PM EST Gender Identity Not on file Sexual Orientation Not on file documented as of this encounter Plan of Treatment Not on file documented as of this encounter Procedures Procedure Name Priority Date/Time Associated Diagnosis Comments BASIC METABOLIC PANEL Routine 01/20/2025 5:12 AM EDT Hypokalemia documented in this encounter Results * (ABNORMAL) Basic metabolic panel (01/20/2025 5:12 AM EDT) Sodium 140 133 - 145 mmol/L LAB CHEMISTRY METHOD 01/20/2025 5:06 PM EDT [facility] Potassium 3.0(L) 3.5 - 5.5 mmol/L LAB CHEMISTRY METHOD 01/20/2025 5:06 PM EDT [facility] Chloride 100 96 - 110 mmol/L LAB CHEMISTRY METHOD 01/20/2025 5:06 PM [facility] CO2 36(H) 21 - 32 mmol/L LAB CHEMISTRY METHOD 01/20/2025 5:06 PM [facility] Anion Gap 4 3 - 11 LAB CHEMISTRY METHOD 01/20/2025 5:06 PM [facility] Glucose 72 70 - 100 mg/dL LAB CHEMISTRY METHOD 01/20/2025 5:06 PM [facility] BUN 28(H) 5 - 25 mg/dL LAB CHEMISTRY METHOD 01/20/2025 5:06 PM [facility] Creatinine 1.41(H) 0.50 - 1.10 mg/dL LAB CHEMISTRY METHOD 01/20/2025 5:06 PM [facility] eGFR 39(L) >=60 mL/min/1. 73m2 LAB CHEMISTRY METHOD 01/20/2025 5:06 PM [facility] Comment:Calculation based on the Chronic Kidney Disease Epidemiology Collaboration (CKD-EPI) equation refit without adjustment for race. BUN/Creatinine Ratio 19.9 LAB CHEMISTRY METHOD 01/20/2025 5:06 PM [facility] Calcium 8.5 8.5 - 10.5 mg/dL LAB CHEMISTRY METHOD 01/20/2025 5:06 PM [facility] Blood Venous blood specimen / Unknown Venipuncture / Unknown 01/20/2025 5:12 AM EDT 01/20/2025 11:36 AM EDT us Kierra Russell MD LAB BLOOD ORDERABLES Final Resul t [facility] [address] [place] [address], documented in this encounter Visit Diagnoses Diagnosis Hypokalemia Hypopotassemia documented in this encounter Care Teams Horticultural Technical Officer Relationship Specialty Start Date End Date Naima Boyle MD [address] [place] [address] PCP - General Internal Medicine 12/21/21 documented as of this encounter
--- OUTSIDE RECORDS SUMMARY | 2025-02-10 13:17 | XMS_ITS | Encounter Summary ---
Author Organization [facility], Address [address] [place] [address] Phone Care Team Providers Care Material Handling Equipment Stevedore Name Role Phone Florentino Boyle MD Primary Care Provider [phone] Encounter Details Date Type Department Care Team (Late st Contact Info) Description 11/11/2022 Documentation Only [facility], [address] [place] [address] [place], [place] [address] [place] [address] Social History Tobacco Use Types Packs/Day Years Used Date Smoking Tobacco: Never Assessed Comments Unknown Sex and Gender Information Value Date Recorded Sex Assigned at Not on file Legal Sex Female 3:11 PM EST Gender Identity Not on file Sexual Orientation Not on file documented as of this encounter Plan of Treatment Not on file documented as of this encounter Visit Diagnoses Not on filedocumented in this encounter Care Teams Material Handling Equipment Stevedore Relationship Specialty Start Date End Date Florentino Boyle MD [facility] [place] [address] PCP - General Internal Medicine 09/13/22 documented as of this encounter
--- OUTSIDE RECORDS SUMMARY | 2025-02-10 13:17 | XMS_ITS | Clinical Summary ---
Author Organization [facility] Address [address] [place] [address] Care Team Providers Care Hotel Assistant General Manager Name Role Phone Unavailable Primary Care Provider [...]
[2025-02-10 13:30] VITALS: BP 130/62; PULSE 102; RESP 20; TEMP 36.9; O2SAT 97; BMI 44.1
--- NOTE | 2025-02-10 13:30 | A.OFFPC_ITS ---
Vital Signs 02/10/25 13:30 Height 5 ft Weight 226 lb BMI 44.1 BP 130/62 Blood Pressure Location Rt brachial Position Sitting Respiration 20 Pulse 102 H Pulse Source Pulse Oximeter Temp 98.4 F Temp Source Oral Pulse Oximetry (%) 97 Oxygen Delivery Method Room Air Intake Visit Reasons: Annual PE Allergies nickel Allergy (Mild, Verified 02/10/25 13:35) [facility] Adverse Reaction (Severe, Verified 02/10/25 13:35) shingles injection of steriods Allergy (Unknown, Uncoded 02/10/25 13:35) rash iodine Allergy (Unknown, Uncoded 02/10/25 13:35) anaphylaxis wool Allergy (Unknown, Uncoded 02/10/25 13:35) rash Medication List - Last Reconciled 02/10/25 by Naima Boyle MD albuterol sulfate 90 mcg/actuation 0 mcg inhalation albuterol sulfate mg inhalation anastrozole 1 mg PO DAILY blood sugar diagnostic (Inflection EnergyTouch Verio test strips) TESTS AT LEAST 3 TIMES DAILY blood-glucose meter (Simmruch Verio Flex Meter) USE METER TO TEST AT LEAST 4 TIMES DAILY blood-glucose sensor (Jibo G7 Sensor device) Use daily As directed to monitor glucose. change q 10 days cetirizine (All Day Allergy (cetirizine)) 10 mg PO DAILY PRN flash glucose scanning reader (FreeStyle Jonny 2 [place]) As directed flash glucose sensor (FreeStyle Jonny 2 Sensor kit) As directed fluticasone propionate 50 mcg/actuation sprays intranasal rmnxwnoeghd-sdqcnnysv-rviorgsc 100-62.5-25 mcg 1 ea inhalation QAM furosemide 20 mg PO ONCE PRN insulin glargine (Lantus Solostar U-100 Insulin) 10 units (0.1 mL) subcut QAM insulin lispro (Humalog KwikPen (U-100) Insulin) 10 units subcut TID PRN ipratropium-albuterol 0.5 mg-3 mg(2.5 mg base)/3 mL mL inhalation lancets As directed lisinopril 5 mg PO DAILY minocycline 100 mg PO BID montelukast 10 mg PO DAILY mupirocin 2% 1 appl topical TID nystatin-triamcinolone 100,000-0.1 unit/gram-% 1 appl topical DAILY 7 days oxycodone 5 mg PO BID PRN pantoprazole 40 mg PO DAILY paroxetine HCl 40 mg PO QAM pen needle, diabetic (BD Theodora 2nd Gen Pen Needle) INJECT INSULIN UP TO 4 TIMES A DAY. semaglutide (Ozempic) 2 mg (0.75 mL) subcut QWEEK vibegron (Gemtesa) 75 mg PO DAILY Tobacco use date assessed: 02/10/25 Fall risk assessment: 2 + Falls in past year Last assessed Fall Risk: 02/10/25 Dental Screening Dental Screen Date: 02/10/25 Did you have a dental visit in the last 12 months?: No Did you have a dental problem in the last 6 months where you did not have access to dental care?: No Was dental information given to patient?: Patient has dentist HPI Annual PE HPI Details 74-year-old lady with a history of conge stive heart failure, chronic kidney disease, history of staghorn calculus chronic venous insufficiency, r heumatoid arthritis, morbid obesity, obstructive sleep apnea on CPAP, hypertension hyper hyperlipidemia and O2 dependent COPD, here today for physical exam. -Currently followed by [facility]i joss for her diabetes mellitus with latest hemoglobin A1c at 6.4%. She is currently taking Lantus 10 units and Ozempic 1 mg once a week, uses Humalog only as needed.. Unable to tolerate metformin due to diarrhea. - sustained a fracture through T7-T10 sp aces from a fall on 01/08/2025, seen at ER at [facility] and evaluated by Neurosurgery with recommendations for TLSO brace to be worn at all times, with head of bed greater than 30 degrees. And referred for physical therapy/occupational therapy, accepted at [facility]. She has been advised not to lift, push or pull anything greater than 15 lb until cleared by Neurosurgery with which she has an appointment to be seen this month with repeat x-rays to be done. - The patient has COPD, and has not see n her pulmonary doctor, Dr. Arellano, in over a year- She quit smoking in 2009 -recently admitted at [facility] for mild exacerbation of COPD and right-sided pneumonia treated with azithromycin and ceftriaxone. Present patient states t hat she is breathing better, no cough, afebrile - The patient was diagnosed with breast cancer in 2018, , s/p mastectomy and radiation therapy 2018, started on anastrozole 1 mg daily in 2021 continue for 5-7 years, completed before administration so zoledronic acid in the past, with repeat bone density scan ordered by her oncologist Dr. Guillermo Boland at [facility] - The patient has Chronic venous stasis dermatitis and is learning lymphatic drainage techniques to manage it. - Preventative care includes a negative Cologuard test, with the next screening due in 2027. She sees her oncologist at [facility], with last mammogram on record in 2022 came back within normal limits, patient states she gets yearly mammograms and last bone density on record in 2021 was within normal limits also ordered by her oncologist at [facility]. 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, with long- term current use of insulin Rheumatoid arthritis Morbid obesity Urge and stress incontinence History of invasive breast cancer MAYA on CPAP COPD (chronic obstructive pulmonary disease) Surgical History History of shoulder replacement Hx of cataract extraction Hx of umbilical hernia repair Hx of discectomy Hx of mastectomy Hx of cholecystectomy History of appendectomy Social History Housing: Condominium Patient Tobacco Use Status: Former Tobacco user Years Smoked: 30 yrs e-Cigarette/Vaping Use: Never Used Second Hand Smoke Exposure: No service: No Current occupational status: disabled Cognitive needs: No Hearing needs: No Vision needs: Yes Female Reproductive History Menstrual Menopause type: natural Questionnaire Thrive Questionnaire Date Thrive assessed: 11/16/24 I am a: Patient What is your living situation today?: I have a steady place to live Within the past 12 months, did the food you bought not last and you didn't have the money to get more?: Sometimes True Within the past 12 months, did you worry whether your food would run out before you got money to buy more?: Sometimes True Do you have trouble paying for medicines?: No Do you have trouble getting transportation to medical appointments?: No Do you have trouble paying your heating and electricity bill?: I choose not to answer this question Do you have trouble taking care of your child, family member or friend?: No Do you have trouble with day-to-day activities such as bathing, preparing meals, shopping, managing finances, etc.?: No Are you currently unemployed and looking for a job?: No Are you interested in more education?: No Please select the resources that you would like help with: None Currently or been in a relationship where the following occur: No concerns repo rted THRIVE Score: 2 MADAY-7 AMB Questionnaire MADAY-7 Date MADAY - 7 assessed: 09/08/23 Source: Developed by Drs. Marc Chen, Sudha Peterson, Sang García and colleagues, with an educational stefania from [employer]. Review of Systems Const Denies headache(s) Eyes Details: sees Dr Osei Denies change in vision ENT Denies dizziness, Denies headache(s) and Denies nasal congestion Card Denies chest pain, Denies lightheadedness and Reports dyspnea on exertion (on O2 supplement) Resp Denies chest congestion, Denies cough and Reports dyspnea on exertion (on O2 supplement) GI Denies abdominal pain, Denies hematochezia, Denies change in bowel habits and Denies heartburn Denies hematuria, Denies difficulty voiding, Denies dysuria, Reports urinary incontinence, Denies urinary hesitancy and Denies urinary urgency Musc Reports stiffness Skin/Breast Details: History of mastectomy left Denies breast skin changes, Denies breast pain, Denies breast mass and Denies rash Neuro Denies dizziness and Denies headache(s) Psych Reports no additional complaints Endo Reports no additional complaints Valentin/Lymph Reports no additional complaints Aller/Immun Reports no additional complaints Physical exam (Primary Care) Vital Signs: Last Vital Signs Temp 98.4 F 02/10/25 13:30 Pulse 102 H 02/10/25 13:30 Resp 20 02/10/25 13:30 BP 130/62 02/10/25 13:30 Pulse Ox 97 02/10/25 13:30 Oxygen Delivery Method Room Air 02/10/25 13:30 BMI result Body Mass Index 44.1 Tobacco/Smoking Status: Tobacco use Status Tobacco use date assessed 02/10/25 02/10/25 13:36 Patient Tobacco Use Status Former Tobacco user 02/10/25 13:36 e-Cigarette/Vaping Use Never Used 02/10/25 13:36 Thrive Assessment: Date of Thrive Assessment Date Thrive assessed 11/16/24 02/10/25 13:36 Currently or been in a relationship where the following occur: No concerns reported Const General: no acute distress Nutritional Appearance: obese morbidly obese Orientation/consciousness: patient oriented x3 HENMT Mouth: oropharynx normal and moist mucous membranes Eyes General: appearance normal, both eyes and all related structures Neck Neck: Yes full ROM, Yes no lymphadenopathy and Yes supple Chest Other: History of mastectomy left breast, no masses, nipple discharge noted on right Resp Auscultation: clear to auscultation bilaterally Cardio Other: S1-S2 present regular rate and rhythm Jugular venous distension: no JVD GI Palpation (GI): Soft to palpation and nontender Auscultation: normal bowel sounds General: Yes no CVA tenderness Back/Spine/Pelvis Back: no CVA tenderness Skin Other: Erythematous patch on inguinal areas Neuro General: patient oriented x3, moves all extremities, no focal motor deficits and CN's II-XI intact bilaterally Cranial nerves: Yes CN's II-XII intact bilaterally Gait exam (Neuro): Assisted gait required Gait assisted method: walker Extrem General: Yes venous stasis dermatitis (Bilateral) Psych Appearance: grossly normal and well kempt Mental Status: mental status grossly normal Speech and movement: Normal speech and movement present Affect: normal affect Coding Level of Care Code Est Pt Prev Care >65y(35687) Diagnoses Annual visit for general adult medical examination with abnormal findings Z00.01 Essential hypertension I10 Venous insufficiency (chronic) (peripheral) I87.2 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, with long- term current use of insulin E08.29; R80.9; Z79.4 History of invasive breast cancer Z85.3 Rheumatoid arthritis involving multiple sites, unspecified whether rheumatoid factor present M06.9 Rheumatoid arthritis location: multiple sites Rheumatoid factor presence: unspecified presence MAYA on CPAP G47.33; Z99.89 Intertrigo of genitocrural region L30.4 Chronic obstructive pulmonary disease, unspecified COPD type J44.9 COPD type: unspecified COPD Traumatic fracture of thoracic spine S22.009A Advance directive discussed with patient Z71.89 Assessment & Plan Assessment & Plan (1) Annual visit for general adult medical examination with abnormal findings: Code(s): Z00.01 - Encounter for general adult medical examination with abnormal findings (2) Essential hypertension: Code(s): I10 - Essential (primary) hypertension Category: Medical (3) Venous insufficiency (chronic) (peripheral): Code(s): I87.2 - Venous insufficiency (chronic) (peripheral) Category: Medical (4) 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, with long-term current use of insulin: Code(s): E08.29 - Diabetes mellitus due to underlying condition with other diabetic kidney complication; R80.9 - Proteinuria, unspecified; Z79.4 - buttermaker helper (current) use of insulin Category: Medical (5) History of invasive breast cancer: Comment: s/p mastectomy, on anastrozole since 2019, sees Dr Henderson Code(s): Z85.3 - Personal history of malignant neoplasm of breast Category: Medical (6) Rheumatoid arthritis: Comment: ++RF+CCP dx MTX ineffective Hydroxychloroquine ineffective Orencia infusion 4931-8050 DC due to facial shingles Minocycline 2009 to 2019 effective according to patient. Lost to follow-up Minocycline restarted 10/2023 effective Code(s): M06.9 - Rheumatoid arthritis, unspecified Category: Medical Qualifiers: Rheumatoid arthritis location: multiple sites Rheumatoid factor p resence: unspecified presence Qualified Code(s): M06.9 - Rheumatoid arthritis, unspecified (7) MAYA on CPAP: Code(s): G47.33 - Obstructive sleep apnea (adult) (pediatric); Z99.89 - Dependence on other enabling machines and devices Category: Medical (8) Intertrigo of genitocrural region: Code(s): L30.4 - Erythema intertrigo Category: Medical (9) COPD (chronic obstructive pulmonary disease): Comment: sees agricultural extension educator in [place] , Dr Richardson, o2 dependent Code(s): J44.9 - Chronic obstructive pulmonary disease, unspecified Category: Medical Qualifiers: COPD type: unspecified COPD Qualified Code(s): J44.9 - Chronic obstructive pulmonary disease, unspecified (10) Traumatic fracture of thoracic spine: Code(s): S22.009A - Unspecified fracture of unspecified thoracic vertebra, initial encounter for closed fracture Category: Medical (11) Advance directive discussed with patient: Code(s): Z71.89 - Other specified counseling Plan: Initiated the conversation about Advanced Directives. Advanced Directives help patients prepare for current and future decisions about their medical treatment and place of care. Discussed with patient that it is a process where a patients current condition and prognosis are reviewed, their wishes for information regarding their illness are elicited, and likely medical dilemmas are presented and options discussed. Healthcare proxy form completed today. The form can be amended as needed, reviewed yearly and make changes as needed Plan -gets her screening mammogram and bone density scan ordered by her oncologist at [facility] test done came back negative, repeat due in 2027 -history of recent thoracic fracture after fall, continue wearing the back brace and is scheduled for a follow-up appointment in one month to assess the healing of the vertebral fracture. Short course of oxycodone prescription given 5 mg to take 1 tablet twice a day as needed for severe pain -advised to schedule appointment again with her agricultural extension educator Dr. Richardson , with regards to her her COPD. -currently followed by [facility] endocrine clinic for her diabetes mellitus, currently on Lantus, Ozempic, and Humalog, monitoring her blood glucose levels using Dexcom. -advised to see a vascular surgeon for her venous stasis dermatitis and continue practicing lymphatic drainage techniques. -up-to-date with her vaccines, reminded to get her yearly flu shots Patient was informed and verbally consented to the use of an ambient scribe for clinic note documentation during this visit. Medications: New oxycodone 5 mg PO BID PRN 20 tabs 0RF pain, moderate
== END 2025-02-10 14:25 | disposition home or self-care (01) ==
LOC: HO.HMCC 12:58
PROVIDERS: PCP Internal Medicine; Visit Provider Internal Medicine
DX: Z00.01 Encounter for general adult medical examination with abnormal findings (principal); M06.9 Rheumatoid arthritis, unspecified; J44.9 Chronic obstructive pulmonary disease, unspecified; S22.009A Unspecified fracture of unspecified thoracic vertebra, initial encounter for closed fracture; E08.29 Diabetes mellitus due to underlying condition with other diabetic kidney complication; Z79.4 Long term (current) use of insulin; I10 Essential (primary) hypertension; I87.2 Venous insufficiency (chronic) (peripheral); R80.9 Proteinuria, unspecified; Z85.3 Personal history of malignant neoplasm of breast; G47.33 Obstructive sleep apnea (adult) (pediatric); Z99.89 Dependence on other enabling machines and devices

== ENCOUNTER → 2025-02-10 12:57 | Outpatient (BNVA) | payer MEDICARE, SELFPAY | PROVIDERS: PCP Internal Medicine; Visit Provider Internal Medicine | DX: Z00.01 Encounter for general adult medical examination with abnormal findings (principal); I87.2 Venous insufficiency (chronic) (peripheral); E08.29 Diabetes mellitus due to underlying condition with other diabetic kidney complication; R80.9 Proteinuria, unspecified; G47.33 Obstructive sleep apnea (adult) (pediatric); L30.4 Erythema intertrigo; J44.9 Chronic obstructive pulmonary disease, unspecified; S22.009A Unspecified fracture of unspecified thoracic vertebra, initial encounter for closed fracture; I13.0 Hypertensive heart and chronic kidney disease with heart failure and stage 1 through stage 4 chronic kidney disease, or unspecified chronic kidney disease; I50.9 Heart failure, unspecified; N18.9 Chronic kidney disease, unspecified; Z85.3 Personal history of malignant neoplasm of breast; Z79.4 Long term (current) use of insulin; Z71.89 Other specified counseling; Z99.89 Dependence on other enabling machines and devices; W19.XXXA Unspecified fall, initial encounter; Y93.9 Activity, unspecified; Y92.9 Unspecified place or not applicable; Y99.9 Unspecified external cause status | CPT/HCPCS: 99397 ==

== ENCOUNTER → 2025-02-18 23:59 | Outpatient (BNV) | payer MEDICARE, SELFPAY | PROVIDERS: PCP Internal Medicine; Visit Provider Internal Medicine | DX: A41.9 Sepsis, unspecified organism (principal); J18.9 Pneumonia, unspecified organism; L30.4 Erythema intertrigo | CPT/HCPCS: G0180 ==

== ENCOUNTER 2025-02-28 09:52 | Outpatient (AMB) | payer MEDICARE, SELFPAY ==
[2025-02-28 09:54] VITALS: BP 124/70; PULSE 110; O2SAT 100; BMI 44.8
--- NOTE | 2025-02-28 09:54 | A.OFFVIS_ITS ---
Vital Signs 02/28/25 09:54 Height 5 ft Weight 229 lb 4.492 oz BMI 44.8 BP 124/70 Position Sitting Pulse 110 H Pulse Source Pulse Oximeter Pulse Oximetry (%) 100 Oxygen Delivery Method Room Air Intake Visit Reasons: DM Intake Note: Patient present today for Type 2 Diabetes Mellitus Last Diabetic eye exam: 11/22/24 at [facility] Last Podiatry Visit: Doesn't have one HgA1C: 5.7%, 02/28/2025 Random Glucose: 133 mg/dL Behavioral School Counselors Required: No Accompanied by: Self / Same As Patient Allergies nickel Allergy (Mild, Verified 02/28/25 09:59) [facility]) Adverse Reaction (Severe, Verified 02/28/25 09:59) shingles injection of steriods Allergy (Unknown, Uncoded 02/28/25 09:59) rash iodine Allergy (Unknown, Uncoded 02/28/25 09:59) anaphylaxis wool Allergy (Unknown, Uncoded 02/28/25 09:59) rash Medication List - Last Reconciled 02/28/25 by Beatriz Rousseau PA-C albuterol sulfate 90 mcg/actuation 0 mcg inhalation albuterol sulfate mg inhalation anastrozole 1 mg PO DAILY blood sugar diagnostic (OneTouch Verio test strips) TESTS AT LEAST 3 TIMES DAILY blood-glucose meter (OneTouch Verio Flex Meter) USE METER TO TEST AT LEAST 4 TIMES DAILY blood-glucose sensor (SemaConnect G7 Sensor device) Use daily As directed to monitor glucose. change q 10 days cetirizine (All Day Allergy (cetirizine)) 10 mg PO DAILY PRN fluticasone propionate 50 mcg/actuation sprays intranasal nttlazznynq-scdlxioqi-ueyjmilt 100-62.5-25 mcg 1 ea inhalation QAM furosemide 20 mg PO ONCE PRN insulin lispro (Humalog KwikPen (U-100) Insulin) 10 units subcut TID PRN ipratropium-albuterol 0.5 mg-3 mg(2.5 mg base)/3 mL mL inhalation lancets As directed lisinopril 5 mg PO DAILY minocycline 100 mg PO BID montelukast 10 mg PO DAILY mupirocin 2% 1 appl topical TID nystatin-triamcinolone 100,000-0.1 unit/gram-% 1 appl topical DAILY 7 days oxycodone 5 mg PO BID PRN pantoprazole 40 mg PO DAILY paroxetine HCl 40 mg PO QAM pen needle, diabetic (BD Theodora 2nd Gen Pen Needle) INJECT INSULIN UP TO 4 TIMES A DAY. semaglutide (Ozempic) 2 mg (0.75 mL) subcut QWEEK vibegron (Gemtesa) 75 mg PO DAILY HPI HPI DM: Details: Patient is a 74-year-old female who presents today for follow-up regarding diabetes. She has a significant past medical history of CHF, ckd, staghorn calculus, george, venous insufficiency, rheumatoid arthritis, morbid obesity, MAYA on CPAP, hypertension, hyperlipidemia and o2 dependent, COPD. -forgot to get labs prior to today's appointment. Recently broke her back (thoracic spine states she fx 4) on 01/07. States that they are trying to heal with rest and brace. Following with [facility] spine surgeons. Her mobility has been more decreased than before and states sometimes has had slightly higher glucose readings. Endo: Her A1c was 6.4 and today it is 5.7. She was initially diagnosed with diabetes around 2012. She was also initially treated with metformin but developed diarrhea. Her current regimen: She states she uses Ozempic 2 mg. At last visit we d/c the lantus. Uses humalog only if needed with pred tapers. -tolerating ozempic well but is noticing it is not suppressing appetite. She is going to give this a few more months to see if she can get her appetite under better control but wants to consider switching to mounjaro. States her glucose readings have been high from recurrent prednisone use. -unable to tolerate metformin, in the past on trulicity but unavailable and felt ineffective GMI 7%, avg 156, 1% very high, 20% high, 79% in range, 0% hypoglycemia -she is liking the dexcom over the cristiane CV: BP is 124/70. She is on lisinopril 5 mg, and is intermittently using furosemide 20 mg. cholesterol has been diet controlled. 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, with long- term current use of insulin Rheumatoid arthritis Morbid obesity Urge and stress incontinence History of invasive breast cancer MAYA on CPAP COPD (chronic obstructive pulmonary disease) Surgical History History of shoulder replacement Hx of cataract extraction Hx of umbilical hernia repair Hx of discectomy Hx of mastectomy Hx of cholecystectomy History of appendectomy Social History [facility] Patient Tobacco Use Status: Former Tobacco user Years Smoked: 30 yrs e-Cigarette/Vaping Use: Never Used Second Hand Smoke Exposure: No service: No Current occupational status: disabled Cognitive needs: No Hearing needs: No Vision needs: Yes Physical Exam Vital Signs: Last Vital Signs Pulse 110 H 02/28/25 09:54 BP 124/70 02/28/25 09:54 Pulse Ox 100 02/28/25 09:54 Oxygen Delivery Method Room Air 02/28/25 09:54 BMI result Body Mass Index 44.8 Const Orientation/consciousness: patient oriented x3 HEENT Ears: hearing grossly normal bilaterally Neck Thyroid: Thyroid normal Lymphatic: no lymphadenopathy noted Resp Auscultation: clear to auscultation bilaterally Cardio Rate: regular rate Rhythm: regular rhythm Heart sounds: S1 normal heart sound present and S2 normal heart sound present Skin General skin exam: no rashes or lesions noted Neuro General: patient oriented x3, gait normal and no focal motor deficits Results AMB Hemoglobin A1c AMB Hemoglobin A1c 5.7 % Last Edit by SIMIN Boo on 02/28/25 10:12 Results Reviewed Results Reviewed: Laboratory Last Values Glucose (Clinic) 133 mg/dL (60-115) H 02/28/25 10:03 Hgb A1c (Clinic) 5.7 % (4.0-6.0) 02/28/25 10:10 Laboratory Tests 11/01/24 11/29/24 11/29/24 11:45 11:10 11:34 Creatinine 1.37 Estimated GFR 38 Glucose (Clinic) 102 Hgb A1c (Clinic) 6.4 H Triglycerides 119 Cholesterol 150 LDL Cholesterol, Calc 82 HDL Cholesterol 45 Assessment & Plan Assessment & Plan (1) 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 d/c lantus use humalog prn pred rxs (2) Essential hypertension: Code(s): I10 - Essential (primary) hypertension Category: Medical Plan: wnl continue current plan Orders: Orders AMB Hemoglobin A1c Today E08.29 - Diabetes mellitus due to underlying condition with other diabetic kidney complication, R80.9 - Proteinuria, unspecified, Z79.4 - [facility] (current) use of insulin Medications: Discontinued insulin glargine (Lantus Solostar U-100 Insulin) Discontinued Reason: Doctor's Order 10 units (0.1 mL) subcut QAM 15 mL 0RF E11.65 - Type 2 diabetes mellitus with hyperglycemia, Z79.4 - buttermaker (current) use of insulin Coding Level of Care Code Est Pt Level 4 (33100) Complex EM visit Add On G2211 Diagnoses 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
--- OUTSIDE RECORDS SUMMARY | 2025-02-28 09:56 | XMS_ITS | Encounter Summary ---
Author Organization [facility] Address [address] [place] [address] Care Team Providers Care Strategic Communications Specialist Name Role Phone Naima Boyle MD Primary Care Provider Encounter Details Date Type Department Care Team (Late st Contact Info) Description 01/20/2025 Lab Requisition [facility] - Main Lab [address] [place] [address] Kierra Russell MD [address] [place] [address] Hypokalemia Social History Tobacco Use Types Packs/Day [...] LAB CHEMISTRY METHOD 01/20/2025 5:06 PM EDT [facility] Potassium 3.0(L) 3.5 - 5.5 mmol/L LAB CHEMISTRY METHOD 01/20/2025 5:06 PM EDT [facility] Chloride 100 96 - 110 mmol/L LAB CHEMISTRY METHOD 01/20/2025 5:06 PM [facility] CO2 36(H) 21 - 32 mmol/L LAB CHEMISTRY METHOD 01/20/2025 5:06 PM [facility] Anion Gap 4 3 - 11 LAB CHEMISTRY METHOD 01/20/2025 5:06 PM [facility] Glucose 72 70 - 100 mg/dL LAB CHEMISTRY METHOD 01/20/2025 5:06 PM [facility] BUN 28(H) 5 - 25 mg/dL LAB CHEMISTRY METHOD 01/20/2025 5:06 PM [facility] Creatinine 1.41(H) 0.50 - 1.10 mg/dL LAB CHEMISTRY METHOD 01/20/2025 5:06 PM [facility] eGFR 39(L) >=60 mL/min/1. 73m2 LAB CHEMISTRY METHOD 01/20/2025 5:06 PM [facility] Comment:Calculation based on the Chronic Kidney Disease Epidemiology Collaboration (CKD-EPI) equation refit without adjustment for race. BUN/Creatinine Ratio 19.9 LAB CHEMISTRY METHOD 01/20/2025 5:06 PM [facility] Calcium 8.5 8.5 - 10.5 mg/dL LAB CHEMISTRY METHOD 01/20/2025 5:06 PM [facility] Blood Venous blood specimen / Unknown Venipuncture / Unknown 01/20/2025 5:12 AM EDT 01/20/2025 11:36 AM EDT us Kierra Russell MD LAB BLOOD ORDERABLES Final Resul t [facility] [address] [place] [address], documented in this encounter Visit Diagnoses Diagnosis Hypokalemia Hypopotassemia documented in this encounter Care Teams Strategic Communications Specialist Relationship Specialty Start Date End Date Naima Boyle MD [address] [facility] [place] [address] PCP - General Internal Medicine 12/21/21 documented as of this encounter
--- OUTSIDE RECORDS SUMMARY | 2025-02-28 09:56 | XMS_ITS | Clinical Summary ---
Author Organization [facility] Address [address] [place] [address] Care Team Providers Care Anode Crew Supervisor Name Role Phone Naima Boyle MD Primary Care Provider +1 -[phone] Allergies Active Allergy Reactions Criticality Noted Date Comments Iodinated Contrast Media 11/27/2014 Seafood 11/24/2014 Medications Medication Sig Dispensed Refills Start Date End Date Status Blood Glucose Monitoring Suppl (FREESTYLE FREEDOM LITE) W/DEVICE KIT FreeStyle Hartley Lite w/Device Kit Refills: 0 Betsy Ernandez [...] pe 2 diabetes mellitus without complication, unspecified longterm insulin use status Use as instructed daily. [...] hyperglycemia, without long-term current use of insulin ([facility]) Use to test blood sugar 4 [...] hyperglycemia, without long-term current use of insulin ([facility]) TAKE 1 TABLET 3 TIMES DAILY [...] Advance Directives For more information, please contact: [phone] Documents on File Type Date Recorded Patient Night Supervisor Expl anation Advance Directive and Living Will 10/18/2018 2:47 PM Care Teams Anode Crew Supervisor Relationship Specialty Start Date End Date Naima Boyle MD [address] [place] [address] PCP - General Internal Medicine 12/21/21
--- OUTSIDE RECORDS SUMMARY | 2025-02-28 09:56 | XMS_ITS | Encounter Summary ---
Author Organization [facility], Address [address] [place] [address] Phone Care Team Providers Care Asbestos Worker Helper Name Role Phone Florentino Boyle MD Primary Care Provider +1- [phone] Encounter Details Date Type Department Care Team (Late st Contact Info) Description 11/11/2022 Documentation Only [facility], [address] [place] [address] [place], [place] [address] [place] [address] Social History Tobacco Use Types [...] on filedocumented in this encounter Care Teams Asbestos Worker Helper Relationship Specialty Start Date End Date Florentino Boyle MD [facility] [place] [address] PCP - General Internal Medicine 09/13/22 documented as of this encounter
--- OUTSIDE RECORDS SUMMARY | 2025-02-28 09:56 | XMS_ITS | Clinical Summary ---
Author Organization [facility] Address [address] [place] [address] Care Team Providers Care Process Checker Name Role Phone Unavailable Primary Care Provider [...]
[2025-02-28 10:08] LABS: Glucose, Whole Blood 133 mg/dL (60-115)
== END 2025-02-28 14:24 | disposition home or self-care (01) ==
LOC: HO.ENCR 09:53
PROVIDERS: PCP Internal Medicine; Visit Provider Physician Assistant
DX: R80.9 Proteinuria, unspecified (principal); E08.29 Diabetes mellitus due to underlying condition with other diabetic kidney complication; Z79.4 Long term (current) use of insulin; I10 Essential (primary) hypertension

== ENCOUNTER → 2025-02-28 09:52 | Outpatient (BNVA) | payer MEDICARE, SELFPAY | PROVIDERS: PCP Internal Medicine; Visit Provider Physician Assistant | DX: E11.22 Type 2 diabetes mellitus with diabetic chronic kidney disease (principal); E11.65 Type 2 diabetes mellitus with hyperglycemia; E11.29 Type 2 diabetes mellitus with other diabetic kidney complication; I13.0 Hypertensive heart and chronic kidney disease with heart failure and stage 1 through stage 4 chronic kidney disease, or unspecified chronic kidney disease; I50.9 Heart failure, unspecified; R80.9 Proteinuria, unspecified; N18.9 Chronic kidney disease, unspecified; E66.9 Obesity, unspecified; Z79.4 Long term (current) use of insulin; Z68.41 Body mass index [BMI] 40.0-44.9, adult | CPT/HCPCS: 82947; 83036; 99212 ==

== ENCOUNTER → 2025-04-23 10:30 | Outpatient (BNV) | payer MEDICARE, SELFPAY | PROVIDERS: PCP Internal Medicine; Visit Provider Radiology Diagnostic Radiology | DX: E28.39 Other primary ovarian failure (principal) | CPT/HCPCS: 77080 ==

== ENCOUNTER 2025-04-23 10:35 | Outpatient (REF) | payer MEDICARE, SELFPAY ==
--- NOTE | ~2025-04-23 | MM_ITS ---
EXAMINATION: DXA BONE DENSITY AXIAL HISTORY: S22.009A - Unspecified fracture of unspecified thoracic vertebra, initial... TECHNIQUE: [employer] Dual energy absorptiometry (DEXA) of the lumbar spine, total left hip, and femoral neck was performed. COMPARISON: There are no prior studies for comparison. FINDINGS: The bone mineral density of the lumbar spine is 1.262 g/cm2, corresponding to a T-score of 0.8, and a Z-score of 1.4. This is indicative of normal bone mineral density. The bone mineral density of the left total hip is 0.962 g/cm2, corresponding to a T-score of -0.4, and a Z-score of 0.5. This is indicative of normal bone mineral density. The bone mineral density of the left femoral neck is 1.039 g/cm2, corresponding to a T-score of 0.0, and a Z-score of 1.1. This is indicative of normal bone mineral density. MM/XR DEXA axial skeleton IMPRESSION: Based on bone mineral density, and according to World Health Organization (WHO) criteria, the diagnosis is consistent with normal bone mineral density. Statistically, 68% of repeat scans fall within 1 SD (+/- 0.010 g/cm2 for AP spine L1-L4) and 1 SD (+/- 0.012 g/cm2 for femur total) FRAX is a trademark of the [employer]'s [place] [facility] Metabolic Bone Disease, a World Health Organization (WHO) Collaborating Center. Electronically signed by: Marc Chen MD 04/23/2025 11:11 AM EDT
--- OUTSIDE RECORDS SUMMARY | 2025-04-23 12:35 | XMS_ITS | Encounter Summary ---
Author Organization [facility], Address [address] [place] [address] Phone Care Team Providers Care Retort Pre Cooker Name Role Phone lForentino Boyle MD Primary Care Provider +1- [phone] Encounter Details Date Type Department Care Team (Late st Contact Info) Description 11/11/2022 Documentation Only [facility], [address] [place] [address] [place], [place] [address] [place] [address] Social History Tobacco Use Types [...] on filedocumented in this encounter Care Teams Retort Pre Cooker Relationship Specialty Start Date End Date Florentino Boyle MD [facility] [place] [place] [address] PCP - General Internal Medicine 09/13/22 documented as of this encounter
--- OUTSIDE RECORDS SUMMARY | 2025-04-23 12:35 | XMS_ITS | Encounter Summary ---
Author Organization [facility], Address [address] [place] [address] Phone Care Team Providers Care Family Development Specialist Name Role Phone Florentino Boyle MD Primary Care Provider +1- [phone] Encounter Details Date Type Department Care Team (Late st Contact Info) Description 11/11/2022 Documentation Only [facility], [address] [place] [address] [place], [place] [address] [place] [address] Social History Tobacco Use Types [...] on filedocumented in this encounter Care Teams Family Development Specialist Relationship Specialty Start Date End Date Florentino Boyle MD [facility] [place] [address] PCP - General Internal Medicine 09/13/22 documented as of this encounter
--- OUTSIDE RECORDS SUMMARY | 2025-04-23 12:35 | XMS_ITS | Encounter Summary ---
Author Organization [facility] Address [address] [place] [address] Care Team Providers Care Hydrometallurgical Engineer Name Role Phone Naima Boyle MD Primary Care Provider Encounter Details Date Type Department Care Team (Late st Contact Info) Description 01/15/2025 Lab Requisition [facility] - Main Lab [address] [facility] [place] [address] Kierra Russell MD [address] [place], [place] [id number] Fatigue fracture of vertebra, thoracic region, initial encounter for fracture; Type 2 diabetes mellitus without complications (CMS/HCC V24, CMS/HCC V28); Obstructive sleep apnea (adult) (pediatric); Vitamin B deficiency, unspecified; Vitamin D deficiency, unspecified Social History Tobacco Use Types Packs/Day Years [...] Procedure Name Priority Date/Time Associated Diagnosis Comments VITAMIN D 25 HYDROXY Routine 01/15/2025 6:58 AM EDT Fatigue fracture of vertebra, thoracic region, initial encounter for fracture Type 2 diabetes mellitus without complications (CMS/HCC V24, CMS/HCC V28) Obstructive sleep apnea (adult) (pediatric) Vitamin B deficiency, unspecified Vitamin D deficiency, unspecified COMPLETE BLOOD COUNT Routine 01/15/2025 6:58 AM EDT Fatigue fracture of vertebra, thoracic region, initial encounter for fracture Type 2 diabetes mellitus without complications ([facility] V24, [facility] V28) Obstructive sleep apnea (adult) (pediatric) Vitamin B deficiency, unspecified Vitamin D deficiency, unspecified HEMOGLOBIN A1C Routine 01/15/2025 6:58 AM EDT Fatigue fracture of vertebra, thoracic region, initial encounter for fracture Type 2 diabetes mellitus without complications ([facility] V24, [facility] V28) Obstructive sleep apnea (adult) (pediatric) Vitamin B deficiency, unspecified Vitamin D deficiency, unspecified FOLATE Routine 01/15/2025 6:58 AM EDT Fatigue fracture of vertebra, thoracic region, initial encounter for fracture Type 2 diabetes mellitus without complications ([facility] V24, [facility] V28) Obstructive sleep apnea (adult) (pediatric) Vitamin B deficiency, unspecified Vitamin D deficiency, unspecified VITAMIN B12 Routine 01/15/2025 6:58 AM EDT Fatigue fracture of vertebra, thoracic region, initial encounter for fracture Type 2 diabetes mellitus without complications ([facility] V24, [facility] V28) Obstructive sleep apnea (adult) (pediatric) Vitamin B deficiency, unspecified Vitamin D deficiency, unspecified COMPREHENSIVE METABOLIC PANEL Routine 01/15/2025 6:58 AM EDT Fatigue fracture of vertebra, thoracic region, initial encounter for fracture Type 2 diabetes mellitus without complications ([facility] V24, [facility] V28) Obstructive sleep apnea (adult) (pediatric) Vitamin B deficiency, unspecified Vitamin D deficiency, unspecified documented in this encounter Results * Hemoglobin A1c (01/15/2025 6:58 AM EDT) Hemoglobin A1C 5.1 <6.5 % LAB CHEMISTRY METHOD 01/15/2025 10:52 AM EDT [facility] Mean Bld Glu Estim. 100 mg/dL LAB CHEMISTRY METHOD 01/15/2025 10:52 AM T [facility] Blood Venous blood specimen / Unknown Venipuncture / Unknown 01/15/2025 6:58 AM EDT 01/15/2025 9:00 AM EDT us Kierra Russell MD LAB BLOOD ORDERABLES Final Resul t Performing Organization Address City/[facility] Co de Phone Number [facility] [address] [place] [address], [place] [phone] * (ABNORMAL) Folate (01/15/2025 6:58 AM EDT) Folate >20.0(H) 2.8 - 17.0 ng/ml LAB CHEMISTRY METHOD 01/15/2025 10:22 AM EDT [facility] Blood Venous blood specimen / Unknown Venipuncture / Unknown 01/15/2025 6:58 AM EDT 01/15/2025 9:00 AM EDT us Kierra Russell MD LAB BLOOD ORDERABLES Final Resul t Performing Organization Address [facility] de Phone Number [facility] [address] [place] [address], [place] [phone] * Vitamin D 25 hydroxy (01/15/2025 6:58 AM EDT) Pathologist [facility] Vit D, 25-Hydroxy 37.5 30.0 - 80.0 ng/mL LAB CHEMISTRY METHOD 01/15/2025 12:22 PM EDT [facility] Blood Venous blood specimen / Unknown Venipuncture / Unknown 01/15/2025 6:58 AM EDT 01/15/2025 9:00 AM EDT us Kierra Russell MD LAB BLOOD ORDERABLES Final Resul t Performing Organization Address [facility] Co de Phone Number [facility] [address] [place] [address], [place] [phone] * (ABNORMAL) Vitamin B12 (01/15/2025 6:58 AM EDT) [facility] Vitamin B-12 1,400(H) 250 - 900 pcg/mL LAB CHEMISTRY METHOD 01/15/2025 10:22 AM [facility] Blood Venous blood specimen / Unknown Venipuncture / Unknown 01/15/2025 6:58 AM EDT 01/15/2025 9:00 AM EDT us Kierra Russell MD LAB BLOOD ORDERABLES Final Resul t [facility] [address] [place] [address], * (ABNORMAL) Comprehensive metabolic panel (01/15/2025 6:58 AM EDT) [facility] Sodium 141 133 - 145 mmol/L LAB CHEMISTRY METHOD 01/15/2025 9:55 AM [facility] Potassium 3.5 3.5 - 5.5 mmol/L LAB CHEMISTRY METHOD 01/15/2025 9:55 AM [facility] Chloride 100 96 - 110 mmol/L LAB CHEMISTRY METHOD 01/15/2025 9:55 AM [facility] CO2 31 21 - 32 mmol/L LAB CHEMISTRY METHOD 01/15/2025 9:55 AM [facility] Anion Gap 10 3 - 11 LAB CHEMISTRY METHOD 01/15/2025 9:55 AM [facility] Glucose 105(H) 70 - 100 mg/dL LAB CHEMISTRY METHOD 01/15/2025 9:55 AM [facility] BUN 28(H) 5 - 25 mg/dL LAB CHEMISTRY METHOD 01/15/2025 9:55 AM [facility] Creatinine 1.40(H) 0.50 - 1.10 mg/dL LAB CHEMISTRY METHOD 01/15/2025 9:55 AM [facility] eGFR 40(L) >=60 mL/min/1. 73m2 LAB CHEMISTRY METHOD 01/15/2025 9:55 AM [facility] Comment:Calculation based on the Chronic Kidney Disease Epidemiology Collaboration (CKD-EPI) equation refit without adjustment for race. BUN/Creatinine Ratio 20.0 LAB CHEMISTRY METHOD 01/15/2025 9:55 AM [facility] Calcium 9.0 8.5 - 10.5 mg/dL LAB CHEMISTRY METHOD 01/15/2025 9:55 AM [facility] AST (SGOT) 26 10 - 42 unit/L LAB CHEMISTRY METHOD 01/15/2025 9:55 AM [facility] ALT (SGPT) 21 10 - 60 unit/L LAB CHEMISTRY METHOD 01/15/2025 9:55 AM [facility] Alkaline Phosphatase 82 42 - 121 unit/L LAB CHEMISTRY METHOD 01/15/2025 9:55 AM [facility] Total Protein 7.0 6.0 - 8.0 g/dL LAB CHEMISTRY METHOD 01/15/2025 9:55 AM [facility] Albumin 2.7(L) 3.2 - 5.0 g/dL LAB CHEMISTRY METHOD 01/15/2025 9:55 AM [facility] Total Bilirubin 1.5(H) 0.0 - 1.4 mg/dL LAB CHEMISTRY METHOD 01/15/2025 9:55 AM [facility] Blood Venous blood specimen / Unknown Venipuncture / Unknown 01/15/2025 6:58 AM EDT 01/15/2025 9:00 AM EDT us Kierra Russell MD LAB BLOOD ORDERABLES Final Resul t [facility] [address] [place] [address], * (ABNORMAL) Complete blood count (01/15/2025 6:58 AM EDT) [facility] WBC 8.7 4.8 - 10.8 K/mcL LAB HEMETOLOGY METHOD 01/15/2025 9:31 AM [facility] RBC 4.10 3.80 - 4.80 M/mcL LAB HEMETOLOGY METHOD 01/15/2025 9:31 AM [facility] Hemoglobin 13.6 11.5 - 16.0 g/dL LAB HEMETOLOGY METHOD 01/15/2025 9:31 AM [facility] Hematocrit 42.0 35.0 - 47.0 % LAB HEMETOLOGY METHOD 01/15/2025 9:31 AM [facility] MCV 101.9(H) 79.0 - 98.0 FL LAB HEMETOLOGY METHOD 01/15/2025 9:31 AM [facility] MCH 33.0(H) 27.0 - 32.0 pcg LAB HEMETOLOGY METHOD 01/15/2025 9:31 AM [facility] MCHC 32.4 32.0 - 37.0 g/dL LAB HEMETOLOGY METHOD 01/15/2025 9:31 AM [facility] RDW 14.3 11.0 - 15.0 % LAB HEMETOLOGY METHOD 01/15/2025 9:31 AM [facility] Platelets 121(L) 130 - 400 K/mcL LAB HEMETOLOGY METHOD 01/15/2025 9:31 AM [facility] MPV 10.4 7.0 - 11.0 FL LAB HEMETOLOGY METHOD 01/15/2025 9:31 AM [facility] NRBC 0.0 <1.0 % LAB HEMETOLOGY METHOD 01/15/2025 9:31 AM [facility] NRBC Absolute 0.00 <0.10 K/mcL LAB HEMETOLOGY METHOD 01/15/2025 9:31 AM EDT [facility] Blood Venous blood specimen / Unknown Venipuncture / Unknown 01/15/2025 6:58 AM EDT 01/15/2025 9:00 AM EDT us Kierra Russell MD LAB BLOOD ORDERABLES Final Resul t [facility] [address] [place] [address], documented in this encounter Visit Diagnoses Diagnosis Fatigue fracture of vertebra, thoracic region, initial encounter for fracture Type 2 diabetes mellitus without complications (CMS/HCC V24, CMS/HCC V28) Obstructive sleep apnea (adult) (pediatric) Vitamin B deficiency, unspecified Vitamin D deficiency, unspecified documented in this encounter Care Teams Hydrometallurgical Engineer Relationship Specialty Start Date End Date Naima Boyle MD [address] [place] [address] PCP - General Internal Medicine 12/21/21 documented as of this encounter
--- OUTSIDE RECORDS SUMMARY | 2025-04-23 12:35 | XMS_ITS | Encounter Summary ---
Author Organization [facility], Address [address] [place] [address] Phone Care Team Providers Care Loom Operator Apprentice Name Role Phone Florentino Boyle MD Primary Care Provider +1- [phone] Encounter Details Date Type Department Care Team (Late st Contact Info) Description 11/11/2022 Documentation Only [facility], [address] [place] [address] [place], [place] [address] [place] [address] Social History Tobacco Use Types [...] on filedocumented in this encounter Care Teams Loom Operator Apprentice Relationship Specialty Start Date End Date Florentino Boyle MD [facility] [place] [address] PCP - General Internal Medicine 09/13/22 documented as of this encounter
--- OUTSIDE RECORDS SUMMARY | 2025-04-23 12:35 | XMS_ITS | Encounter Summary ---
Author Organization [facility], Address [address] [place] [address] Phone Care Team Providers Care Hazardous Materials Tanker Driver Name Role Phone Florentino Boyle MD Primary Care Provider +1- [phone] Encounter Details Date Type Department Care Team (Late st Contact Info) Description 11/28/2024 Documentation Only [facility], [address] [place] [address] Sherin Rosales [address] [place] [address] Social History Tobacco Use Types [...] on filedocumented in this encounter Care Teams Hazardous Materials Tanker Driver Relationship Specialty Start Date End Date Florentino Boyle MD [facility] [place] [address] PCP - General Internal Medicine 09/13/22 documented as of this encounter
--- OUTSIDE RECORDS SUMMARY | 2025-04-23 12:35 | XMS_ITS | Encounter Summary ---
Author Organization [facility] Address [address] [place] [address] Care Team Providers Care Ophthalmology Technician Name Role Phone Naima Boyle MD Primary Care Provider Encounter Details Date Type Department Care Team (Late st Contact Info) Description 01/16/2025 Lab Requisition [facility] - Main Lab [address] [facility] [place] [address] Kierra Russell MD [address] [place], [place] [id number] Type 2 diabetes mellitus without complications (CMS/HCC V24, CMS/HCC V28); Fatigue fracture of vertebra, thoracic region, initial encounter for fracture; Obstructive sleep apnea (adult) (pediatric); Vitamin B [...] Procedure Name Priority Date/Time Associated Diagnosis Comments COMPLETE BLOOD COUNT Routine 01/17/2025 7:33 AM EDT Type 2 diabetes mellitus without complications (CMS/HCC V24, CMS/HCC V28) Fatigue fracture of vertebra, thoracic region, initial encounter for fracture Obstructive sleep apnea (adult) (pediatric) Vitamin B deficiency, unspecified Vitamin D deficiency, unspecified BASIC METABOLIC PANEL Routine 01/17/2025 7:33 AM EDT Type 2 diabetes mellitus without complications (CMS/HCC V24, CMS/HCC V28) Fatigue fracture of vertebra, thoracic region, initial encounter for fracture Obstructive sleep apnea (adult) (pediatric) Vitamin B deficiency, unspecified Vitamin D deficiency, unspecified documented in this encounter Results * (ABNORMAL) Basic metabolic panel (01/17/2025 7:33 AM EDT) Sodium 140 133 - 145 mmol/L LAB CHEMISTRY METHOD 01/17/2025 11:07 AM [facility] Potassium 3.1(L) 3.5 - 5.5 mmol/L LAB CHEMISTRY METHOD 01/17/2025 11:07 AM [facility] Chloride 99 96 - 110 mmol/L LAB CHEMISTRY METHOD 01/17/2025 11:07 AM [facility] CO2 32 21 - 32 mmol/L LAB CHEMISTRY METHOD 01/17/2025 11:07 AM [facility] Anion Gap 9 3 - 11 LAB CHEMISTRY METHOD 01/17/2025 11:07 AM [facility] Glucose 84 70 - 100 mg/dL LAB CHEMISTRY METHOD 01/17/2025 11:07 AM [facility] BUN 26(H) 5 - 25 mg/dL LAB CHEMISTRY METHOD 01/17/2025 11:07 AM [facility] Creatinine 1.38(H) 0.50 - 1.10 mg/dL LAB CHEMISTRY METHOD 01/17/2025 11:07 AM [facility] eGFR 40(L) >=60 mL/min/1. 73m2 LAB CHEMISTRY METHOD 01/17/2025 11:07 AM [facility] Comment:Calculation based on the Chronic Kidney Disease Epidemiology Collaboration (CKD-EPI) equation refit without adjustment for race. BUN/Creatinine Ratio 18.8 LAB CHEMISTRY METHOD 01/17/2025 11:07 AM [facility] Calcium 8.3(L) 8.5 - 10.5 mg/dL LAB CHEMISTRY METHOD 01/17/2025 11:07 AM EDT [facility] Blood Venous blood specimen / Unknown Venipuncture / Unknown 01/17/2025 7:33 AM EDT 01/17/2025 10:26 AM EDT us Kierra Russell MD LAB BLOOD ORDERABLES Final Resul t [facility] [address] [place] [address], * (ABNORMAL) Complete blood count (01/17/2025 7:33 AM EDT) WBC 8.3 4.8 - 10.8 K/mcL LAB HEMETOLOGY METHOD 01/17/2025 10:35 AM EDT [facility] RBC 3.90 3.80 - 4.80 M/mcL LAB HEMETOLOGY METHOD 01/17/2025 10:35 AM EDT [facility] Hemoglobin 12.9 11.5 - 16.0 g/dL LAB HEMETOLOGY METHOD 01/17/2025 10:35 AM EDT [facility] Hematocrit 39.2 35.0 - 47.0 % LAB HEMETOLOGY METHOD 01/17/2025 10:35 AM EDT [facility] MCV 101.6(H) 79.0 - 98.0 FL LAB HEMETOLOGY METHOD 01/17/2025 10:35 AM EDT [facility] MCH 33.4(H) 27.0 - 32.0 pcg LAB HEMETOLOGY METHOD 01/17/2025 10:35 AM EDT [facility] MCHC 32.9 32.0 - 37.0 g/dL LAB HEMETOLOGY METHOD 01/17/2025 10:35 AM EDT [facility] RDW 14.0 11.0 - 15.0 % LAB HEMETOLOGY METHOD 01/17/2025 10:35 AM EDT [facility] Platelets 121(L) 130 - 400 K/mcL LAB HEMETOLOGY METHOD 01/17/2025 10:35 AM EDT [facility] MPV 10.4 7.0 - 11.0 FL LAB HEMETOLOGY METHOD 01/17/2025 10:35 AM EDT [facility] NRBC 0.0 <1.0 % LAB HEMETOLOGY METHOD 01/17/2025 10:35 AM EDT [facility] NRBC Absolute 0.00 <0.10 K/mcL LAB HEMETOLOGY METHOD 01/17/2025 10:35 AM EDT [facility] Blood Venous blood specimen / Unknown Venipuncture / Unknown 01/17/2025 7:33 AM EDT 01/17/2025 10:26 AM EDT us Kierra Russell MD LAB BLOOD ORDERABLES Final Resul t [facility] [address] [place] [address], documented in this encounter Visit Diagnoses Diagnosis Type 2 diabetes mellitus without complications (CMS/HCC V24, CMS/HCC V28) Fatigue fracture of vertebra, thoracic region, initial encounter for fracture Obstructive sleep apnea (adult) (pediatric) Vitamin B deficiency, unspecified Vitamin D deficiency, unspecified documented in this encounter Care Teams Ophthalmology Technician Relationship Specialty Start Date End Date Naima Boyle MD [address] [facility] [place] [address] PCP - General Internal Medicine 12/21/21 documented as of this encounter
--- OUTSIDE RECORDS SUMMARY | 2025-04-23 12:35 | XMS_ITS | Encounter Summary ---
Author Organization [facility], Address [address] [place] [address] Phone Care Team Providers Care Supervisor Estimator And Drafter Name Role Phone Florentino Boyle MD Primary Care Provider +1- [phone] Encounter Details Date Type Department Care Team (Late st Contact Info) Description 11/28/2024 Documentation Only [facility], [address] [place] [address] Sherin Rosales [address] [place] [address] Social History Tobacco Use Types [...] filedocumented in this encounter Care Teams Supervisor Estimator And Drafter Relationship Specialty Start Date End Date Florentino Boyle MD [facility] [place] [address] PCP - General Internal Medicine 09/13/22 documented as of this encounter
--- OUTSIDE RECORDS SUMMARY | 2025-04-23 12:35 | XMS_ITS | Encounter Summary ---
Author Organization [facility] Address [address] [place] [address] Care Team Providers Care Correspondence Representative Name Role Phone Naima Boyle MD Primary Care Provider [phone] Encounter Details Date Type Department Care Team (Late st Contact Info) Description 01/20/2025 Lab Requisition [facility] Lab [address] [place] [address] Kierra Russell MD [address] [place] [address] Hypokalemia Social History Tobacco Use Types Packs/Day [...] LAB CHEMISTRY METHOD 01/20/2025 5:[address] [facility] Potassium 3.0(L) 3.5 - 5.5 mmol/L LAB CHEMISTRY METHOD 01/20/2025 5:[address] [facility] Chloride 100 96 - 110 [...] MD LAB BLOOD ORDERABLES Final Resul t [facility] [address] [place] [address], documented in this encounter Visit Diagnoses Diagnosis Hypokalemia Hypopotassemia documented in this encounter Care Teams Correspondence Representative Relationship Specialty Start Date End Date Naima Boyle MD [address] [facility] [place] [address] PCP - General Internal Medicine 12/21/21 documented as of this encounter
--- OUTSIDE RECORDS SUMMARY | 2025-04-23 12:36 | XMS_ITS | Encounter Summary ---
Author Organization [facility], Address [address] [place] [address] Phone Care Team Providers Care Tufter Operator Name Role Phone Florentino Boyle MD Primary Care Provider +1- [phone] Encounter Details Date Type Department Care Team (Late st Contact Info) Description 09/02/2024 Documentation Only [facility], [address] [place] [address] Sherin Rosales [address] [place] [address] Social History Tobacco Use Types [...] on filedocumented in this encounter Care Teams Tufter Operator Relationship Specialty Start Date End Date Florentino Boyle MD [facility] [place] [address] PCP - General Internal Medicine 09/13/22 documented as of this encounter
--- OUTSIDE RECORDS SUMMARY | 2025-04-23 12:36 | XMS_ITS | Encounter Summary ---
Author Organization [facility], Address [address] [place] [address] Phone Care Team Providers Care Dinkey Engineer Name Role Phone Florentino Boyle MD Primary Care Provider +1- [phone] Encounter Details Date Type Department Care Team (Late st Contact Info) Description 11/28/2024 Documentation Only [facility], [address] [place] [address] Sherin Rosales [address] [place] [address] Social History Tobacco Use Types [...] on filedocumented in this encounter Care Teams Dinkey Engineer Relationship Specialty Start Date End Date Florentino Boyle MD [facility] [address] PCP - General Internal Medicine 09/13/22 documented as of this encounter
--- OUTSIDE RECORDS SUMMARY | 2025-04-23 12:36 | XMS_ITS | Encounter Summary ---
Author Organization [facility] [place], Address [address] [place] [address] Phone Care Team Providers Care Bologna Lacer Name Role Phone Florentino Boyle MD Primary Care Provider +1- [phone] Encounter Details Date Type Department Care Team (Late st Contact Info) Description 11/28/2024 Documentation Only [facility], [address] [place] [address] Sherin Rosales [address] [place] [address] Social History Tobacco Use Types [...] on filedocumented in this encounter Care Teams Bologna Lacer Relationship Specialty Start Date End Date Florentino Boyle [place] [address] PCP - General Internal Medicine 09/13/22 documented as of this encounter
--- OUTSIDE RECORDS SUMMARY | 2025-04-23 12:36 | XMS_ITS | Clinical Summary ---
Author Organization [address] Address [address] [place] [address] Phone Care Team Providers Care Hair And Makeup Designer Name Role Phone Naima Boyle MD Primary Care Provider [phone] Encounters Date Type Department Care Team Description 01/30/2025 Lab Requisition [facility] [address] [place] [phone] Kierra Russell MD Type 2 diabetes mellitus without complications ([facility] V24, [facility] V28); Fatigue fracture of vertebra, thoracic region, initial encounter for fracture; Obstructive sleep apnea (adult) (pediatric); Vitamin B deficiency, unspecified; Vitamin D deficiency, unspecified 01/27/2025 Lab Requisition [facility] [address] [place] [phone] Kierra Russell MD Chronic obstructive pulmonary disease, unspecified ([facility] V24, [facility] V28); Type 2 diabetes mellitus without complications ([facility] V24, [facility] V28) 01/23/2025 Lab Requisition [facility] [address] [place] [phone] Kierra Russell MD Type 2 diabetes mellitus without complications ([facility] V24, [facility] V28); Fatigue fracture of vertebra, thoracic region, initial encounter for fracture; Obstructive sleep apnea (adult) (pediatric); Vitamin D deficiency, unspecified; Vitamin B deficiency, unspecified 01/22/2025 Lab Requisition [facility] [address] [place] [address] Kierra Russell MD Hypokalemia from Last 3 Months Surgical History Surgery Date Site/Laterality Comments OTHER [...] uncontrolled COPD (chronic obstructive pu lmonary disease) ([facility] V24, [facility] V28) DX:COPD (chronic o bstructive pulmonary disease) ([facility]) Sleep apnea DX:Sleep apnea Anxiety and depression DX:Anxiet y and depression Rheumatoid arthritis ([facility]/ C V24, [facility] V28) DX:Rheumatoid arthritis ([facility] ) Edema DX:Edema Rosacea DX:Rosacea Social History [...] Last Done Comments Breast Cancer Screening 1950 Diabetes: Annual Foot Exam 09/10/1961 Diabetes: Annual Retina Eye Exam 09/10/1961 DTaP,Tdap,and Td Vaccines (1 - Tdap) 09/10/1970 RSV Immunization Adult Patients (1 - Risk 50-74 years 1-dose series) 09/10/2001 Zoster Vaccines (3 of 3) 06/03/2019 04/08/2019, 04/09 Pneumococcal Vaccine: 50+ Years (3 of 3 - PCV20 or PCV21) 12/16/2021 12/16/2016, 04/23/2013 Falls Risk Assessment 06/07/2022 Hepatitis C Screening 06/07/2022 Lung Cancer Screening (Low Dose CT) 06/07/2022 Social Influencers of Health Screening 06/07/2022 Diabetes: Annual Urine Albumin-Creatinine Ratio (uACR) 06/28/2022 10/31/2020, 02/14/2020, 11/30/2019, Additional history exists Depression Screening 07/10/2024 Cholesterol Screening (Lipid Panel) 11/29/2024 11/30/2019, 10/09/2018 COVID-19 Vaccine ( season) 2025 04/22/2022, 05/12/2021, 10/22/2020, Additional history exists Influenza Vaccine (#1) 2025 , 04/22/2022, 05/12/2021, Additional history exists Diabetes: Blood Sugar Control Test (HGBA1C) 07/18/2025 01/15/2025, 10/31/2020, 02/14/2020, Additional history exists Diabetes: Annual GFR (Glomerular Filtration Rate) 01/27/2026 01/27/2025, 01/24/2025, 01/22/2025, Additional history exists Hypertension/CHF/CAD Annual BMP Blood Test 01/27/2026 01/27/2025, 01/24/2025, 01/22/2025, Additional history exists Colorectal Cancer Screening: FIT-DNA (Cologuard) 11/25/2027 11/24/2024, 11/24/2024, 09/09/2021 Osteoporosis Screening (Bone Density Screening) 11/14/2030 11/14/2020 [...] Associated Diagnosis Comments BASIC METABOLIC PANEL Routine 01/27/2025 5:12 AM EDT Chronic obstructive pulmonary disease, unspecified ([facility] V24, [facility] V28) Type 2 diabetes mellitus without complications ([facility] V24, [facility] V28) COMPLETE BLOOD COUNT Routine 01/27/2025 5:12 AM EDT Chronic obstructive pulmonary disease, unspecified ([facility] V24, [facility] V28) Type 2 diabetes mellitus without complications ([facility] V24, [facility] V28) BASIC METABOLIC PANEL Routine 01/24/2025 5:28 AM EDT Type 2 diabetes mellitus without complications ([facility] V24, [facility] V28) Fatigue fracture of vertebra, thoracic region, initial encounter for fracture Obstructive sleep apnea (adult) (pediatric) Vitamin D deficiency, unspecified Vitamin B deficiency, unspecified COMPLETE BLOOD COUNT Routine 01/24/2025 5:28 AM EDT Type 2 diabetes mellitus without complications ([facility] V24, [facility] V28) Fatigue fracture of vertebra, thoracic region, initial encounter for fracture Obstructive sleep apnea (adult) (pediatric) Vitamin D deficiency, unspecified Vitamin B deficiency, unspecified BASIC METABOLIC PANEL Routine 01/22/2025 5:49 AM EDT Hypokalemia HEMOGLOBIN A1C Routine 01/15/2025 6:58 AM EDT Fatigue fracture of vertebra, thoracic region, initial encounter for fracture Type 2 diabetes mellitus without complications ([facility] V24, [facility] V28) Obstructive sleep apnea (adult) (pediatric) Vitamin B deficiency, unspecified Vitamin D deficiency, unspecified BONE DENSITY STUDY Routine 11/14/2020 10 :36 AM EDT half-way (current) use of aromatase inhibitors from Last 3 Months or Most Recently Relevant to Health Maintenance Results * (ABNORMAL) Complete blood count (01/27/2025 5:12 AM EDT) Only the most recent of2 resultswithin the time period is included. WBC 19.2(H) 4.8 - 10.8 K/[facility] LAB HEMETOLOGY METHOD 01/27/2025 10:31 AM [facility] RBC 3.90 3.80 - 4.80 M/mcL LAB HEMETOLOGY METHOD 01/27/2025 10:31 AM [facility] Hemoglobin 13.2 11.5 - 16.0 g/dL LAB HEMETOLOGY METHOD 01/27/2025 10:31 AM [facility] Hematocrit 41.2 35.0 - 47.0 % LAB HEMETOLOGY METHOD 01/27/2025 10:31 AM [facility] MCV 105.1(H) 79.0 - 98.0 FL LAB HEMETOLOGY METHOD 01/27/2025 10:31 AM [facility] MCH 33.7(H) 27.0 - 32.0 pcg LAB HEMETOLOGY METHOD 01/27/2025 10:31 AM [facility] MCHC 32.0 32.0 - 37.0 g/dL LAB HEMETOLOGY METHOD 01/27/2025 10:31 AM [facility] RDW 14.7 11.0 - 15.0 % LAB HEMETOLOGY METHOD 01/27/2025 10:31 AM [facility] Platelets 116(L) 130 - 400 K/mcL LAB HEMETOLOGY METHOD 01/27/2025 10:31 AM [facility] MPV 10.3 7.0 - 11.0 FL LAB HEMETOLOGY METHOD 01/27/2025 10:31 AM [facility] NRBC 0.0 <1.0 % LAB HEMETOLOGY METHOD 01/27/2025 10:31 AM [facility] NRBC Absolute 0.00 <0.10 K/mcL LAB HEMETOLOGY METHOD 01/27/2025 10:31 AM [facility] Blood Venous blood specimen / Unknown Venipuncture / Unknown 01/27/2025 5:12 AM EDT 01/27/2025 10:03 AM EDT us Kierra Russell MD LAB BLOOD ORDERABLES Final Resul t [facility] [address] [place] [address], * (ABNORMAL) Basic metabolic panel (01/27/2025 5:12 AM EDT) Only the most recent of3 resultswithin the time period is included. Sodium 139 133 - 145 mmol/L LAB CHEMISTRY METHOD 01/27/2025 11:48 AM [facility] Potassium 4.0 3.5 - 5.5 mmol/L LAB CHEMISTRY METHOD 01/27/2025 11:48 AM [facility] Comment:Hemolysis present Chloride 102 96 - 110 mmol/L LAB CHEMISTRY METHOD 01/27/2025 11:48 AM [facility] CO2 24 21 - 32 mmol/L LAB CHEMISTRY METHOD 01/27/2025 11:48 AM [facility] Anion Gap 13(H) 3 - 11 LAB CHEMISTRY METHOD 01/27/2025 11:48 AM [facility] Glucose 52(L) 70 - 100 mg/dL LAB CHEMISTRY METHOD 01/27/2025 11:48 AM [facility] BUN 30(H) 5 - 25 mg/dL LAB CHEMISTRY METHOD 01/27/2025 11:48 AM [facility] Creatinine 1.68(H) 0.50 - 1.10 mg/dL LAB CHEMISTRY METHOD 01/27/2025 11:48 AM [facility] eGFR 32(L) >=60 mL/min/1. 73m2 LAB CHEMISTRY METHOD 01/27/2025 11:48 AM [facility] Comment:Calculation based on the Chronic Kidney Disease Epidemiology Collaboration (CKD-EPI) equation refit without adjustment for race. BUN/Creatinine Ratio 17.9 LAB CHEMISTRY METHOD 01/27/2025 11:48 AM EDT [facility] Calcium 8.7 8.5 - 10.5 mg/dL LAB CHEMISTRY METHOD 01/27/2025 11:48 AM EDT [facility] Blood Venous blood specimen / Unknown Venipuncture / Unknown 01/27/2025 5:12 AM EDT 01/27/2025 10:03 AM EDT us Kierra Russell MD LAB BLOOD ORDERABLES Final Resul t Performing Organization Address [facility] Co de Phone Number [facility] [address] [place] [address], [place] [phone] * Hemoglobin A1c (01/15/2025 6:58 AM EDT) Hemoglobin A1C 5.1 <6.5 % LAB CHEMISTRY METHOD 01/15/2025 10:52 AM EDT [facility] Mean Bld Glu Estim. 100 mg/dL LAB CHEMISTRY METHOD 01/15/2025 10:52 AM EDT [facility] Blood Venous blood specimen / Unknown Venipuncture / Unknown 01/15/2025 6:58 AM EDT 01/15/2025 9:00 AM EDT us Kierra Russell MD LAB BLOOD ORDERABLES Final Resul t Performing Organization Address [facility]/ZIP Co de Phone Number [facility] [address] [place] [address], [place] [phone] * BONE DENSITY STUDY (11/14/2020 10:36 AM EDT) Anatomical Region Laterality Modality Bone Densitometr y 11/04/2020 5:06 PM EDT Narrative 11/15/2020 2:35 PM EDT EXAM PERFORMED: Bone density study DEXA EXAM HISTORY: Postmenopausal screening. TECHNIQUE: AMENDIA/A.P Avanashiappa Silk system utilized for DEXA images Comparison: August [...] 1. Lumbar spine: Normal without significant change. Artificially elevated due to sclerosis.. 2. Hip: Normal without statistically significant worsening measuring -4.3%. FRAX 10 year fracture risk: Not calculated due to normal density PLEASE NOTE: 1) The World Health Organization defines low BMD as follows: T-score Normal >/= -1 Osteopenia < -1 and > -2.5 Osteoporosis =/< -2.5 without fractures Established osteoporosis < -2.5 with fractures 2) In general, you may wish to consider: Diagnosis Treatment Follow-up DEXA Normal BMD Prevention 2-3 years Osteopenia Prevention/therapy 1-2 years Osteoporosis Therapy Yearly 3) Fracture risk estimated [...] study DEXA EXAM HISTORY: Postmenopausal screening. TECHNIQUE: AMENDIA/A.P Avanashiappa Silk system utilized for DEXA images Comparison: August [...] MD on 11/15/2020 2:35PM. Workstation Name - MARYAM Brenda Lyons MD IMG DXA PROCEDURES Final Result from Last 3 Months or Most Recently Relevant to Health Maintenance Insurance [employer] Care Teams Hair And Makeup Designer Relationship Specialty Start Date End Date Naima Boyle MD [address] [place] [address] PCP - General Internal Medicine 12/21/21
--- OUTSIDE RECORDS SUMMARY | 2025-04-23 12:36 | XMS_ITS | Encounter Summary ---
Author Organization [facility], Address [address] [place] [address] Phone Care Team Providers Care Database Design Analyst Name Role Phone Florentino Boyle MD Primary Care Provider +1- [phone] Encounter Details Date Type Department Care Team (Late st Contact Info) Description 10/30/2023 Documentation Only [facility], [address] [place] [address] Sherin Rosales [address] [place] [address] Social History Tobacco Use Types [...] on filedocumented in this encounter Care Teams Database Design Analyst Relationship Specialty Start Date End Date Florentino Boyle MD [facility] [place] [address] PCP - General Internal Medicine 09/13/22 documented as of this encounter
--- OUTSIDE RECORDS SUMMARY | 2025-04-23 12:36 | XMS_ITS | Encounter Summary ---
Author Organization [facility] [place], Address [address] [place] [address] Phone Care Team Providers Care Property And Supply Officer Name Role Phone Florentino Boyle MD Primary Care Provider +1- [phone] Encounter Details Date Type Department Care Team (Late st Contact Info) Description 10/30/2023 Documentation Only [facility], [address] [place] [address] Sherin Rosales [address] [place] [address] Social History Tobacco Use Types [...] on filedocumented in this encounter Care Teams Property And Supply Officer Relationship Specialty Start Date End Date Florentino Boyle MD [facility] [place] [address] PCP - General Internal Medicine 09/13/22 documented as of this encounter
--- OUTSIDE RECORDS SUMMARY | 2025-04-23 12:36 | XMS_ITS | Encounter Summary ---
Author Organization [facility] [place], Address [address] [place] [address] Phone Care Team Providers Care Insulation Extruder Operator Name Role Phone Florentino Boyle MD Primary Care Provider +1- [phone] Encounter Details Date Type Department Care Team (Late st Contact Info) Description 09/02/2024 Documentation Only [facility], [address] [place] [address] Sherin Rosales [address] [place] [address] Social History Tobacco Use Types [...] on filedocumented in this encounter Care Teams Insulation Extruder Operator Relationship Specialty Start Date End Date Florentino Boyle MD [facility] [place] [address] PCP - General Internal Medicine 09/13/22 documented as of this encounter
--- OUTSIDE RECORDS SUMMARY | 2025-04-23 12:36 | XMS_ITS | Encounter Summary ---
Author Organization [facility] [place], Address [address] [place] [address] Phone Care Team Providers Care Chopping Machine Operator Name Role Phone Florentino Boyle MD Primary Care Provider +1- [phone] Encounter Details Date Type Department Care Team (Late st Contact Info) Description 09/02/2024 Documentation Only [facility], [address] [place] [address] Sherin Rosales [address] [place] [address] Social History Tobacco Use Types [...] on filedocumented in this encounter Care Teams Chopping Machine Operator Relationship Specialty Start Date End Date Florentino Boyle MD [facility] [place] [address] PCP - General Internal Medicine 09/13/22 documented as of this encounter
--- OUTSIDE RECORDS SUMMARY | 2025-04-23 12:36 | XMS_ITS | Encounter Summary ---
Author Organization [facility] [place], Address [address] [place] [address] Phone Care Team Providers Care Cellular Equipment Installer Name Role Phone Florentino Boyle MD Primary Care Provider +1- [phone] Encounter Details Date Type Department Care Team (Late st Contact Info) Description 02/20/2024 Documentation Only [facility], [address] [place] [address] Sherin Rosales [address] [place] [address] Social History Tobacco Use Types [...] on filedocumented in this encounter Care Teams Cellular Equipment Installer Relationship Specialty Start Date End Date Florentino Boyle MD [facility] [place] [address] PCP - General Internal Medicine 09/13/22 documented as of this encounter
--- OUTSIDE RECORDS SUMMARY | 2025-04-23 12:36 | XMS_ITS | Encounter Summary ---
Author Organization [facility] [place], Address [address] [place] [address] Phone Care Team Providers Care Plastic Die Maker Apprentice Name Role Phone Florentino Boyle MD Primary Care Provider +1- [phone] Encounter Details Date Type Department Care Team (Late st Contact Info) Description 09/02/2024 Documentation Only [facility] [facility], [address] [place] [address] Sherin Rosales [address] [place] [address] Social History Tobacco Use Types [...] on filedocumented in this encounter Care Teams Plastic Die Maker Apprentice Relationship Specialty Start Date End Date Florentino Boyle MD [facility] [place] [address] PCP - General Internal Medicine 09/13/22 documented as of this encounter
--- OUTSIDE RECORDS SUMMARY | 2025-04-23 12:36 | XMS_ITS | Encounter Summary ---
Author Organization [facility] [place], Address [address] [place] [address] Phone Care Team Providers Care Marketing Data Specialist Name Role Phone Florentino Boyle MD Primary Care Provider +1- [phone] Encounter Details Date Type Department Care Team (Late st Contact Info) Description 09/13/2022 Documentation Only [facility], [address] [place] [address] Florentino Boyle MD [address] [place], [place] Social History Tobacco Use Types Packs/Day Years [...] on filedocumented in this encounter Care Teams Marketing Data Specialist Relationship Specialty Start Date End Date Florentino Boyle MD [address] [place] [address] PCP - General Internal Medicine 09/13/22 documented as of this encounter
--- OUTSIDE RECORDS SUMMARY | 2025-04-23 12:36 | XMS_ITS | Encounter Summary ---
Author Organization [facility] [address] Address [address] [place] [address] Care Team Providers Care Distillery Supervisor Name Role Phone Naima Boyle MD Primary Care Provider Encounter Details Date Type Department Care Team (Late st Contact Info) Description 01/27/2025 Lab Requisition [facility] - Main Lab [address] [facility] [place] [address] Kierra Russell MD [address] [place], [place] [id number] Chronic obstructive pulmonary disease, unspecified (CMS/HCC V24, CMS/HCC V28); Type 2 diabetes mellitus without complications (CMS/HCC V24, CMS/HCC V28) Social History Tobacco Use Types Packs/Day Years [...] Associated Diagnosis Comments COMPLETE BLOOD COUNT Routine 01/27/2025 5:12 AM EDT Chronic obstructive pulmonary disease, unspecified (CMS/HCC V24, CMS/HCC V28) Type 2 diabetes mellitus without complications (CMS/HCC V24, CMS/HCC V28) BASIC METABOLIC PANEL Routine 01/27/2025 5:12 AM EDT Chronic obstructive pulmonary disease, unspecified (CMS/HCC V24, CMS/HCC V28) Type 2 diabetes mellitus without complications (CMS/HCC V24, CMS/HCC V28) documented in this encounter Results * (ABNORMAL) Basic metabolic panel (01/27/2025 5:12 AM EDT) Sodium 139 133 - 145 mmol/L LAB CHEMISTRY METHOD 01/27/2025 11:48 AM [facility] Potassium 4.0 3.5 - 5.5 mmol/L LAB CHEMISTRY METHOD 01/27/2025 11:48 AM [facility] Comment:Hemolysis present Chloride 102 96 - 110 mmol/L LAB CHEMISTRY METHOD 01/27/2025 11:48 AM [facility] CO2 24 21 - 32 mmol/L LAB CHEMISTRY METHOD 01/27/2025 11:48 AM [facility] Anion Gap 13(H) 3 - 11 LAB CHEMISTRY METHOD 01/27/2025 11:48 AM [facility] Glucose 52(L) 70 - 100 mg/dL LAB CHEMISTRY METHOD 01/27/2025 11:48 AM [facility] BUN 30(H) 5 - 25 mg/dL LAB CHEMISTRY METHOD 01/27/2025 11:48 AM [facility] Creatinine 1.68(H) 0.50 - 1.10 mg/dL LAB CHEMISTRY METHOD 01/27/2025 11:48 AM [facility] eGFR 32(L) >=60 mL/min/1. 73m2 LAB CHEMISTRY METHOD 01/27/2025 11:48 AM [facility] Comment:Calculation based on the Chronic Kidney Disease Epidemiology Collaboration (CKD-EPI) equation refit without adjustment for race. BUN/Creatinine Ratio 17.9 LAB CHEMISTRY METHOD 01/27/2025 11:48 AM [facility] Calcium 8.7 8.5 - 10.5 mg/dL LAB CHEMISTRY METHOD 01/27/2025 11:48 AM [facility] Blood Venous blood specimen / Unknown Venipuncture / Unknown 01/27/2025 5:12 AM EDT 01/27/2025 10:03 AM EDT us Kierra Russell MD LAB BLOOD ORDERABLES Final Resul t [facility] [address] [place] [address], * (ABNORMAL) Complete blood count (01/27/2025 5:12 AM EDT) [facility] WBC 19.2(H) 4.8 - 10.8 K/mcL LAB HEMETOLOGY METHOD 01/27/2025 10:31 AM EDT [facility] RBC 3.90 3.80 - 4.80 M/mcL LAB HEMETOLOGY METHOD 01/27/2025 10:31 AM EDT [facility] Hemoglobin 13.2 11.5 - 16.0 g/dL LAB HEMETOLOGY METHOD 01/27/2025 10:31 AM EDT [facility] Hematocrit 41.2 35.0 - 47.0 % LAB HEMETOLOGY METHOD 01/27/2025 10:31 AM EDT [facility] MCV 105.1(H) 79.0 - 98.0 FL LAB HEMETOLOGY METHOD 01/27/2025 10:31 AM EDT [facility] MCH 33.7(H) 27.0 - 32.0 pcg LAB HEMETOLOGY METHOD 01/27/2025 10:31 AM EDT [facility] MCHC 32.0 32.0 - 37.0 g/dL LAB HEMETOLOGY METHOD 01/27/2025 10:31 AM EDT [facility] RDW 14.7 11.0 - 15.0 % LAB [facility]OLOGY [facility] Platelets 116(L) 130 - 400 K/mcL LAB HEMETOLOGY METHOD 01/27/2025 10:31 AM EDT [facility] MPV 10.3 7.0 - 11.0 FL LAB HEMETOLOGY METHOD 01/27/2025 10:31 AM EDT [facility] NRBC 0.0 <1.0 % LAB HEMETOLOGY METHOD 01/27/2025 10:31 AM EDT [facility] NRBC Absolute 0.00 <0.10 K/mcL LAB HEMETOLOGY METHOD 01/27/2025 10:31 AM EDT [facility] Blood Venous blood specimen / Unknown Venipuncture / Unknown 01/27/2025 5:12 AM EDT 01/27/2025 10:03 AM EDT us Kierra Russell MD LAB BLOOD ORDERABLES Final Resul t [facility] [address] [place] [address], documented in this encounter Visit Diagnoses Diagnosis Chronic obstructive pulmonary disease, unspecified (CMS/HCC V24, CMS/HCC V28) Type 2 diabetes mellitus without complications (CMS/HCC V24, CMS/HCC V28) documented in this encounter Care Teams Distillery Supervisor Relationship Specialty Start Date End Date Naima Boyle MD [address] [place] [address] PCP - General Internal Medicine 12/21/21 documented as of this encounter
--- OUTSIDE RECORDS SUMMARY | 2025-04-23 12:36 | XMS_ITS | Encounter Summary ---
Author Organization [facility], Address [address] [place] [address] Phone Care Team Providers Care Cheese Processor Name Role Phone Florentino Boyle MD Primary Care Provider +1- [phone] Encounter Details Date Type Department Care Team (Late st Contact Info) Description 10/30/2023 Documentation Only [facility], [address] [place] [address] Sherin Rosales [address] [place] [address] Social History Tobacco Use Types [...] on filedocumented in this encounter Care Teams Cheese Processor Relationship Specialty Start Date End Date Florentino Boyle MD [facility] [place] [address] PCP - General Internal Medicine 09/13/22 documented as of this encounter
--- OUTSIDE RECORDS SUMMARY | 2025-04-23 12:36 | XMS_ITS | Encounter Summary ---
Author Organization [facility], Address [address] [place] [address] Phone Care Team Providers Care Meat Stock Clerk Name Role Phone Florentino Boyle MD Primary Care Provider +1- [phone] Encounter Details Date Type Department Care Team (Late st Contact Info) Description 10/30/2023 Documentation Only [facility], [address] [place] [address] Sherin Rosales [address] [place] [address] Social History Tobacco Use Types [...] on filedocumented in this encounter Care Teams Meat Stock Clerk Relationship Specialty Start Date End Date Florentino Boyle MD [facility] [place] [address] PCP - General Internal Medicine 09/13/22 documented as of this encounter
--- OUTSIDE RECORDS SUMMARY | 2025-04-23 12:36 | XMS_ITS | Encounter Summary ---
Author Organization [facility], Address [address] [place] [address] Phone Care Team Providers Care Fingernail Technician Name Role Phone Florentino Boyle MD Primary Care Provider +1- [phone] Encounter Details Date Type Department Care Team (Late st Contact Info) Description 10/30/2023 Documentation Only [facility], [address] [place] [address] Sherin Rosales [address] [place] [address] Social History Tobacco Use Types [...] on filedocumented in this encounter Care Teams Fingernail Technician Relationship Specialty Start Date End Date Florentino Boyle MD [place] [address] PCP - General Internal Medicine 09/13/22 documented as of this encounter
--- OUTSIDE RECORDS SUMMARY | 2025-04-23 12:36 | XMS_ITS | Encounter Summary ---
Author Organization [facility], Address [address] [place] [address] Phone Care Team Providers Care Crane Operator Cab Name Role Phone Florentino Boyle MD Primary Care Provider +1- [phone] Encounter Details Date Type Department Care Team (Late st Contact Info) Description 11/28/2024 Documentation Only [facility], [address] [place] [address] Sherin Rosales [address] [place] [address] Social History Tobacco Use Types [...] on filedocumented in this encounter Care Teams Crane Operator Cab Relationship Specialty Start Date End Date Florentino Boyle MD [facility] [place] [address] PCP - General Internal Medicine 09/13/22 documented as of this encounter
--- OUTSIDE RECORDS SUMMARY | 2025-04-23 12:36 | XMS_ITS | Encounter Summary ---
Author Organization [facility], Address [address] [place] [address] Phone Care Team Providers Care Php Web Developer Name Role Phone Florentino Boyle MD Primary Care Provider +1- [phone] Encounter Details Date Type Department Care Team (Late st Contact Info) Description 02/20/2024 Documentation Only [facility], [address] [place] [address] Sherin Rosales [address] [place] [address] Social History Tobacco Use Types [...] on filedocumented in this encounter Care Teams Php Web Developer Relationship Specialty Start Date End Date Florentino Boyle MD [facility] [place] [address] PCP - General Internal Medicine 09/13/22 documented as of this encounter
--- OUTSIDE RECORDS SUMMARY | 2025-04-23 12:36 | XMS_ITS | Encounter Summary ---
Author Organization [facility], Address [address] [place] [address] Phone Care Team Providers Care Print Washer Name Role Phone Florentino Boyle MD Primary Care Provider +1- [phone] Encounter Details Date Type Department Care Team (Late st Contact Info) Description 11/28/2023 Documentation Only [facility], [address] [place] [address] Sherin Rosales [address] [place] [address] Social History Tobacco Use Types [...] on filedocumented in this encounter Care Teams Print Washer Relationship Specialty Start Date End Date Florentino Boyle MD [place] [address] PCP - General Internal Medicine 09/13/22 documented as of this encounter
--- OUTSIDE RECORDS SUMMARY | 2025-04-23 12:36 | XMS_ITS | Encounter Summary ---
Author Organization [facility] Address [address] [place] [address] Care Team Providers Care Market Analysis Director Name Role Phone Naima Boyle MD Primary Care Provider Encounter Details Date Type Department Care Team (Late st Contact Info) Description 01/23/[address] [facility] - Main Lab [address] [facility] [place] [address] Kierra Russell MD [address] [place], [place] [id number] Type 2 diabetes mellitus without complications (CMS/HCC V24, CMS/HCC V28); Fatigue fracture of vertebra, thoracic region, initial encounter for fracture; Obstructive sleep apnea (adult) (pediatric); Vitamin D deficiency, unspecified; Vitamin B deficiency, unspecified Social History Tobacco Use Types [...] Associated Diagnosis Comments COMPLETE BLOOD COUNT Routine 01/24/2025 5:28 AM EDT Type 2 diabetes mellitus without complications (CMS/HCC V24, CMS/HCC V28) Fatigue fracture of vertebra, thoracic region, initial encounter for fracture Obstructive sleep apnea (adult) (pediatric) Vitamin D deficiency, unspecified Vitamin B deficiency, unspecified BASIC METABOLIC PANEL Routine 01/24/2025 5:28 AM EDT Type 2 diabetes mellitus without complications (CMS/HCC V24, CMS/HCC V28) Fatigue fracture of vertebra, thoracic region, initial encounter for fracture Obstructive sleep apnea (adult) (pediatric) Vitamin D deficiency, unspecified Vitamin B deficiency, unspecified documented in this encounter Results * (ABNORMAL) Basic metabolic panel (01/24/2025 5:28 AM EDT) Sodium 138 133 - 145 mmol/L LAB CHEMISTRY METHOD 01/24/2025 10:00 AM [facility] Potassium 3.6 3.5 - 5.5 mmol/L LAB CHEMISTRY METHOD 01/24/2025 10:00 AM [facility] Chloride 101 96 - 110 mmol/L LAB CHEMISTRY METHOD 01/24/2025 10:00 AM [facility] CO2 29 21 - 32 mmol/L LAB CHEMISTRY METHOD 01/24/2025 10:00 AM [facility] Anion Gap 8 3 - 11 LAB CHEMISTRY METHOD 01/24/2025 10:00 AM [facility] Glucose 73 70 - 100 mg/dL LAB CHEMISTRY METHOD 01/24/2025 10:00 AM [facility] BUN 31(H) 5 - 25 mg/dL LAB CHEMISTRY METHOD 01/24/2025 10:00 AM [facility] Creatinine 1.34(H) 0.50 - 1.10 mg/dL LAB CHEMISTRY METHOD 01/24/2025 10:00 AM [facility] eGFR 42(L) >=60 mL/min/1. 73m2 LAB CHEMISTRY METHOD 01/24/2025 10:00 AM [facility] Comment:Calculation based on the Chronic Kidney Disease Epidemiology Collaboration (CKD-EPI) equation refit without adjustment for race. BUN/Creatinine Ratio 23.1 LAB CHEMISTRY METHOD 01/24/2025 10:00 AM [facility] Calcium 8.7 8.5 - 10.5 mg/dL LAB CHEMISTRY METHOD 01/24/2025 10:00 AM EDT [facility] Blood Venous blood specimen / Unknown Venipuncture / Unknown 01/24/2025 5:28 AM EDT 01/24/2025 8:29 AM EDT us Kierra Russell MD LAB BLOOD ORDERABLES Final Resul t [facility] [address] [place] [address], * (ABNORMAL) Complete blood count (01/24/2025 5:28 AM EDT) WBC 12.0(H) 4.8 - 10.8 K/mcL LAB HEMETOLOGY METHOD 01/24/2025 10:18 AM [facility] RBC 4.10 3.80 - 4.80 M/mcL LAB HEMETOLOGY METHOD 01/24/2025 10:18 AM T [facility] Hemoglobin 13.6 11.5 - 16.0 g/dL LAB HEMETOLOGY METHOD 01/24/2025 10:18 AM T [facility] Hematocrit 42.2 35.0 - 47.0 % LAB HEMETOLOGY METHOD 01/24/2025 10:18 AM [facility] MCV 103.9(H) 79.0 - 98.0 FL LAB HEMETOLOGY METHOD 01/24/2025 10:18 AM EDT [facility] MCH 33.5(H) 27.0 - 32.0 pcg LAB HEMETOLOGY METHOD 01/24/2025 10:18 AM EDT [facility] MCHC 32.2 32.0 - 37.0 g/dL LAB HEMETOLOGY METHOD 01/24/2025 10:18 AM [facility] RDW 14.3 11.0 - 15.0 % LAB HEMETOLOGY METHOD 01/24/2025 10:18 AM EDT [facility] Platelets 126(L) 130 - 400 K/mcL LAB HEMETOLOGY METHOD 01/24/2025 10:18 AM EDT [facility] MPV 10.2 7.0 - 11.0 FL LAB HEMETOLOGY METHOD 01/24/2025 10:18 AM EDT [facility] NRBC 0.0 <1.0 % LAB HEMETOLOGY METHOD 01/24/2025 10:18 AM EDT [facility] NRBC Absolute 0.00 <0.10 K/mcL LAB HEMETOLOGY METHOD 01/24/2025 10:18 AM EDT [facility] Blood Venous blood specimen / Unknown Venipuncture / Unknown 01/24/2025 5:28 AM EDT 01/24/2025 8:29 AM EDT us Kierra Russell MD LAB BLOOD ORDERABLES Final Resul t [facility] [address] [place] [address], documented in this encounter Visit Diagnoses Diagnosis Type 2 diabetes mellitus without complications (CMS/HCC V24, CMS/HCC V28) Fatigue fracture of vertebra, thoracic region, initial encounter for fracture Obstructive sleep apnea (adult) (pediatric) Vitamin D deficiency, unspecified Vitamin B deficiency, unspecified documented in this encounter Care Teams Market Analysis Director Relationship Specialty Start Date End Date Naima Boyle MD [address] [place] [address] PCP - General Internal Medicine 12/21/21 documented as of this encounter
--- OUTSIDE RECORDS SUMMARY | 2025-04-23 12:36 | XMS_ITS | Encounter Summary ---
Author Organization [facility] Address [address] [place] [address] Care Team Providers Care Contact Representative Name Role Phone Naima Boyle MD Primary Care Provider Encounter Details Date Type Department Care Team (Late st Contact Info) Description 01/30/2025 Lab Requisition [facility] - Main Lab 299 [facility] [place] [address] Kierra Russell MD [address] [place], [place] [id number] Type 2 diabetes mellitus without complications (CMS/HCC [...] documented as of this encounter Visit Diagnoses Diagnosis Type 2 diabetes mellitus without complications (CMS/HCC V24, CMS/HCC V28) Fatigue fracture of vertebra, thoracic region, initial encounter for fracture Obstructive sleep apnea (adult) (pediatric) Vitamin B deficiency, unspecified Vitamin D deficiency, unspecified documented in this encounter Care Teams Contact Representative Relationship Specialty Start Date End Date Naima Boyle MD [address] [place] [address] PCP - General Internal Medicine 12/21/21 documented as of this encounter
--- OUTSIDE RECORDS SUMMARY | 2025-04-23 12:36 | XMS_ITS | Clinical Summary ---
Author Organization [facility] Address [address] [place] [address] Care Team Providers Care Plc Controls Engineer Name Role Phone Naima Boyle MD Primary Care Provider +1 -[phone] Allergies Active Allergy Reactions Criticality Noted Date Comments Iodinated Contrast Media 11/27/2014 Seafood 11/24/2014 Medications Medication Sig Dispensed Refills Start Date End Date Status Blood Glucose Monitoring Suppl (FREESTYLE FREEDOM LITE) W/DEVICE KIT FreeStyle [place] Lite w/Device Kit Refills: 0 Betsy Ernandez [...] pe 2 diabetes mellitus without complication, unspecified half-way insulin use status Use as instructed daily. [...] hyperglycemia, without long-term current use of insulin ([facility]) Use to test blood sugar 4 [...] hyperglycemia, without long-term current use of insulin ([facility]) TAKE 1 TABLET 3 TIMES DAILY [...] Advance Directives For more information, please contact: [phone] Documents on File Type Date Recorded Patient Body Mechanic Expl anation Advance Directive and Living Will 10/18/2018 2:47 PM Care Teams Plc Controls Engineer Relationship Specialty Start Date End Date Naima Boyle MD [address] [place] [address] PCP - General Internal Medicine 12/21/21
--- OUTSIDE RECORDS SUMMARY | 2025-04-23 12:36 | XMS_ITS | Encounter Summary ---
Author Organization [facility] Address [address] [place] [address] Care Team Providers Care Manager Government Name Role Phone Naima Boyle MD Primary Care Provider Encounter Details Date Type Department Care Team (Late st Contact Info) Description 01/22/[address] [facility] - Main Lab 299 [facility] [place] [address] Kierra Russell MD [address] [place] [address] Hypokalemia Social History Tobacco Use Types Packs/Day [...] Associated Diagnosis Comments BASIC METABOLIC PANEL Routine 01/22/2025 5:49 AM EDT Hypokalemia documented in this encounter Results * (ABNORMAL) Basic metabolic panel (01/22/2025 5:49 AM EDT) Sodium 140 133 - 145 mmol/L LAB CHEMISTRY METHOD 01/22/2025 9:41 AM EDT [facility] Potassium 3.6 3.5 - 5.5 mmol/L LAB CHEMISTRY METHOD 01/22/2025 9:41 AM EDT [facility] Chloride 101 96 - 110 mmol/L LAB CHEMISTRY METHOD 01/22/2025 9:41 AM [facility] CO2 31 21 - 32 mmol/L LAB CHEMISTRY METHOD 01/22/2025 9:41 AM [facility] Anion Gap 8 3 - 11 LAB CHEMISTRY METHOD 01/22/2025 9:41 AM [facility] Glucose 86 70 - 100 mg/dL LAB CHEMISTRY METHOD 01/22/2025 9:41 AM [facility] BUN 26(H) 5 - 25 mg/dL LAB CHEMISTRY METHOD 01/22/2025 9:41 AM [facility] Creatinine 1.53(H) 0.50 - 1.10 mg/dL LAB CHEMISTRY METHOD 01/22/2025 9:41 AM [facility] eGFR 36(L) >=60 mL/min/1. 73m2 LAB CHEMISTRY METHOD 01/22/2025 9:41 AM [facility] Comment:Calculation based on the Chronic Kidney Disease Epidemiology Collaboration (CKD-EPI) equation refit without adjustment for race. BUN/Creatinine Ratio 17.0 LAB CHEMISTRY METHOD 01/22/2025 9:41 AM [facility] Calcium 8.4(L) 8.5 - 10.5 mg/dL LAB CHEMISTRY METHOD 01/22/2025 9:41 AM [facility] Blood Venous blood specimen / Unknown Venipuncture / Unknown 01/22/2025 5:49 AM EDT 01/22/2025 8:44 AM EDT us Kierra Russell MD LAB BLOOD ORDERABLES Final Resul t [facility] [address] [place] [address], documented in this encounter Visit Diagnoses Diagnosis Hypokalemia Hypopotassemia documented in this encounter Care Teams Manager Government Relationship Specialty Start Date End Date Naima Boyle MD [address] [facility] [place] [address] PCP - General Internal Medicine 12/21/21 documented as of this encounter
--- OUTSIDE RECORDS SUMMARY | 2025-04-23 12:36 | XMS_ITS | Clinical Summary ---
Author Organization [facility], Address [address] [place] [address] Phone Care Team Providers Care Lead Sales Consultant Name Role Phone Florentino Boyle MD Primary Care Provider +1- [phone] Allergies Active Allergy Reactions Criticality Noted Date [...] Calculus of kidney 11/10/2022 Hypertension 11/10/2022 Immunizations Immunization Administration Dates Next Due Influenza, [...] Mass Index - - Plan of Treatment Health Maintenance Due Date Last Done Comments Breast Cancer Screening 1950 Colorectal Cancer Screening: Annual FOBT 09/10/2000 Colorectal Cancer Screening: Colonoscopy 09/10/2000 Colorectal Cancer Screening: Sigmoidoscopy 09/10/2000 Pneumococcal Vaccine: 50+ Years (3 of 3 - PCV20 or PCV21) 04/23/2018 12/16/2016, 04/23/2013 Diabetes: Hemoglobin A1C 10/06/2022 Diabetes: Ophthalmology Exam 10/06/2022 Diabetes: Pedal Pulse Checked 10/06/2022 Diabetes: Sensory Foot Exam 10/06/2022 Diabetes: Visual Foot Exam 10/06/2022 Influenza Vaccine (#1) 2025 2, 05/12/2021, 04/08/2019, Additional history exists Hepatitis B Vaccine Aged Out No longe r eligible based on patient's age to complete this topic Insurance [employer] [facility] Adv PPO ([id number]) [employer] Medicare Care Teams Lead Sales Consultant Relationship Specialty Start Date End Date Florentino Boyle MD [address] [place] [address] PCP - General Internal Medicine 09/13/22
--- OUTSIDE RECORDS SUMMARY | 2025-04-23 12:36 | XMS_ITS | Clinical Summary ---
Author Organization [facility] Address [address] [place] [address] Care Team Providers Care Residential Carpenter Name Role Phone Unavailable Primary Care Provider Unavailabl e Social History Tobacco Use Types Packs/Day Years Used Date Smoking Tobacco: Never Assessed Comments Unknown Sex and Gender Information Value Date Recorded Sex Assigned at Not on file Legal Sex Female 12:41 PM EDT Gender Identity Not on file Sexual Orientation Not on file Plan of Treatment Health Maintenance Due Date Last Done Comments Advance Care Planning 1950 Hepatitis C Virus Screening 1950 DTaP/Tdap/Td Vaccines (1 - Tdap) 09/10/1970 Pneumococcal Vaccines 50+ (1 of 1 - PCV) 09/10/2001 Zoster (Shingles) Vaccine (1 of 2) 09/10/2001 COVID-19 Vaccine ( - 2023-2 5 season) 2025 RSV Vaccine 50 years and old er and Patients (1 - 1-dose 75+ series) 09/10/2026 Hepatitis B Vaccines Aged Out No long er eligible based on patient's age to complete this topic
--- OUTSIDE RECORDS SUMMARY | 2025-04-23 12:36 | XMS_ITS | Encounter Summary ---
Author Organization [facility], Address [address] [place] [address] Phone Care Team Providers Care Public Relations Sales Marketing Name Role Phone Florentino Boyle MD Primary Care Provider +1- [phone] Encounter Details Date Type Department Care Team (Late st Contact Info) Description 09/02/2024 Documentation Only [facility], [address] [place] [address] Sherin Rosales [address] [place] [address] Social History Tobacco Use Types [...] on filedocumented in this encounter Care Teams Public Relations Sales Marketing Relationship Specialty Start Date End Date Florentino Boyle MD [facility] [place] [address] PCP - General Internal Medicine 09/13/22 documented as of this encounter
--- OUTSIDE RECORDS SUMMARY | 2025-04-23 12:36 | XMS_ITS | Encounter Summary ---
Author Organization [facility], Address [address] [place] [address] Phone Care Team Providers Care Head Track Coach Name Role Phone Florentino Boyle MD Primary Care Provider [phone]- [phone] Encounter Details Date Type Department Care Team (Late st Contact Info) Description 10/30/2023 Documentation Only [facility], [address] [place] [address] Sherin Rosales [address] [place] [address] Social History Tobacco Use Types [...] filedocumented in this encounter Care Teams Head Track Coach Relationship Specialty Start Date End Date Florentino Boyle MD [facility] [place] [address] PCP - General Internal Medicine 09/13/22 documented as of this encounter
--- OUTSIDE RECORDS SUMMARY | 2025-04-23 12:36 | XMS_ITS | Encounter Summary ---
Author Organization [facility], Address [address] [place] [address] Phone Care Team Providers Care Tripoler Name Role Phone Florentino Bolye MD Primary Care Provider [phone]- [phone] Encounter Details Date Type Department Care Team (Late st Contact Info) Description 10/30/2023 Documentation Only [facility], [address] [place] [address] Sherin Rosales [address] [place] [address] Social History Tobacco Use Types [...] on filedocumented in this encounter Care Teams Tripoler Relationship Specialty Start Date End Date Florentino Boyle MD [facility] [place] [address] PCP - General Internal Medicine 09/13/22 documented as of this encounter
--- OUTSIDE RECORDS SUMMARY | 2025-04-23 12:36 | XMS_ITS | Encounter Summary ---
Author Organization [facility], Address [address] [place] [address] Phone Care Team Providers Care Floor Associate Name Role Phone Florentino Boyle MD Primary Care Provider [phone]- [phone] Encounter Details Date Type Department Care Team (Late st Contact Info) Description 09/13/2022 Documentation Only [facility], [address] [place] [address] Florentino Boyle MD [address] [place], [place] Social History Tobacco Use Types Packs/Day [...] on filedocumented in this encounter Care Teams Floor Associate Relationship Specialty Start Date End Date Florentino Byole MD [address] [place] [address] PCP - General Internal Medicine 09/13/22 documented as of this encounter
== END 2025-04-23 10:36 | disposition home or self-care (01) ==
LOC: HO.MAMMO 10:35
PROVIDERS: PCP Internal Medicine; Visit Provider Internal Medicine
DX: Z13.820 Encounter for screening for osteoporosis (principal); S22.009A Unspecified fracture of unspecified thoracic vertebra, initial encounter for closed fracture
CPT/HCPCS: 77080

== ENCOUNTER → 2025-05-05 10:43 | Outpatient (REF) | payer MEDICARE, SELFPAY ==
--- NOTE | 2025-05-05 10:50 | CA_ITS ---
Transthoracic Echocardiogram Patient (Last, First, Middle): Coco Sexton A Gender: Female Date of : 1950 Age: 74 Procedure Date: 05/05/2025 Procedure Type: Transthoracic Echocardiogram Location: OP Height: 152.4 cm Weight: 103.87 kg BSA: 1.98 m2 Heart Rate: 91 bpm BP: 124 / 70 mmHg Group Counselor: SB Referring MD: Nicanor Melendez MD Symptoms: I50.9 - Heart failure, unspecified Study Quality: Adequate w contrast/supine/HOB up/SOB ECG Rhythm: Sinus Conclusions: - The left ventricular systolic function is normal. The visually estimated ejection fraction is between 60-65%. - There is moderate mitral annular calcification. Findings Procedure Information Contrast agent, definity, is being given per protocol without apparent complications. The quality of the study was technically difficult. The study quality is limited by patients body habitus and lung artifact. Left Ventricle Normal left ventricular cavity size. There is normal left ventricular wall thickness. The left ventricular systolic function is normal. The visually estimated ejection fraction is between 60-65%. There is no evidence of regional wall motion abnormalities. Diastolic function is normal for age. Right Ventricle The right ventricle was not well visualized. There is normal right ventricular systolic function. Atria Both atria are normal in size. Aortic Valve The aortic valve was not well visualized. There is no aortic valve stenosis. There is no aortic valve regurgitation. Mitral Valve There is moderate mitral annular calcification. There is no mitral valve regurgitation. There is no mitral valve stenosis. Pulmonic Valve The pulmonic valve is likely normal. Tricuspid Valve There is no tricuspid valve regurgitation. Tricuspid regurgitation envelope is inadequate for calculation of right ventricular systolic pressure. Great Vessels The asc aorta and aortic arch are normal in size. Venous The inferior vena cava is normal in size and collapses greater than 50% with inspiration. Pericardium/Pleural There is no evidence of pericardial effusion. Prior Study Comparison No prior study available for comparison. Measurements 2D Linear Measurements IVSd: 0.69 0.6-0.9/0.6-1.0 cm LVIDd: 5.68 3.9-5.3/4.2-5.9 cm LVIDd Index: 2.87 2.4-3.2/2.2-3.1 cm/m2 LVIDs: 3.84 2.0-3.6 cm LVPWd: 0.67 0.7-1.1 cm LA Diam: 3.60 2.7-3.8/3.0-4.0 cm LAIDs Index: 1.82 1.5-2.3 cm/m2 LV Mass: 171.21 67-162/88-224 g LV Mass Index: 86.47 43-95/49-115 g/m2 LVOT Diam: 2.10 3.0+(-)1.3 cm 2D Systolic Function EF 4C: 68.40 >55% EF 2C: 71.70 >55% EF BiP: 69.90 >55% Mitral Valve MV Pk E: 1.00 MV PK A: 1.03 MV Decel Time: 181.00 E/A: 1.00 E'Lateral: 7.07 E'Medial: 7.18 E/E' Med: 13.90 E/E' Lat: 14.10 PHT: 53.00 MVA PHT: 4.15 Decel [place]: 5.52 Aortic Valve AoV Pk Jani: 1.58 AoV Mn Jani: 1.05 AoV VTI: 0.30 AoV Pk Grad: 10.00 Aov Mn Grad: 5.00 NANDO Cont.VTI: 1.94 LVOT LVOT Pk Jani: 0.90 LVOT Mn Jani: 0.61 LVOT VTI: 0.17 LVOT Pk Grad: 3.00 LVOT Mn Grad: 2.00 LVOT Diam: 2.10 LVOT Area: 3.46 Diastolic Function MV Pk E: 1.00 MV Pk A: 1.03 E/A: 1.00 E'Medial: 7.18 E/E' Med: 13.90 E' Laterial: 7.07 E/E' Lat: 14.10 Right Ventricle TAPSE (mm): 28.20 Tricuspid Valve RA Press: 3.00 Great Vessels Aorta Sinus of Valsalva: 3.40 2.0-3.5 cm Ao Asc: 3.20 2.1-3.4 cm Ao Arch: 2.10 Pulmonary Veins Pulm Vein S/D 1.70 Updated in Other Vendor System with Status of Final Siddhartha Conner MD electronically signed on 05/06/2025 4:38:42 PM with status of Final
--- OUTSIDE RECORDS SUMMARY | 2025-05-05 13:10 | XMS_ITS | Clinical Summary ---
Author Organization [facility] Address [address] [place] [address] Care Team Providers Care Usability Specialist Name Role Phone Unavailable Primary Care Provider [...]
--- OUTSIDE RECORDS SUMMARY | 2025-05-05 13:10 | XMS_ITS | Clinical Summary ---
Author Organization [facility] Address [address] [place] [address] Care Team Providers Care White Metal Corrosion Proofer Name Role Phone Naima Boyle MD Primary Care Provider +1 -[phone] Allergies Active Allergy Reactions Criticality Noted Date Comments Iodinated Contrast Media 11/27/2014 Seafood 11/24/2014 Medications Medication Sig Dispensed Refills Start Date End Date Status Blood Glucose Monitoring Suppl (FREESTYLE FREEDOM LITE) W/DEVICE KIT FreeStyle [place] Lite w/Device Kit Refills: 0 Betsy Ernandez [...] hyperglycemia, without long-term current use of insulin ([facility]) Use to test blood sugar [...] hyperglycemia, without long-term current use of insulin ([facility]) TAKE 1 TABLET 3 TIMES [...] Advance Directives For more information, please contact: [phone] Documents on File Type Date Recorded Patient Bait Man Expl anation Advance Directive and Living Will 10/18/2018 2:47 PM Care Teams White Metal Corrosion Proofer Relationship Specialty Start Date End Date Naima Boyle MD [address] [place] [address] PCP - General Internal Medicine 12/21/21
== END ==
LOC: HO.CARD 10:43
PROVIDERS: PCP Internal Medicine; Visit Provider Internal Medicine Cardiovascular Disease
DX: Z13.89 Encounter for screening for other disorder (principal)
CPT/HCPCS: 93306; Q9957

== ENCOUNTER 2025-05-05 12:19 | Emergency (ER) | payer MEDICARE, SELFPAY ==
--- NOTE | ~2025-05-05 | CT_ITS ---
EXAMINATION: CT ABDOMEN AND PELVIS WITHOUT CONTRAST CLINICAL INFORMATION: abd pain, dry heaves, bloated COMPARISON: 08/31/2021 TECHNIQUE: Multidetector volumetric imaging was performed from the superior aspect of the liver through the pubic symphysis. Sagittal and coronal reformatted images were obtained on the technologist's workstation. This CT examination was performed using dose optimization techniques as appropriate, variously including the following: *Automated exposure control *Adjustment of mA and/or kV according to patient size (this includes techniques or standardized protocols for targeted exams where dose is matched to indication/reason for exam; i.e. extremities or head) *Use of iterative reconstruction technique FINDINGS: LUNG BASES: The visualized lung bases are unremarkable. LIVER, GALLBLADDER, AND BILIARY TREE: Contour the liver is scalloped, increased since the prior. There is enlargement of the left hepatic lobe. The gallbladder surgically absent. There are clips in the gallbladder fossa. PANCREAS: There is mild fat stranding in the region of the pancreatic head and uncinate process. SPLEEN: Prominent collateral vessels are noted in the region of the medial spleen, left kidney, and this curvature of the stomach. The spleen is enlarged measuring 15.3 cm superior-inferior, similar to the prior. ADRENAL GLANDS: Margins of the left adrenal gland are obscured lienorenal collateral vessels . No gross adrenal nodule is identified. KIDNEYS AND URETERS: Simple cysts are seen in the lower left kidney. The right kidney demonstrates cortical thinning with multifocal calcific density in the lower pole, likely dystrophic in nature. There are also multiple punctate nonobstructive stones in the right kidney. BLADDER: Unremarkable. GASTROINTESTINAL TRACT: There is normal thickening of the wall of the descending duodenum at Junction with the fourth segment. There is also mild fat stranding in this region. Appendix is not clearly visualized. ABDOMINAL WALL: Again noted is a hernia in the epigastric region containing adipose tissue, likely greater omentum, 12 cm wide. Hernia sac is similar to the past study. There is a second ventral herniation just caudal to the aforementioned containing a small amount of adipose tissue, also likely greater omentum. There is a third hernia in the right periumbilical region containing vascularized adipose tissue with, similar to the prior hernia sac size is essentially unchanged, passing through a 13 mm wide area of dehiscence in the lower linea alba. The hernia sac measures 9 cm wide. LYMPH NODES: There are shotty retroperitoneal nodes without clear adenopathy. VASCULAR: Multifocal vascular calcifications are present. PELVIC VISCERA: Unremarkable. OSSEOUS STRUCTURES: Dextroscoliosis and degenerative disc disease with facet osteoarthritis has mildly progressed since the prior. Severe osteoarthritis is present in the left hip joint and degenerative changes in the right hip are mild. CT/CT abdomen pelvis wo IV con IMPRESSION: There appears to be mild thickening of the duodenum at the junction of the descending part and the horizontal fourth segment with adjacent mild fat stranding. This could be related to peptic ulcer disease or pancreatitis. Correlate with symptoms and laboratory analysis. 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 Severe left hip osteoarthritis has progressed since the prior. Moderate to severe degenerative disc disease and facet osteoarthritis is minimally progressed since the prior. Multiple ventral hernias and right paraumbilical hernia are similar to the prior. Right renal thinning with dystrophic calcification and probable multiple small stones. Fleischner guidelines were followed. Electronically signed by: Timmy Courtney MD 05/05/2025 03:43 PM EDT
--- NOTE | 2025-05-05 12:32 | ED.GENADULT ---
HPI - General Adult General Chief complaint: Abdominal Pain Stated complaint: stomach pain Time Seen by Provider: 05/05/25 13:29 Source: patient, family and old records reviewed Mode of arrival: ambulatory Limitations: no limitations History of Present Illness ED Provider: BAKARI RICH narrative: 74 yo female with PMH of CHF, cirrhosis, venous insufficiency, renal colic, constipation, UTI, RA, DM, HTN, COPD on 2L NC, DVT, ex lap in past with hx of cholecystectomy, ventral hernia, appendectomy, who presents with c/o nausea, bloating, dry heaving and dysuria. No fevers, no increased swelling, no chest pain. She has had a BM and has passed gas. She was sent here from [facility] and after reporting she did not feel well. She states she wished she could throw up but she hasn't. She reports hx of this in past. She does not want any CT scan contrast. MD complaint: abd pain, distention, dysuria Onset (ago): day(s) (3) Location: abdomen Radiation: non-radiation Severity: moderate Quality: aching Pain Consistency: intermittent Relieving factors: none Exacerbating factors: other Associated symptoms: loss of appetite, malaise, nausea/vomiting and other Treatments prior to arrival: none Related Data Home Medications ?Medication ?Instructions ?Recorded ?Confirmed albuterol sulfate 2.5 mg/3 mL mg inhalation 07/29/20 02/28/25 (0.083 %) solution for nebulization albuterol sulfate 90 mcg/actuation 0 mcg inhalation 07/29/20 02/28/25 aerosol inhaler anastrozole 1 mg tablet 1 mg PO DAILY 07/29/20 02/28/25 fluticasone fur. 100 mcg-umeclid 1 ea inhalation QAM 07/29/20 02/28/25 62.5 mcg-vilant 25 mcg inhalat.powder lancets 33 gauge #100 ea 07/29/20 02/28/25 montelukast 10 mg tablet 10 mg PO DAILY 07/29/20 02/28/25 mupirocin 2 % topical ointment 1 appl topical TID 05/06/21 02/28/25 fluticasone propionate 50 spray intranasal 09/06/21 02/28/25 mcg/actuation nasal spray,suspension ipratropium 0.5 mg-albuterol 3 mg ml inhalation 05/04/23 02/28/25 (2.5 mg base)/3 mL nebulization soln cetirizine 10 mg tablet (All Day 10 mg PO DAILY PRN 09/08/23 02/28/25 Allergy (cetirizine)) pantoprazole 40 mg tablet,delayed 40 mg PO DAILY 09/08/23 02/28/25 release insulin lispro 100 unit/mL 10 unit subcut TID PRN 03/18/24 02/28/25 subcutaneous pen (Humalog KwikPen (U-100) Insulin) vibegron 75 mg tablet (Gemtesa) 75 mg PO DAILY 03/18/24 02/28/25 Previous Rx's ?Medication ?Instructions ?Recorded blood-glucose meter (OneTouch ##1 08/23/22 Verio Flex Meter) pen needle, diabetic 32 gauge x #100 ea 03/04/24 (BD Theodora 2nd Gen Pen Needle) paroxetine HCl 40 mg tablet 40 mg PO QAM #90 tabs 03/20/24 lisinopril 5 mg tablet 5 mg PO DAILY #90 tabs 05/20/24 blood sugar diagnostic (OneTouch #100 strips 08/14/24 Verio test strips) nystatin-triamcinolone 100,000 1 appl topical DAILY 7 days #60 11/20/24 unit/gram-0.1 % topical ointment grams furosemide 20 mg tablet 20 mg PO ONCE PRN edema #30 tabs 12/24/24 blood-glucose sensor (Dexcom G7 #3 ea 01/13/25 Sensor device) minocycline 100 mg capsule 100 mg PO BID #180 caps 01/31/25 oxycodone 5 mg tablet 5 mg PO BID PRN pain, moderate #20 02/10/25 tabs semaglutide 2 mg/dose (8 mg/3 mL) 2 mg (0.75 mL) subcut QWEEK #3 mL 03/24/25 subcutaneous pen injector (Ozempic) omeprazole 20 mg capsule,delayed 20 mg PO DAILY 14 days #14 caps 05/05/25 release Allergies Allergy/AdvReac Type Severity Reaction Status Date / Time nickel Allergy Mild Rash Verified 05/05/25 12:36 abatacept (From Orencia) AdvReac Severe shingles Verified 05/05/25 12:36 injection of steriods Allergy Unknown rash Uncoded 05/05/25 12:36 iodine Allergy Unknown anaphylaxis Uncoded 05/05/25 12:36 wool Allergy Unknown rash Uncoded 05/05/25 12:36 Review of Systems Review of Systems: Constitutional : No Weight loss, No Fever, No Chills ENT/Mouth : No sore throat, No Rhinorrhea Eyes: No Swelling, No Redness Cardiovascular : No Chest Pain, No SOB, NoEdema Respiratory : No Cough, No Sputum, No Wheezing Gastrointestinal : Positive Nausea, no Vomiting, no Diarrhea, positive abdominal Pain, No Hematochezia, No Melena Genitourinary : pos Dysuria, No Urinary Frequency, No Hematuria, No Urgency Musculoskeletal : No joint pain, No Myalgias, No Joint Swelling Skin : No Skin Lesions, No rash Neuro : No Weakness, No Numbness, No Dizziness, No Headache All other systems reviewed and are negative. [facility] Past Medical History Attestation statement: The following information was validated with the patient. 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, with long-term current use of insulin Rheumatoid arthritis Morbid obesity Urge and stress incontinence History of invasive breast cancer MAYA on CPAP COPD (chronic obstructive pulmonary disease) Surgical History History of shoulder replacement Hx of cataract extraction Hx of umbilical hernia repair Hx of discectomy Hx of mastectomy Hx of cholecystectomy History of appendectomy Social History Social History Housing: Condominium Patient Tobacco Use Status: Former Tobacco user Years Smoked: 30 yrs Smoked in Last 30 Days: No e-Cigarette/Vaping Use: Never Used Second Hand Smoke Exposure: No Use of substances other than those prescribed or required for medical reasons: No Advance Directives: Yes Advance Directives on File: Yes Advance Directives Date on File: 02/10/25 service: No Current occupational status: disabled Cognitive needs: No Hearing needs: No Vision needs: Yes Physical Exam ED Vital Signs: Vital Signs - 24 hr 05/05/25 12:33 05/05/25 14:19 05/05/25 16:20 Temperature 98.3 F 97.4 F Pulse Rate 87 90 90 Respiratory Rate 20 16 18 Blood Pressure 156/72 H 179/73 H 166/74 H Pulse Oximetry 99 100 100 Oxygen Delivery Method Nasal Cannula Nasal Cannula Nasal Cannula Oxygen Flow Rate 2 1 05/05/25 18:10 Temperature Pulse Rate 91 Respiratory Rate 18 Blood Pressure 152/70 H Pulse Oximetry 95 Oxygen Delivery Method Room Air Oxygen Flow Rate BMI result Body Mass Index 39.7 Appearance: Alert. Oriented X3. No acute distress. Eyes: Pupils equal, round and reactive to light. ENT: Pharynx normal. Neck: Normal inspection. Neck supple. CVS: Normal heart rate and rhythm. Pulses normal. Respiratory: No respiratory distress. Breath sounds normal. Abdomen: Soft and with mild distention I can feel 2 soft ventral hernia - no pain and no discoloration Skin: Skin warm and dry. Normal skin color. Extremities: symmetric 1-2+ pitting edema with chronic dark hyperpigmentation Neuro: Oriented X 3. No motor deficit. No sensory deficit. CN2-12 intact Course Course Course Narrative: Rapid medical examination performed in triage by Yoko Jordan PA-C. Patient is a 74 year old assigned female at presenting to the emergency department with abdominal pain and dry heaving. Detailed physical exam and review of systems are deferred to the retail greeter. EKG, labs, and swabs ordered. Patient placed back in the waiting room pending room availability and results. Patient has a history of COPD and is on baseline oxygen via NC. Reevaluation(s) Reevaluation #1: signed out to Dr. Castellano pending UA, lipase, PO challenge Medications Administered Discontinued Medications Generic Name Dose Route Start Last Admin Trade Name Freq PRN Reason Stop Dose Admin Al Hydroxide/Mg Hydroxide 30 ml 05/05/25 17:33 05/05/25 17:40 Magnesium Hydrox/Alum Hydrox 30 Ml Oral.Susp PO 05/05/25 17:34 30 ml ONCE ONE Administration Famotidine 20 mg 05/05/25 15:49 05/05/25 15:53 Famotidine/Pf 20 Mg/2 Ml Vial IVPUSH 05/05/25 15:50 20 mg ONCE ONE Administration Lidocaine HCl 15 ml 05/05/25 17:33 05/05/25 17:41 Lidocaine Hcl Viscous 2 % 15 Ml Solution MUCOUS MEM 05/05/25 17:34 15 ml ONCE ONE Administration Ondansetron HCl 4 mg 05/05/25 13:47 05/05/25 14:57 Ondansetron Hcl 4 Mg/2 Ml Vial IVPUSH 05/05/25 13:48 4 mg ONCE ONE Administration Medical Decision Making Medical Decision Making [facility] Narrative: 74 yo female with PMH of CHF, cirrhosis, venous insufficiency, renal colic, constipation, UTI, RA, DM, HTN, COPD on 2L NC, DVT, ex lap in past with hx of cholecystectomy, ventral hernia, appendectomy, here with c/o bloating, abdominal pain, nausea and dysuria. At this time she does not have an acute abdomen - they do not want CT contrast. I am going to obtain labs, UA, CT scan for obstruction, renal colic, constipation. Patient is feels better. GI cocktail given. Patient is able to tolerate p.o. intake. Patient will be discharged with short course of omeprazole. She agrees and understands this plan all questions were addressed. Differential Diagnosis Differential Diagnoses: The differential diagnosis associated with the presentation includes urinary pathology, renal colic, obstruction, viral syndrome, dehydration, obstruction Admission/Observation Consideration of admission/observation: Escalation of care including admission/observation considered if she passes PO would DC home on PPI/pepcid Lab Data [facility] Lab Attestation statement: I reviewed the patient's lab results. 05/05/25 12:52 05/05/25 12:52 Labs: Lab Results 05/05/25 05/05/25 Range/Units 12:52 14:31 WBC 10.7 (4.8-10.8) X10*3/uL RBC 4.58 (4.20-5.50) X10*6/uL Hgb 15.4 (12.0-16.0) g/dl Hct 45.4 (37.0-47.0) % MCV 99.1 H (80.0-98.0) fL MCH 33.6 H (27.0-33.0) pg MCHC 33.9 (31.0-35.0) g/dl RDW 13.7 (11.0-16.0) % Plt Count 134 L (160-400) X10*3/uL MPV 9.4 (9.4-12.3) fL Immature Gran % (Auto) 0.4 (0.0-0.4) % Neut % (Auto) 76.1 H (45-73) % Lymph % (Auto) 13.2 L (20-40) % [place] % (Auto) 8.3 (2-11) % Eos % (Auto) 1.3 (0-4) % Baso % (Auto) 0.7 (0-2) % Lymph # (Auto) 1.4 (1.2-4.9) X10*3/uL [place] # (Auto) 0.9 (0.1-1.2) X10*3/uL Eos # (Auto) 0.1 (0.0-0.4) X10*3/uL Baso # (Auto) 0.1 (0.0-0.2) X10*3/uL Abs Immat Gran (auto) 0.04 H (0.00-0.03) X10*3/uL Absolute Neuts (auto) 8.2 (2.0-8.3) x10*3/uL Absolute Nucleated RBC 0.000 (0.0-0.012) X10*3/uL Nucleated RBC % (auto) 0.0 (0.0-0.2) /100WBC Sodium 140 (135-145) mmol/L Potassium 4.2 (3.3-5.1) mmol/L Chloride 107 (96-108) mmol/L Carbon Dioxide 27 (22-29) mmol/L Anion Gap 10 L (12-20) BUN 16 (9-16) mg/dL Creatinine 0.99 (0.5-1.4) mg/dL Estim Creat Clear Calc 55.4 Estimated GFR 55 Random Glucose 130 H (60-115) mg/dL Calcium 8.6 (8.4-10.2) mg/dL Magnesium 1.9 (1.6-2.6) mg/dL Total Bilirubin 1.8 H (0.0-1.0) mg/dL AST 37 H (5-31) U/L ALT 14 (0-31) U/L Alkaline Phosphatase 77 (39-117) U/L Troponin I High Sens 5.8 (<3.5-17.0) ng/L Total Protein 7.6 (6.5-8.0) g/dL Albumin 3.5 (3.5-5.0) g/dL Lipase 76 (8-78) U/L Urine Color DARK YELLOW Urine Appearance Clear Urine pH 6.5 (5.0-9.0) Ur Specific [place] 1.020 (1.005-1.025) Urine Protein 30 (1+) H (Neg-Trace) mg/dL Urine Glucose (UA) Negative (Negative) mg/dL Urine Ketones Negative (Negative) mg/dL Urine Blood Negative (Negative) Urine Nitrite Negative (Negative) Ur Leukocyte Esterase Trace H (Negative) Urine RBC 0-2 (0-2) /HPF Urine WBC 6-10 H (0-5) /HPF Ur Squamous Epith Cells 3-5 (0-2) /HPF Urine Bacteria None Seen (None Seen) Hyaline Casts 0-2 (0-2) /LPF COVID-19 (FELY) Negative (Negative) COVID-19 Clin Com See Note Influenza Type A (PRITESH) Negative (Negative) Influenza Type B (PRITESH) Negative (Negative) Influenza A & B Note See Note Independent Interpretation I performed an independent interpretation of an: EKG and CT Scan (duodenitis) Interpretation: Rate: 88 Rhythm: NSR [place]: normal Normal P waves. Normal FRANSISCO. Normal QRS complex. ST T wave : normal no SARBJIT qTC: 445 prior studies: no acute ischemia The study has been interpreted contemporaneously by me. . Radiology Impression Discussion of test interpretation with radiology: I have reviewed the radiologist's reading. Independent Historian Clinical information obtained from an independent historian. History obtained from or confirmed by: Other (daughter) External Record Review External record reviewed: Outpatient record Discharge Plan Discharge Clinical Impression: Nausea, Duodenitis Patient Disposition: Home, Self-Care Instructions: Acute Nausea and Vomiting (ED), Duodenitis (ED) Additional Instructions: your labs area reassuring and at baseline. there is no UTI but we did send off a culture if positive we will call you at home return for worsening pain, unable to eat or drink, black or bloody stools or any other concerns CT/CT abdomen pelvis wo IV con IMPRESSION: There appears to be mild thickening of the duodenum at the junction of the descending part and the horizontal fourth segment with adjacent mild fat stranding. This could be related to peptic ulcer disease or pancreatitis. Correlate with symptoms and laboratory analysis. 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 Severe left hip osteoarthritis has progressed since the prior. Moderate to severe degenerative disc disease and facet osteoarthritis is minimally progressed since the prior. Multiple ventral hernias and right paraumbilical hernia are similar to the prior. Right renal thinning with dystrophic calcification and probable multiple small stones. Prescriptions: New omeprazole 20 mg capsule,delayed release(DR/EC) 20 mg PO DAILY 14 Days Qty: 14 0RF No Action (DME) blood-glucose meter [OneTouch Verio Flex meter] Misc See Rx Instructions .ROUTE .COMPLEX Qty: 1 0RF Dose Instruction: USE METER TO TEST AT LEAST 4 TIMES DAILY Rx Instructions: USE METER TO TEST AT LEAST 4 TIMES DAILY (DME) pen needle, diabetic [BD Theodora 2nd Gen Pen Needle] 32 gauge x 5/32 needle See Rx Instructions .ROUTE .COMPLEX Qty: 100 6RF Dose Instruction: INJECT INSULIN UP TO 4 TIMES A DAY. Rx Instructions: INJECT INSULIN UP TO 4 TIMES A DAY. paroxetine HCl 40 mg tablet 40 mg PO QAM Qty: 90 1RF lisinopril 5 mg tablet 5 mg PO DAILY Qty: 90 1RF (DME) OneTouch Verio test strips Strip See Rx Instructions .ROUTE .COMPLEX Qty: 100 4RF Dose Instruction: TESTS AT LEAST 4 TIMES DAILY Rx Instructions: TESTS AT LEAST 3 TIMES DAILY furosemide 20 mg tablet 20 mg PO ONCE PRN (Reason: edema) Qty: 30 0RF Rx Instructions: only take if at home that day (DME) Dexcom G7 Sensor Device See Rx Instructions .ROUTE .MEDSUPPLY Qty: 3 5RF Rx Instructions: Use daily As directed to monitor glucose. change q 10 days minocycline 100 mg capsule 100 mg PO BID Qty: 180 1RF Ozempic 2 mg/dose (8 mg/3 mL) pen injector 2 mg subcut QWEEK Qty: 3 3RF anastrozole 1 mg tablet 1 mg PO DAILY montelukast 10 mg tablet 10 mg PO DAILY Trelegy Ellipta 100-62.5-25 mcg blister with device 1 ea inhalation QAM (DME) lancets 33 gauge misc See Rx Instructions .ROUTE .MEDSUPPLY Qty: 100 Rx Instructions: As directed albuterol sulfate 90 mcg/actuation HFA aerosol inhaler 0 mcg inhalation albuterol sulfate 2.5 mg /3 mL (0.083 %) solution for nebulization inhalation cetirizine [All Day Allergy (cetirizine)] 10 mg tablet 10 mg PO DAILY PRN pantoprazole 40 mg tablet,delayed release (DR/EC) 40 mg PO DAILY ipratropium-albuterol 0.5 mg-3 mg(2.5 mg base)/3 mL solution for nebulization inhalation fluticasone propionate 50 mcg/actuation spray,suspension intranasal mupirocin 2 % ointment 1 appl topical TID insulin lispro [Humalog KwikPen Insulin] 100 unit/mL insulin pen 10 unit subcut TID PRN Gemtesa 75 mg tablet 75 mg PO DAILY nystatin-triamcinolone 100,000-0.1 unit/gram-% ointment 1 appl topical DAILY 7 Days Qty: 60 0RF oxycodone 5 mg tablet 5 mg PO BID PRN (Reason: pain, moderate) Qty: 20 0RF Print Language: Luxembourgish
[2025-05-05 12:33] VITALS: BP 156/72; PULSE 87; RESP 20; TEMP 36.8; O2SAT 99; BMI 39.7
--- NOTE | 2025-05-05 12:35 | ECG_ITS ---
Test Reason : epigastric pain Blood Pressure : */* mmHG Vent. Rate : 88 BPM Atrial Rate : 88 BPM P-R Int : 128 ms QRS Dur : 78 ms QT Int : 368 ms P-R-T Axes : 41 16 26 degrees QTcB Int : 445 ms Normal sinus rhythm Normal ECG No previous ECGs available Referred By: Yoko Jordan Electronically Signed By: JUSTYN COLEMAN
[2025-05-05 12:57] LABS: MANUAL DIFF FLAG NO
[2025-05-05 12:59] LABS: Hematocrit 45.4 % (37.0-47.0); Hemoglobin 15.4 g/dl (12.0-16.0); Imm Gran Abs Auto 0.04 X10*3/uL (0.00-0.03); Imm Gran Pct Auto 0.4 % (0.0-0.4); Lymphocytes Absolute Auto 1.4 X10*3/uL (1.2-4.9); Mean Corpuscular HGB Conc 33.9 g/dl (31.0-35.0); Mean Corpuscular Hemoglobin 33.6 pg (27.0-33.0); Mean Corpuscular Volume 99.1 fL (80.0-98.0); NRBC Abs Auto 0.000 X10*3/uL (0.0-0.012); NRBC Pct Auto 0.0 /100WBC (0.0-0.2); Platelet Count 134 X10*3/uL (160-400); Red Blood Count 4.58 X10*6/uL (4.20-5.50); White Blood Count 10.7 X10*3/uL (4.8-10.8)
[2025-05-05 13:13] LABS: Alanine Aminotransferase 14 U/L (0-31); Albumin Level 3.5 g/dL (3.5-5.0); Alkaline Phosphatase 77 U/L (39-117); Anion Gap 10 (12-20); Aspartate Amino Transferase 37 U/L (5-31); Blood Urea Nitrogen 16 mg/dL (9-16); Calcium 8.6 mg/dL (8.4-10.2); Carbon Dioxide 27 mmol/L (22-29); Chloride 107 mmol/L (96-108); Creatinine Clr Calc Pharmacy 55.4; Estimated Glomerular Filt Rate 55; Magnesium 1.9 mg/dL (1.6-2.6); Potassium 4.2 mmol/L (3.3-5.1); Sodium 140 mmol/L (135-145); Total Protein 7.6 g/dL (6.5-8.0)
[2025-05-05 13:17] LABS: COVID-19 Test Negative (Negative); IDNOW Serial# 55D5AD1C; IDNOW Serial# 58CA691E; Influenza B2 Negative (Negative)
[2025-05-05 13:20] LABS: Troponin-I High Sensitivity 5.8 ng/L (<3.5-17.0)
[2025-05-05 14:19] VITALS: BP 179/73; PULSE 90; RESP 16; TEMP 36.3; O2SAT 100
--- NOTE | 2025-05-05 14:34 | PC.NURSE ---
Pt up to commode independently, UA collected and sent to lab. x1 attempt by this RN for PIV placement and x1 attempt by ALVIN Law. Unsuccessful. Plan to have another nurse attempt via US
[2025-05-05 15:54] LABS: Appearance Urine Clear; Glucose Urine UA Negative (Negative); PH 6.5 (5.0-9.0); Specific Gravity - Urine 1.020 (1.005-1.025)
[2025-05-05 15:55] LABS: UMIC TRIGGER UACC YES
[2025-05-05 15:56] LABS: UACC Culture Trigger YES
--- NOTE | 2025-05-05 16:01 | PC.NURSE ---
COVID/Flu swabs still pending in chart at this time, t/w called lab, spoke to Cheryl, will input into system shortly.
[2025-05-05 16:20] VITALS: BP 166/74; PULSE 90; RESP 18; O2SAT 100
[2025-05-05 16:28] LABS: Lipase 76 U/L (8-78)
--- OUTSIDE RECORDS SUMMARY | 2025-05-05 16:51 | XMS_ITS | Encounter Summary ---
Author Organization [facility] [place], Address [address] [place] [address] Phone Care Team Providers Care Sorority Supervisor Name Role Phone Florentino Boyle MD Primary Care Provider +1- [phone] Encounter Details Date Type Department Care Team (Late st Contact Info) Description 10/30/2023 Documentation Only [facility] [place], [address] [place] [address] Sherin Rosales [address] [place] [address] Social History Tobacco Use Types [...] on filedocumented in this encounter Care Teams Sorority Supervisor Relationship Specialty Start Date End Date Florentino Boyle MD [facility] [place] [address] PCP - General Internal Medicine 09/13/22 documented as of this encounter
--- OUTSIDE RECORDS SUMMARY | 2025-05-05 16:51 | XMS_ITS | Encounter Summary ---
Author Organization [facility] [place], Address [address] [place] [address] Phone Care Team Providers Care Ethylene Compressor Operator Name Role Phone Florentino Boyle MD Primary Care Provider +1- [phone] Encounter Details Date Type Department Care Team (Late st Contact Info) Description 11/28/2023 Documentation Only [facility] [place], [address] [place] [address] Sherin Rosales [address] [place] [address] Social History Tobacco Use Types [...] on filedocumented in this encounter Care Teams Ethylene Compressor Operator Relationship Specialty Start Date End Date Florentino Boyle [place] [address] PCP - General Internal Medicine 09/13/22 documented as of this encounter
--- OUTSIDE RECORDS SUMMARY | 2025-05-05 16:51 | XMS_ITS | Encounter Summary ---
Author Organization [facility] [place], Address [address] [place] [address] Phone Care Team Providers Care Director Of Food And Nutrition Name Role Phone Florentino Boyle MD Primary Care Provider +1- [phone] Encounter Details Date Type Department Care Team (Late st Contact Info) Description 09/13/2022 Documentation Only [facility] [place], [address] [place] [address] Florentino Boyle MD [address] [place] [address] Social History Tobacco Use Types Packs/Day Years [...] on filedocumented in this encounter Care Teams Director Of Food And Nutrition Relationship Specialty Start Date End Date Florentino Boyle MD [facility] [place] [address] PCP - General Internal Medicine 09/13/22 documented as of this encounter
--- OUTSIDE RECORDS SUMMARY | 2025-05-05 16:51 | XMS_ITS | Encounter Summary ---
Author Organization [facility] [place], Address [address] [place] [address] Phone Care Team Providers Care Product Development Name Role Phone Florentino Boyle MD Primary Care Provider +1- [phone] Encounter Details Date Type Department Care Team (Late st Contact Info) Description 11/28/2024 Documentation Only [facility] [place], [address] [place] [address] Sherin Rosales [address] [place] [address] Social History Tobacco Use Types [...] on filedocumented in this encounter Care Teams Product Development Relationship Specialty Start Date End Date Florentino Boyle MD [facility] [place] [address] PCP - General Internal Medicine 09/13/22 documented as of this encounter
--- OUTSIDE RECORDS SUMMARY | 2025-05-05 16:51 | XMS_ITS | Encounter Summary ---
Author Organization [facility] [place], Address [address] [place] [address] Phone Care Team Providers Care Agribusiness Internship Name Role Phone Florentino Boyle MD Primary Care Provider +1- [phone] Encounter Details Date Type Department Care Team (Late st Contact Info) Description 11/11/2022 Documentation Only [facility] [place], [address] [place] [address] [place], [place] [address] [place] [address] Social History Tobacco Use Types [...] on filedocumented in this encounter Care Teams Agribusiness Internship Relationship Specialty Start Date End Date Florentino Boyle MD [facility] [place] [address] PCP - General Internal Medicine 09/13/22 documented as of this encounter
--- OUTSIDE RECORDS SUMMARY | 2025-05-05 16:51 | XMS_ITS | Encounter Summary ---
Author Organization [facility] Address [address] [place] [address] Care Team Providers Care Api Architect Name Role Phone Naima Boyle MD Primary Care Provider Encounter Details Date Type Department Care Team (Late st Contact Info) Description 01/22/2025 Lab Requisition [facility] - Main Lab [address] [facility] [place] [address] Kierra [place] MD [address] [place] [address] Hypokalemia Social History Tobacco Use Types Packs/Day [...] LAB CHEMISTRY METHOD 01/22/2025 9:41 AM EDT [facility] Potassium 3.6 3.5 - 5.5 mmol/L LAB CHEMISTRY METHOD 01/22/2025 9:41 AM EDT [facility] Chloride 101 96 - 110 mmol/L LAB CHEMISTRY METHOD 01/22/2025 9:41 AM [facility] CO2 31 21 - 32 mmol/L LAB CHEMISTRY METHOD 01/22/2025 9:41 AM [facility] Anion Gap 8 3 - 11 LAB CHEMISTRY METHOD 01/22/2025 9:41 AM [facility] Glucose 86 70 - 100 mg/dL LAB CHEMISTRY METHOD 01/22/2025 9:41 AM [facility] BUN 26(H) 5 - 25 mg/dL LAB CHEMISTRY METHOD 01/22/2025 9:41 AM [facility] Creatinine 1.53(H) 0.50 - 1.10 mg/dL LAB CHEMISTRY METHOD 01/22/2025 9:41 AM [facility] eGFR 36(L) >=60 mL/min/1. 73m2 LAB CHEMISTRY METHOD 01/22/2025 9:41 AM [facility] Comment:Calculation based on the Chronic Kidney Disease Epidemiology Collaboration (CKD-EPI) equation refit without adjustment for race. BUN/Creatinine Ratio 17.0 LAB CHEMISTRY METHOD 01/22/2025 9:41 AM [facility] Calcium 8.4(L) 8.5 - 10.5 mg/dL LAB CHEMISTRY METHOD 01/22/2025 9:41 AM [facility] Blood Venous blood specimen / Unknown Venipuncture / Unknown 01/22/2025 5:49 AM EDT 01/22/2025 8:44 AM EDT us Kierra [place] MD LAB BLOOD ORDERABLES Final Resul t [facility] [address] [place] [address], documented in this encounter Visit Diagnoses Diagnosis Hypokalemia Hypopotassemia documented in this encounter Care Teams Api Architect Relationship Specialty Start Date End Date Naima Boyle MD [address] [facility] [place] [address] PCP - General Internal Medicine 12/21/21 documented as of this encounter
--- OUTSIDE RECORDS SUMMARY | 2025-05-05 16:51 | XMS_ITS | Encounter Summary ---
Author Organization [facility] Address [address] [place] [address] Care Team Providers Care Open Tenter Operator Name Role Phone Naima Boyle MD Primary Care Provider [phone] Encounter Details Date Type Department Care Team (Late st Contact Info) Description 01/27/[address] [facility] - Main Lab [address] [facility] [place] [address] Kierra [place] MD [address] [place], [place] [id number] Chronic obstructive pulmonary disease, unspecified (CMS/HCC V24, [...] MD LAB BLOOD ORDERABLES Final Resul t [facility] [address] [place] [address], * (ABNORMAL) Complete blood count (01/27/2025 5:12 AM EDT) [facility] WBC 19.2(H) 4.8 - 10.8 K/mcL LAB HEMETOLOGY METHOD 01/27/2025 10:31 AM EDT [facility] RBC 3.90 3.80 - 4.80 M/mcL LAB HEMETOLOGY METHOD 01/27/2025 10:31 AM EDT [facility] Hemoglobin 13.2 11.5 - 16.0 g/dL LAB HEMETOLOGY METHOD 01/27/2025 10:31 AM EDT [facility] Hematocrit 41.2 35.0 - 47.0 % LAB HEMETOLOGY METHOD 01/27/2025 10:31 AM EDT [facility] MCV 105.1(H) 79.0 - 98.0 FL LAB HEMETOLOGY METHOD 01/27/2025 10:31 AM EDT [facility] MCH 33.7(H) 27.0 - 32.0 pcg LAB HEMETOLOGY METHOD 01/27/2025 10:31 AM EDT [facility] MCHC 32.0 32.0 - 37.0 g/dL LAB HEMETOLOGY METHOD 01/27/2025 10:31 AM EDT [facility] RDW 14.7 11.0 - 15.0 % LAB [facility]OLOG[facility] 116(L) 130 - 400 K/mcL LAB HEMETOLOGY METHOD 01/27/2025 10:31 AM EDT [facility] MPV 10.3 7.0 - 11.0 FL LAB HEMETOLOGY METHOD 01/27/2025 10:31 AM EDT [facility] NRBC 0.0 <1.0 % LAB HEMETOLOGY METHOD 01/27/2025 10:31 AM EDT [facility] NRBC Absolute 0.00 <0.10 K/mcL LAB HEMETOLOGY METHOD 01/27/2025 10:31 AM EDT [facility] Blood Venous blood specimen / Unknown Venipuncture / Unknown 01/27/2025 5:12 AM EDT 01/27/2025 10:03 AM EDT us Kierra [place] MD LAB BLOOD ORDERABLES Final Resul t [facility] [address] [place] [address], documented in this encounter Visit Diagnoses Diagnosis Chronic obstructive pulmonary disease, unspecified (CMS/HCC V24, CMS/HCC V28) Type 2 diabetes mellitus without complications (CMS/HCC V24, CMS/HCC V28) documented in this encounter Care Teams Open Tenter Operator Relationship Specialty Start Date End Date Naima Boyle MD [address] [place] [address] PCP - General Internal Medicine 12/21/21 documented as of this encounter
--- OUTSIDE RECORDS SUMMARY | 2025-05-05 16:51 | XMS_ITS | Encounter Summary ---
Author Organization [facility] [place], Address [address] [place] [address] Phone Care Team Providers Care Staff Nurse Midwife Name Role Phone Florentino Boyle MD Primary Care Provider +1- [phone] Encounter Details Date Type Department Care Team (Late st Contact Info) Description 10/30/2023 Documentation Only [facility], [address] [place] [address] Sherin Rosales [address] [place] [address] Social History Tobacco Use Types [...] on filedocumented in this encounter Care Teams Staff Nurse Midwife Relationship Specialty Start Date End Date Florentino Boyle [place] [facility] [address] PCP - General Internal Medicine 09/13/22 documented as of this encounter
--- OUTSIDE RECORDS SUMMARY | 2025-05-05 16:51 | XMS_ITS | Encounter Summary ---
Author Organization [facility] [place], Address [address] [place] [address] Phone Care Team Providers Care Welder Apprentice Arc Name Role Phone Florentino Boyle MD Primary Care Provider +1- [phone] Encounter Details Date Type Department Care Team (Late st Contact Info) Description 09/13/2022 Documentation Only [facility] [place], [address] [place] [address] Florentino Boyle MD [address] [place] [address] Social History Tobacco Use Types Packs/Day Years [...] on filedocumented in this encounter Care Teams Welder Apprentice Arc Relationship Specialty Start Date End Date Florentino Boyle MD [facility] [place] [address] PCP - General Internal Medicine 09/13/22 documented as of this encounter
--- OUTSIDE RECORDS SUMMARY | 2025-05-05 16:51 | XMS_ITS | Encounter Summary ---
Author Organization [facility] [place], Address [address] [place] [address] Phone Care Team Providers Care Sorting Livestock Worker Name Role Phone Florentino Boyle MD Primary Care Provider +1- [phone] Encounter Details Date Type Department Care Team (Late st Contact Info) Description 09/02/2024 Documentation Only [facility] [place], [address] [place] [address] Sherin Rosales [address] [place] [address] Social History Tobacco Use Types [...] on filedocumented in this encounter Care Teams Sorting Livestock Worker Relationship Specialty Start Date End Date Florentino Boyle MD [facility] [place] [address] PCP - General Internal Medicine 09/13/22 documented as of this encounter
--- OUTSIDE RECORDS SUMMARY | 2025-05-05 16:51 | XMS_ITS | Encounter Summary ---
Author Organization [facility] [place], Address [address] [place] [address] Phone Care Team Providers Care Vegetable Vendor Name Role Phone Florentino Boyle MD Primary Care Provider +1- [phone] Encounter Details Date Type Department Care Team (Late st Contact Info) Description 11/28/2024 Documentation Only [facility], [address] [place] [address] Sherin Rosales [address] [place] [address] Social History Tobacco Use Types [...] on filedocumented in this encounter Care Teams Vegetable Vendor Relationship Specialty Start Date End Date Florentino Boyle MD [facility] [place] [address] PCP - General Internal Medicine 09/13/22 documented as of this encounter
--- OUTSIDE RECORDS SUMMARY | 2025-05-05 16:51 | XMS_ITS | Encounter Summary ---
Author Organization [facility] [place], Address [address] [place] [address] Phone Care Team Providers Care Travel Ticketing Reviewer Name Role Phone Florentino Boyle MD Primary Care Provider +1- [phone] Encounter Details Date Type Department Care Team (Late st Contact Info) Description 10/30/2023 Documentation Only [facility] [place], [address] [place] [address] Sherin Rosales [address] [place] [address] Social History Tobacco Use Types [...] on filedocumented in this encounter Care Teams Travel Ticketing Reviewer Relationship Specialty Start Date End Date Florentino Boyle MD [facility] [place] [address] PCP - General Internal Medicine 09/13/22 documented as of this encounter
--- OUTSIDE RECORDS SUMMARY | 2025-05-05 16:51 | XMS_ITS | Encounter Summary ---
Author Organization [facility] [place], Address [address] [place] [address] Phone Care Team Providers Care Neighborhood Coordinator Name Role Phone Florentino Boyle MD Primary Care Provider +1- [phone] Encounter Details Date Type Department Care Team (Late st Contact Info) Description 09/02/2024 Documentation Only [facility], [address] [place] [address] Sherin Rosales [address] [place] [address] Social History Tobacco Use Types [...] on filedocumented in this encounter Care Teams Neighborhood Coordinator Relationship Specialty Start Date End Date Florentino Boyle MD [facility] [place] [address] PCP - General Internal Medicine 09/13/22 documented as of this encounter
--- OUTSIDE RECORDS SUMMARY | 2025-05-05 16:51 | XMS_ITS | Encounter Summary ---
Author Organization [facility] [place], Address [address] [place] [address] Phone Care Team Providers Care Monitoring Engineer Name Role Phone Florentino Boyle MD Primary Care Provider +1- [phone] Encounter Details Date Type Department Care Team (Late st Contact Info) Description 11/11/2022 Documentation Only [facility] [place], [address] [place] [address] [place], [place] [address] [place] [address] Social History Tobacco Use Types [...] on filedocumented in this encounter Care Teams Monitoring Engineer Relationship Specialty Start Date End Date Florentino Boyle MD [facility] [place] [address] PCP - General Internal Medicine 09/13/22 documented as of this encounter
--- OUTSIDE RECORDS SUMMARY | 2025-05-05 16:51 | XMS_ITS | Clinical Summary ---
Author Organization [facility], Address [address] [place] [address] Phone Care Team Providers Care Director Of Pupil Personnel Program Name Role Phone Florentino Boyle MD Primary Care Provider +1- [phone] Allergies Active Allergy Reactions Criticality Noted Date [...] age to complete this topic Insurance Aetna [facility] Adv PPO ([id number]) [employer] Medicare Care Teams Director Of Pupil Personnel Program Relationship Specialty Start Date End Date Florentino Boyle MD [address] [place] [address] PCP - General Internal Medicine 09/13/22
--- OUTSIDE RECORDS SUMMARY | 2025-05-05 16:51 | XMS_ITS | Encounter Summary ---
Author Organization [facility] [place], Address [address] [place] [address] Phone Care Team Providers Care Cover Stripper Name Role Phone Florentino Boyel MD Primary Care Provider +1- [phone] Encounter Details Date Type Department Care Team (Late st Contact Info) Description 11/11/2022 Documentation Only [facility], [address] [place] [address] [place], [place] [address] [place] [address] Social History Tobacco Use Types [...] on filedocumented in this encounter Care Teams Cover Stripper Relationship Specialty Start Date End Date Florenitno Boyle [place] [address] PCP - General Internal Medicine 09/13/22 documented as of this encounter
--- OUTSIDE RECORDS SUMMARY | 2025-05-05 16:51 | XMS_ITS | Encounter Summary ---
Author Organization [facility] Address [address] [place] [address] Care Team Providers Care Air Surveillance Operator Name Role Phone Naima Boyle MD Primary Care Provider Encounter Details Date Type Department Care Team (Late st Contact Info) Description 01/30/[address] [facility] - Main Lab [address] [facility] [address] Keirra [place] MD [address] [place], [place] [id number] Type 2 diabetes mellitus without complications (CMS/HCC [...] unspecified documented in this encounter Care Teams Air Surveillance Operator Relationship Specialty Start Date End Date Naima Boyle MD [address] [place] [address] PCP - General Internal Medicine 12/21/21 documented as of this encounter
--- OUTSIDE RECORDS SUMMARY | 2025-05-05 16:51 | XMS_ITS | Encounter Summary ---
Author Organization [facility] [place], Address [address] [place] [address] Phone Care Team Providers Care Turf Manager Name Role Phone Florentino Boyle MD Primary Care Provider +1- [phone] Encounter Details Date Type Department Care Team (Late st Contact Info) Description 10/30/2023 Documentation Only [facility] [place], [address] [place] [address] Sherin Rosales [address] [place] [address] Social History Tobacco Use Types [...] on filedocumented in this encounter Care Teams Turf Manager Relationship Specialty Start Date End Date Florentino Boyle MD [facility] [place] [address] PCP - General Internal Medicine 09/13/22 documented as of this encounter
--- OUTSIDE RECORDS SUMMARY | 2025-05-05 16:51 | XMS_ITS | Encounter Summary ---
Author Organization [facility] [place], Address [address] [place] [address] Phone Care Team Providers Care Astrochemist Name Role Phone Florentino Boyle MD Primary Care Provider +1- [phone] Encounter Details Date Type Department Care Team (Late st Contact Info) Description 10/30/2023 Documentation Only [facility] [place], [address] [place] [address] Sherin Rosales [address] [place] [address] Social History Tobacco Use Types [...] on filedocumented in this encounter Care Teams Astrochemist Relationship Specialty Start Date End Date Florentino Boyle MD [facility] [place] [address] PCP - General Internal Medicine 09/13/22 documented as of this encounter
--- OUTSIDE RECORDS SUMMARY | 2025-05-05 16:51 | XMS_ITS | Encounter Summary ---
Author Organization [facility] [place], Address [address] [place] [address] Phone Care Team Providers Care International Trade Analyst Name Role Phone Florentino Boyle MD Primary Care Provider +1- [phone] Encounter Details Date Type Department Care Team (Late st Contact Info) Description 10/30/2023 Documentation Only [facility] [place], [address] [place] [address] Sherin Rosales [address] [place] [address] Social History Tobacco Use Types [...] on filedocumented in this encounter Care Teams International Trade Analyst Relationship Specialty Start Date End Date Florentino Boyle MD [facility] [place] [address] PCP - General Internal Medicine 09/13/22 documented as of this encounter
--- OUTSIDE RECORDS SUMMARY | 2025-05-05 16:51 | XMS_ITS | Encounter Summary ---
Author Organization [facility] [place], Address [address] [place] [address] Phone Care Team Providers Care Design Quality Engineer Name Role Phone Florentino Boyle MD Primary Care Provider +1- [phone] Encounter Details Date Type Department Care Team (Late st Contact Info) Description 02/20/2024 Documentation Only [facility] [place], [address] [place] [address] Sherin Rosales [address] [place] [address] Social History Tobacco Use Types [...] on filedocumented in this encounter Care Teams Design Quality Engineer Relationship Specialty Start Date End Date Florentino Boyle MD [facility] [place] [address] PCP - General Internal Medicine 09/13/22 documented as of this encounter
--- OUTSIDE RECORDS SUMMARY | 2025-05-05 16:51 | XMS_ITS | Encounter Summary ---
Author Organization [facility] [place], Address [address] [place] [address] Phone Care Team Providers Care E Commerce Merchant Name Role Phone Florentino Boyle MD Primary Care Provider +1- [phone] Encounter Details Date Type Department Care Team (Late st Contact Info) Description 10/30/2023 Documentation Only [facility] [place], [address] [place] [address] Sherin Rosales [address] [place] [address] Social History Tobacco Use Types [...] on filedocumented in this encounter Care Teams E Commerce Merchant Relationship Specialty Start Date End Date Florentino Boyle MD [place] [address] PCP - General Internal Medicine 09/13/22 documented as of this encounter
--- OUTSIDE RECORDS SUMMARY | 2025-05-05 16:51 | XMS_ITS | Encounter Summary ---
Author Organization [facility], Address [address] [place] [address] Phone Care Team Providers Care Medical Support Assistant Name Role Phone Florentino Boyle MD Primary Care Provider +1- [phone] Encounter Details Date Type Department Care Team (Late st Contact Info) Description 11/28/2024 Documentation Only [facility], [address] [place] [address] Sherin Rosales [address] [place] [address] Social History Tobacco Use Types [...] on filedocumented in this encounter Care Teams Medical Support Assistant Relationship Specialty Start Date End Date Florentino Boyle MD [facility] [place] [address] PCP - General Internal Medicine 09/13/22 documented as of this encounter
--- OUTSIDE RECORDS SUMMARY | 2025-05-05 16:51 | XMS_ITS | Encounter Summary ---
Author Organization [facility], Address [address] [place] [address] Phone Care Team Providers Care Satellite Project Site Monitor Name Role Phone Florentino Boyle MD Primary Care Provider +1- [phone] Encounter Details Date Type Department Care Team (Late st Contact Info) Description 09/02/2024 Documentation Only [facility], [address] [place] [address] Sherin Rosales [address] [place] [address] Social History Tobacco Use Types [...] on filedocumented in this encounter Care Teams Satellite Project Site Monitor Relationship Specialty Start Date End Date Florentino Boyle MD [facility] [place] [address] PCP - General Internal Medicine 09/13/22 documented as of this encounter
--- OUTSIDE RECORDS SUMMARY | 2025-05-05 16:51 | XMS_ITS | Clinical Summary ---
Author Organization [address] Address [address] [place] [address] Phone Care Team Providers Care Irb Compliance Coordinator Name Role Phone Naima Boyle MD Primary Care Provider +1- [phone] Surgical History Surgery Date Site/Laterality Comments OTHER [...] uncontrolled COPD (chronic obstructive pu lmonary disease) ([facility] V24, [facility] V28) DX:COPD (chronic o bstructive pulmonary disease) ([facility]) Sleep apnea DX:Sleep apnea Anxiety and depression DX:Anxiet y and depression Rheumatoid arthritis ([facility]/ C V24, [facility] V28) DX:Rheumatoid arthritis ([facility] ) Edema DX:Edema Rosacea DX:Rosacea Social History [...] AM EDT Chronic obstructive pulmonary disease, unspecified ([facility] V24, [facility] V28) Type 2 diabetes mellitus without complications ([facility] V24, [facility] V28) HEMOGLOBIN A1C Routine 01/15/2025 6:58 AM EDT Fatigue fracture of vertebra, thoracic region, initial encounter for fracture Type 2 diabetes mellitus without complications ([facility] V24, [facility] V28) Obstructive sleep apnea (adult) (pediatric) Vitamin B deficiency, unspecified Vitamin D deficiency, unspecified BONE DENSITY STUDY Routine 11/14/2020 10 :36 AM EDT intermediate card tender (current) use of aromatase inhibitors from Last 3 Months or Most Recently Relevant to Health Maintenance Results * (ABNORMAL) Basic metabolic panel (01/27/2025 5:12 AM EDT) Sodium 139 133 - 145 mmol/L LAB CHEMISTRY METHOD 01/27/2025 11:48 AM T [facility] Potassium 4.0 3.5 - 5.5 mmol/L LAB CHEMISTRY METHOD 01/27/2025 11:48 AM T [facility] Comment:Hemolysis present Chloride 102 96 - 110 mmol/L LAB CHEMISTRY METHOD 01/27/2025 11:[address] [facility] CO2 24 21 - 32 mmol/L LAB CHEMISTRY METHOD 01/27/2025 11:[address] [facility] Anion Gap 13(H) 3 - 11 LAB CHEMISTRY METHOD 01/27/2025 11:[address] [facility] Glucose 52(L) 70 - 100 mg/dL LAB CHEMISTRY METHOD 01/27/2025 11:[address] [facility] BUN 30(H) 5 - 25 mg/dL LAB CHEMISTRY METHOD 01/27/2025 11:[address] [facility] Creatinine 1.68(H) 0.50 - 1.10 mg/dL LAB CHEMISTRY METHOD 01/27/2025 11:[address] [facility] eGFR 32(L) >=60 mL/min/1. 73m2 LAB CHEMISTRY METHOD 01/27/2025 11:[address] [facility] Comment:Calculation based on the Chronic Kidney Disease Epidemiology Collaboration (CKD-EPI) equation refit without adjustment for race. BUN/Creatinine Ratio 17.9 LAB CHEMISTRY METHOD 01/27/2025 11:[address] [facility] Calcium 8.7 8.5 - 10.5 mg/dL LAB CHEMISTRY METHOD 01/27/2025 11:[address] [facility] Blood Venous blood specimen / Unknown Venipuncture / Unknown 01/27/2025 5:12 AM EDT 01/27/2025 10:03 AM EDT us Kierra Russell MD LAB BLOOD ORDERABLES Final Resul t [facility] [address] [place] [address], * Hemoglobin A1c (01/15/2025 6:58 AM EDT) Hemoglobin A1C 5.1 <6.5 % LAB CHEMISTRY METHOD 01/15/2025 10:52 AM EDT [facility] Mean Bld Glu Estim. 100 mg/dL LAB CHEMISTRY METHOD 01/15/2025 10:52 AM EDT [facility] Blood Venous blood specimen / Unknown Venipuncture / Unknown 01/15/2025 6:58 AM EDT 01/15/2025 9:00 AM EDT Kierra Russell MD LAB BLOOD ORDERABLES Final Resul t [facility] [address] [place] [address], * BONE DENSITY STUDY (11/14/2020 10:36 AM EDT) Anatomical Region Laterality Modality Bone Densitometr y 11/04/2020 5:06 PM EDT Narrative 11/15/2020 2:35 PM EDT EXAM PERFORMED: Bone density study DEXA EXAM HISTORY: Postmenopausal screening. TECHNIQUE: [employer] system utilized for DEXA images Comparison: August [...] on 11/15/2020 2:35 PM. Workstation Name - [employer] Procedure Note Edwin Worrell MD - 07/03/2022 EXAM PERFORMED: Bone density study DEXA EXAM HISTORY: Postmenopausal screening. TECHNIQUE: [employer] system utilized for DEXA images Comparison: August [...] TRINI Brenda Lyons MD IMG DXA PROCEDURES Final Result from Last 3 Months or Most Recently Relevant to Health Maintenance Insurance [employer] Care Teams Irb Compliance Coordinator Relationship Specialty Start Date End Date Naima Boyle MD [address] [place] [address] PCP - General Internal Medicine 12/21/21
--- OUTSIDE RECORDS SUMMARY | 2025-05-05 16:51 | XMS_ITS | Encounter Summary ---
Author Organization [facility], Address [address] [place] [address] Phone Care Team Providers Care Digital Photo Printer Name Role Phone Florentino Boyle MD Primary Care Provider +1- [phone] Encounter Details Date Type Department Care Team (Late st Contact Info) Description 11/28/2024 Documentation Only [facility], [address] [place] [address] Sherin Rosales [address] [place] [address] Social History Tobacco Use Types [...] on filedocumented in this encounter Care Teams Digital Photo Printer Relationship Specialty Start Date End Date Florentino Boyle MD [facility] [place] [address] PCP - General Internal Medicine 09/13/22 documented as of this encounter
--- OUTSIDE RECORDS SUMMARY | 2025-05-05 16:51 | XMS_ITS | Encounter Summary ---
Author Organization [facility], Address [address] [place] [address] Phone Care Team Providers Care Professor Of Psychiatry Name Role Phone Florentino Boyle MD Primary Care Provider +1- [phone] Encounter Details Date Type Department Care Team (Late st Contact Info) Description 11/28/2024 Documentation Only [facility], [address] [place] [address] Sherin Rosales [address] [place] [address] Social History Tobacco Use Types [...] on filedocumented in this encounter Care Teams Professor Of Psychiatry Relationship Specialty Start Date End Date Florentino Boyle MD [facility] [place] [address] PCP - General Internal Medicine 09/13/22 documented as of this encounter
--- OUTSIDE RECORDS SUMMARY | 2025-05-05 16:51 | XMS_ITS | Encounter Summary ---
Author Organization [facility], Address [address] [place] [address] Phone Care Team Providers Care Cigar Head Pegger Name Role Phone Florentino Boyle MD Primary Care Provider +1- [phone] Encounter Details Date Type Department Care Team (Late st Contact Info) Description 02/20/2024 Documentation Only [facility], [address] [place] [address] Sherin Rosales [address] [place] [address] Social History Tobacco Use [...] on filedocumented in this encounter Care Teams Cigar Head Pegger Relationship Specialty Start Date End Date Florentino Boyle MD [facility] [place] [address] PCP - General Internal Medicine 09/13/22 documented as of this encounter
--- OUTSIDE RECORDS SUMMARY | 2025-05-05 16:51 | XMS_ITS | Encounter Summary ---
Author Organization [facility] Address [address] [place] [address] Care Team Providers Care Automotive Customer Experience Advisor Name Role Phone Naima Boyle MD Primary Care Provider Encounter Details Date Type Department Care Team (Late st Contact Info) Description 01/23/2025 Lab Requisition [facility] - Main Lab [address] [facility] [place] [address] Kierra Russell MD [address] [place], [place] [id number] Type 2 diabetes mellitus without complications (CMS/HCC [...] mmol/L LAB CHEMISTRY METHOD 01/24/2025 10:00 AM [facility] Potassium 3.6 3.5 - 5.5 mmol/L LAB CHEMISTRY METHOD 01/24/2025 10:00 AM [facility] Chloride 101 96 - 110 mmol/L LAB CHEMISTRY METHOD 01/24/2025 10:00 AM [facility] CO2 29 21 - 32 mmol/L LAB CHEMISTRY METHOD 01/24/2025 10:00 AM [facility] Anion Gap 8 3 - 11 LAB CHEMISTRY METHOD 01/24/2025 10:00 AM [facility] Glucose 73 70 - 100 mg/dL LAB CHEMISTRY METHOD 01/24/2025 10:00 AM [facility] BUN 31(H) 5 - 25 mg/dL LAB CHEMISTRY METHOD 01/24/2025 10:00 AM [facility] Creatinine 1.34(H) 0.50 - 1.10 mg/dL LAB CHEMISTRY METHOD 01/24/2025 10:00 AM [facility] eGFR 42(L) >=60 mL/min/1. 73m2 LAB CHEMISTRY METHOD 01/24/2025 10:00 AM [facility] Comment:Calculation based on the Chronic Kidney Disease Epidemiology Collaboration (CKD-EPI) equation refit without adjustment for race. BUN/Creatinine Ratio 23.1 LAB CHEMISTRY METHOD 01/24/2025 10:00 AM [facility] Calcium 8.7 8.5 - 10.5 mg/dL LAB CHEMISTRY METHOD 01/24/2025 10:00 AM EDT [facility] Blood Venous blood specimen / Unknown Venipuncture / Unknown 01/24/2025 5:28 AM EDT 01/24/2025 8:29 AM EDT us Kierra Russell MD LAB BLOOD ORDERABLES Final Resul t [facility] [address] [place] [address], * (ABNORMAL) Complete blood count (01/24/2025 5:28 AM EDT) WBC 12.0(H) 4.8 - 10.8 K/mcL LAB HEMETOLOGY METHOD 01/24/2025 10:18 AM [facility] RBC 4.10 3.80 - 4.80 M/mcL LAB HEMETOLOGY METHOD 01/24/2025 10:18 AM T [facility] Hemoglobin 13.6 11.5 - 16.0 g/dL LAB HEMETOLOGY METHOD 01/24/2025 10:18 AM T [facility] Hematocrit 42.2 35.0 - 47.0 % LAB HEMETOLOGY METHOD 01/24/2025 10:18 AM [facility] MCV 103.9(H) 79.0 - 98.0 FL LAB HEMETOLOGY METHOD 01/24/2025 10:18 AM EDT [facility] MCH 33.5(H) 27.0 - 32.0 pcg LAB HEMETOLOGY METHOD 01/24/2025 10:18 AM EDT [facility] MCHC 32.2 32.0 - 37.0 g/dL LAB HEMETOLOGY METHOD 01/24/2025 10:18 AM [facility] RDW 14.3 11.0 - 15.0 % LAB HEMETOLOGY METHOD 01/24/2025 10:18 AM EDT [facility] Platelets 126(L) 130 - 400 K/mcL LAB HEMETOLOGY METHOD 01/24/2025 10:18 AM EDT [facility] MPV 10.2 7.0 - 11.0 FL LAB HEMETOLOGY METHOD 01/24/2025 10:18 AM EDT [facility] NRBC 0.0 <1.0 % LAB HEMETOLOGY METHOD 01/24/2025 10:18 AM EDT [facility] NRBC Absolute 0.00 <0.10 K/mcL LAB HEMETOLOGY METHOD 01/24/2025 10:18 AM EDT [facility] Blood Venous blood specimen / Unknown Venipuncture / Unknown 01/24/2025 5:28 AM EDT 01/24/2025 8:29 AM EDT us Kierra Russell MD LAB BLOOD ORDERABLES Final Resul t [facility] [address] [place] [address], documented in this encounter Visit Diagnoses Diagnosis Type 2 diabetes mellitus without complications (CMS/HCC V24, CMS/HCC V28) Fatigue fracture of vertebra, thoracic region, initial encounter for fracture Obstructive sleep apnea (adult) (pediatric) Vitamin D deficiency, unspecified Vitamin B deficiency, unspecified documented in this encounter Care Teams Automotive Customer Experience Advisor Relationship Specialty Start Date End Date Naima Boyle MD [address] [place] [address] PCP - General Internal Medicine 12/21/21 documented as of this encounter
--- OUTSIDE RECORDS SUMMARY | 2025-05-05 16:51 | XMS_ITS | Encounter Summary ---
Author Organization [facility] Address [address] [place] [address] Care Team Providers Care Pharmacist Technician Name Role Phone Naima Boyle MD Primary Care Provider Encounter Details Date Type Department Care Team (Late st Contact Info) Description 01/16/2025 Lab Requisition [facility] - Main Lab [address] [facility] [place] [address] Kierra Russell MD [address] [place], [place] [id number] Type 2 diabetes mellitus without complications (CMS/HCC [...] mmol/L LAB CHEMISTRY METHOD 01/17/2025 11:[address] [facility] Potassium 3.1(L) 3.5 - 5.5 mmol/L LAB CHEMISTRY METHOD 01/17/2025 11:[address] [facility] Chloride 99 96 - 110 mmol/L LAB CHEMISTRY METHOD 01/17/2025 11:[address] [facility] CO2 32 21 - 32 mmol/L LAB CHEMISTRY METHOD 01/17/2025 11:[address] [facility] Anion Gap 9 3 - 11 LAB CHEMISTRY METHOD 01/17/2025 11:[address] [facility] Glucose 84 70 - 100 mg/dL LAB CHEMISTRY METHOD 01/17/2025 11:[address] [facility] BUN 26(H) 5 - 25 mg/dL LAB CHEMISTRY METHOD 01/17/2025 11:[address] [facility] Creatinine 1.38(H) 0.50 - 1.10 mg/dL LAB CHEMISTRY METHOD 01/17/2025 11:[address] [facility] eGFR 40(L) >=60 mL/min/1. 73m2 LAB CHEMISTRY METHOD 01/17/2025 11:[address] [facility] Comment:Calculation based on the Chronic Kidney Disease Epidemiology Collaboration (CKD-EPI) equation refit without adjustment for race. BUN/Creatinine Ratio 18.8 LAB CHEMISTRY METHOD 01/17/2025 11:[address] [facility] Calcium 8.3(L) 8.5 - 10.5 mg/dL LAB CHEMISTRY METHOD 01/17/2025 11:07 AM EDT [facility] Blood Venous blood specimen / Unknown Venipuncture / Unknown 01/17/2025 7:33 AM EDT 01/17/2025 10:26 AM EDT us Kierra Russell MD LAB BLOOD ORDERABLES Final Resul t [facility] [address] [place] [address], * (ABNORMAL) Complete blood count (01/17/2025 7:33 AM EDT) WBC 8.3 4.8 - 10.8 K/mcL LAB HEMETOLOGY METHOD 01/17/2025 10:35 AM EDT [facility] RBC 3.90 3.80 - 4.80 M/mcL LAB HEMETOLOGY METHOD 01/17/2025 10:35 AM EDT [facility] Hemoglobin 12.9 11.5 - 16.0 g/dL LAB HEMETOLOGY METHOD 01/17/2025 10:35 AM EDT [facility] Hematocrit 39.2 35.0 - 47.0 % LAB HEMETOLOGY METHOD 01/17/2025 10:35 AM EDT [facility] MCV 101.6(H) 79.0 - 98.0 FL LAB HEMETOLOGY METHOD 01/17/2025 10:35 AM EDT [facility] MCH 33.4(H) 27.0 - 32.0 pcg LAB HEMETOLOGY METHOD 01/17/2025 10:35 AM EDT [facility] MCHC 32.9 32.0 - 37.0 g/dL LAB HEMETOLOGY METHOD 01/17/2025 10:35 AM EDT [facility] RDW 14.0 11.0 - 15.0 % LAB HEMETOLOGY METHOD 01/17/2025 10:35 AM EDT [facility] Platelets 121(L) 130 - 400 K/mcL LAB HEMETOLOGY METHOD 01/17/2025 10:35 AM EDT [facility] MPV 10.4 7.0 - 11.0 FL LAB HEMETOLOGY METHOD 01/17/2025 10:35 AM EDT [facility] NRBC 0.0 <1.0 % LAB HEMETOLOGY METHOD 01/17/2025 10:35 AM EDT [facility] NRBC Absolute 0.00 <0.10 K/mcL LAB HEMETOLOGY METHOD 01/17/2025 10:35 AM EDT [facility] Blood Venous blood specimen / Unknown Venipuncture / Unknown 01/17/2025 7:33 AM EDT 01/17/2025 10:26 AM EDT us Kierra Russell MD LAB BLOOD ORDERABLES Final Resul t [facility] [address] [place] [address], documented in this encounter Visit Diagnoses Diagnosis Type 2 diabetes mellitus without complications (CMS/HCC V24, CMS/HCC V28) Fatigue fracture of vertebra, thoracic region, initial encounter for fracture Obstructive sleep apnea (adult) (pediatric) Vitamin B deficiency, unspecified Vitamin D deficiency, unspecified documented in this encounter Care Teams Pharmacist Technician Relationship Specialty Start Date End Date Naima Boyle MD [address] [facility] [place] [address] PCP - General Internal Medicine 12/21/21 documented as of this encounter
--- OUTSIDE RECORDS SUMMARY | 2025-05-05 16:51 | XMS_ITS | Encounter Summary ---
Author Organization [facility], Address [address] [place] [address] Phone Care Team Providers Care Shoe Repairer Name Role Phone Florentino Boyle MD Primary Care Provider +1- [phone] Encounter Details Date Type Department Care Team (Late st Contact Info) Description 09/02/2024 Documentation Only [facility], [address] [place] [address] Sherin Rosales [address] [place] [address] Social History Tobacco Use Types [...] on filedocumented in this encounter Care Teams Shoe Repairer Relationship Specialty Start Date End Date Florentino Boyle MD [facility] [place] [address] PCP - General Internal Medicine 09/13/22 documented as of this encounter
--- OUTSIDE RECORDS SUMMARY | 2025-05-05 16:51 | XMS_ITS | Encounter Summary ---
Author Organization [facility], Address [address] [place] [address] Phone Care Team Providers Care Floor Assembler Name Role Phone Florentino Boyle MD Primary Care Provider +1- [phone] Encounter Details Date Type Department Care Team (Late st Contact Info) Description 09/02/2024 Documentation Only [facility], [address] [address] Sherin Rosales [address] [place] [address] Social History Tobacco Use Types [...] filedocumented in this encounter Care Teams Floor Assembler Relationship Specialty Start Date End Date Florentino Boyle MD [facility] [place] [address] PCP - General Internal Medicine 09/13/22 documented as of this encounter
--- OUTSIDE RECORDS SUMMARY | 2025-05-05 16:51 | XMS_ITS | Encounter Summary ---
Author Organization [facility] Address [address] [place] [address] Care Team Providers Care Change Management Consultant Name Role Phone Naima Boyle MD Primary Care Provider Encounter Details Date Type Department Care Team (Late st Contact Info) Description 01/15/2025 Lab Requisition [facility] - Main Lab [address] [facility] [place] [address] Kierra Russell MD [address] [place], [place] [id number] Fatigue fracture of vertebra, thoracic region, initial [...] fracture Type 2 diabetes mellitus without complications ([facility] V24, [facility] V28) Obstructive sleep apnea (adult) (pediatric) Vitamin B deficiency, unspecified Vitamin D deficiency, unspecified HEMOGLOBIN A1C Routine 01/15/2025 6:58 AM EDT Fatigue fracture of vertebra, thoracic region, initial encounter for fracture Type 2 diabetes mellitus without complications ([facility] V24, [facility] V28) Obstructive sleep apnea (adult) (pediatric) Vitamin B deficiency, unspecified Vitamin D deficiency, unspecified FOLATE Routine 01/15/2025 6:58 AM EDT Fatigue fracture of vertebra, thoracic region, initial encounter for fracture Type 2 diabetes mellitus without complications ([facility] V24, [facility] V28) Obstructive sleep apnea (adult) (pediatric) Vitamin B deficiency, unspecified Vitamin D deficiency, unspecified VITAMIN B12 Routine 01/15/2025 6:58 AM EDT Fatigue fracture of vertebra, thoracic region, initial encounter for fracture Type 2 diabetes mellitus without complications ([facility] V24, [facility] V28) Obstructive sleep apnea (adult) (pediatric) Vitamin B deficiency, unspecified Vitamin D deficiency, unspecified COMPREHENSIVE METABOLIC PANEL Routine 01/15/2025 6:58 AM EDT Fatigue fracture of vertebra, thoracic region, initial encounter for fracture Type 2 diabetes mellitus without complications ([facility] V24, [facility] V28) Obstructive sleep apnea (adult) (pediatric) Vitamin B deficiency, unspecified Vitamin D deficiency, unspecified documented in this encounter Results * Hemoglobin A1c (01/15/2025 6:58 AM EDT) Hemoglobin A1C 5.1 <6.5 % LAB CHEMISTRY METHOD 01/15/2025 10:52 AM EDT [facility] Mean Bld Glu Estim. 100 mg/dL LAB CHEMISTRY METHOD 01/15/2025 10:52 AM T [facility] Blood Venous blood specimen / Unknown Venipuncture / Unknown 01/15/2025 6:58 AM EDT 01/15/2025 9:00 AM EDT us Kierra Russell MD LAB BLOOD ORDERABLES Final Resul t Performing Organization Address City/[facility] Co de Phone Number [facility] [address] [place] [address], [place] [phone] * (ABNORMAL) Folate (01/15/2025 6:58 AM EDT) Folate >20.0(H) 2.8 - 17.0 ng/ml LAB CHEMISTRY METHOD 01/15/2025 10:22 AM EDT [facility] Blood Venous blood specimen / Unknown Venipuncture / Unknown 01/15/2025 6:58 AM EDT 01/15/2025 9:00 AM EDT us Kierra Russell MD LAB BLOOD ORDERABLES Final Resul t Performing Organization Address [facility] de Phone Number [facility] [address] [place] [address], [place] [phone] * Vitamin D 25 hydroxy (01/15/2025 6:58 AM EDT) Pathologist [facility] Vit D, 25-Hydroxy 37.5 30.0 - 80.0 ng/mL LAB CHEMISTRY METHOD 01/15/2025 12:22 PM EDT [facility] Blood Venous blood specimen / Unknown Venipuncture / Unknown 01/15/2025 6:58 AM EDT 01/15/2025 9:00 AM EDT us Kierra Russell MD LAB BLOOD ORDERABLES Final Resul t Performing Organization Address [facility] Co de Phone Number [facility] [address] [place] [address], [place] [phone] * (ABNORMAL) Vitamin B12 (01/15/2025 6:58 AM EDT) [facility] Vitamin B-12 1,400(H) 250 - 900 pcg/mL LAB CHEMISTRY METHOD 01/15/2025 10:22 AM [facility] Blood Venous blood specimen / Unknown Venipuncture / Unknown 01/15/2025 6:58 AM EDT 01/15/2025 9:00 AM EDT us Kierra Russell MD LAB BLOOD ORDERABLES Final Resul t [facility] [address] [place] [address], * (ABNORMAL) Comprehensive metabolic panel (01/15/2025 6:58 AM EDT) [facility] Sodium 141 133 - 145 mmol/L LAB CHEMISTRY METHOD 01/15/2025 9:55 AM [facility] Potassium 3.5 3.5 - 5.5 mmol/L LAB CHEMISTRY METHOD 01/15/2025 9:55 AM [facility] Chloride 100 96 - 110 mmol/L LAB CHEMISTRY METHOD 01/15/2025 9:55 AM [facility] CO2 31 21 - 32 mmol/L LAB CHEMISTRY METHOD 01/15/2025 9:55 AM [facility] Anion Gap 10 3 - 11 LAB CHEMISTRY METHOD 01/15/2025 9:55 AM [facility] Glucose 105(H) 70 - 100 mg/dL LAB CHEMISTRY METHOD 01/15/2025 9:55 AM [facility] BUN 28(H) 5 - 25 mg/dL LAB CHEMISTRY METHOD 01/15/2025 9:55 AM [facility] Creatinine 1.40(H) 0.50 - 1.10 mg/dL LAB CHEMISTRY METHOD 01/15/2025 9:55 AM [facility] eGFR 40(L) >=60 mL/min/1. 73m2 LAB CHEMISTRY METHOD 01/15/2025 9:55 AM [facility] Comment:Calculation based on the Chronic Kidney Disease Epidemiology Collaboration (CKD-EPI) equation refit without adjustment for race. BUN/Creatinine Ratio 20.0 LAB CHEMISTRY METHOD 01/15/2025 9:55 AM [facility] Calcium 9.0 8.5 - 10.5 mg/dL LAB CHEMISTRY METHOD 01/15/2025 9:55 AM [facility] AST (SGOT) 26 10 - 42 unit/L LAB CHEMISTRY METHOD 01/15/2025 9:55 AM [facility] ALT (SGPT) 21 10 - 60 unit/L LAB CHEMISTRY METHOD 01/15/2025 9:55 AM [facility] Alkaline Phosphatase 82 42 - 121 unit/L LAB CHEMISTRY METHOD 01/15/2025 9:55 AM [facility] Total Protein 7.0 6.0 - 8.0 g/dL LAB CHEMISTRY METHOD 01/15/2025 9:55 AM [facility] Albumin 2.7(L) 3.2 - 5.0 g/dL LAB CHEMISTRY METHOD 01/15/2025 9:55 AM [facility] Total Bilirubin 1.5(H) 0.0 - 1.4 mg/dL LAB CHEMISTRY METHOD 01/15/2025 9:55 AM [facility] Blood Venous blood specimen / Unknown Venipuncture / Unknown 01/15/2025 6:58 AM EDT 01/15/2025 9:00 AM EDT us Kierra Russell MD LAB BLOOD ORDERABLES Final Resul t [facility] [address] [place] [address], * (ABNORMAL) Complete blood count (01/15/2025 6:58 AM EDT) [facility] WBC 8.7 4.8 - 10.8 K/mcL LAB HEMETOLOGY METHOD 01/15/2025 9:31 AM [facility] RBC 4.10 3.80 - 4.80 M/mcL LAB HEMETOLOGY METHOD 01/15/2025 9:31 AM [facility] Hemoglobin 13.6 11.5 - 16.0 g/dL LAB HEMETOLOGY METHOD 01/15/2025 9:31 AM [facility] Hematocrit 42.0 35.0 - 47.0 % LAB HEMETOLOGY METHOD 01/15/2025 9:31 AM [facility] MCV 101.9(H) 79.0 - 98.0 FL LAB HEMETOLOGY METHOD 01/15/2025 9:31 AM [facility] MCH 33.0(H) 27.0 - 32.0 pcg LAB HEMETOLOGY METHOD 01/15/2025 9:31 AM [facility] MCHC 32.4 32.0 - 37.0 g/dL LAB HEMETOLOGY METHOD 01/15/2025 9:31 AM [facility] RDW 14.3 11.0 - 15.0 % LAB HEMETOLOGY METHOD 01/15/2025 9:31 AM [facility] Platelets 121(L) 130 - 400 K/mcL LAB HEMETOLOGY METHOD 01/15/2025 9:31 AM [facility] MPV 10.4 7.0 - 11.0 FL LAB HEMETOLOGY METHOD 01/15/2025 9:31 AM [facility] NRBC 0.0 <1.0 % LAB HEMETOLOGY METHOD 01/15/2025 9:31 AM [facility] NRBC Absolute 0.00 <0.10 K/mcL LAB HEMETOLOGY METHOD 01/15/2025 9:31 AM EDT [facility] Blood Venous blood specimen / Unknown Venipuncture / Unknown 01/15/2025 6:58 AM EDT 01/15/2025 9:00 AM EDT us Kierra Russell MD LAB BLOOD ORDERABLES Final Resul t [facility] [address] [place] [address], documented in this encounter Visit Diagnoses Diagnosis Fatigue fracture of vertebra, thoracic region, initial encounter for fracture Type 2 diabetes mellitus without complications (CMS/HCC V24, CMS/HCC V28) Obstructive sleep apnea (adult) (pediatric) Vitamin B deficiency, unspecified Vitamin D deficiency, unspecified documented in this encounter Care Teams Change Management Consultant Relationship Specialty Start Date End Date Naima Boyle MD [address] [place] [address] PCP - General Internal Medicine 12/21/21 documented as of this encounter
--- OUTSIDE RECORDS SUMMARY | 2025-05-05 16:51 | XMS_ITS | Encounter Summary ---
Author Organization [facility] Address [address] [place] [address] Care Team Providers Care Assembly Detailer Name Role Phone Naima Boyle MD Primary Care Provider Encounter Details Date Type Department Care Team (Late st Contact Info) Description 01/20/2025 Lab Requisition [facility] - Main Lab [address] [facility] [place] [address] Kierra Russell MD [address] [place] [address] Hypokalemia Social History Tobacco Use Types Packs/Day [...] LAB CHEMISTRY METHOD 01/20/2025 5:06 PM EDT [facility] Potassium 3.0(L) 3.5 - 5.5 mmol/L LAB CHEMISTRY METHOD 01/20/2025 5:06 PM EDT [facility] Chloride 100 96 - 110 mmol/L LAB CHEMISTRY METHOD 01/20/2025 5:06 PM [facility] CO2 36(H) 21 - 32 mmol/L LAB CHEMISTRY METHOD 01/20/2025 5:06 PM [facility] Anion Gap 4 3 - 11 LAB CHEMISTRY METHOD 01/20/2025 5:06 PM [facility] Glucose 72 70 - 100 mg/dL LAB CHEMISTRY METHOD 01/20/2025 5:06 PM [facility] BUN 28(H) 5 - 25 mg/dL LAB CHEMISTRY METHOD 01/20/2025 5:06 PM [facility] Creatinine 1.41(H) 0.50 - 1.10 mg/dL LAB CHEMISTRY METHOD 01/20/2025 5:06 PM [facility] eGFR 39(L) >=60 mL/min/1. 73m2 LAB CHEMISTRY METHOD 01/20/2025 5:06 PM [facility] Comment:Calculation based on the Chronic Kidney Disease Epidemiology Collaboration (CKD-EPI) equation refit without adjustment for race. BUN/Creatinine Ratio 19.9 LAB CHEMISTRY METHOD 01/20/2025 5:06 PM [facility] Calcium 8.5 8.5 - 10.5 mg/dL LAB CHEMISTRY METHOD 01/20/2025 5:06 PM [facility] Blood Venous blood specimen / Unknown Venipuncture / Unknown 01/20/2025 5:12 AM EDT 01/20/2025 11:36 AM EDT us Kierra Russell MD LAB BLOOD ORDERABLES Final Resul t [facility] [address] [place] [address], documented in this encounter Visit Diagnoses Diagnosis Hypokalemia Hypopotassemia documented in this encounter Care Teams Assembly Detailer Relationship Specialty Start Date End Date Naima Boyle MD [address] [place] [address] PCP - General Internal Medicine 12/21/21 documented as of this encounter
[2025-05-05] MEDS: Magnesium Hydrox/Alum Hydrox 30 ML ORAL.SUSP PO (17:40)
[2025-05-05] MEDS: Lidocaine HCl Viscous 2 % 15 ML SOLUTION MUCOUS MEM (17:41)
[2025-05-05 18:10] VITALS: BP 152/70; PULSE 91; RESP 18; O2SAT 95
[2025-05-05 18:55] VITALS: BP 152/70; PULSE 91; RESP 18; TEMP 36.6; O2SAT 95
== END 2025-05-05 19:07 | disposition home or self-care (01) ==
PROVIDERS: Emergency Medicine; Physician Assistant Medical; Emergency Provider Student in an Organized Health Care Education/Training Program; PCP Internal Medicine
DX: K29.80 Duodenitis without bleeding (principal); J44.9 Chronic obstructive pulmonary disease, unspecified; R30.0 Dysuria; R11.2 Nausea with vomiting, unspecified; R10.13 Epigastric pain; I10 Essential (primary) hypertension; Z11.52 Encounter for screening for COVID-19; Z99.81 Dependence on supplemental oxygen; Z79.899 Other long term (current) drug therapy; Z87.891 Personal history of nicotine dependence
CPT/HCPCS: 74176; 80053; 81001; 81003; 83690; 83735; 84484; 85025; 87086; 87502; 87635; 93005; 93306; 96374; 96375; 99285; J1308; J2405; Q9957

== ENCOUNTER → 2025-05-05 12:35 | Outpatient (BNV) | payer MEDICARE, SELFPAY | PROVIDERS: Emergency Provider Student in an Organized Health Care Education/Training Program; PCP Internal Medicine; Visit Provider Internal Medicine | DX: R10.13 Epigastric pain (principal) | CPT/HCPCS: 93010 ==

== ENCOUNTER → 2025-05-05 13:47 | Outpatient (BNV) | payer MEDICARE, SELFPAY | PROVIDERS: Emergency Provider Student in an Organized Health Care Education/Training Program; PCP Internal Medicine; Visit Provider Radiology Diagnostic Radiology | DX: K74.69 Other cirrhosis of liver (principal); K42.9 Umbilical hernia without obstruction or gangrene; K43.9 Ventral hernia without obstruction or gangrene; M16.12 Unilateral primary osteoarthritis, left hip; R16.1 Splenomegaly, not elsewhere classified; M51.369 Other intervertebral disc degeneration, lumbar region without mention of lumbar back pain or lower extremity pain; M47.816 Spondylosis without myelopathy or radiculopathy, lumbar region; N28.89 Other specified disorders of kidney and ureter; K31.89 Other diseases of stomach and duodenum | CPT/HCPCS: 74176 ==